=== PATIENT | male | born 1950 | race Caucasian/White ===

== ENCOUNTER → 2016-10-11 | Outpatient (REF) | payer MEDICARE, OTHER ==
[~2016-10-11] MED LIST: ALLO100T OR; ALTA10CA OR; ASPI81TA45 OR; CETI10TA OR; INDO50CA2 OR; LITH300T2 OR; NEUR100C PO; PROPYLTHIOURACIL PO; SIMV40TA2 OR; TRIC145T19 OR; VICO5TAB PO
[2016-10-11 11:50] LABS: BASO % 0.4 % (0.0-1.0); EOS # 0.3 K/mm3 (0.0-0.50); EOS % 3.3 % (0.0-3.0); LARGE UNSTAINED CELL # 0.3 K/mm3 (0.0-0.4); LARGE UNSTAINED CELL % 3.2 % (0.0-4.0); LYMPH % 21.2 % (24.0-44.0); MEAN CORPUSCULAR HEMOGLOBIN 30.1 pg (27.0-33.0); MEAN CORPUSCULAR HGB CONC 32.4 g/dl (32.0-36.5); MEAN CORPUSCULAR VOLUME 92.6 fl (80.0-96.0); MONO # 0.8 K/mm3 (0.0-0.8); NEUTROPHILS % 63.9 % (36.0-66.0); PLATELET COUNT, AUTOMATED 169 k/mm3 (150-450); RED CELL DISTRIBUTION WIDTH 12.6 % (11.5-14.5); WHITE BLOOD COUNT 9.3 K/mm3 (4.0-10.0)
[2016-10-11 12:21] LABS: ALBUMIN 3.7 GM/DL (3.2-5.2); ALBUMIN/GLOBULIN RATIO 1.09 (1.00-1.93); BILIRUBIN,TOTAL 0.5 MG/DL (0.2-1.0); CALCIUM LEVEL 9.5 MG/DL (8.8-10.2); CREATININE FOR GFR 1.98 MG/DL (0.70-1.30); FREE T4 0.96 NG/DL (0.76-1.46); GLOMERULAR FILTRATION RATE 36.3 (>49); POTASSIUM SERUM 4.3 MEQ/L (3.5-5.1); TOTAL PROTEIN 7.1 GM/DL (6.4-8.2); URIC ACID 5.5 MG/DL (3.5-7.2)
[2016-10-11 15:13] LABS: LITHIUM LEVEL 0.58 MEQ/L (0.60-1.20)
== END ==
LOC: M SFHCPLAZ 08:01
PROVIDERS: ATTEND Family Medicine
DX: E05.90 Thyrotoxicosis, unspecified without thyrotoxic crisis or storm (principal); E78.5 Hyperlipidemia, unspecified; R73.01 Impaired fasting glucose; F31.9 Bipolar disorder, unspecified; M10.9 Gout, unspecified

== ENCOUNTER → 2017-02-06 | Outpatient (REF) | payer MEDICARE, OTHER ==
[2017-02-06 12:25] LABS: BASO # 0.1 K/mm3 (0.0-0.2); BASO % 0.7 % (0.0-1.0); EOS # 0.4 K/mm3 (0.0-0.50); EOS % 4.4 % (0.0-3.0); LARGE UNSTAINED CELL # 0.3 K/mm3 (0.0-0.4); LARGE UNSTAINED CELL % 3.2 % (0.0-4.0); LYMPH # 1.8 K/mm3 (1.5-4.5); LYMPH % 19.7 % (24.0-44.0); MEAN CORPUSCULAR HEMOGLOBIN 31.3 pg (27.0-33.0); MEAN CORPUSCULAR HGB CONC 33.5 g/dl (32.0-36.5); MEAN CORPUSCULAR VOLUME 93.4 fl (80.0-96.0); MONO # 0.8 K/mm3 (0.0-0.8); MONO % 8.4 % (0.0-5.0); NEUTROPHILS # 5.9 K/mm3 (1.8-7.7); NEUTROPHILS % 63.7 % (36.0-66.0); PLATELET COUNT, AUTOMATED 168 k/mm3 (150-450); RED CELL DISTRIBUTION WIDTH 12.9 % (11.5-14.5); WHITE BLOOD COUNT 9.3 K/mm3 (4.0-10.0)
[2017-02-06 13:07] LABS: ALBUMIN 3.5 GM/DL (3.2-5.2); ALBUMIN/GLOBULIN RATIO 1.06 (1.00-1.93); BILIRUBIN,TOTAL 0.5 MG/DL (0.2-1.0); CALCIUM LEVEL 9.3 MG/DL (8.8-10.2); CREATININE FOR GFR 1.72 MG/DL (0.70-1.30); FREE T4 0.91 NG/DL (0.76-1.46); GLOMERULAR FILTRATION RATE 42.7 (>49); PERCENT SATURATION 19.3 % (19.7-37.4); POTASSIUM SERUM 4.4 MEQ/L (3.5-5.1); TOTAL PROTEIN 6.8 GM/DL (6.4-8.2)
[2017-02-06 13:18] LABS: LITHIUM LEVEL 0.23 MEQ/L (0.60-1.20)
== END ==
LOC: M SFHCPLAZ 08:38
PROVIDERS: ATTEND Family Medicine
DX: N18.3 Chronic kidney disease, stage 3 (moderate) (principal); E05.90 Thyrotoxicosis, unspecified without thyrotoxic crisis or storm; R73.01 Impaired fasting glucose; F31.9 Bipolar disorder, unspecified; E55.9 Vitamin D deficiency, unspecified; M47.816 Spondylosis without myelopathy or radiculopathy, lumbar region; L21.9 Seborrheic dermatitis, unspecified; M10.9 Gout, unspecified; N40.1 Benign prostatic hyperplasia with lower urinary tract symptoms; I12.9 Hypertensive chronic kidney disease with stage 1 through stage 4 chronic kidney disease, or unspecified chronic kidney disease; E78.5 Hyperlipidemia, unspecified

== ENCOUNTER → 2017-10-14 | Outpatient (REF) | payer MEDICARE, OTHER ==
[2017-10-14 11:57] LABS: BASO # 0.1 10^3/uL (0.0-0.2); BASO % 0.6 % (0.0-1.0); EOS # 0.8 10^3/uL (0.0-0.50); EOS % 7.2 % (0.0-3.0); HEMATOCRIT 49.4 % (42.0-52.0); IMMATURE GRANULOCYTE % 0.3 % (0-0); LYMPH # 1.8 10^3/uL (1.5-4.5); LYMPH % 17.2 % (24.0-44.0); MEAN CORPUSCULAR HEMOGLOBIN 29.5 pg (27.0-33.0); MEAN CORPUSCULAR HGB CONC 32.4 g/dl (32.0-36.5); MONO # 1.7 10^3/uL (0.0-0.8); NEUTROPHILS # 6.2 10^3/uL (1.8-7.7); NEUTROPHILS % 58.7 % (36.0-66.0); PLATELET COUNT, AUTOMATED 191 10^3/uL (150-450); RED BLOOD COUNT 5.43 10^6/uL (4.30-6.10); RED CELL DISTRIBUTION WIDTH 13.2 % (11.5-14.5); WHITE BLOOD COUNT 10.5 10^3/uL (4.0-10.0)
[2017-10-14 12:14] LABS: ESTIMATED AVERAGE GLUCOSE 128 MG/DL (60-110); HEMOGLOBIN A1c 6.1 %
[2017-10-14 12:24] LABS: ALBUMIN 3.7 GM/DL (3.2-5.2); ALBUMIN/GLOBULIN RATIO 1.06 (1.00-1.93); ALKALINE PHOSPHATASE 89 U/L (45-117); ALT/SGPT 32 U/L (12-78); ANION GAP 8 MEQ/L (8-16); AST/SGOT 25 U/L (7-37); BILIRUBIN,TOTAL 0.7 MG/DL (0.2-1.0); BLOOD UREA NITROGEN 26 MG/DL (7-18); CALCIUM LEVEL 9.6 MG/DL (8.8-10.2); CARBON DIOXIDE LEVEL 28 MEQ/L (21-32); CHLORIDE LEVEL 104 MEQ/L (98-107); CREATININE FOR GFR 1.94 MG/DL (0.70-1.30); GLUCOSE, FASTING 116 MG/DL (70-100); PSA SCREENING 1.54 NG/ML (< 4.0); SODIUM LEVEL 140 MEQ/L (136-145); TOTAL PROTEIN 7.2 GM/DL (6.4-8.2)
[2017-10-14 12:28] LABS: APPEARANCE, URINE CLEAR (CLEAR); BACTERIA, URINE AUTO NEGATIVE (NEGATIVE); BILIRUBIN, URINE AUTO NEGATIVE (NEGATIVE); BLOOD, URINE BLOOD NEGATIVE (NEGATIVE); COLOR, URINE STRAW (YELLOW); GLUCOSE, URINE (UA) AUTO NEGATIVE (NEGATIVE); KETONE, URINE AUTO NEGATIVE (NEGATIVE); LEUKOCYTE ESTERASE, URINE AUTO NEGATIVE (NEGATIVE); NITRITE, URINE AUTO NEGATIVE (NEGATIVE); PROTEIN, URINE AUTO 1+ mg/dL (NEGATIVE); RBC, URINE AUTO 0 /HPF (0-3); SPECIFIC GRAVITY URINE AUTO 1.006 (1.002-1.035); SQUAMOUS EPITHELIAL CELL UR AU 0 /HPF (0-6); UROBILINOGEN, URINE AUTO 0.2 mg/dL (0.0-2.0); WBC, URINE AUTO 1 /HPF (0-3)
[2017-10-14 12:38] LABS: PTH INTACT 49.5 PG/ML (14.0-72.0); TOTAL 25(OH) VITAMIN D 66.5 NG/ML (30.0-100.0)
== END ==
LOC: M SFHCPLAZ 08:53
DX: N18.3 Chronic kidney disease, stage 3 (moderate) (principal); E55.9 Vitamin D deficiency, unspecified; R73.01 Impaired fasting glucose; Z12.5 Encounter for screening for malignant neoplasm of prostate
CPT/HCPCS: 80053

== ENCOUNTER → 2018-02-10 | Outpatient (REF) | payer MEDICARE, OTHER ==
[2018-02-10 13:18] LABS: BASO # 0.1 10^3/uL (0.0-0.2); BASO % 0.5 % (0.0-1.0); EOS # 0.3 10^3/uL (0.0-0.50); EOS % 3.6 % (0.0-3.0); HEMATOCRIT 49.3 % (42.0-52.0); HEMOGLOBIN 15.8 g/dl (13.5-17.5); IMMATURE GRANULOCYTE % 0.4 % (0-3.0); LYMPH # 1.9 10^3/uL (1.5-4.5); MEAN CORPUSCULAR HEMOGLOBIN 29.5 pg (27.0-33.0); MONO # 0.9 10^3/uL (0.0-0.8); MONO % 10.1 % (0.0-5.0); NEUTROPHILS # 6.1 10^3/uL (1.8-7.7); NEUTROPHILS % 65.4 % (36.0-66.0); PLATELET COUNT, AUTOMATED 200 10^3/uL (150-450); RED BLOOD COUNT 5.36 10^6/uL (4.30-6.10); RED CELL DISTRIBUTION WIDTH 13.4 % (11.5-14.5); WHITE BLOOD COUNT 9.4 10^3/uL (4.0-10.0)
[2018-02-10 14:13] LABS: ALBUMIN 3.7 GM/DL (3.2-5.2); ALBUMIN/GLOBULIN RATIO 1.09 (1.00-1.93); ALKALINE PHOSPHATASE 89 U/L (45-117); ALT/SGPT 49 U/L (12-78); ANION GAP 11 MEQ/L (8-16); AST/SGOT 24 U/L (7-37); BILIRUBIN,TOTAL 0.7 MG/DL (0.2-1.0); BLOOD UREA NITROGEN 23 MG/DL (7-18); CALCIUM LEVEL 9.6 MG/DL (8.8-10.2); CARBON DIOXIDE LEVEL 24 MEQ/L (21-32); CHLORIDE LEVEL 109 MEQ/L (98-107); CREATININE FOR GFR 1.75 MG/DL (0.70-1.30); FREE T4 0.84 NG/DL (0.76-1.46); GLOMERULAR FILTRATION RATE 41.7 (>49); GLUCOSE, FASTING 113 MG/DL (70-100); MAGNESIUM LEVEL 2.4 MG/DL (1.8-2.4); POTASSIUM SERUM 4.3 MEQ/L (3.5-5.1); PSA SCREENING 1.27 NG/ML (< 4.0); SODIUM LEVEL 144 MEQ/L (136-145); TOTAL PROTEIN 7.1 GM/DL (6.4-8.2); URIC ACID 4.9 MG/DL (3.5-7.2)
[2018-02-10 14:14] LABS: LITHIUM LEVEL 0.55 MEQ/L (0.60-1.20)
[2018-02-10 14:33] LABS: ESTIMATED AVERAGE GLUCOSE 128 MG/DL (60-110); HEMOGLOBIN A1c 6.1 %
[2018-02-11 14:17] LABS: INSULIN LEVEL 42.2 uIU/mL (2.6-24.9)
== END ==
LOC: M SFHCPLAZ 09:20
DX: E05.90 Thyrotoxicosis, unspecified without thyrotoxic crisis or storm (principal); N18.3 Chronic kidney disease, stage 3 (moderate); R73.01 Impaired fasting glucose; M10.9 Gout, unspecified; F31.9 Bipolar disorder, unspecified; N40.1 Benign prostatic hyperplasia with lower urinary tract symptoms; Z12.5 Encounter for screening for malignant neoplasm of prostate
CPT/HCPCS: 83525

== ENCOUNTER → 2018-02-27 | Outpatient (REF) | payer MEDICARE, OTHER | LOC: M SFHCPLAZ 15:44 | DX: D23.5 Other benign neoplasm of skin of trunk (principal); D22.5 Melanocytic nevi of trunk; L85.8 Other specified epidermal thickening | CPT/HCPCS: 88305 ==

== ENCOUNTER → 2018-04-17 | Outpatient (REF) | payer MEDICARE, OTHER | LOC: M LAB REF 14:53 | DX: D22.5 Melanocytic nevi of trunk (principal) | CPT/HCPCS: 88305 ==

== ENCOUNTER → 2018-06-24 | Outpatient (REF) | payer MEDICARE, OTHER ==
[2018-06-24 12:22] LABS: BASO # 0.1 10^3/uL (0.0-0.2); BASO % 0.8 % (0.0-1.0); EOS # 0.4 10^3/uL (0.0-0.50); EOS % 4.9 % (0.0-3.0); HEMATOCRIT 51.3 % (42.0-52.0); HEMOGLOBIN 16.5 g/dl (13.5-17.5); IMMATURE GRANULOCYTE % 0.6 % (0-3.0); LYMPH # 1.8 10^3/uL (1.5-4.5); LYMPH % 20.7 % (24.0-44.0); MEAN CORPUSCULAR HEMOGLOBIN 30.2 pg (27.0-33.0); MEAN CORPUSCULAR HGB CONC 32.2 g/dl (32.0-36.5); MEAN CORPUSCULAR VOLUME 93.8 fl (80.0-96.0); MONO # 0.8 10^3/uL (0.0-0.8); MONO % 9.2 % (0.0-5.0); NEUTROPHILS # 5.7 10^3/uL (1.8-7.7); NEUTROPHILS % 63.8 % (36.0-66.0); PLATELET COUNT, AUTOMATED 197 10^3/uL (150-450); RED BLOOD COUNT 5.47 10^6/uL (4.30-6.10); RED CELL DISTRIBUTION WIDTH 13.3 % (11.5-14.5); WHITE BLOOD COUNT 8.9 10^3/uL (4.0-10.0)
[2018-06-24 12:59] LABS: AMORPHOUS SEDIMENT SMALL (NEGATIVE); APPEARANCE, URINE CLOUDY (CLEAR); BACTERIA, URINE AUTO NEGATIVE (NEGATIVE); BILIRUBIN, URINE AUTO NEGATIVE (NEGATIVE); BLOOD, URINE BLOOD NEGATIVE (NEGATIVE); COLOR, URINE YELLOW (YELLOW); GLUCOSE, URINE (UA) AUTO NEGATIVE (NEGATIVE); KETONE, URINE AUTO NEGATIVE (NEGATIVE); LEUKOCYTE ESTERASE, URINE AUTO NEGATIVE (NEGATIVE); MUCUS, URINE SMALL (NEGATIVE); NITRITE, URINE AUTO NEGATIVE (NEGATIVE); PROTEIN, URINE AUTO 1+ mg/dL (NEGATIVE); RBC, URINE AUTO 0 /HPF (0-3); SPECIFIC GRAVITY URINE AUTO 1.008 (1.002-1.035); SQUAMOUS EPITHELIAL CELL UR AU 0 /HPF (0-6); UROBILINOGEN, URINE AUTO 0.2 mg/dL (0.0-2.0); WBC, URINE AUTO 1 /HPF (0-3)
[2018-06-24 13:04] LABS: ALBUMIN 3.6 GM/DL (3.2-5.2); ALBUMIN/GLOBULIN RATIO 1.13 (1.00-1.93); ALKALINE PHOSPHATASE 72 U/L (45-117); ALT/SGPT 36 U/L (12-78); ANION GAP 12 MEQ/L (8-16); AST/SGOT 20 U/L (7-37); BILIRUBIN,TOTAL 0.5 MG/DL (0.2-1.0); BLOOD UREA NITROGEN 26 MG/DL (7-18); C REACTIVE PROTEIN QUANTITATIV 0.53 MG/DL (0.00-0.30); CALCIUM LEVEL 9.8 MG/DL (8.8-10.2); CARBON DIOXIDE LEVEL 22 MEQ/L (21-32); CHLORIDE LEVEL 108 MEQ/L (98-107); CHOLESTEROL LEVEL 240 MG/DL (<200); CHOLESTEROL RISK RATIO 5.581 (<5); CPK CREATINE PHOSPHOKINASE 153 U/L (39-308); CREATININE FOR GFR 1.76 MG/DL (0.70-1.30); GLOMERULAR FILTRATION RATE 41.3 (>49); GLUCOSE, FASTING 111 MG/DL (70-100); HDL CHOLESTEROL 43 MG/DL (>40); LITHIUM LEVEL 0.78 MEQ/L (0.60-1.20); NON-HDL-C 197 MG/DL; POTASSIUM SERUM 4.5 MEQ/L (3.5-5.1); PTH INTACT 40.2 PG/ML (18.5-88.0); SODIUM LEVEL 142 MEQ/L (136-145); TOTAL 25(OH) VITAMIN D 36.8 NG/ML (30.0-100.0); TOTAL PROTEIN 6.8 GM/DL (6.4-8.2); TRIGLYCERIDES LEVEL 423 MG/DL (<150)
[2018-06-24 13:15] LABS: ESTIMATED AVERAGE GLUCOSE 117 MG/DL (60-110); HEMOGLOBIN A1c 5.7 %
[2018-06-24 13:47] LABS: CREATININE, URINE 57.5 MG/DL
[2018-06-24 13:53] LABS: MAU/CREAT RATIO 507.8 MCG/MG (0.0-30.0)
== END ==
LOC: M SFHCPLAZ 09:49
DX: E05.90 Thyrotoxicosis, unspecified without thyrotoxic crisis or storm (principal); E78.5 Hyperlipidemia, unspecified; N18.3 Chronic kidney disease, stage 3 (moderate); R73.01 Impaired fasting glucose; F31.9 Bipolar disorder, unspecified; E55.9 Vitamin D deficiency, unspecified
CPT/HCPCS: 82550

== ENCOUNTER 2018-07-30 02:44 | Emergency (ER) | payer MEDICARE, BC, OTHER ==
[2018-07-30 03:11] LABS: KETONE, URINE AUTO RFX NEGATIVE (NEGATIVE); LEUKOCYTE ESTERASE UR AUTO RFX 3+ (NEGATIVE); MUCUS, URINE RFX SMALL (NEGATIVE); NITRITE, URINE AUTO RFX NEGATIVE (NEGATIVE); RBC, URINE AUTO RFX TNTC /HPF (0-3); SQUAM EPITHELIAL CELL UR AURFX 0 /HPF (0-6); WBC, URINE AUTO RFX TNTC /HPF (0-3)
[2018-07-30] MEDS: PHENAZOPYRIDINE 100 MG TAB PO (07:25)
[2018-07-30] MEDS: CIPROFLOXACIN 500 MG TAB PO (07:25)
== END 2018-07-30 07:39 | disposition home or self-care (01) ==
LOC: M ED 02:44
DX: N30.90 Cystitis, unspecified without hematuria (principal); I10 Essential (primary) hypertension; E07.9 Disorder of thyroid, unspecified; E78.9 Disorder of lipoprotein metabolism, unspecified; K21.9 Gastro-esophageal reflux disease without esophagitis; M10.9 Gout, unspecified; Z79.899 Other long term (current) drug therapy; Z79.82 Long term (current) use of aspirin
CPT/HCPCS: 81001

== ENCOUNTER → 2018-08-28 | Outpatient (CLI) | payer MEDICARE, BC, OTHER ==
[~2018-08-28] MED LIST changes: +CIPR-249 PO; +INDO50CA; +LITH1TAB; +METF-723; +PROP50TA3; +PYRI1TAB5 PO; +RAMI1CAP26; +ROSU40TA3; +SILD100T; +TRAM50TA2; +ULOR80TA; +VITA50005
--- NOTE | 2018-08-28 16:55 | REP ---
Clinical: Right groin pain. Technique: Real time prado scale ultrasound examination using linear high frequency transducer. Findings: Ultrasound examination of the right groin and left groin for comparison demonstrates no obvious inguinal hernia, fluid collection or mass lesion. A few scattered symmetric normal appearing lymph nodes are identified. Impression: Normal examination. No hernia identified. Electronically Signed by Keith Casiano MD 08/28/2018 04:47 P
== END ==
LOC: M RAD 11:23
PROVIDERS: ATTEND Nurse Practitioner Family
DX: R10.31 Right lower quadrant pain (principal)

== ENCOUNTER → 2018-09-15 | Outpatient (CLI) | payer MEDICARE, BC, OTHER ==
--- NOTE | 2018-09-15 13:13 | REP ---
LUMBAR SPINE, SEVEN VIEWS: HISTORY: Degenerative disc disease. COMPARISON: 06/22/2013. The patient is status-post L3-5 anterior and L4 to S1 posterior spinal fusion. Metal hardware and bone graft material are present. There is no acute fracture. The lumbar intervertebral discs are decreased in height consistent with disc degeneration. Anterior osteophytes are present throughout the lumbar spine. There is sclerosis of the endplates of the L3 and 4 vertebral bodies. The visualized lumbar facet joints are normal in appearance. There are 3 mm of grade 1 spondylolisthesis of L4 on 5. IMPRESSION:The patient is status-post L3-5 anterior and L4-S1 posterior spinal fusion. Electronically Signed by Harlan Rice MD 09/15/2018 01:14 P
--- NOTE | 2018-09-15 13:23 | REP ---
AP AND LATERAL RIGHT HIP, TWO VIEWS: HISTORY: Right groin pain. There is no acute fracture or dislocation. There is minimal narrowing of the hip joint space. IMPRESSION:Degenerative change as described above. Electronically Signed by Harlan Rice MD 09/15/2018 01:45 P
== END ==
LOC: M RAD 11:12
PROVIDERS: ATTEND Nurse Practitioner Family
DX: M43.16 Spondylolisthesis, lumbar region (principal); M25.78 Osteophyte, vertebrae; M47.816 Spondylosis without myelopathy or radiculopathy, lumbar region; R10.31 Right lower quadrant pain; Z96.698 Presence of other orthopedic joint implants; Z98.1 Arthrodesis status

== ENCOUNTER → 2018-12-30 | Outpatient (REF) | payer MEDICARE, OTHER ==
[2018-12-30 12:50] LABS: BASO # 0.1 10^3/uL (0.0-0.2); BASO % 0.7 % (0.0-1.0); EOS # 0.4 10^3/uL (0.0-0.50); EOS % 4.5 % (0.0-3.0); HEMATOCRIT 49.6 % (42.0-52.0); HEMOGLOBIN 15.9 g/dl (13.5-17.5); LYMPH # 1.9 10^3/uL (1.5-4.5); LYMPH % 21.6 % (24.0-44.0); MEAN CORPUSCULAR HEMOGLOBIN 30.5 pg (27.0-33.0); MEAN CORPUSCULAR HGB CONC 32.1 g/dl (32.0-36.5); MEAN CORPUSCULAR VOLUME 95.2 fl (80.0-96.0); MONO # 0.8 10^3/uL (0.0-0.8); MONO % 9.4 % (0.0-5.0); NEUTROPHILS # 5.6 10^3/uL (1.8-7.7); NEUTROPHILS % 63.5 % (36.0-66.0); PLATELET COUNT, AUTOMATED 192 10^3/uL (150-450); RED BLOOD COUNT 5.21 10^6/uL (4.30-6.10); WHITE BLOOD COUNT 8.9 10^3/uL (4.0-10.0)
[2018-12-30 12:56] LABS: CALCIUM LEVEL 9.5 MG/DL (8.8-10.2); CREATININE FOR GFR 1.76 MG/DL (0.70-1.30); GLOMERULAR FILTRATION RATE 41.3 (>49); POTASSIUM SERUM 4.3 MEQ/L (3.5-5.1)
[2018-12-30 12:57] LABS: ALBUMIN 3.7 GM/DL (3.2-5.2); BILIRUBIN,TOTAL 0.7 MG/DL (0.2-1.0); CHOLESTEROL RISK RATIO 2.804 (<5); FREE T4 0.82 NG/DL (0.76-1.46); LITHIUM LEVEL 0.55 MEQ/L (0.60-1.20); THYROID STIMULATING HORMONE 2.28 uIU/ML (0.358-3.740); TOTAL PROTEIN 6.8 GM/DL (6.4-8.2)
[2018-12-30 12:58] LABS: PTH INTACT 52.9 PG/ML (18.5-88.0)
[2018-12-30 16:17] LABS: HEMOGLOBIN A1c 5.9 %
== END ==
LOC: M SFHCPLAZ 09:50
PROVIDERS: ATTEND Family Medicine
DX: E05.90 Thyrotoxicosis, unspecified without thyrotoxic crisis or storm (principal); N18.3 Chronic kidney disease, stage 3 (moderate); R73.01 Impaired fasting glucose; F31.9 Bipolar disorder, unspecified; E78.5 Hyperlipidemia, unspecified

== ENCOUNTER → 2019-01-05 | Outpatient (REF) | payer MEDICARE, OTHER ==
[~2019-01-05] MED LIST changes: +ASPI81TA85 PO; +CYAN1000VL IM; -INDO50CA; +INDO50CA11; +VITATAB64 PO
[2019-01-05 15:51] LABS: APPEARANCE, URINE CLEAR (CLEAR); BACTERIA, URINE AUTO NEGATIVE (NEGATIVE); BILIRUBIN, URINE AUTO NEGATIVE (NEGATIVE); BLOOD, URINE BLOOD NEGATIVE (NEGATIVE); COLOR, URINE STRAW (YELLOW); GLUCOSE, URINE (UA) AUTO NEGATIVE (NEGATIVE); KETONE, URINE AUTO NEGATIVE (NEGATIVE); LEUKOCYTE ESTERASE, URINE AUTO NEGATIVE (NEGATIVE); NITRITE, URINE AUTO NEGATIVE (NEGATIVE); PROTEIN, URINE AUTO 1+ mg/dL (NEGATIVE); RBC, URINE AUTO 2 /HPF (0-3); SPECIFIC GRAVITY URINE AUTO 1.008 (1.002-1.035); SQUAMOUS EPITHELIAL CELL UR AU 0 /HPF (0-6); UROBILINOGEN, URINE AUTO 0.2 mg/dL (0.0-2.0); WBC, URINE AUTO 0 /HPF (0-3)
== END ==
LOC: M SFHCPLAZ 13:58
PROVIDERS: ATTEND Family Medicine
DX: N39.0 Urinary tract infection, site not specified (principal)

== ENCOUNTER 2019-01-18 07:56 | Day surgery (SDC) | payer MEDICARE, BC, OTHER ==
[~2019-01-18] VITALS: Ht 182.9 cm; Wt 131.9 kg
[~2019-01-18 07:56] MED LIST changes: +NS 1,000 ML IV ONE; +PROPOFOL 200 MG/20 ML VIAL As Ordered ONE
--- NOTE | 2019-01-18 09:25 | ROOR ---
Patient Name: Keith Herrera Procedure Date: 01/18/2019 8:56 AM Date of : 1950 Age: 68 Room: [facility] Gender: Male Note Status: Finalized Procedure: Total Colonoscopy to Cecum + Cold Snare Polypectomy + Hemoclips Indications: High risk colon cancer surveillance: Personal history of colonic polyps, Last colonoscopy: 2013 Providers: Alistair Sanchez MD Referring MD: Carlos Enrique Marinelli MD Requesting Provider: Medicines: Monitored Anesthesia Care Complications: No immediate complications. Procedure: Pre-Anesthesia Assessment: - The heart rate, respiratory rate, oxygen saturations, blood pressure, adequacy of pulmonary ventilation, and response to care were monitored throughout the procedure. The Colonoscope was introduced through the anus and advanced to the cecum, identified by appendiceal orifice and ileocecal valve. The colonoscopy was performed without difficulty. The patient tolerated the procedure well. The quality of the bowel preparation was excellent. Findings: The perianal and digital rectal examinations were normal. Non-bleeding internal hemorrhoids were found during retroflexion. The hemorrhoids were small and Grade I (internal hemorrhoids that do not prolapse). Scattered small-mouthed diverticula were found in the recto-sigmoid colon, sigmoid colon and descending colon. A large polyp was found in the mid ascending colon. The polyp was sessile. The polyp was removed with a cold snare. Polyp resection was incomplete. The resected tissue was retrieved. To prevent bleeding after the polypectomy, two hemostatic clips were successfully placed. There was no bleeding at the end of the procedure. The exam was otherwise without abnormality. Impression: - Non-bleeding internal hemorrhoids. - Diverticulosis in the recto-sigmoid colon, in the sigmoid colon and in the descending colon. - One large polyp in the mid ascending colon, removed with a cold snare. Incomplete resection. Resected tissue retrieved. Clips were placed. - The examination was otherwise normal. - The exam was otherwise normal to the cecum. Recommendation: - Patient has a contact number available for emergencies. The signs and symptoms of potential delayed complications were discussed with the patient. Return to normal activities tomorrow. Written discharge instructions were provided to the patient. - High fiber diet. - Discharge patient to home. - Continue present medications. - Await pathology results. - Telephone GI clinic for pathology results in 1 week. - Repeat colonoscopy for surveillance based on pathology results. - Return to referring physician. - The findings and recommendations were discussed with the patient's family. Alistair Sanchez MD Alistair Sanchez MD 01/18/2019 9:24:52 AM Electronically signed by Alistair Sanchez MD Number of Addenda: 0 Note Initiated On: 01/18/2019 8:56 AM Estimated Blood Loss: Estimated blood loss: none.
[2019-01-18] MEDS ORDERED: PROPOFOL 200 MG/20 ML VIAL As Ordered ONE (09:42)
[2019-01-18 09:45] VITALS: BP 131/98
== END 2019-01-18 09:56 | disposition home or self-care (01) ==
LOC: M OPP 07:56
PROVIDERS: ATTEND Internal Medicine Gastroenterology
DX: D12.2 Benign neoplasm of ascending colon (principal); K64.0 First degree hemorrhoids; K57.30 Diverticulosis of large intestine without perforation or abscess without bleeding; Z86.010 Personal history of colon polyps

== ENCOUNTER → 2019-01-19 | Outpatient (CLI) | payer MEDICARE, BC, OTHER ==
[~2019-01-19] MED LIST changes: -NS 1,000 ML IV ONE; -PROPOFOL 200 MG/20 ML VIAL As Ordered ONE
--- NOTE | 2019-01-19 17:27 | REP ---
Urinary tract sonography with renal artery Doppler flow study: History: UTI. Hypertension. Morphologic findings: Scanning of the level of the urinary bladder demonstrates a pre void bladder volume calculation of 335 ml. The postvoid residual is fairly large calculated at 239 ml, 71%. Visualized bladder sadler are smooth. Renal cortical echogenicity pattern is normal. There is no evidence of hydronephrosis on either side. There are small cortical cysts bilaterally. These include a 7 mm and a 6 mm cyst in the lower pole on the right, a 6 mm at a 7 mm cyst in the lower pole on the left, and 8 mm cyst mid kidney on the left. The right renal dimensions are 12.0 x 5.6 x 5.4 cm. The left kidney measures 12.3 x 5.8 x 5.6 cm. Impression: Small cortical cysts. No other morphologic abnormality. Fairly large postvoid bladder residual. Renal artery Doppler flow assessment: The study is technically compromised by bowel gas and patient body habitus. Neither aortic or main renal artery flow velocities could not be acquired. The right renal artery peak systolic flow velocity is observed in the renal hilus quite distally at 46 cm/sec and that in the renal hilus on the left is 45 cm/sec. Resistive indices and acceleration times are measured in the upper mid and lower pole intralobar arteries bilaterally. These values are normal. Impression: Significantly limited study. No indirect evidence to suggest renal artery stenosis. Electronically Signed by Thomas Ovalle MD 01/19/2019 05:31 P
== END ==
LOC: M RAD 08:14
PROVIDERS: ATTEND Family Medicine
DX: N18.3 Chronic kidney disease, stage 3 (moderate) (principal); N28.1 Cyst of kidney, acquired; N39.43 Post-void dribbling

== ENCOUNTER → 2019-03-31 | Outpatient (REF) | payer MEDICARE, BC, OTHER ==
[~2019-03-31] MED LIST changes: +CETI10CH PO; +CIAL10TA PO; +CYAN500T8 PO; +DICL1GEL3 TOP; +FINA5TAB2 PO; +FLOM0.4C39 PO; -INDO50CA11; +INDO50CA91; +INDO50CA91 PO; -LITH1TAB; +LITH1TAB PO; +NON-325T5 PO; -PROP50TA3; +PROP50TA3 PO; -RAMI1CAP26; +RAMI1CAP26 PO; -ROSU40TA3; +ROSU40TA4; +TORS10TA3 PO; -ULOR80TA; +ULOR80TA PO
[2019-03-31 12:33] LABS: ALBUMIN 3.7 GM/DL (3.2-5.2); BILIRUBIN,TOTAL 0.5 MG/DL (0.2-1.0); CALCIUM LEVEL 10.6 MG/DL (8.8-10.2); CREATININE FOR GFR 2.03 MG/DL (0.70-1.30); POTASSIUM SERUM 3.7 MEQ/L (3.5-5.1); TOTAL PROTEIN 7.3 GM/DL (6.4-8.2)
== END ==
LOC: M SFHCPLAZ 08:54
PROVIDERS: ATTEND Physician Assistant Medical
DX: I10 Essential (primary) hypertension (principal)
CPT/HCPCS: 36415; 80053; G0463

== ENCOUNTER → 2019-04-16 | Outpatient (REF) | payer MEDICARE, OTHER ==
[~2019-04-16] MED LIST changes: -CETI10CH PO; -CIAL10TA PO; -CYAN500T8 PO; -DICL1GEL3 TOP; -FINA5TAB2 PO; -FLOM0.4C39 PO; -INDO50CA91 PO; +LITH1TAB; -LITH1TAB PO; -NON-325T5 PO; +PROP50TA3; -PROP50TA3 PO; +RAMI1CAP26; -RAMI1CAP26 PO; -TORS10TA3 PO; +ULOR80TA; -ULOR80TA PO
[2019-04-16 12:29] LABS: ALBUMIN 3.4 GM/DL (3.2-5.2); CALCIUM LEVEL 9.2 MG/DL (8.8-10.2); CREATININE FOR GFR 1.92 MG/DL (0.70-1.30); GLOMERULAR FILTRATION RATE 37.4 (>49); LITHIUM LEVEL 0.55 MEQ/L (0.60-1.20); PHOSPHORUS LEVEL 3.7 MG/DL (2.5-4.9)
== END ==
LOC: M SFHCPLAZ 08:55
PROVIDERS: ATTEND Family Medicine
DX: N18.3 Chronic kidney disease, stage 3 (moderate) (principal)

== ENCOUNTER → 2019-05-28 | Outpatient (REF) | payer MEDICARE, OTHER ==
[2019-05-28 10:12] LABS: BASO # 0.1 10^3/uL (0.0-0.2); BASO % 0.7 % (0.0-1.0); EOS # 0.5 10^3/uL (0.0-0.5); EOS % 4.6 % (0.0-3.0); HEMATOCRIT 49.5 % (42.0-52.0); HEMOGLOBIN 15.4 g/dl (13.5-17.5); LYMPH # 2.3 10^3/uL (1.5-5.0); LYMPH % 19.3 % (24.0-44.0); MEAN CORPUSCULAR HEMOGLOBIN 29.4 pg (27.0-33.0); MEAN CORPUSCULAR HGB CONC 31.1 g/dl (32.0-36.5); MEAN CORPUSCULAR VOLUME 94.5 fl (80.0-96.0); MONO # 1.3 10^3/uL (0.0-0.8); MONO % 11.3 % (0.0-5.0); NEUTROPHILS # 7.4 10^3/uL (1.5-8.5); NEUTROPHILS % 63.8 % (36.0-66.0); PLATELET COUNT, AUTOMATED 210 10^3/uL (150-450); RED BLOOD COUNT 5.24 10^6/uL (4.30-6.10); WHITE BLOOD COUNT 11.6 10^3/uL (4.0-10.0)
[2019-05-28 10:41] LABS: HEMOGLOBIN A1c 6.2 %
[2019-05-28 10:51] LABS: ALBUMIN 3.5 GM/DL (3.2-5.2); BILIRUBIN,TOTAL 0.5 MG/DL (0.2-1.0); CALCIUM LEVEL 9.8 MG/DL (8.8-10.2); CREATININE FOR GFR 2.29 MG/DL (0.70-1.30); GLOMERULAR FILTRATION RATE 30.4 (>49); POTASSIUM SERUM 4.8 MEQ/L (3.5-5.1); TOTAL PROTEIN 6.9 GM/DL (6.4-8.2); URIC ACID 3.7 MG/DL (3.5-7.2)
[2019-05-28 10:52] LABS: FREE T4 0.79 NG/DL (0.76-1.46); THYROID STIMULATING HORMONE 3.12 uIU/ML (0.358-3.740)
== END ==
LOC: M SFHCPLAZ 08:28
PROVIDERS: ATTEND Family Medicine
DX: Z12.5 Encounter for screening for malignant neoplasm of prostate (principal); E05.90 Thyrotoxicosis, unspecified without thyrotoxic crisis or storm; M10.9 Gout, unspecified; R73.01 Impaired fasting glucose
CPT/HCPCS: 36415; 80053; 83036; 83525; 84439; 84443; 84550; 85025; G0103

== ENCOUNTER → 2019-06-09 | Outpatient (REF) | payer MEDICARE, OTHER ==
[2019-06-09 12:02] LABS: APPEARANCE, URINE CLEAR (CLEAR); BACTERIA, URINE AUTO NEGATIVE (NEGATIVE); BILIRUBIN, URINE AUTO NEGATIVE (NEGATIVE); BLOOD, URINE BLOOD NEGATIVE (NEGATIVE); COLOR, URINE STRAW (YELLOW); GLUCOSE, URINE (UA) AUTO NEGATIVE (NEGATIVE); KETONE, URINE AUTO NEGATIVE (NEGATIVE); LEUKOCYTE ESTERASE, URINE AUTO TRACE (NEGATIVE); MUCUS, URINE SMALL (NEGATIVE); NITRITE, URINE AUTO NEGATIVE (NEGATIVE); PROTEIN, URINE AUTO 1+ mg/dL (NEGATIVE); RBC, URINE AUTO 1 /HPF (0-3); SPECIFIC GRAVITY URINE AUTO 1.008 (1.002-1.035); SQUAMOUS EPITHELIAL CELL UR AU 1 /HPF (0-6); UROBILINOGEN, URINE AUTO 0.2 mg/dL (0.0-2.0); WBC, URINE AUTO 5 /HPF (0-3)
[2019-06-09 12:38] LABS: CREATININE, URINE 63.6 MG/DL; MAU/CREAT RATIO 276.7 MCG/MG (0.0-30.0)
[2019-06-09 13:08] LABS: ALBUMIN 3.4 GM/DL (3.2-5.2); BILIRUBIN,TOTAL 0.6 MG/DL (0.2-1.0); CALCIUM LEVEL 9.7 MG/DL (8.8-10.2); CREATININE FOR GFR 2.38 MG/DL (0.70-1.30); GLOMERULAR FILTRATION RATE 29.1 (>49); LITHIUM LEVEL 0.85 MEQ/L (0.60-1.20); MAGNESIUM LEVEL 2.3 MG/DL (1.8-2.4); POTASSIUM SERUM 4.6 MEQ/L (3.5-5.1); TOTAL PROTEIN 6.9 GM/DL (6.4-8.2)
== END ==
LOC: M SFHCPLAZ 09:03
PROVIDERS: ATTEND Family Medicine
DX: N18.3 Chronic kidney disease, stage 3 (moderate) (principal); E05.90 Thyrotoxicosis, unspecified without thyrotoxic crisis or storm; M47.816 Spondylosis without myelopathy or radiculopathy, lumbar region; Z79.899 Other long term (current) drug therapy; Z79.82 Long term (current) use of aspirin

== ENCOUNTER → 2019-07-23 | Outpatient (REF) | payer MEDICARE, OTHER ==
[~2019-07-23] MED LIST changes: +CETI10CH PO; +CIAL10TA PO; +CYAN500T8 PO; +DICL1GEL3 TOP; +FINA5TAB2 PO; +FLOM0.4C39 PO; +INDO50CA91 PO; -LITH1TAB; +LITH1TAB PO; +NON-325T5 PO; -PROP50TA3; +PROP50TA3 PO; -RAMI1CAP26; +RAMI1CAP26 PO; +TORS10TA3 PO; -ULOR80TA; +ULOR80TA PO
[2019-07-23 14:00] LABS: ALBUMIN 3.8 GM/DL (3.2-5.2); CALCIUM LEVEL 10.3 MG/DL (8.8-10.2); CREATININE FOR GFR 1.84 MG/DL (0.70-1.30); FREE T4 0.87 NG/DL (0.76-1.46); GLOMERULAR FILTRATION RATE 39.1 (>49); PHOSPHORUS LEVEL 2.8 MG/DL (2.5-4.9); THYROID STIMULATING HORMONE 2.1 uIU/ML (0.358-3.740)
[2019-07-23 14:44] LABS: HEMOGLOBIN A1c 6.2 %
== END ==
LOC: M SFHCPLAZ 10:38
PROVIDERS: ATTEND Family Medicine
DX: I10 Essential (primary) hypertension (principal); E05.90 Thyrotoxicosis, unspecified without thyrotoxic crisis or storm; R73.01 Impaired fasting glucose
CPT/HCPCS: 36415; 51798; 80069; 83036; 83880; 84439; 84443; G0463

== ENCOUNTER → 2019-10-09 | Outpatient (CLI) | payer MEDICARE, BC, OTHER ==
[2019-10-09 18:05] LABS: BASO # 0.1 10^3/uL (0.0-0.2); EOS # 0.5 10^3/uL (0.0-0.5); EOS % 4.8 % (0.0-3.0); HEMATOCRIT 52.1 % (42.0-52.0); HEMOGLOBIN 16.6 g/dl (13.5-17.5); LYMPH % 19.1 % (24.0-44.0); MEAN CORPUSCULAR HEMOGLOBIN 29.9 pg (27.0-33.0); MEAN CORPUSCULAR HGB CONC 31.9 g/dl (32.0-36.5); MEAN CORPUSCULAR VOLUME 93.7 fl (80.0-96.0); MONO # 1.2 10^3/uL (0.0-0.8); MONO % 11.3 % (0.0-5.0); NEUTROPHILS # 6.5 10^3/uL (1.5-8.5); NEUTROPHILS % 63.4 % (36.0-66.0); PLATELET COUNT, AUTOMATED 233 10^3/uL (150-450); RED BLOOD COUNT 5.56 10^6/uL (4.30-6.10); WHITE BLOOD COUNT 10.3 10^3/uL (4.0-10.0)
[2019-10-09 18:23] LABS: INR 1.02; PROTHROMBIN TIME 13.1 SECONDS (11.8-14.0)
[2019-10-09 18:43] LABS: ALBUMIN 3.9 GM/DL (3.2-5.2); BILIRUBIN,TOTAL 0.5 MG/DL (0.2-1.0); CALCIUM LEVEL 9.9 MG/DL (8.8-10.2); CREATININE FOR GFR 2.07 MG/DL (0.70-1.30); GLOMERULAR FILTRATION RATE 34.2 (>49); POTASSIUM SERUM 4.1 MEQ/L (3.5-5.1); TOTAL PROTEIN 7.4 GM/DL (6.4-8.2)
== END ==
LOC: M WUC 12:57
PROVIDERS: ATTEND Physician Assistant
DX: R23.3 Spontaneous ecchymoses (principal)

== ENCOUNTER → 2020-01-20 | Outpatient (REF) | payer MEDICARE, BC, OTHER ==
[~2020-01-20] MED LIST changes: +ACET-838 PO; +ASPI81TA26 PO; -ASPI81TA85 PO; +ASPI81TA86 PO; +CYAN500T14 PO; -CYAN500T8 PO; +ELIQ5TAB PO; -NON-325T5 PO; +RAMI1CAP24 PO; +VITA50005 PO
[2020-01-20 15:58] LABS: BASO # 0.1 10^3/uL (0.0-0.2); BASO % 0.8 % (0.0-1.0); EOS # 0.5 10^3/uL (0.0-0.5); EOS % 4.6 % (0.0-3.0); HEMATOCRIT 51.7 % (42.0-52.0); HEMOGLOBIN 16.8 g/dl (13.5-17.5); LYMPH # 2.1 10^3/uL (1.5-5.0); LYMPH % 21.2 % (24.0-44.0); MEAN CORPUSCULAR HEMOGLOBIN 30.8 pg (27.0-33.0); MEAN CORPUSCULAR HGB CONC 32.5 g/dl (32.0-36.5); MEAN CORPUSCULAR VOLUME 94.7 fl (80.0-96.0); MONO % 10.3 % (0.0-5.0); NEUTROPHILS # 6.3 10^3/uL (1.5-8.5); NEUTROPHILS % 62.7 % (36.0-66.0); PLATELET COUNT, AUTOMATED 228 10^3/uL (150-450); RED BLOOD COUNT 5.46 10^6/uL (4.30-6.10)
[2020-01-20 16:07] LABS: ALBUMIN 3.8 GM/DL (3.2-5.2); BILIRUBIN,TOTAL 0.5 MG/DL (0.2-1.0); CALCIUM LEVEL 10.1 MG/DL (8.8-10.2); CHOLESTEROL RISK RATIO 5.357 (<5); CREATININE FOR GFR 1.88 MG/DL (0.70-1.30); FREE T4 0.91 NG/DL (0.76-1.46); GLOMERULAR FILTRATION RATE 38.2 (>49); LITHIUM LEVEL 0.77 MEQ/L (0.60-1.20); MAGNESIUM LEVEL 2.4 MG/DL (1.8-2.4); POTASSIUM SERUM 4.4 MEQ/L (3.5-5.1); THYROID STIMULATING HORMONE 2.95 uIU/ML (0.358-3.740); TOTAL PROTEIN 7.2 GM/DL (6.4-8.2)
[2020-01-20 16:19] LABS: HEMOGLOBIN A1c 5.6 %
== END ==
LOC: M PLALAB 13:12
PROVIDERS: ATTEND Family Medicine
DX: F31.9 Bipolar disorder, unspecified (principal); I10 Essential (primary) hypertension; E05.90 Thyrotoxicosis, unspecified without thyrotoxic crisis or storm; E78.5 Hyperlipidemia, unspecified; R73.01 Impaired fasting glucose
CPT/HCPCS: 36415; 80053; 80061; 80178; 83036; 83735; 84439; 84443; 85025; G0463

== ENCOUNTER → 2020-02-22 | Outpatient (CLI) | payer MEDICARE, BC, OTHER ==
[~2020-02-22] MED LIST changes: -ACET-838 PO; -ASPI81TA26 PO; +ASPI81TA85 PO; -ASPI81TA86 PO; -CYAN500T14 PO; +CYAN500T8 PO; -ELIQ5TAB PO; +NON-325T5 PO; -RAMI1CAP24 PO; -VITA50005 PO
--- NOTE | 2020-02-23 11:08 | REP ---
MRI LEFT FOOT WITHOUT CONTRAST: HISTORY: Mass over 2nd metatarsal. No comparison imaging. TECHNIQUE: Axial, coronal, and sagittal imaging planes are utilized. T1- and T2-weighted scans were obtained with and without fat saturation. MRI FINDINGS: Cortical and medullary bone signal intensity are normal. There is soft tissue edema and induration in the dorsal soft tissues over the midfoot, forefoot, and ankle region. This appears diffuse. No soft tissue mass is appreciated. The talar dome and tibial plafond appear intact. There are subcortical cysts in the calcaneus. Plantar fascia appears smooth. Achilles tendon is unremarkable as seen. There is osteoarthritic spurring at the 1st MTP joint. Mild spurring is seen at the 2nd MTP joint. IMPRESSION: Diffuse dorsal soft tissue induration and edema. No soft tissue mass is appreciated. Osteoarthritic changes. Electronically Signed by Thomas Ovalle MD 02/23/2020 05:12 P
== END ==
LOC: M RAD 15:49
PROVIDERS: ATTEND Podiatrist
DX: D49.2 Neoplasm of unspecified behavior of bone, soft tissue, and skin (principal)

== ENCOUNTER → 2020-04-24 | Outpatient (REF) | payer MEDICARE, BC, OTHER ==
[~2020-04-24] MED LIST changes: -ASPI81TA85 PO; +ASPI81TA86 PO
[2020-06-09 14:40] LABS: BASO # 0.1 10^3/uL (0.0-0.2); BASO % 0.7 % (0.0-1.0); EOS # 0.4 10^3/uL (0.0-0.5); EOS % 3.4 % (0.0-3.0); HEMATOCRIT 53.2 % (42.0-52.0); HEMOGLOBIN 16.8 g/dl (13.5-17.5); MEAN CORPUSCULAR HEMOGLOBIN 30.6 pg (27.0-33.0); MEAN CORPUSCULAR HGB CONC 31.6 g/dl (32.0-36.5); MEAN CORPUSCULAR VOLUME 96.9 fl (80.0-96.0); MONO # 1.1 10^3/uL (0.0-0.8); NEUTROPHILS # 7.8 10^3/uL (1.5-8.5); NEUTROPHILS % 68.6 % (36.0-66.0); PLATELET COUNT, AUTOMATED 235 10^3/uL (150-450); RED BLOOD COUNT 5.49 10^6/uL (4.30-6.10); WHITE BLOOD COUNT 11.4 10^3/uL (4.0-10.0)
[2020-06-19 23:52] LABS: BILIRUBIN,TOTAL 0.5 MG/DL (0.2-1.0); CALCIUM LEVEL 9.7 MG/DL (8.8-10.2); CREATININE FOR GFR 2.05 MG/DL (0.70-1.30); GLOMERULAR FILTRATION RATE 34.4 (>49); POTASSIUM SERUM 4.3 MEQ/L (3.5-5.1); TOTAL PROTEIN 7.2 GM/DL (6.4-8.2)
== END ==
LOC: M LABWUC 11:04
PROVIDERS: ATTEND Physician Assistant
DX: R10.9 Unspecified abdominal pain (principal)

== ENCOUNTER → 2020-05-01 | Outpatient (CLI) | payer MEDICARE, BC, OTHER ==
[2020-05-01 16:43] LABS: HEMATOCRIT 51.7 % (42.0-52.0); HEMOGLOBIN 16.2 g/dl (13.5-17.5); MEAN CORPUSCULAR HEMOGLOBIN 30.3 pg (27.0-33.0); MEAN CORPUSCULAR HGB CONC 31.3 g/dl (32.0-36.5); MEAN CORPUSCULAR VOLUME 96.8 fl (80.0-96.0); PLATELET COUNT, AUTOMATED 222 10^3/uL (150-450); RED BLOOD COUNT 5.34 10^6/uL (4.30-6.10); WHITE BLOOD COUNT 10.7 10^3/uL (4.0-10.0)
[2020-05-01 17:07] LABS: ALBUMIN 3.6 GM/DL (3.2-5.2); ALT/SGPT 30 U/L (12-78); BILIRUBIN,TOTAL 0.4 MG/DL (0.2-1.0); BLOOD UREA NITROGEN 27 MG/DL (7-18); CALCIUM LEVEL 9.7 MG/DL (8.8-10.2); CARBON DIOXIDE LEVEL 28 MEQ/L (21-32); CHLORIDE LEVEL 109 MEQ/L (98-107); CREATININE FOR GFR 1.92 MG/DL (0.70-1.30); GLOMERULAR FILTRATION RATE 37.3 (>49); GLUCOSE, FASTING 90 MG/DL (70-100); POTASSIUM SERUM 4.3 MEQ/L (3.5-5.1); SODIUM LEVEL 143 MEQ/L (136-145); TOTAL PROTEIN 7.1 GM/DL (6.4-8.2); TROPONIN I < 0.02 NG/ML (< 0.10)
== END ==
LOC: M PLALAB 12:51
PROVIDERS: ATTEND Family Medicine
DX: N18.3 Chronic kidney disease, stage 3 (moderate) (principal)
CPT/HCPCS: 36415; 80053; 84484; 85027; G0463

== ENCOUNTER → 2020-05-30 | Outpatient (CLI) | payer MEDICARE, BC, OTHER | LOC: M LABSMTC 10:04 | PROVIDERS: ATTEND Family Medicine | DX: Z20.828 Contact with and (suspected) exposure to other viral communicable diseases (principal) | CPT/HCPCS: C9803; U0003 ==

== ENCOUNTER 2020-09-04 11:00 | Inpatient (IN) | payer MEDICARE, BC, OTHER ==
[~2020-09-04] VITALS: Ht 180.3 cm; Wt 130.7 kg
[~2020-09-04 11:00] MED LIST changes: +ACET-838 PO; +CYAN500T14 PO; -CYAN500T8 PO; -NON-325T5 PO
[2020-09-04 11:37] LABS: BASO # 0.1 10^3/uL (0.0-0.2); BASO % 0.5 % (0.0-1.0); EOS # 0.9 10^3/uL (0.0-0.5); EOS % 7.3 % (0.0-3.0); HEMATOCRIT 49.7 % (42.0-52.0); HEMOGLOBIN 16.1 g/dl (13.5-17.5); LYMPH # 1.2 10^3/uL (1.5-5.0); LYMPH % 9.4 % (24.0-44.0); MEAN CORPUSCULAR HEMOGLOBIN 30.4 pg (27.0-33.0); MEAN CORPUSCULAR HGB CONC 32.4 g/dl (32.0-36.5); MEAN CORPUSCULAR VOLUME 93.8 fl (80.0-96.0); MONO # 1.1 10^3/uL (0.0-0.8); MONO % 8.9 % (0.0-5.0); NEUTROPHILS # 9.4 10^3/uL (1.5-8.5); NEUTROPHILS % 73.5 % (36.0-66.0); PLATELET COUNT, AUTOMATED 172 10^3/uL (150-450); WHITE BLOOD COUNT 12.8 10^3/uL (4.0-10.0)
--- NOTE | 2020-09-04 11:43 | REP ---
INDICATION: DYSPNEA/COUGH COMPARISON: None. TECHNIQUE: Portable AP view of the chest FINDINGS: The mediastinum and cardiac silhouette are within normal limits for portable technique. The lung dover are relatively clear and without obvious focal consolidation, effusion, or pneumothorax. Skeletal structures intact. IMPRESSION: No obvious acute cardiopulmonary process appreciated. <Electronically signed by Keith Casiano > 09/04/20 [id number]
[2020-09-04 12:12] LABS: ALBUMIN 3.3 GM/DL (3.2-5.2); ALT/SGPT 34 U/L (12-78); BILIRUBIN,DIRECT < 0.1 MG/DL (0.0-0.2); BILIRUBIN,TOTAL 0.6 MG/DL (0.2-1.0); LITHIUM LEVEL 0.57 MEQ/L (0.60-1.20); TOTAL PROTEIN 6.6 GM/DL (6.4-8.2)
[2020-09-04] MEDS ORDERED: NITROGLYCERIN 0.4 MG SUBL TABLET SL STA (12:14)
[2020-09-04] MEDS ORDERED: ASPIRIN 81 MG CHEW TABLET PO ONE (12:15)
[2020-09-04] MEDS ORDERED: NS 500 ML IV ONE (12:30)
[2020-09-04] MEDS ORDERED: ISOVUE-370 76% 100ML VIAL As Ordered ONE (12:34)
--- NOTE | 2020-09-04 13:18 | REP ---
INDICATION: SOB; r/o PE. COMPARISON: None. TECHNIQUE: Contrast dose: 50 ML of Isovue [address] technique: Helical scanning is acquired and overlapping 1.5 mm and contiguous 3 mm axial images are reformatted. In addition, maximum intensity projection and multiplanar re-formation images are generated in sagittal and coronal imaging projections. FINDINGS: There is good opacification of the pulmonary arterial tree. There is extensive bilateral pulmonary embolus with a saddle embolus crossing the bifurcation of the main pulmonary artery. There is extensive filling defect in the pulmonary arterial tree involving the right upper lobe, right lower lobe, right middle lobe, and left upper lobe. There is a small amount of thrombus in the left lower lobe. Interventricular septum is straight, and right ventricular dilation is seen. These findings are is suggestive of right heart strain. There is some left coronary artery vascular calcification. There is no evidence of infiltrate, mass, or significant pulmonary nodule in the lung dover. There is a tiny granulomatous calcification in the right middle lobe. No pleural effusion is seen. In the upper abdomen, normal adrenal glands are observed. There is evidence of mild fatty infiltration of the liver. A small low-density areas seen in the posterior aspect of the right lobe of the liver 1.7 centimeters in diameter. This may be a hepatic cyst. There is a small accessory splenule. The visualized upper abdominal structures are otherwise unremarkable. IMPRESSION: Extensive bilateral pulmonary emboli, saddle embolus. Evidence of right heart strain.. Critical Findings: Large bilateral pulmonary emboli (saddle embolus). Evidence of right heart strain. The critical information above was relayed directly by me by telephone to RAAD CASSIDY on 09/04/2020 at 1:10 pm with readback verification. <Electronically signed by Alvarado Ovalle > 09/04/20 [id number]
[2020-09-04] MEDS ORDERED: HEPARIN SOD (PORCINE) 5000UNITS/ML 1ML VIAL/SYRINGE IV ONE (13:30)
[2020-09-04 13:46] LABS: INR 0.98; PROTHROMBIN TIME 13.2 SECONDS (12.5-14.3)
[2020-09-04 13:47] LABS: PARTIAL THROMBOPLASTIN TIME 29.2 SECONDS (24.2-38.5)
[2020-09-04] MEDS: HEPARIN DRIP 25,000 UNITS in IV 1 EA IV SCH ×3 (13:57→23:02)
[2020-09-04] MEDS ORDERED: ACETAMINOPHEN TAB 650MG DOSE (2X325MG) PO PRN (15:45)
[2020-09-04] MEDS ORDERED: HEPARIN SOD (PORCINE) 5000UNITS/ML 1ML VIAL/SYRINGE IV PRN (16:15)
--- NOTE | 2020-09-04 17:21 | HPEPDOC ---
[facility] Medical History & Physical Date of Admission Sep 04, 2020 Date of Service: Sep 04, 2020 Attending Physician: ELYSE GRANT MD History and Physical CHIEF COMPLAINT: SOB, chest pain HISTORY OF PRESENT ILLNESS: 70 yo M with morbid obesity, DM, HTN, MANDI, hyperthyroidism, bipolar and HLD who presented with acute SOB and was notably tachycardic and found to have extensive bilateral PEs with saddle embolus with evidence R heart strain and trop leak. In the ED, he was mildly hypertensive and tachycardic to low 100s and eventually requiring 1L NC. Work up was notable for WBC 12.8, Hgb 16.1, platelets 172, na 139, K 3.6, Cr 1.7 (at recent baseline), troponin 0.05-->0.16 and a CTA chest showed extensive bilateral PEs with saddle embolus with evidence of right heart strain. Given the trop leak and saddle embolus, the ED consulted Dr. Lewis who recommended heparin gtt and stat TTE. Of note, covid-19 was negative. PAST MEDICAL HISTORY: morbid obesity, DM, HTN, MANDI, hyperthyroidism, bipolar and HLD PAST SURGICAL HISTORY: Appendectomy Orthopedic back surgeries x 2 SOCIAL HISTORY: Non smoker Casual alcohol No illicit drugs FAMILY HISTORY: Mother: . Had cancer ALLERGIES: Please see below. REVIEW OF SYSTEMS: 12 point ROS was reviewed and was otherwise negative except noted in the HPI HOME MEDICATIONS: Please see below. PHYSICAL EXAMINATION: VITAL SIGNS: HDS, afebrile, requiring 1L NC GENERAL APPEARANCE: Obese, NAD, nasal canula in place HEENT: NCAT, EOMI, MMM, PERRLA CARDIOVASCULAR: RRR, no noted m/r/g LUNGS: CTAB at this time without wheezing or crackles ABDOMEN: Obese, soft, normoactive bowel sounds, NTND EXTREMITIES: WWP, chronic dependent edema, tight calves bilaterally NEUROLOGICAL: CN3-12 intact, moving all extremities, speech without dysarthria PSYCHIATRIC: Aox3 LABORATORY DATA: summarized above IMAGING: summarized above CTA chest: FINDINGS: There is good opacification of the pulmonary arterial tree. There is extensive bilateral pulmonary embolus with a saddle embolus crossing the bifurcation of the main pulmonary artery. There is extensive filling defect in the pulmonary arterial tree involving the right upper lobe, right lower lobe, right middle lobe, and left upper lobe. There is a small amount of thrombus in the left lower lobe. Interventricular septum is straight, and right ventricular dilation is seen. These findings are is suggestive of right heart strain. There is some left coronary artery vascular calcification. There is no evidence of infiltrate, mass, or significant pulmonary nodule in the lung dover. There is a tiny granulomatous calcification in the right middle lobe. No pleural effusion is seen. In the upper abdomen, normal adrenal glands are observed. There is evidence of mild fatty infiltration of the liver. A small low-density areas seen in the posterior aspect of the right lobe of the liver 1.7 centimeters in diameter. This may be a hepatic cyst. There is a small accessory splenule. The visualized upper abdominal structures are otherwise unremarkable. IMPRESSION: Extensive bilateral pulmonary emboli, saddle embolus. Evidence of right heart strain.. Critical Findings: Large bilateral pulmonary emboli (saddle embolus). Evidence of right heart strain. The critical information above was relayed directly by me by telephone to RAAD CASSIDY on 09/04/2020 at 1:10 pm with readback verification. CXR: No acute cardiopulmonary pathology MICROBIOLOGY: Please see below. ASSESSMENT: 70 yo M with morbid obesity, DM, HTN, MANDI, hyperthyroidism, bipolar and HLD who is admitted for extensive bilateral PEs with saddle embolus with evidence R heart strain and trop leak. Bilateral unprovoked PEs: -On heparin gtt -had stat echo, pending read -Dr. Haile recommended heparin gtt and monitoring for now, no invasive intervention at this time. -telemetry -supplemental O2 -will check peripheral smear, fibrinogen, LDH, ferritin, CRP -His is incredibly consumptive at this time such that a hypercoagulability workup beyond genetic studies will not yield useful information at this time. To be done at 6 weeks from start of treatment per MITZI guidelines. -covid-19 was negative but depending on the ferritin, LDH, CRP may warrant re- sampling -History of colonic polyps--> last colonsocopy in 2019 with removal of a few polyps Hypertension: -continue home ramipril 5mg QD Hyperthyroidism: -continue home PTU Bipolar disorder: -continue home lithium Gout: -continue home febuxostat, hold indomethacin PRN with CKD3 History of CHF? -continue home torsemide 10mg QD. Will hold escalating diuretics for now DVT ppx: heparin gtt Vital Signs Vital Signs Date Time Temp Pulse Resp B/P (MAP) Pulse Ox O2 Delivery O2 Flow Rate FiO2 09/04/20 14:45 108 18 130/65 (86) 94 Nasal Cannula 1.0 09/04/20 11:18 97.0 Laboratory Data Labs 24H Laboratory Tests 2 09/04/20 11:24: Immature Granulocyte % (Auto) 0.4, Neutrophils (%) (Auto) 73.5H, Lymphocytes (%) (Auto) 9.4L, Monocytes (%) (Auto) 8.9H, Eosinophils (%) (Auto) 7.3H, Basophils (%) (Auto) 0.5, Neutrophils # (Auto) 9.4H, Lymphocytes # (Auto) 1.2L, Monocytes # (Auto) 1.1H, Eosinophils # (Auto) 0.9H, Basophils # (Auto) 0.1, Nucleated Red Blood Cells % (auto) 0.0, Total Bilirubin 0.6, Direct Bilirubin < 0.1, Aspartate Amino Transf (AST/SGOT) 26, Alanine Aminotransferase (ALT/SGPT) 34, Alkaline Phosphatase 77, Total Protein 6.6, Albumin 3.3, Albumin/Globulin Ratio 1.0, [place] Level 0.57L 09/04/20 11:26: POC Glucose (Misc Panel) 132H, POC Sodium (Misc Panel) 139, POC Potassium (Misc Panel) 3.6, POC Chloride (Misc Panel) 107, POC Total CO2 (Misc Panel) 24.0, POC Blood Urea Nitrogen (Misc Panel 23, POC Ionized Calcium (Misc Panel) 4.9, POC Creatinine (Misc Panel) 1.7H, POC Hematocrit (Misc Panel) 47.0 09/04/20 11:29: POC Troponin I (Misc) 0.05 09/04/20 13:11: Prothrombin Time 13.2, Prothromb Time International Ratio 0.98, Activated Partial Thromboplast Time 29.2 09/04/20 13:41: POC Troponin I (Misc) 0.16H 09/04/20 14:05: Coronavirus (COVID-19)(PCR) NEGATIVE CBC/BMP Laboratory Tests 09/04/20 11:24 Home Medications Scheduled Aspirin (Aspir 81) 81 Mg Tablet.dr, 81 MG PO DAILY Cetirizine HCl (Cetirizine HCl) 10 Mg Tab.chew, 10 MG PO DAILY Cyanocobalamin (Vitamin B-12) (Vitamin B-12) 500 Mcg Tablet, Unknown Dose PO DA ANITRA Ergocalciferol (Vitamin D2) (Vitamin D2) 50,000 Unit Cap, weekly Febuxostat (Uloric) 80 Mg Tab, PO DAILY Indomethacin (Indomethacin) 50 Mg Capsule, 50 MG PO PRN [place] Carbonate ([place] Carbonate ER) 300 Mg Tabcr, PO BID Propylthiouracil (Propylthiouracil) 50 Mg Tab, 2 TAB PO BID Ramipril (Ramipril) 10 Mg Cap, 5 MG PO DAILY Tadalafil (Cialis) 10 Mg Tablet, Unknown Dose PO PRN Torsemide (Torsemide) 10 Mg Tablet, 10 MG PO DAILY Scheduled PRN Acetaminophen (Acetaminophen) 325 Mg Tablet, 325 MG PO PRN PRN for PAIN Tramadol HCl (Tramadol HCl) 50 Mg Tab, QHSP PRN for PAIN Allergies Coded Allergies: No Known Allergies (Verified , 08/11/19) A-FIB/CHADSVASC A-FIB History Current/History of A-Fib/PAF?: No Current PO Anticoag Therapy: No Age/Risk Factor Scoring CHADSVASC: CHADSVASC Response (Comments) Value Age Risk Factor Age 65-74 years old 1 Gender Risk Factor Male 0 Hx of CHF Yes 1 Hx of HTN Yes 1 Hx of Stroke/TIA/or VTE Yes 2 Hx of Diabetes No 0 Hx of Vascular Disease Yes 1 Total 6 Treatment Treatment ordered: Heparin IV bridge Therapy Other reason anticoagulant not: heparin gtt ELYSE GRANT MD Sep 04, 2020 15:55
[2020-09-04] MEDS ORDERED: LABETALOL 100MG/20ML VIAL IV STA (17:23)
[2020-09-04] MEDS ORDERED: ramipriL 5 MG CAP PO SCH (17:30)
[2020-09-04 17:31] LABS: C REACTIVE PROTEIN QUANTITATIV 1.19 MG/DL (0.00-0.30); TROPONIN I 0.34 NG/ML (< 0.10)
[2020-09-04 17:36] LABS: PARTIAL THROMBOPLASTIN TIME 231.4 SECONDS (24.2-38.5)
[2020-09-04] MEDS ORDERED: VITA50005 PO (18:08)
[2020-09-04] MEDS ORDERED: RAMI1CAP24 PO (18:08)
[2020-09-04] MEDS ORDERED: ASPI81TA26 PO (18:08)
--- NOTE | 2020-09-04 18:50 | REPVR ---
PROCEDURE INFORMATION: Exam: US Duplex Lower Extremity Veins, Bilateral Exam date and time: 09/04/2020 6:35 PM Age: 70 years old Clinical indication: Swelling (edema) of limb; Lower extremity, bilateral; Additional info: Saddle pe with bilateral le edema TECHNIQUE: Imaging protocol: Real-time duplex ultrasound of the extremities with 2-D prado scale, color Doppler flow and spectral waveform analysis with image documentation. Complete exam focused on the bilateral lower extremity veins. COMPARISON: US Duplex, Ext,LOWER veins,unilat LEFT 03/19/2016 1:46 PM FINDINGS: Right deep veins: Unremarkable. The common femoral, femoral, proximal profunda femoral and popliteal veins are patent without thrombus. Normal Doppler waveforms. Normal compressibility and/or augmentation response. Right superficial veins: Saphenofemoral junction is patent without thrombus. Left deep veins: There is partial thrombosis in the adductor canal region of the left distal femoral vein with patency above this level and thrombosis also noted in the popliteal vein where minimal flow is detected. Left superficial veins: Saphenofemoral junction is patent without thrombus. Soft tissues: Bilateral edema. IMPRESSION: 1. No evidence of deep vein thrombosis in the right lower extremity. 2. Partial thrombosis left popliteal as well as distal left superficial femoral veins. Electronically signed by: Tali Mckenna On 09/04/2020 18:50:14 PM
--- NOTE | 2020-09-04 20:40 | IPNPDOC ---
Date Seen The patient was seen on 09/04/20. Progress Note Vascular surgery consulted for nonocclusive saddle pulmonary embolus with extensive bilateral PE, right greater than left, right heart strain, troponin leak. The patient is comfortable on 2 L nasal cannula, but is tachycardic and hypertensive and likely would have oxygen saturation decrease with activity. He has left lower extremity distal femoral and popliteal DVT, likely more proximal iliofemoral DVT was the source of the PE. Although the patient is stable and improving somewhat with a heparin drip, I think he would benefit from tPA thrombolysis. For now, I would admit the patient on continued therapeutic heparin drip, bed rest, nasal cannula oxygen as needed, and blood pressure heart rate control. We will do our best to work him in as early as possible tomorrow for TPA thrombolysis if he is agreeable and meets criteria in the morning. Full consult to follow. We appreciate the opportunity to produce patent care of this patient. VS, I&O, 24H, Fishbone Vital Signs/I&O Vital Signs Date Time Temp Pulse Resp B/P (MAP) Pulse Ox O2 Delivery O2 Flow Rate FiO2 09/04/20 20:23 101 18 181/98 (125) 96 Nasal Cannula 2.0 09/04/20 19:45 97.8 Laboratory Data 24H LABS Laboratory Tests 2 09/04/20 11:24: Immature Granulocyte % (Auto) 0.4, Neutrophils (%) (Auto) 73.5H, Lymphocytes (%) (Auto) 9.4L, Monocytes (%) (Auto) 8.9H, Eosinophils (%) (Auto) 7.3H, Basophils (%) (Auto) 0.5, Neutrophils # (Auto) 9.4H, Lymphocytes # (Auto) 1.2L, Monocytes # (Auto) 1.1H, Eosinophils # (Auto) 0.9H, Basophils # (Auto) 0.1, Nucleated Red Blood Cells % (auto) 0.0, Differential Slide Review Report, Peripheral Blood Smear Path Consult PERIPHERAL SMEAR, Total Bilirubin 0.6, Direct Bilirubin < 0.1, Aspartate Amino Transf (AST/SGOT) 26, Alanine Aminotransferase (ALT/SGPT) 34, Alkaline Phosphatase 77, Total Protein 6.6, Albumin 3.3, Albumin/Globulin Ratio 1.0, [place] Level 0.57L 09/04/20 11:26: POC Glucose (Misc Panel) 132H, POC Sodium (Misc Panel) 139, POC Potassium (Misc Panel) 3.6, POC Chloride (Misc Panel) 107, POC Total CO2 (Misc Panel) 24.0, POC Blood Urea Nitrogen (Misc Panel 23, POC Ionized Calcium (Misc Panel) 4.9, POC Creatinine (Misc Panel) 1.7H, POC Hematocrit (Misc Panel) 47.0 09/04/20 11:29: POC Troponin I (Misc) 0.05 09/04/20 13:11: Prothrombin Time 13.2, Prothromb Time International Ratio 0.98, Activated Partial Thromboplast Time 29.2 09/04/20 13:41: POC Troponin I (Misc) 0.16H 09/04/20 14:05: Coronavirus (COVID-19)(PCR) NEGATIVE 09/04/20 16:48: Activated Partial Thromboplast Time 231.4*H, Fibrinogen 410, Lactate Dehy drogenase 224, Troponin I 0.34H, C-Reactive Protein, Quantitative 1.19H CBC/BMP Laboratory Tests 09/04/20 11:24 JUAN PABLO DHILLON MD Sep 04, 2020 20:40
[2020-09-04 21:38] VITALS: BP 176/98
[2020-09-05] VITALS (23 sets, daily range): BP systolic 126–187; BP diastolic 54–126
[2020-09-05] MEDS ORDERED: traMADol 50 MG TAB PO PRN (00:45)
[2020-09-05] MEDS: HEPARIN DRIP 25,000 UNITS in IV 1 EA IV SCH ×2 (02:38→14:52)
[2020-09-05 05:36] LABS: HEMATOCRIT 47.1 % (42.0-52.0); HEMOGLOBIN 14.7 g/dl (13.5-17.5); MEAN CORPUSCULAR HEMOGLOBIN 29.6 pg (27.0-33.0); MEAN CORPUSCULAR HGB CONC 31.2 g/dl (32.0-36.5); MEAN CORPUSCULAR VOLUME 94.8 fl (80.0-96.0); PLATELET COUNT, AUTOMATED 163 10^3/uL (150-450); RED BLOOD COUNT 4.97 10^6/uL (4.30-6.10); WHITE BLOOD COUNT 11.9 10^3/uL (4.0-10.0)
[2020-09-05 06:00] LABS: CALCIUM LEVEL 9.1 MG/DL (8.8-10.2); CREATININE FOR GFR 1.97 MG/DL (0.70-1.30); GLOMERULAR FILTRATION RATE 36.1 (>49); POTASSIUM SERUM 3.9 MEQ/L (3.5-5.1)
--- NOTE | 2020-09-05 06:39 | ECGEPIP ---
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
--- NOTE | 2020-09-05 06:43 | ECGEPIP ---
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
--- NOTE | 2020-09-05 06:47 | ECGEPIP ---
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
[2020-09-05] MEDS: CAPSAICIN 0.025% CR 60 GM TOP SCH ×2 (08:55→23:23)
[2020-09-05] MEDS ORDERED: FEBUXOSTAT 40 MG TABLET (ULORIC) PO SCH (09:00)
--- NOTE | 2020-09-05 09:14 | CR.PDOC ---
General Date of Consultation: Sep 05, [address] Lewis HISTORY OF PRESENT ILLNESS: The patient is a 70-year-old male presented to the [facility] emergency department with shortness of breath 09/04/20. The patient was noted to be tachycardic, hypertensive, and requiring supplemental oxygen. Was found to have extensive bilateral pulmonary embolism with saddle embolus, evidence of right heart strain and troponin leak. Patient was started on heparin drip and admitted to the hospitalist service. Vascular surgery was consulted for further recommendations. PAST MEDICAL HISTORY: Morbid obesity, BMI 41.7 hypertension Diabetes MANDI Hyperthyroidism Bipolar disorder Dyslipidemia PAST SURGICAL HISTORY: Appendectomy Back surgery 2 FAMILY HISTORY: Hypertension, mother had cancer SOCIAL HISTORY: Nonsmoker REVIEW OF SYSTEMS: As noted in HPI otherwise 11 point review of systems unremarkable PHYSICAL EXAMINATION: VITAL SIGNS: Please see below. GENERAL APPEARANCE: NAD in bed HEENT: MMM RESPIRATORY: No wheezing CARDIOVASCULAR: Regular rate and rhythm ABDOMEN: Obese, soft and nontender EXTREMITIES: Edema lower extremities CTA chest IMPRESSION: Extensive bilateral pulmonary emboli, saddle embolus. Evidence of right heart strain.. Critical Findings: Large bilateral pulmonary emboli (saddle embolus). Evidence of right heart strain. The critical information above was relayed directly by me by telephone to RAAD CASSIDY on 09/04/2020 at 1:10 pm with readback verification. Lower extremity ultrasound 1. No evidence of deep vein thrombosis in the right lower extremity. 2. Partial thrombosis left popliteal as well as distal left superficial femoral veins. Electronically signed by: Tali Mckenna On 09/04/2020 18:50:14 PM ASSESSMENT/PLAN: Left lower extremity DVT/Pulmonary embolism, with tachycardia, hypertension, requiring supplemental oxygen. Evidence of right heart strain and troponin leak. Patient is reviewed and examined as per Dr. Lewis this morning. Imaging reviewed as per Dr. Lewis. Patient continues on heparin drip. The patient is currently stable dressing in bed. Heart rate 88, blood pressure 148/90, respiratory rate 16, oxygen saturation 96% on 2 L nasal cannula. Plan is to proceed with pulmonary thrombolysis later today as per Dr. Margareth barraza. The procedure, risks, benefits and alternatives are reviewed and discussed extensively with the patient and his over the phone as per Dr. Lewis. Informed consent is obtained and placed with the chart. NPO for procedure. The patient will be transferred to ICU postprocedure. The patient denies any recent history of falls, head injury, history of cerebral aneurysm or neoplasm, history of CVA. Patient denies any epistaxis, hematemesis, hemoptysis, hematuria. The patient does report history of rectal bleeding which he notices after a bowel movement on the paper, the patient reports history of hemorrhoids. He denies any melena or hematochezia. He states this did occur with his last bowel movement approximately one day ago. Will monitor closely for any signs of bleeding. Vital Signs/I&O Vital Signs Date Time Temp Pulse Resp B/P (MAP) Pulse Ox O2 Delivery O2 Flow Rate FiO2 09/05/20 08:55 88 148/90 09/05/20 08:00 98.3 16 96 Nasal Cannula 2.0 I&O- Last 24 Hours up to 6 AM 09/05/20 05:59 Intake Total 594.035 ml Output Total 725 ml Balance -130.965 ml Laboratory Data Labs 24H Laboratory Tests 2 09/04/20 11:24: Immature Granulocyte % (Auto) 0.4, Neutrophils (%) (Auto) 73.5H, Lymphocytes (%) (Auto) 9.4L, Monocytes (%) (Auto) 8.9H, Eosinophils (%) (Auto) 7.3H, Basophils (%) (Auto) 0.5, Neutrophils # (Auto) 9.4H, Lymphocytes # (Auto) 1.2L, Monocytes # (Auto) 1.1H, Eosinophils # (Auto) 0.9H, Basophils # (Auto) 0.1, Nucleated Red Blood Cells % (auto) 0.0, Differential Slide Review Report, Peripheral Blood Smear Path Consult PERIPHERAL SMEAR, Total Bilirubin 0.6, Direct Bilirubin < 0.1, Aspartate Amino Transf (AST/SGOT) 26, Alanine Aminotransferase (ALT/SGPT) 34, Alkaline Phosphatase 77, Total Protein 6.6, Albumin 3.3, Albumin/Globulin Ratio 1.0, [place] Level 0.57L 09/04/20 11:26: POC Glucose (Misc Panel) 132H, POC Sodium (Misc Panel) 139, POC Potassium (Misc Panel) 3.6, POC Chloride (Misc Panel) 107, POC Total CO2 (Misc Panel) 24.0, POC Blood Urea Nitrogen (Misc Panel 23, POC Ionized Calcium (Misc Panel) 4.9, POC Creatinine (Misc Panel) 1.7H, POC Hematocrit (Misc Panel) 47.0 09/04/20 11:29: POC Troponin I (Misc) 0.05 09/04/20 13:11: Prothrombin Time 13.2, Prothromb Time International Ratio 0.98, Activated Partial Thromboplast Time 29.2 09/04/20 13:41: POC Troponin I (Misc) 0.16H 09/04/20 14:05: Coronavirus (COVID-19)(PCR) NEGATIVE 09/04/20 16:48: Activated Partial Thromboplast Time 231.4*H, Fibrinogen 410, Lactate Dehydrogenase 224, Troponin I 0.34H, C-Reactive Protein, Quantitative 1.19H 09/04/20 22:09: Activated Partial Thromboplast Time 108.5H 09/05/20 05:25: Nucleated Red Blood Cells % (auto) 0.0, Activated Partial Thromboplast Time 96.1H, Anion Gap 6L, Glomerular Filtration Rate 36.1L, Calcium Level 9.1 CBC/BMP Laboratory Tests 09/04/20 11:24 09/05/20 05:25 Allergies Coded Allergies: No Known Allergies (Verified , 08/11/19) Home Medications Scheduled Aspirin (Aspirin EC) 81 Mg Tablet.dr, 81 MG PO DAILY, (Reported) Cyanocobalamin (Vitamin B-12) (Vitamin B-12) 500 Mcg Tablet, 500 MCG PO DAILY, (Reported) Ergocalciferol (Vitamin D2) (Vitamin D2) 50,000 Units Cap, 50,000 UNITS PO 1XWK, (Reported) SATURDAYS Febuxostat (Uloric) 80 Mg Tab, PO DAILY, (Reported) [place] Carbonate ([place] Carbonate ER) 300 Mg Tabcr, 600 MG PO QHS, (Reported) Propylthiouracil (Propylthiouracil) 50 Mg Tab, 100 MG PO QHS, (Reported) Ramipril (Ramipril) 5 Mg Capsule, 5 MG PO QHS, (Reported) Tadalafil (Cialis) 10 Mg Tablet, 10 MG PO ASDIRECTED, (Reported) Torsemide (Torsemide) 10 Mg Tablet, 10 MG PO DAILY, (Reported) Scheduled PRN Acetaminophen (Acetaminophen) 325 Mg Tablet, 325 MG PO PRN PRN for PAIN, (Reported) Cetirizine HCl (Cetirizine HCl) 10 Mg Tab.chew, 10 MG PO DAILY PRN for ALLERGY SYMPTOMS, (Reported) Tramadol HCl (Tramadol HCl) 50 Mg Tab, QHSP PRN for PAIN, (Reported) Corry Gilman Sep 05, 2020 09:13
[2020-09-05] MEDS ORDERED: ISOVUE-300 61% 50ML VIAL As Ordered ONE (17:14)
[2020-09-05] MEDS ORDERED: LIDOCAINE 1% MDV 20ML VIAL As Ordered ONE (17:14)
[2020-09-05] MEDS ORDERED: fentaNYL 100 MCG/2 ML INJECTION (J3010) As Ordered ONE (17:15)
[2020-09-05] MEDS ORDERED: MIDAZOLAM INJ 2MG/2ML VIAL (J2250 PER 1MG) As Ordered ONE (17:15)
[2020-09-05] MEDS ORDERED: ALTEPLASE 2MG/2ML VIAL As Ordered ONE ×2 (17:16→17:27)
[2020-09-05] MEDS ORDERED: HEPARIN DRIP 25,000 UNITS in IV 1 EA IV SCH (17:45)
[2020-09-05] MEDS ORDERED: ALTEPLASE RECOMBINANT 25 MG in NS 225 ML IV SCH (18:00)
[2020-09-05] MEDS ORDERED: ceFAZolin 2 GM/D5W 50 ML IV BAG (J0690 PER 500MG) As Ordered ONE (18:56)
--- NOTE | 2020-09-05 19:48 | IPNPDOC ---
Subjective Date Seen The patient was seen on 09/05/20. Subjective Chief Complaint/HPI Mr. Herrera is a 70 year old male with morbid obesity who presented with dyspnea and chest pain and found to have extensive bilateral PE with saddle embolus. He still had dyspnea and occasional chest pain, but otherwise denies abdominal pain or dysuria. Otherwise, plan for today is to undergo TPA. Objective Physical Examination General Exam: Positive: Alert, Cooperative Eye Exam: Positive: EOMI; Negative: Sclera icteric ENT Exam: Positive: Atraumatic Neck Exam: Positive: Supple Chest Exam: Positive: Clear to auscultation; Negative: Rales, Rhonchi, Wheezing Heart Exam: Positive: Rate Normal, Regular Rhythm Abdomen Exam: Positive: Normal bowel sounds, Soft; Negative: Tenderness Extremity Exam: Positive: Edema Neuro Exam: Positive: Cranial Nerves 3-12 NL Psych Exam: Positive: Mental status NL, Mood NL Assessment /Plan Assessment Mr. Herrera is a 70 year old male with morbid obesity who is here for extensive bilateral PE with saddle embolus. Vascular surgery, Dr. Lewis was consulted, recommendations appreciated. Plan for TPA today. Otherwise for DUNCAN, we will hold nephrotoxic agents (Torsemide and ramipril) and provide supportive care. Plan/VTE VTE Prophylaxis Ordered?: Yes Plan 1. Extensive PE with saddle embolus -Unprovoked -Dr. Lewis following, recommendations appreciated -Heparin drip -Planning for TPA today 2. Hypertension -Ramipril held due to DUNCAN -Continue amlodipine 3. Hyperthyroidism -Continue PTU 4. Bipolar disorder -Continue lithium 5. Gout -Continue febuxostat 6. DUNCAN -Supportive care -Hold nephrotoxic agents (ramipril and torsemide) 7. DVT ppx -On heparin drip for PE VS, I&O, [facility] Vital Signs/I&O Vital Signs Date Time Temp Pulse Resp B/P (MAP) Pulse Ox O2 Delivery O2 Flow Rate FiO2 09/05/20 19:30 79 20 98 Nasal Cannula 3 09/05/20 18:00 99 09/05/20 16:50 99.3 09/05/20 16:00 167/96 (119) I&O- Last 24 Hours up to 6 AM 09/05/20 06:00 Intake Total 594.035 ml Output Total 1025 ml Balance -430.965 ml Laboratory Data 24H LABS Laboratory Tests 2 09/04/20 22:09: Activated Partial Thromboplast Time 108.5H 09/05/20 05:25: Activated Partial Thromboplast Time 96.1H, Nucleated Red Blood Cells % (auto) 0.0, Anion Gap 6L, Glomerular Filtration Rate 36.1L, Calcium Level 9.1 09/05/20 11:55: Activated Partial Thromboplast Time 81.3H CBC/BMP Laboratory Tests 09/05/20 05:25 MADELAINE CRANE DO Sep 05, 2020 19:47
[2020-09-05] MEDS ORDERED: HYDROmorphone 2 MG TAB PO PRN (20:00)
--- NOTE | 2020-09-05 20:00 | ROOPDOC ---
[facility] Report Of Operation Report of Operation DATE OF PROCEDURE: 09/05/20 PREPROCEDURE DIAGNOSES: Extensive bilateral pulmonary emboli and saddle pulmonary embolus with right heart strain, increased troponins, shortness of breath POSTPROCEDURE DIAGNOSES: Same PROCEDURE: 1. Ultrasound-guided access right common femoral vein 2. Selection right pulmonary artery and right pulmonary arteriogram 3. Placement of a 20 cm infusion length TPA thrombolysis catheter right pulmonary artery SURGEON: Juan Pablo Lewis MD ANESTHESIA: Local anesthesia with 6 mL lidocaine. Moderate intravenous conscious sedation was supervised by Dr. Lewis. The patient was independently monitored by registered nurse assigned to the Department of radiology using automated blood pressure, EKG, and pulse oximetry. The detailed sedation records permanently started in the hospital information system. The following is a brief sedation record: Start time 17:58, stop time 19:31, Versed 2 mg IV, fentanyl 75 g IV, heparin drip 500 units an hour, tPA 8 mg given through thrombolysis catheter prior to starting TPA thrombolysis. CONTRAST: 5 mL Isovue-300 INDICATION FOR PROCEDURE: This is a very pleasant 70-year-old gentleman with left lower extremity DVT and significant bilateral pulmonary emboli including a narrow saddle pulmonary embolus with shortness of breath requiring oxygen to ma intain saturations, increased troponins and right heart strain, intermittent chest pain. Wrist benefits and alternatives to a TPA thrombolysis procedure were explained to the patient. He was agreeable to proceed. Before the procedure, we discussed with the patient if he had any history of bleeding. The patient denied any history of brain aneurysms, strokes, TIAs, falls or traumas, head injuries, recent bodily injuries, car accidents, and he denied any recent surgeries. He also denied hematuria, hematemesis, bloody noses, bleeding gums, hematuria, blood in his stool but did report occasional blood on the toilet paper from hemorrhoids. I discussed with him that I don't think this his mild hemorrhoid bleeding is a contraindication to running TPA, but we may have to limit how much we give and watch him closely for any bleeding around the rectum. He is agreeable to this risk and would like to proceed. INTERPRETATION: The TPA catheter is in good position in the right pulmonary artery. A small amount of contrast was given to confirm we were intraluminal in no extravasation was present. A full bilateral pulmonary arteriogram was not done since the patient has elevated creatinine and had a recent CTA. REPORT OF OPERATION: The patient was brought to the angiographic suite in stable condition. His bilateral groins were prepped and draped in a sterile fashion. A timeout was performed. Local anesthesia was administered to the skin and subcutaneous tissue over the right common femoral vein and sedation was administered without complication. A microneedle was used to access the vein under ultrasound guidance a wire was passed through this access and the needle was removed and a 4 Jordanian sheath was placed and flushed with saline. A Glidewire was advanced through this access and was easily navigated into the right pulmonary artery. We then exchange the sheath for a 7 x 45 destination sheath. Unfortunately, the sheath was a bit too short to access the right atrium. The patient had a very steep angle from the IVC into the right atrium, and this made R procedure very challenging. Although we could easily navigated a wire into the right pulmonary artery, we could not get any catheters to track due to this acute angle. We tried 5 different wire and catheter combinations, as well as 4 different sheaths, and eventually we were successful with a 90 cm angled 7 Jordanian sheath which we were able to slowly track into the right atrium, and a 20 cm infusion catheter which we were eventually able to track into the right pulmonary artery over a Ramesh wire. A quick pulmonary arteriogram confirmed we were intraluminal and there was no extravasation, and 8 mg of tPA were given. We then began a trip of TPA 1 mg an hour through the catheter. We also began a heparin drip of 500 units an hour through the sheath. The patient then had his catheter and sheath dressed sterilely and labeled. He was then taken back to the ICU in stable condition. He tolerated the procedure and the sedation well. ESTIMATED BLOOD LOSS: Approximately 5 mL. COMPLICATIONS: None. PLAN: We will keep the patient on flat bed rest overnight, logroll only, urinal or bedpan are acceptable. We will keep the TPA running at 1 mg an hour and check the fibrinogen every 6 hours. We will not check the PTT and the heparin drip will not be titrated and will remain at 500 units hour through the sheath. It's okay to draw labs through the sheath, the keep in mind that the sheath is very long. We will plan to see how the patient is doing tomorrow, but it is unlikely that we will bring him back for a repeat arteriogram. We plan to keep the TPA running for 12-24 hours depending on if the patient has any bleeding issues. We appreciate the opportunity to participate the care this patient. JUAN PABLO LEWIS MD Sep 05, 2020 20:00
[2020-09-05] MEDS ORDERED: PILL CUTTER 1 EACH XX PRN (20:15)
[2020-09-05] MEDS: PERCOCET 5MG/325MG TAB PO PRN (20:42)
[2020-09-05] MEDS: LITHIUM CARBONATE 300 MG **CR** TAB PO SCH (20:42)
[2020-09-05] MEDS: propylthiouraciL 50 MG TAB PO SCH (20:47)
[2020-09-05 22:25] LABS: CALCIUM LEVEL 8.6 MG/DL (8.8-10.2); CREATININE FOR GFR 1.75 MG/DL (0.70-1.30); GLOMERULAR FILTRATION RATE 41.3 (>49); MAGNESIUM LEVEL 2.4 MG/DL (1.8-2.4); POTASSIUM SERUM 4.1 MEQ/L (3.5-5.1)
[2020-09-06] VITALS (26 sets, daily range): BP systolic 138–180; BP diastolic 72–97
[2020-09-06] MEDS: PERCOCET 5MG/325MG TAB PO PRN (02:53)
[2020-09-06 07:42] LABS: HEMATOCRIT 48.7 % (42.0-52.0); MEAN CORPUSCULAR HEMOGLOBIN 29.8 pg (27.0-33.0); MEAN CORPUSCULAR HGB CONC 30.8 g/dl (32.0-36.5); MEAN CORPUSCULAR VOLUME 96.6 fl (80.0-96.0); PLATELET COUNT, AUTOMATED 130 10^3/uL (150-450); RED BLOOD COUNT 5.04 10^6/uL (4.30-6.10); WHITE BLOOD COUNT 11.4 10^3/uL (4.0-10.0)
[2020-09-06 08:02] LABS: PARTIAL THROMBOPLASTIN TIME 41.5 SECONDS (24.2-38.5)
[2020-09-06 08:05] LABS: CREATININE FOR GFR 1.77 MG/DL (0.70-1.30); GLOMERULAR FILTRATION RATE 40.8 (>49); POTASSIUM SERUM 3.9 MEQ/L (3.5-5.1)
--- NOTE | 2020-09-06 08:08 | REP ---
INDICATION: r/o bleed COMPARISON: None. TECHNIQUE: Axial noncontrast images from the skull base to the thoracic inlet with coronal reformations. This CT examination was performed using the following dose reduction techniques: Automated exposure control, adjustment of mA and/or kv according to the patient's size, and use of iterative reconstruction technique. FINDINGS: Age-related atrophy and microvascular ischemic changes are appreciated. The ventricles and sulci are symmetric. Mercedes-white differentiation is maintained. There is no evidence for acute intracranial hemorrhage, mass/mass effect, pathology or infarction. No extra-axial fluid collection. Calvarium is intact. Paranasal sinuses and mastoid air cells are clear. IMPRESSION: Age related atrophy and microvascular ischemic changes. No acute intracranial hemorrhage, infarction, or mass/mass effect. <Electronically signed by Keith Casiano > 09/06/20 2165
[2020-09-06] MEDS ORDERED: ONDANSETRON 4MG/2ML VIAL IV PRN (08:45)
[2020-09-06] MEDS: CAPSAICIN 0.025% CR 60 GM TOP SCH ×2 (10:18→21:28)
--- NOTE | 2020-09-06 12:15 | ECHO ---
3 DATE OF PROCEDURE: 09/04/2020 Age: 70 Gender: Male Height: 180 cm Weight: 136 kg REFERRING PHYSICIAN: Tip Holland NP INDICATION: Dyspnea. MEASUREMENTS: IVS 1.1 cm LV 4.7 cm LVPW 0.9 cm LA 3.0 cm Aorta 4.0 cm Mitral E wave velocity 53 cm/s Mitral A wave 95 cm/s E prime septal 7.7 cm/s E prime lateral 9.1 cm/s FINDINGS: This study is of rather limited technical quality due to patients body habitus and resulting poor acoustic windows. Underlying sinus tachycardia with heart rate between 100 and 115 beats per minute. Left ventricle is of normal size. Based on limited views, I believe there is normal LV systolic function, but even substantial wall motion abnormality could be easily missed. Right ventricle appears dilated and hypokinetic. There is biatrial enlargement. The aortic valve appears normal based on limited views. Same applies for the mitral and tricuspid valves. Pulmonic valve was not well visualized. Pericardial fat pad is noted. Inferior vena cava was not seen. The aortic root is borderline dilated at 4.0 cm. The aortic arch and abdominal aorta were not seen. Doppler interrogation reveals no aortic stenosis or insufficiency, trace mitral and trace tricuspid insufficiency. Calculated pulmonary artery pressure is at minimum in the 30s corresponding to mild pulmonary hypertension, but quality of TR jet was fair and this should not be considered completely reliable. Mitral inflow pattern and tissue Doppler imaging of the mitral annulus revealed grade 1 diastolic dysfunction. CONCLUSIONS: * Study is of fair technical quality. Underlying sinus tachycardia. * Normal LV size with normal or possibly even hyperdynamic LV systolic function, grade 1 diastolic dysfunction. * Dilated hypokinetic right ventricle. * No hemodynamically significant valvular disease. * Unable to estimate central venous pressure, but at least mild pulmonary hypertension. * Presence of pericardial fat pat. * Mildly dilated aortic root (4.0 cm). MTDD
[2020-09-06] MEDS ORDERED: HEPARIN DRIP 25,000 UNITS in IV 1 EA IV SCH (16:00)
[2020-09-06] MEDS ORDERED: HEPARIN SOD (PORCINE) 5000UNITS/ML 1ML VIAL/SYRINGE IV PRN (16:00)
--- NOTE | 2020-09-06 16:47 | IPNPDOC ---
Date Seen The patient was seen on 09/06/20. Progress Note Pt seen and examined POD #1 s/p placement of pulmonary artery catheter for TPA thrombolysis for PE. Fibrinogen drifting down today. Now just >150, thus I feel it is safest to stop TPA at this point. The patient could likely benefit from additional TPA, as he is still on NC O2 today, but unfortunately the risks are too high for a bleeding complication with fibrinogen so low. We discussed that we were not going to do a completion arteriogram because he has renal insufficiency and has received contrast dye 2 days in a row already, and it will not change our decision to d/c TPA. The TPA catheter and sheath R femoral vein were discontinued at the bedside. The patient tolerated this well. Pressure was held at the groin site for 10 minutes and sterile dressings applied. He will need 2 hours bedrest, then slowly increase activity as tolerated with assist. Hopefully he has improvement s/p TPA. Ok to convert heparin gtt to oral anticoagulation, eliquis or coumadin. He will need anticoagulation for 1 yr s/p PE. Asa daily. Recommend elevation LLE above the level of the heart at least 30min 3x/day to help with swelling 2/2 DVT. Ok to d/c from vascular standpoint when pt is ready from hospitalist standpoint. F/u in clinic in 3 months with repeat LLE venous duplex to f/u DVT. We appreciate the opportunity to participate in the care of this patient. VS, I&O, 24H, [facility] Vital Signs/I&O Vital Signs Date Time Temp Pulse Resp B/P (MAP) Pulse Ox O2 Delivery O2 Flow Rate FiO2 09/06/20 16:00 97.5 67 20 155/77 (103) 97 Nasal Cannula 2.0 09/05/20 18:00 99 I&O- Last 24 Hours up to 6 AM 09/06/20 06:00 Intake Total 870 ml Output Total 1425 ml Balance -555 ml Laboratory Data 24H LABS Laboratory Tests 2 09/05/20 20:20: Fibrinogen 495H 09/05/20 22:12: Anion Gap 9, Glomerular Filtration Rate 41.3L, Calcium Level 8.6L, Magnesium Level 2.4 09/06/20 01:45: Fibrinogen 295 09/06/20 07:13: Bedside Glucose (Misc Panel) 126H 09/06/20 07:27: Nucleated Red Blood Cells % (auto) 0.0, Activated Partial Thromboplast Time 41.5H, Fibrinogen 207L, Anion Gap 5L, Glomerular Filtration Rate 40.8L, Calcium Level 9.0 09/06/20 13:46: Fibrinogen 159L CBC/BMP Laboratory Tests 09/05/20 22:12 09/06/20 07:27 JUAN PABLO DHILLON MD Sep 06, 2020 16:47
--- NOTE | 2020-09-06 18:00 | ECGEPIP ---
[facility] Test Date: 2020-09-05 Pat Name: YASMIN CARVALHO Department: Room: [place] [address] Gender: Male Tankman: : 1950 Requested By: MADELAINE Lemus Order Number: [id number] Reading MD: Benito Mercado Measurements Intervals [place] Rate: 82 P: RI: 0 QRS: -9 QRSD: 91 T: 25 QT: 391 QTc: 458 Interpretive Statements Normal sinus rhythm with blocked PAC Anteroseptal GA, age indeterminate Cannot exclude prior inferior wall myocardial infarction Nonspecific ST-T wave abnormalities No significant change when compared to prior tracing of 08/27/2020 Electronically Signed on 09-06-2020 18:00:24 EST by Benito Mercado
--- NOTE | 2020-09-06 19:48 | IPNPDOC ---
Subjective Date Seen The patient was seen on 09/06/20. Subjective Chief Complaint/HPI Mr. Herrera is a 70 year old male with morbid obesity who presented with dyspnea and chest pain and found to have extensive bilateral PE with saddle embolus. This morning, he woke up confused and agitated, but he cleared up after the CT head. This afternoon, he was feeling better. Spoke with vascular surgery. Planned to turn off TPA and transition to heparin drip. Tomorrow he will be able to transition to either Eliquis or Warfarin. Objective Physical Examination General Exam: Positive: Alert, Cooperative Eye Exam: Positive: EOMI; Negative: Sclera icteric ENT Exam: Positive: Atraumatic Neck Exam: Positive: Supple Chest Exam: Positive: Clear to auscultation; Negative: Rales, Rhonchi, Wheezing Heart Exam: Positive: Rate Normal, Regular Rhythm Abdomen Exam: Positive: Normal bowel sounds, Soft; Negative: Tenderness Extremity Exam: Positive: Edema Neuro Exam: Positive: Cranial Nerves 3-12 NL Psych Exam: Positive: Mental status NL, Mood NL Assessment /Plan Assessment Mr. Herrera is a 70 year old male with morbid obesity who is here for extensive bilateral PE with saddle embolus. Vascular surgery, Dr. Lewis was consulted, recommendations appreciated. TPA started on 09/05/2020 and completed today on 09/06/2020. Switching to heparin drip tonight and possibly Eliquis or warfarin tomorrow. Otherwise for DUNCAN, we will hold nephrotoxic agents (Torsemide and ramipril) and provide supportive care. Plan/VTE VTE Prophylaxis Ordered?: Yes Plan 1. Extensive PE with saddle embolus -Unprovoked -Dr. Lewis following, recommendations appreciated -Had TPA from 09/05/2020 to 09/06/2020 -Back on Heparin drip -Transition to either warfarin or Eliquis tomorrow 2. Hypertension -Ramipril held due to DUNCAN -Will increase amlodipine from 2.5mg qD to 5mg qD 3. Hyperthyroidism -Continue PTU 4. Bipolar disorder -Continue lithium 5. Gout -Continue febuxostat 6. DUNCAN -Supportive care -Hold nephrotoxic agents (ramipril and torsemide) -Baseline around 1.6 to 1.7 7. DVT ppx -On heparin drip for PE VS, I&O, 24H, [facility] Vital Signs/I&O Vital Signs Date Time Temp Pulse Resp B/P (MAP) Pulse Ox O2 Delivery O2 Flow Rate FiO2 09/06/20 16:00 97.5 67 20 155/77 (103) 97 Nasal Cannula 2.0 09/05/20 18:00 99 I&O- Last 24 Hours up to 6 AM 09/06/20 06:00 Intake Total 870 ml Output Total 1425 ml Balance -555 ml Laboratory Data 24H LABS Laboratory Tests 2 09/05/20 20:20: Fibrinogen 495H 09/05/20 22:12: Anion Gap 9, Glomerular Filtration Rate 41.3L, Calcium Level 8.6L, Magnesium Level 2.4 09/06/20 01:45: Fibrinogen 295 09/06/20 07:13: Bedside Glucose (Misc Panel) 126H 09/06/20 07:27: Nucleated Red Blood Cells % (auto) 0.0, Activated Partial Thromboplast Time 41.5H, Fibrinogen 207L, Anion Gap 5L, Glomerular Filtration Rate 40.8L, Calcium Level 9.0 09/06/20 13:46: Fibrinogen 159L CBC/BMP Laboratory Tests 09/05/20 22:12 09/06/20 07:27 MADELAINE CRANE DO Sep 06, 2020 19:48
[2020-09-06] MEDS: propylthiouraciL 50 MG TAB PO SCH (21:27)
[2020-09-06] MEDS: LITHIUM CARBONATE 300 MG **CR** TAB PO SCH (21:27)
[2020-09-06 21:49] LABS: PARTIAL THROMBOPLASTIN TIME 69.6 SECONDS (24.2-38.5)
[2020-09-06] MEDS ORDERED: ALTEPLASE RECOMBINANT 25 MG in NS 225 ML IV SCH (22:00)
[2020-09-07] VITALS: BP 164/90
[2020-09-07 03:52] LABS: HEMATOCRIT 46.5 % (42.0-52.0); HEMOGLOBIN 14.5 g/dl (13.5-17.5); MEAN CORPUSCULAR HEMOGLOBIN 30.7 pg (27.0-33.0); MEAN CORPUSCULAR HGB CONC 31.2 g/dl (32.0-36.5); MEAN CORPUSCULAR VOLUME 98.3 fl (80.0-96.0); PLATELET COUNT, AUTOMATED 117 10^3/uL (150-450); RED BLOOD COUNT 4.73 10^6/uL (4.30-6.10); WHITE BLOOD COUNT 12.8 10^3/uL (4.0-10.0)
[2020-09-07 04:00] VITALS: BP 136/86
[2020-09-07 04:05] LABS: PARTIAL THROMBOPLASTIN TIME 76.5 SECONDS (24.2-38.5)
[2020-09-07 04:28] LABS: CALCIUM LEVEL 8.9 MG/DL (8.8-10.2); CREATININE FOR GFR 1.67 MG/DL (0.70-1.30); GLOMERULAR FILTRATION RATE 43.6 (>49); POTASSIUM SERUM 3.9 MEQ/L (3.5-5.1)
[2020-09-07 08:00] VITALS: BP 160/96
[2020-09-07] MEDS: amLODIPine 5 MG TAB PO SCH (08:41)
[2020-09-07] MEDS: CAPSAICIN 0.025% CR 60 GM TOP SCH ×2 (08:42→20:12)
[2020-09-07] MEDS ORDERED: ELIQ5TAB PO (08:47)
[2020-09-07] MEDS: APIXABAN 5 MG TAB (ELIQUIS) PO SCH ×2 (10:46→20:11)
[2020-09-07 12:00] VITALS: BP 132/74
[2020-09-07 16:00] VITALS: BP 142/83
[2020-09-07 20:00] VITALS: BP 134/68
[2020-09-07] MEDS: propylthiouraciL 50 MG TAB PO SCH (20:11)
[2020-09-07] MEDS: LITHIUM CARBONATE 300 MG **CR** TAB PO SCH (20:12)
--- NOTE | 2020-09-07 21:22 | IPNPDOC ---
Subjective Date Seen The patient was seen on 09/07/20. Subjective Chief Complaint/HPI Mr. Herrera is a 70 year old male with morbid obesity who presented with dyspnea and chest pain and found to have extensive bilateral PE with saddle embolus. This morning, denies worsening dyspnea, chest pain, abdominal pain, or dysuria. Discussed with patient about both Eliquis and Warfarin. He decided to go with Eliquis. Sent Eliquis to pharmacy to see if prior authorization was needed. Objective Physical Examination General Exam: Positive: Alert, Cooperative Eye Exam: Positive: EOMI; Negative: Sclera icteric ENT Exam: Positive: Atraumatic Neck Exam: Positive: Supple Chest Exam: Positive: Clear to auscultation; Negative: Rales, Rhonchi, Wheezing Heart Exam: Positive: Rate Normal, Regular Rhythm Abdomen Exam: Positive: Normal bowel sounds, Soft; Negative: Tenderness Extremity Exam: Positive: Edema Neuro Exam: Positive: Cranial Nerves 3-12 NL Psych Exam: Positive: Mental status NL, Mood NL Assessment /Plan Assessment Mr. Herrera is a 70 year old male with morbid obesity who is here for extensive bilateral PE with saddle embolus. Vascular surgery, Dr. Lewis was consulted, recommendations appreciated. TPA started on 09/05/2020 and completed today on 09/06/2020. Discussed about Eliquis and Warfarin with patient. Patient chose Eliquis. Sent to pharmacy. Otherwise, PT to work with patient today Plan/VTE VTE Prophylaxis Ordered?: Yes Plan 1. Extensive PE with saddle embolus -Unprovoked -Dr. Lewis following, recommendations appreciated -Had TPA from 09/05/2020 to 09/06/2020 -Discussed both Eliquis and Warfarin to patient -Patient requested Eliquis. Started Eliquis today 2. Hypertension -Ramipril held due to DUNCAN -Will increase amlodipine from 2.5mg qD to 5mg qD 3. Hyperthyroidism -Continue PTU 4. Bipolar disorder -Continue lithium 5. Gout -Continue febuxostat 6. DUNCAN -Supportive care -Hold nephrotoxic agents (ramipril and torsemide) -Baseline around 1.6 to 1.7 -Resolved 7. DVT ppx -On Eliquis Disposition: If clears physical therapy tomorrow, possible discharge home VS, I&O, 24H, Fishbone Vital Signs/I&O Vital Signs Date Time Temp Pulse Resp B/P (MAP) Pulse Ox O2 Delivery O2 Flow Rate FiO2 09/07/20 20:00 98.8 86 18 134/68 (90) 94 Room Air 09/07/20 08:00 2.0 09/05/20 18:00 99 I&O- Last 24 Hours up to 6 AM 09/07/20 05:59 Intake Total 3232.5 ml Output Total 2550 ml Balance 682.5 ml Laboratory Data 24H LABS Laboratory Tests 2 09/06/20 21:27: Activated Partial Thromboplast Time 69.6H, Fibrinogen 173L 09/07/20 03:34: Activated Partial Thromboplast Time 76.5H, Fibrinogen 194L, Nucleated Red Blood Cells % (auto) 0.0, Anion Gap 4L, Glomerular Filtration Rate 43.6L, Calcium Level 8.9 09/07/20 09:20: Fibrinogen 232, Prostate Specific Antigen Screen 1.02 09/07/20 15:37: Fibrinogen 279 CBC/BMP Laboratory Tests 09/07/20 03:34 MADELAINE CRANE DO Sep 07, 2020 21:22
[2020-09-08] VITALS: BP 138/76
[2020-09-08 04:00] VITALS: BP 144/80
[2020-09-08 05:41] LABS: HEMATOCRIT 47.8 % (42.0-52.0); MEAN CORPUSCULAR HEMOGLOBIN 30.4 pg (27.0-33.0); MEAN CORPUSCULAR HGB CONC 31.4 g/dl (32.0-36.5); PLATELET COUNT, AUTOMATED 123 10^3/uL (150-450); RED BLOOD COUNT 4.93 10^6/uL (4.30-6.10); WHITE BLOOD COUNT 12.7 10^3/uL (4.0-10.0)
[2020-09-08 06:06] LABS: CREATININE FOR GFR 1.78 MG/DL (0.70-1.30); GLOMERULAR FILTRATION RATE 40.5 (>49); POTASSIUM SERUM 3.9 MEQ/L (3.5-5.1)
[2020-09-08 07:59] VITALS: BP 143/82
[2020-09-08] MEDS: APIXABAN 5 MG TAB (ELIQUIS) PO SCH (08:33)
[2020-09-08 08:34] VITALS: BP 142/80
[2020-09-08] MEDS: CAPSAICIN 0.025% CR 60 GM TOP SCH (08:34)
[2020-09-08] MEDS: amLODIPine 5 MG TAB PO SCH (08:34)
[2020-09-08] MEDS ORDERED: ELIQ5TAB PO ×2 (08:45→11:03)
--- NOTE | 2020-09-08 22:45 | DS.PDOC ---
Discharge Summary General Date of Admission Sep 04, 2020 at 15:36 Date of Discharge Sep 08, 2020 Attending Physician: MAEDLAINE CRANE DO Specialist/Consultants Involve: JUAN PABLO LEWIS MD Discharge Summary PROCEDURES PERFORMED DURING STAY: TPA from 09/05/2020 to 09/06/2020 ADMITTING DIAGNOSES: 1. Extensive PE with saddle embolus 2. Hypertension 3. Hyperthyroidism 4. Bipolar disorder 5. Gout 6. DUNCAN DISCHARGE DIAGNOSES: 1. Extensive PE with saddle embolus 2. Hypertension 3. Hyperthyroidism 4. Bipolar disorder 5. Gout 6. DUNCAN COMPLICATIONS/CHIEF COMPLAINT: Saddle Embolism Of Pulmonary Artery. HISTORY OF PRESENT ILLNESS: Mr. Herrera is a 70 year old male with morbid obesity who presented with dyspnea and chest pain and found to have extensive bilateral PE with saddle embolus. He tells me that he was doing chores when he became winded and short of breath. He came to the ED for evaluation. While in the ED, he had increasing troponin from 0.05 to 0.16 and a CTA chest which demonstrated the extensive bilateral PE with saddle embolus and right heart strain. He required 3L of oxygen when normally not on oxygen. Patient was put on heparin per protocol. HOSPITAL COURSE: Vascular surgery was consulted. On 09/05/2020, they performed TPA thrombolysis for PE. He had improvement in fibrinogen, and TPA was stopped on 09/06/2020. He did well afterwards. We discussed the differences between Warfarin and Eliquis. He opted for the Eliquis. I explained the warning signs of hemorrhage such as lightheadedness, dizziness, shortness of breath, or chest pa in. He should watch his stool for changes or blood and urine and sputum for blood. Today, he felt well. He was off of supplement oxygen and breathing at room air. He was cleared by physical therapy and subsequently sent home today. DISCHARGE MEDICATIONS: Please see below. ALLERGIES: Please see below. PHYSICAL EXAMINATION ON DISCHARGE: VITAL SIGNS: Please see below. GENERAL: Comfortable, in no apparent distress. HEENT: Head normocephalic/atraumatic, EOMI, sclera clear. NECK: Supple. RESPIRATORY: Lungs clear to auscultation bilaterally, no rales, wheeze or rhonchi. CARDIOVASCULAR: Regular rate and rhythm. ABDOMEN: Soft, nontender, no guarding or rebound tenderness. Normal bowel sounds. MUSCLE SKELETAL: Muscle strength 5/5 in all extremities. NEUROLOGICAL: CN 312 grossly intact, no focal deficits noted. PSYCHOLOGICAL: Normal mood and affect LABORATORY DATA: Please see below. IMAGING: CT angiogram chest Extensive bilateral pulmonary emboli, saddle embolus. Evidence of right heart strain.. Critical Findings: Large bilateral pulmonary emboli (saddle embolus). Evidence o f right heart strain. Ultrasound duplex of lower extremity bilaterally 1. No evidence of deep vein thrombosis in the right lower extremity. 2. Partial thrombosis left popliteal as well as distal left superficial femoral veins. PROGNOSIS: Good ACTIVITY: As tolerated DIET: As tolerated DISCHARGE PLAN: Home DISPOSITION: Home, Self-Care. DISCHARGE INSTRUCTIONS: 1. Follow-up with her PCP within a week 2. Follow-up with Dr. Lewis in 3 months. 3. Continue taking Eliquis for 1 year 4. Monitor for signs of bleeding DISCHARGE CONDITION: Stable Total time spent on discharge planning, discharge summary, and medication reconciliation: 45 minutes Vital Signs/I&Os Vital Signs Date Time Temp Pulse Resp B/P (MAP) Pulse Ox O2 Delivery O2 Flow Rate FiO2 09/08/20 08:34 80 142/80 09/08/20 07:59 98.5 20 94 Room Air 09/07/20 08:00 2.0 09/05/20 18:00 99 I&O- Last 24 Hours up to 6 AM 09/08/20 06:00 Intake Total 2460 ml Output Total 2525 ml Balance -65 ml Laboratory Data Labs 24H Laboratory Tests 2 09/08/20 05:33: Nucleated Red Blood Cells % (auto) 0.0, Activated Partial Thromboplast Time 33.0, Anion Gap 3L, Glomerular Filtration Rate 40.5L, Calcium Level 9.0 CBC/BMP Laboratory Tests 09/08/20 05:33 Discharge Medications Scheduled Apixaban (Eliquis) 5 Mg Tablet, 5 MG PO BID Aspirin (Aspirin EC) 81 Mg Tablet.dr, 81 MG PO DAILY, (Reported) Cyanocobalamin (Vitamin B-12) (Vitamin B-12) 500 Mcg Tablet, 500 MCG PO DAILY, (Reported) Ergocalciferol (Vitamin D2) (Vitamin D2) 50,000 Units Cap, 50,000 UNITS PO 1XWK, (Reported) SATURDAYS Febuxostat (Uloric) 80 Mg Tab, PO DAILY, (Reported) [place] Carbonate ([place] Carbonate ER) 300 Mg Tabcr, 600 MG PO QHS, (Reported) Propylthiouracil (Propylthiouracil) 50 Mg Tab, 100 MG PO QHS, (Reported) Ramipril (Ramipril) 5 Mg Capsule, 5 MG PO QHS, (Reported) Tadalafil (Cialis) 10 Mg Tablet, 10 MG PO ASDIRECTED, (Reported) Torsemide (Torsemide) 10 Mg Tablet, 10 MG PO DAILY, (Reported) Scheduled PRN Acetaminophen (Acetaminophen) 325 Mg Tablet, 325 MG PO PRN PRN for PAIN, (Reported) Cetirizine HCl (Cetirizine HCl) 10 Mg Tab.chew, 10 MG PO DAILY PRN for ALLERGY SYMPTOMS, (Reported) Tramadol HCl (Tramadol HCl) 50 Mg Tab, QHSP PRN for PAIN, (Reported) Allergies Coded Allergies: No Known Allergies (Verified , 08/11/19) MADELAINE CRANE DO Sep 08, 2020 22:45
== END 2020-09-08 11:56 | disposition home or self-care (01) | DRG 176 ==
LOC: M ED 11:00 → EDBD 11:00 → M ED INP 15:36 → M PCU 21:30
PROVIDERS: ADMIT Internal Medicine; ATTEND Internal Medicine
PROC: B34 Imaging, Upper Arteries, Ultrasonography (ICD-10-PCS; 2020-09-05)
PROC: 3E06317 Introduction of Other Thrombolytic into Central Artery, Percutaneous Approach (ICD-10-PCS; principal; 2020-09-05 08:18)
DX: I26.92 Saddle embolus of pulmonary artery without acute cor pulmonale (principal); Z68.41 Body mass index [BMI] 40.0-44.9, adult; N17.9 Acute kidney failure, unspecified; I82.432 Acute embolism and thrombosis of left popliteal vein; I82.412 Acute embolism and thrombosis of left femoral vein; I16.0 Hypertensive urgency; E66.01 Morbid (severe) obesity due to excess calories; E11.9 Type 2 diabetes mellitus without complications; I10 Essential (primary) hypertension; G47.33 Obstructive sleep apnea (adult) (pediatric); F31.9 Bipolar disorder, unspecified; M10.9 Gout, unspecified; E05.90 Thyrotoxicosis, unspecified without thyrotoxic crisis or storm; E78.5 Hyperlipidemia, unspecified; Z90.49 Acquired absence of other specified parts of digestive tract; Z20.822 Contact with and (suspected) exposure to COVID-19; Z79.82 Long term (current) use of aspirin; Z79.899 Other long term (current) drug therapy

== ENCOUNTER → 2020-09-13 | Outpatient (REF) | payer MEDICARE, OTHER ==
[~2020-09-13] MED LIST changes: +ASPI81TA26 PO; +ELIQ5TAB PO; +RAMI1CAP24 PO; +VITA50005 PO
[2020-09-13 13:56] LABS: BASO # 0.1 10^3/uL (0.0-0.2); BASO % 0.9 % (0.0-1.0); EOS # 0.5 10^3/uL (0.0-0.5); EOS % 5.9 % (0.0-3.0); HEMOGLOBIN 15.8 g/dl (13.5-17.5); LYMPH # 1.5 10^3/uL (1.5-5.0); LYMPH % 17.8 % (24.0-44.0); MEAN CORPUSCULAR HEMOGLOBIN 29.6 pg (27.0-33.0); MEAN CORPUSCULAR VOLUME 95.7 fl (80.0-96.0); MONO # 0.8 10^3/uL (0.0-0.8); MONO % 10.2 % (0.0-5.0); NEUTROPHILS # 5.3 10^3/uL (1.5-8.5); NEUTROPHILS % 64.5 % (36.0-66.0); PLATELET COUNT, AUTOMATED 234 10^3/uL (150-450); RED BLOOD COUNT 5.33 10^6/uL (4.30-6.10); WHITE BLOOD COUNT 8.2 10^3/uL (4.0-10.0)
[2020-09-13 14:17] LABS: HEMOGLOBIN A1c 5.8 %
[2020-09-13 14:34] LABS: ALBUMIN 3.8 GM/DL (3.2-5.2); BILIRUBIN,TOTAL 0.4 MG/DL (0.2-1.0); CHOLESTEROL RISK RATIO 4.897 (<5); CREATININE FOR GFR 2.1 MG/DL (0.70-1.30); FREE T4 0.96 NG/DL (0.76-1.46); GLOMERULAR FILTRATION RATE 33.5 (>49); LITHIUM LEVEL 0.52 MEQ/L (0.60-1.20); POTASSIUM SERUM 4.1 MEQ/L (3.5-5.1); THYROID STIMULATING HORMONE 1.9 uIU/ML (0.358-3.740); TOTAL PROTEIN 7.1 GM/DL (6.4-8.2)
[2020-09-15 10:44] LABS: DRVV SCREEN 88.6 SEC
[2020-09-15 10:48] LABS: PTT LUPUS TYPE ANTICOAG SCREEN 2.2 (0-1.2)
[2020-09-15 10:55] LABS: DRVV CONFIRM 59.1 SEC; LUPUS CONFIRM RATIO 1.5
[2020-09-15 10:59] LABS: NORMALIZED RATIO 1.47 (0.00-1.20)
[2020-09-18 18:20] LABS: HEXAGONAL PHASE PHOSPHOLIPID 0 sec (0-11)
[2020-09-18 21:06] LABS: ANA (HEP2) Negative (.)
== END ==
LOC: M SFHCPLAZ 10:14
PROVIDERS: ATTEND Family Medicine
DX: D69.6 Thrombocytopenia, unspecified (principal); F31.9 Bipolar disorder, unspecified; R73.01 Impaired fasting glucose; E05.90 Thyrotoxicosis, unspecified without thyrotoxic crisis or storm; I26.99 Other pulmonary embolism without acute cor pulmonale; E78.5 Hyperlipidemia, unspecified; N18.30 Chronic kidney disease, stage 3 unspecified

== ENCOUNTER → 2021-01-09 | Outpatient (REF) | payer MEDICARE, OTHER ==
[~2021-01-09] MED LIST changes: -ACET-838 PO; +ACET32TAB PO
[2021-01-09 18:11] LABS: BASO # 0.1 10^3/uL (0.0-0.2); BASO % 0.6 % (0.0-1.0); EOS # 0.2 10^3/uL (0.0-0.5); EOS % 2.2 % (0.0-3.0); HEMATOCRIT 53.1 % (42.0-52.0); HEMOGLOBIN 16.5 g/dl (13.5-17.5); LYMPH # 1.9 10^3/uL (1.5-5.0); MEAN CORPUSCULAR HEMOGLOBIN 29.8 pg (27.0-33.0); MEAN CORPUSCULAR HGB CONC 31.1 g/dl (32.0-36.5); MEAN CORPUSCULAR VOLUME 95.8 fl (80.0-96.0); MONO # 0.9 10^3/uL (0.0-0.8); MONO % 8.7 % (2.0-8.0); NEUTROPHILS # 6.8 10^3/uL (1.5-8.5); NEUTROPHILS % 69.1 % (36.0-66.0); PLATELET COUNT, AUTOMATED 229 10^3/uL (150-450); RED BLOOD COUNT 5.54 10^6/uL (4.30-6.10); WHITE BLOOD COUNT 9.8 10^3/uL (4.0-10.0)
[2021-01-09 18:48] LABS: ALBUMIN 3.8 GM/DL (3.2-5.2); BLOOD UREA NITROGEN 22 MG/DL (7-18); CALCIUM LEVEL 10.5 MG/DL (8.8-10.2); CARBON DIOXIDE LEVEL 30 MEQ/L (21-32); CHLORIDE LEVEL 107 MEQ/L (98-107); CHOLESTEROL LEVEL 240 MG/DL (<200); CHOLESTEROL RISK RATIO 5.333 (<5); CREATININE FOR GFR 2.21 MG/DL (0.70-1.30); FREE T4 0.86 NG/DL (0.76-1.46); GLOMERULAR FILTRATION RATE 31.6 (>49); GLUCOSE, FASTING 108 MG/DL (70-100); HDL CHOLESTEROL 45 MG/DL (>40); LDL CHOLESTEROL 135 MG/DL (<100); NON-HDL-C 195 MG/DL; PHOSPHORUS LEVEL 3.4 MG/DL (2.5-4.9); POTASSIUM SERUM 4.2 MEQ/L (3.5-5.1); PTH INTACT 79.9 PG/ML (18.5-88.0); SODIUM LEVEL 142 MEQ/L (136-145); TOTAL PROTEIN 7.1 GM/DL (6.4-8.2); TRIGLYCERIDES LEVEL 299 MG/DL (<150); VITAMIN B12 LEVEL 281 PG/ML (247-911)
[2021-01-11 14:01] LABS: ALBUMIN 4.17 GM/DL (3.29-5.55); ALBUMIN % 58.8 % (55.8-66.1); ALPHA-1-GLOBULIN % 4.3 % (2.9-4.9); ALPHA-1-GLOBULINS 0.31 GM/DL (0.17-0.41); ALPHA-2-GLOBULINS 0.92 GM/DL (0.42-0.99); BETA-1-GLOBULINS 0.44 GM/DL (0.28-0.60); BETA-1-GLOBULINS % 6.2 % (4.7-7.2); BETA-2-GLOBULINS 0.46 GM/DL (0.19-0.55); BETA-2-GLOBULINS % 6.5 % (3.2-6.5); GAMMA GLOBULIN % 11.2 % (11.1-18.8)
== END ==
LOC: M SFHCPLAZ 13:34
PROVIDERS: ATTEND Family Medicine
DX: E78.5 Hyperlipidemia, unspecified (principal); R73.01 Impaired fasting glucose; D75.89 Other specified diseases of blood and blood-forming organs; Z12.5 Encounter for screening for malignant neoplasm of prostate
CPT/HCPCS: 36415; 80061; 80069; 82607; 83525; 83970; 84165; 84439; 84443; 85025; 86140; 86335; G0103; G0463

== ENCOUNTER → 2021-01-29 | Outpatient (CLI) | payer MEDICARE, BC, OTHER ==
--- NOTE | 2021-01-29 12:57 | REP ---
INDICATION: LEFT LEG PUL NELIA WITH ACURE CUR PULMONALE COMPARISON: 09/04/2020 TECHNIQUE: Mercedes scale and color Doppler evaluation using linear high frequency transducer. FINDINGS: Ultrasound examination of the left lower extremity deep venous structures from the common femoral vein to the popliteal vein demonstrates normal compressibility flow and wave patterns in response to respiration and augmentation. There is no evidence for deep venous thrombosis. IMPRESSION: No evidence for deep venous thrombosis. Previously noted partial thrombosis has resolved. <Electronically signed by Keith Casiano > 01/29/21 [id number]
== END ==
LOC: M RAD 12:13
PROVIDERS: ATTEND Surgery Vascular Surgery
DX: I26.92 Saddle embolus of pulmonary artery without acute cor pulmonale (principal)

== ENCOUNTER 2021-03-16 12:26 | Emergency (ER) | payer MEDICARE, BC, OTHER ==
[~2021-03-16] VITALS: Ht 182.9 cm; Wt 136.9 kg
[~2021-03-16 12:26] MED LIST changes: +ERGO500029 PO; -VITA50005 PO
[2021-03-16 13:38] LABS: BASO # 0.1 10^3/uL (0.0-0.2); BASO % 0.6 % (0.0-1.0); EOS # 0.3 10^3/uL (0.0-0.5); EOS % 2.3 % (0.0-3.0); HEMATOCRIT 50.6 % (42.0-52.0); LYMPH # 1.7 10^3/uL (1.5-5.0); LYMPH % 14.9 % (24.0-44.0); MEAN CORPUSCULAR HEMOGLOBIN 29.7 pg (27.0-33.0); MEAN CORPUSCULAR HGB CONC 31.6 g/dl (32.0-36.5); MEAN CORPUSCULAR VOLUME 93.9 fl (80.0-96.0); MONO # 0.9 10^3/uL (0.0-0.8); MONO % 7.8 % (2.0-8.0); NEUTROPHILS # 8.4 10^3/uL (1.5-8.5); PLATELET COUNT, AUTOMATED 208 10^3/uL (150-450); RED BLOOD COUNT 5.39 10^6/uL (4.30-6.10); WHITE BLOOD COUNT 11.3 10^3/uL (4.0-10.0)
[2021-03-16 13:48] LABS: INR 1.04; PROTHROMBIN TIME 13.8 SECONDS (12.5-14.3)
[2021-03-16 13:49] LABS: PARTIAL THROMBOPLASTIN TIME 34.7 SECONDS (24.2-38.5)
--- NOTE | 2021-03-16 14:09 | REP ---
INDICATION: CHEST PAIN. COMPARISON: Comparison portable chest x-ray September 04, 2020. TECHNIQUE: Portable upright AP chest radiograph. FINDINGS: The lungs are well inflated and free of infiltrate. Pleural angles are sharp. Heart size is normal. Pulmonary vasculature is not increased. There is some tortuosity of the thoracic aorta again noted unchanged. IMPRESSION: No active disease. <Electronically signed by Alvarado Ovalle > 03/16/21 0108
[2021-03-16 14:17] LABS: ALBUMIN 3.6 GM/DL (3.2-5.2); ALT/SGPT 28 U/L (12-78); BILIRUBIN,DIRECT 0.2 MG/DL (0.0-0.2); BILIRUBIN,TOTAL 0.5 MG/DL (0.2-1.0); BLOOD UREA NITROGEN 26 MG/DL (7-18); CARBON DIOXIDE LEVEL 23 MEQ/L (21-32); CHLORIDE LEVEL 111 MEQ/L (98-107); CREATININE FOR GFR 1.76 MG/DL (0.70-1.30); FREE T4 0.86 NG/DL (0.76-1.46); GLOMERULAR FILTRATION RATE 41.1 (>49); GLUCOSE, FASTING 115 MG/DL (70-100); LIPASE 177 U/L (73-393); NT-PRO BNP 247 PG/ML (<125); POTASSIUM SERUM 4.1 MEQ/L (3.5-5.1); SODIUM LEVEL 143 MEQ/L (136-145)
[2021-03-16] MEDS ORDERED: ISOVUE-370 76% 100ML VIAL As Ordered ONE (14:25)
[2021-03-16 15:03] LABS: CK-MB VALUE MASS 1.3 NG/ML (<3.6); CPK CREATINE PHOSPHOKINASE 115 U/L (39-308); MB/CK RELATIVE INDEX 1.13 (< OR =4); TROPONIN I < 0.02 NG/ML (< 0.10)
--- NOTE | 2021-03-16 15:06 | REP ---
INDICATION: chest pain; hx of PE COMPARISON: 09/04/2020 TECHNIQUE: Axial contrast enhanced images from the thoracic inlet to the upper abdomen using pulmonary embolus technique with multiplanar re-formations. 75 ml Isovue 370 intravenous contrast material administered without complication. This CT examination was performed using the following dose reduction techniques: Automated exposure control, adjustment of mA and/or kv according to the patient's size, and use of iterative reconstruction technique. FINDINGS: Suboptimal enhancement of the pulmonary vasculature limits evaluation. While no obvious pulmonary embolus is appreciated, evaluation primarily to the lower lobes is nondiagnostic. Despite the suboptimal enhancement of the pulmonary vasculature, the bilateral lung dover are well aerated and clear without consolidation or atelectasis. No effusion or pneumothorax. Tracheobronchial tree is patent. No evidence for adenopathy. Further evaluation of the mediastinum demonstrates normal thoracic aorta without aneurysm or dissection. Atherosclerotic changes to the coronary arteries noted without cardiomegaly or pericardial effusion. Musculoskeletal structures demonstrate degenerative changes. Focal heterogeneous sclerotic changes to the T7 and T8 vertebral bodies with mild compression deformity at T8 is again noted and similar to prior examination. IMPRESSION: 1. Suboptimal evaluation of the pulmonary vasculature. Pulmonary emboli cannot definitively be excluded. 2. No acute mediastinal or pleuroparenchymal process. 3. Chronic changes to the thoracic vertebral bodies as described above. <Electronically signed by Keith Casiano > 03/16/21 0169
[2021-03-16 16:01] VITALS: BP 163/96
[2021-03-16] MEDS ORDERED: SILD100T (16:11)
--- NOTE | 2021-03-16 17:12 | ECGEPIP ---
[facility] - ED Test Date: 2021-03-16 Pat Name: YASMIN CARVALHO Department: Room: - Gender: Male Kier Operator: EYAL : 1950 Requested By: Jaclyn Griffith Order Number: [id number] Reading MD: Tip Anton Measurements Intervals [place] Rate: 85 P: 49 ND: 262 QRS: -17 QRSD: 92 T: 31 QT: 358 QTc: 426 Interpretive Statements Sinus rhythm with 1st degree AV block Minimal voltage criteria for LVH, may be normal variant Inferior infarct , age undetermined Anterior infarct , age undetermined Delayed anterior R wave progression Similar to tracing done 09-04-20 Electronically Signed on 03-16-2021 17:11:43 EDT by Tip Anton
== END 2021-03-16 16:20 | disposition home or self-care (01) ==
LOC: M ED 12:26
DX: R07.89 Other chest pain (principal); I44.0 Atrioventricular block, first degree; Z86.711 Personal history of pulmonary embolism; I25.2 Old myocardial infarction; I10 Essential (primary) hypertension; E78.5 Hyperlipidemia, unspecified; N18.30 Chronic kidney disease, stage 3 unspecified; N40.0 Benign prostatic hyperplasia without lower urinary tract symptoms; F31.9 Bipolar disorder, unspecified; Z87.891 Personal history of nicotine dependence; Z79.01 Long term (current) use of anticoagulants; Z79.82 Long term (current) use of aspirin; Z79.899 Other long term (current) drug therapy
CPT/HCPCS: 36415; 71045; 71275; 80048; 80076; 82550; 82553; 83690; 83880; 84439; 84443; 84484; 85025; 85610; 85730; 93005; 93041; 94760; 99285; Q9967

== ENCOUNTER → 2021-05-16 | Outpatient (CLI) | payer MEDICARE, BC, OTHER ==
[~2021-05-16] MED LIST changes: +D-101000 PO; +ROSU5TAB5 PO
== END ==
LOC: M LABSMTC 10:49
PROVIDERS: ATTEND Anesthesiology
DX: Z01.818 Encounter for other preprocedural examination (principal); Z11.52 Encounter for screening for COVID-19

== ENCOUNTER 2021-05-21 12:52 | Day surgery (SDC) | payer MEDICARE, BC, OTHER ==
[~2021-05-21] VITALS: Ht 182.9 cm; Wt 125.1 kg
[~2021-05-21 12:52] MED LIST changes: +NS 1,000 ML IV ONE
[2021-05-21] MEDS ORDERED: ROSU5TAB5 PO (13:44)
[2021-05-21] MEDS ORDERED: propofoL 200 MG/20 ML VIAL As Ordered ONE ×2 (14:28→14:29)
--- NOTE | 2021-05-21 15:01 | ROOR ---
Patient Name: Keith Herrera Procedure Date: 05/21/2021 2:20 PM Date of : 1950 Age: 71 Room: [facility] Gender: Male Note Status: Finalized Procedure: Total Colonoscopy to Cecum + Cold Snare Polypectomy + Hemoclips Indications: High risk colon cancer surveillance: Personal history of colonic polyps, Last colonoscopy: 2018 Providers: Alistair Sanchez MD Referring MD: Carlos Enrique Marinelli MD Requesting Provider: Medicines: Monitored Anesthesia Care Complications: No immediate complications. Procedure: Pre-Anesthesia Assessment: - The heart rate, respiratory rate, oxygen saturations, blood pressure, adequacy of pulmonary ventilation, and response to care were monitored throughout the procedure. The Colonoscope was introduced through the anus and advanced to the cecum, identified by appendiceal orifice and ileocecal valve. The colonoscopy was performed without difficulty. The patient tolerated the procedure well. The quality of the bowel preparation was good. Findings: The perianal and digital rectal examinations were normal. Non-bleeding internal hemorrhoids were found during retroflexion. The hemorrhoids were medium-sized and Grade II (internal hemorrhoids that prolapse but reduce spontaneously). Multiple small and large-mouthed diverticula were found in the recto-sigmoid colon, sigmoid colon and descending colon. A medium polyp was found in the mid ascending colon. The polyp was carpet-like. The polyp was removed with a cold snare. Resection and retrieval were complete. A small polyp was found at 50 cm proximal to the anus. The polyp was sessile. The polyp was removed with a cold snare. Resection and retrieval were complete. To prevent bleeding after the polypectomy, one hemostatic clip was successfully placed. There was no bleeding at the end of the procedure. The exam was otherwise without abnormality on direct and retroflexion views. Impression: - Non-bleeding internal hemorrhoids. - Diverticulosis in the recto-sigmoid colon, in the sigmoid colon and in the descending colon. - One medium polyp in the mid ascending colon, removed with a cold snare. Resected and retrieved. - One small polyp at 50 cm proximal to the anus, removed with a cold snare. Resected and retrieved. Clip was placed. - The examination was otherwise normal on direct and retroflexion views. - The exam was otherwise normal to the cecum. Recommendation: - Patient has a contact number available for emergencies. The signs and symptoms of potential delayed complications were discussed with the patient. Return to normal activities tomorrow. Written discharge instructions were provided to the patient. - High fiber diet. - Discharge patient to home. - Continue present medications. - Await pathology results. - Telephone GI clinic for pathology results in 1 week. - Resume Eliquis (apixaban) at prior dose tomorrow. - Repeat colonoscopy for surveillance based on pathology results. - Return to referring physician. - The findings and recommendations were discussed with the patient. Procedure Code(s): --- Professional --- 85921, Colonoscopy, flexible; with removal of tumor(s), polyp(s), or other lesion(s) by snare technique Diagnosis Code(s): --- Professional --- Z86.010, Personal history of colonic polyps K64.1, Second degree hemorrhoids K63.5, Polyp of colon K57.30, Diverticulosis of large intestine without perforation or abscess without bleeding CPT copyright 2019 [employer]. All rights reserved. The codes documented in this report are preliminary and upon health care social worker review may be revised to meet current compliance requirements. Alistair Sanchez MD Alistair Sanchez MD 05/21/2021 3:01:18 PM Electronically signed by Alistair Sanchez MD Number of Addenda: 0 Note Initiated On: 05/21/2021 2:20 PM Estimated Blood Loss: Estimated blood loss: none.
[2021-05-21 15:21] VITALS: BP 154/76
== END 2021-05-21 15:45 | disposition home or self-care (01) ==
LOC: M OPP 12:52
PROVIDERS: ATTEND Internal Medicine Gastroenterology
DX: Z12.11 Encounter for screening for malignant neoplasm of colon (principal); Z86.010 Personal history of colon polyps; K63.5 Polyp of colon; K57.30 Diverticulosis of large intestine without perforation or abscess without bleeding; K64.1 Second degree hemorrhoids; E05.00 Thyrotoxicosis with diffuse goiter without thyrotoxic crisis or storm; Z79.01 Long term (current) use of anticoagulants; Z79.82 Long term (current) use of aspirin; Z79.899 Other long term (current) drug therapy; Z87.891 Personal history of nicotine dependence; Z86.711 Personal history of pulmonary embolism; Z86.718 Personal history of other venous thrombosis and embolism

== ENCOUNTER → 2021-05-25 | Outpatient (CLI) | payer MEDICARE, BC, OTHER ==
[~2021-05-25] MED LIST changes: -NS 1,000 ML IV ONE
[2021-05-25 15:50] LABS: HEMATOCRIT 48.7 % (42.0-52.0)
[2021-05-25 15:51] LABS: BASO # 0.1 10^3/uL (0.0-0.2); BASO % 0.5 % (0.0-1.0); EOS # 0.3 10^3/uL (0.0-0.5); EOS % 2.2 % (0.0-3.0); HEMATOCRIT 47.9 % (42.0-52.0); HEMOGLOBIN 14.9 g/dl (13.5-17.5); LYMPH # 1.7 10^3/uL (1.5-5.0); LYMPH % 15.2 % (24.0-44.0); MEAN CORPUSCULAR HEMOGLOBIN 29.1 pg (27.0-33.0); MEAN CORPUSCULAR HGB CONC 31.1 g/dl (32.0-36.5); MEAN CORPUSCULAR VOLUME 93.6 fl (80.0-96.0); MONO # 1.2 10^3/uL (0.0-0.8); MONO % 10.5 % (2.0-8.0); NEUTROPHILS % 71.2 % (36.0-66.0); PLATELET COUNT, AUTOMATED 225 10^3/uL (150-450); RED BLOOD COUNT 5.12 10^6/uL (4.30-6.10); WHITE BLOOD COUNT 11.3 10^3/uL (4.0-10.0)
[2021-05-25 15:59] LABS: ALBUMIN 3.3 GM/DL (3.2-5.2); BLOOD UREA NITROGEN 25 MG/DL (7-18); CALCIUM LEVEL 9.8 MG/DL (8.8-10.2); CARBON DIOXIDE LEVEL 28 MEQ/L (21-32); CHLORIDE LEVEL 107 MEQ/L (98-107); CHOLESTEROL LEVEL 125 MG/DL (<200); CREATININE FOR GFR 2.17 MG/DL (0.70-1.30); GLOMERULAR FILTRATION RATE 32.2 (>42); GLUCOSE, FASTING 110 MG/DL (70-100); HDL CHOLESTEROL 44 MG/DL (>40); LDL CHOLESTEROL 46 MG/DL (<100); NON-HDL-C 81 MG/DL; PHOSPHORUS LEVEL 3.3 MG/DL (2.5-4.9); POTASSIUM SERUM 4.5 MEQ/L (3.5-5.1); SODIUM LEVEL 142 MEQ/L (136-145); TOTAL PROTEIN 6.6 GM/DL (6.4-8.2); TRIGLYCERIDES LEVEL 177 MG/DL (<150); URIC ACID 6.2 MG/DL (3.5-7.2)
[2021-05-25 16:08] LABS: PTH INTACT 74.2 PG/ML (18.5-88.0); VITAMIN B12 LEVEL 469 PG/ML (247-911)
[2021-05-25 16:10] LABS: HEMOGLOBIN A1c 6.1 %
[2021-05-25 16:11] LABS: CREATININE,RANDOM URINE 30.4 MG/DL; TOTAL PROTEIN,RANDOM URINE 46.4 MG/DL (0.0-12.0)
[2021-05-29 12:58] LABS: ALBUMIN % 57.1 % (55.8-66.1); ALPHA-1-GLOBULIN % 4.2 % (2.9-4.9); ALPHA-2-GLOBULINS % 13.9 % (7.1-11.8); BETA-1-GLOBULINS % 6.5 % (4.7-7.2); BETA-2-GLOBULINS % 6.4 % (3.2-6.5); GAMMA GLOBULIN % 11.9 % (11.1-18.8)
[2021-05-29 13:04] LABS: ALBUMIN 3.77 GM/DL (3.29-5.55); ALPHA-1-GLOBULINS 0.28 GM/DL (0.17-0.41); ALPHA-2-GLOBULINS 0.92 GM/DL (0.42-0.99); BETA-1-GLOBULINS 0.43 GM/DL (0.28-0.60); BETA-2-GLOBULINS 0.42 GM/DL (0.19-0.55); GAMMA GLOBULINS 0.79 GM/DL (0.65-1.58)
[2021-05-29 18:07] LABS: FREE KAPPA LIGHT CHAINS SERUM 49.1 mg/L (3.3-19.4); FREE LAMBDA LIGHT CHAINS SERUM 28.8 mg/L (5.7-26.3); KAPPA/LAMBDA RATIO SERUM 1.7 (0.26-1.65)
== END ==
LOC: M PLALAB 12:20
PROVIDERS: ATTEND Family Medicine
DX: E55.9 Vitamin D deficiency, unspecified (principal); D75.89 Other specified diseases of blood and blood-forming organs; M10.9 Gout, unspecified; E53.8 Deficiency of other specified B group vitamins; Z79.01 Long term (current) use of anticoagulants; Z79.82 Long term (current) use of aspirin; Z79.899 Other long term (current) drug therapy

== ENCOUNTER → 2021-06-04 | Outpatient (CLI) | payer MEDICARE, BC, OTHER ==
--- NOTE | 2021-06-04 11:21 | REP ---
INDICATION: CHRONIC KIDNEY DISEASE, STAGE 3. COMPARISON: None. FINDINGS: KUB shows the intestinal gas pattern to be nonspecific. The organ silhouettes insofar as delineated are unremarkable. There is no evidence of free intraperitoneal air. IMPRESSION: Nonspecific. <Electronically signed by Thomas Moreno > 06/04/21 1112
== END ==
LOC: M PLAIMG 10:44
PROVIDERS: ATTEND Family Medicine
DX: N18.30 Chronic kidney disease, stage 3 unspecified (principal)

== ENCOUNTER → 2021-06-13 | Outpatient (CLI) | payer MEDICARE, BC, OTHER | LOC: M CARPUL 08:31 | PROVIDERS: ATTEND Family Medicine | DX: I50.32 Chronic diastolic (congestive) heart failure (principal) ==

== ENCOUNTER → 2021-07-03 | Outpatient (CLI) | payer MEDICARE, BC, OTHER ==
--- NOTE | 2021-07-03 18:02 | REPVR ---
PROCEDURE INFORMATION: Exam: MR Thoracic Spine Without Contrast Exam date and time: 07/03/2021 4:27 PM Age: 71 years old Clinical indication: Pain in thoracic spine; Additional info: T spine FX TECHNIQUE: Imaging protocol: Multiplanar magnetic resonance images of the thoracic spine without contrast. COMPARISON: CR Spine,LS wBENDING MIN 6 VIEWS 09/15/2018 11:47 AM FINDINGS: Prominent marrow edema and discogenic edema at the T7-T8 levels. Posterior disc protrusion at T7-T8 causes moderate to severe canal narrowing with complete effacement of the thecal sac and slight indentation upon the adjacent spinal cord. Questionable trace degree of central cord edema at T7 and T8. Slight marrow edema along the anterior inferior endplate of T6. Slight loss of height along the superior endplate of T8. Remaining thoracic vertebral body heights are maintained. Right anterior paravertebral soft tissue edema from T6 through T8. IMPRESSION: 1. Prominent marrow and discogenic edema at T7-T8. Differential includes osteomyelitis/discitis versus atypical appearing fractures. Given the additional presence of a posterior disc protrusion at the T7-T8 level causing moderate to severe canal narrowing and slight indentation upon the anterior spinal cord as well as questionable trace cord edema at this level, recommend neurosurgery consultation as well as correlation with laboratory findings such as ESR and WBCs. 2. Other findings, as above. Electronically signed by: Miguel Leroy On 07/03/2021 18:01:47 PM
== END ==
LOC: M RAD 15:02
PROVIDERS: ATTEND Family Medicine
DX: M51.24 Other intervertebral disc displacement, thoracic region (principal)

== ENCOUNTER → 2021-07-04 | Outpatient (CLI) | payer MEDICARE, BC, OTHER ==
[2021-07-04 12:22] LABS: BASO # 0.1 10^3/uL (0.0-0.2); BASO % 0.6 % (0.0-1.0); EOS # 0.4 10^3/uL (0.0-0.5); HEMATOCRIT 49.1 % (42.0-52.0); HEMOGLOBIN 15.3 g/dl (13.5-17.5); LYMPH # 1.3 10^3/uL (1.5-5.0); LYMPH % 13.2 % (24.0-44.0); MEAN CORPUSCULAR HEMOGLOBIN 28.9 pg (27.0-33.0); MEAN CORPUSCULAR HGB CONC 31.2 g/dl (32.0-36.5); MEAN CORPUSCULAR VOLUME 92.8 fl (80.0-96.0); MONO # 1.2 10^3/uL (0.0-0.8); MONO % 12.1 % (2.0-8.0); NEUTROPHILS # 6.9 10^3/uL (1.5-8.5); NEUTROPHILS % 69.7 % (36.0-66.0); PLATELET COUNT, AUTOMATED 207 10^3/uL (150-450); RED BLOOD COUNT 5.29 10^6/uL (4.30-6.10); WHITE BLOOD COUNT 9.8 10^3/uL (4.0-10.0)
[2021-07-04 12:51] LABS: ALBUMIN 3.7 GM/DL (3.2-5.2); BILIRUBIN,TOTAL 0.5 MG/DL (0.2-1.0); C REACTIVE PROTEIN QUANTITATIV 1.25 MG/DL (0.00-0.30); CALCIUM LEVEL 10.1 MG/DL (8.8-10.2); CREATININE FOR GFR 2.53 MG/DL (0.70-1.30); GLOMERULAR FILTRATION RATE 26.9 (>42); POTASSIUM SERUM 4.3 MEQ/L (3.5-5.1); TOTAL PROTEIN 7.3 GM/DL (6.4-8.2)
[2021-07-04 13:03] LABS: ERYTHROCYTE SEDIMENTATION RATE 32 mm/hr (0-20)
== END ==
LOC: M LAB 11:03
PROVIDERS: ATTEND Physician Assistant Medical
DX: M46.47 Discitis, unspecified, lumbosacral region (principal)

== ENCOUNTER → 2021-07-06 | Outpatient (CLI) | payer MEDICARE, BC, OTHER ==
[2021-07-06 10:37] LABS: BASO # 0.1 10^3/uL (0.0-0.2); BASO % 0.6 % (0.0-1.0); EOS # 0.5 10^3/uL (0.0-0.5); EOS % 5.2 % (0.0-3.0); HEMATOCRIT 48.4 % (42.0-52.0); LYMPH # 1.9 10^3/uL (1.5-5.0); LYMPH % 18.1 % (24.0-44.0); MEAN CORPUSCULAR HEMOGLOBIN 29.2 pg (27.0-33.0); MEAN CORPUSCULAR VOLUME 94.2 fl (80.0-96.0); MONO # 1.1 10^3/uL (0.0-0.8); MONO % 10.4 % (2.0-8.0); NEUTROPHILS # 6.8 10^3/uL (1.5-8.5); NEUTROPHILS % 65.4 % (36.0-66.0); PLATELET COUNT, AUTOMATED 218 10^3/uL (150-450); RED BLOOD COUNT 5.14 10^6/uL (4.30-6.10); WHITE BLOOD COUNT 10.4 10^3/uL (4.0-10.0)
[2021-07-06 11:09] LABS: ALBUMIN 3.6 GM/DL (3.2-5.2); BILIRUBIN,TOTAL 0.5 MG/DL (0.2-1.0); C REACTIVE PROTEIN QUANTITATIV 0.61 MG/DL (0.00-0.30); CREATININE FOR GFR 1.99 MG/DL (0.70-1.30); GLOMERULAR FILTRATION RATE 35.5 (>42); POTASSIUM SERUM 4.3 MEQ/L (3.5-5.1); TOTAL PROTEIN 6.9 GM/DL (6.4-8.2)
[2021-07-06 11:13] LABS: ERYTHROCYTE SEDIMENTATION RATE 21 mm/hr (0-20)
== END ==
LOC: M PLALAB 08:38
PROVIDERS: ATTEND Physician Assistant Medical
DX: M46.47 Discitis, unspecified, lumbosacral region (principal); I11.0 Hypertensive heart disease with heart failure; I50.32 Chronic diastolic (congestive) heart failure

== ENCOUNTER → 2021-08-01 | Outpatient (CLI) | payer MEDICARE, BC, OTHER ==
[2021-08-01 14:00] LABS: ALBUMIN 3.6 GM/DL (3.2-5.2); CREATININE FOR GFR 2.01 MG/DL (0.70-1.30); GLOMERULAR FILTRATION RATE 35.1 (>42); MAGNESIUM LEVEL 2.3 MG/DL (1.8-2.4)
== END ==
LOC: M PLALAB 10:50
PROVIDERS: ATTEND Physician Assistant
DX: R60.0 Localized edema (principal); R63.5 Abnormal weight gain; I50.32 Chronic diastolic (congestive) heart failure
CPT/HCPCS: 36415; 80069; 83735; 83880; G0463

== ENCOUNTER → 2021-08-21 | Outpatient (CLI) | payer MEDICARE, BC, OTHER ==
[2021-08-21 12:18] LABS: BASO # 0.1 10^3/uL (0.0-0.2); BASO % 0.5 % (0.0-1.0); EOS # 0.3 10^3/uL (0.0-0.5); EOS % 2.9 % (0.0-3.0); HEMATOCRIT 50.2 % (42.0-52.0); HEMOGLOBIN 15.8 g/dl (13.5-17.5); LYMPH # 1.9 10^3/uL (1.5-5.0); LYMPH % 17.7 % (24.0-44.0); MEAN CORPUSCULAR HEMOGLOBIN 28.9 pg (27.0-33.0); MEAN CORPUSCULAR HGB CONC 31.5 g/dl (32.0-36.5); MEAN CORPUSCULAR VOLUME 91.8 fl (80.0-96.0); MONO # 1.1 10^3/uL (0.0-0.8); MONO % 10.5 % (2.0-8.0); NEUTROPHILS # 7.1 10^3/uL (1.5-8.5); NEUTROPHILS % 68.1 % (36.0-66.0); PLATELET COUNT, AUTOMATED 242 10^3/uL (150-450); RED BLOOD COUNT 5.47 10^6/uL (4.30-6.10); WHITE BLOOD COUNT 10.5 10^3/uL (4.0-10.0)
[2021-08-21 12:26] LABS: INR 1.16; PROTHROMBIN TIME 15.3 SECONDS (12.7-14.5)
[2021-08-21 12:58] LABS: ALBUMIN 3.5 GM/DL (3.2-5.2); BILIRUBIN,TOTAL 0.5 MG/DL (0.2-1.0); CALCIUM LEVEL 10.4 MG/DL (8.8-10.2); CREATININE FOR GFR 2.16 MG/DL (0.70-1.30); FREE T4 0.86 NG/DL (0.76-1.46); GLOMERULAR FILTRATION RATE 32.3 (>42); LITHIUM LEVEL 0.68 MEQ/L (0.60-1.20); POTASSIUM SERUM 4.1 MEQ/L (3.5-5.1); THYROID STIMULATING HORMONE 2.19 uIU/ML (0.358-3.740); TOTAL PROTEIN 7.2 GM/DL (6.4-8.2); URIC ACID 5.2 MG/DL (3.5-7.2)
== END ==
LOC: M LAB 11:38
PROVIDERS: ATTEND Family Medicine
DX: I50.32 Chronic diastolic (congestive) heart failure (principal)

== ENCOUNTER → 2021-10-01 | Outpatient (REF) | payer MEDICARE, BC, OTHER ==
[2021-10-01 19:58] LABS: BASO # 0.1 10^3/uL (0.0-0.2); BASO % 0.6 % (0.0-1.0); EOS # 0.5 10^3/uL (0.0-0.5); EOS % 5.5 % (0.0-3.0); HEMATOCRIT 44.6 % (42.0-52.0); LYMPH # 1.7 10^3/uL (1.5-5.0); LYMPH % 16.7 % (24.0-44.0); MEAN CORPUSCULAR HEMOGLOBIN 29.4 pg (27.0-33.0); MEAN CORPUSCULAR HGB CONC 31.4 g/dl (32.0-36.5); MEAN CORPUSCULAR VOLUME 93.7 fl (80.0-96.0); MONO # 0.5 10^3/uL (0.0-0.8); MONO % 5.5 % (2.0-8.0); NEUTROPHILS # 7.1 10^3/uL (1.5-8.5); NEUTROPHILS % 71.3 % (36.0-66.0); PLATELET COUNT, AUTOMATED 198 10^3/uL (150-450); RED BLOOD COUNT 4.76 10^6/uL (4.30-6.10); WHITE BLOOD COUNT 9.9 10^3/uL (4.0-10.0)
[2021-10-01 20:30] LABS: ALBUMIN 3.3 GM/DL (3.2-5.2); BILIRUBIN,TOTAL 0.3 MG/DL (0.2-1.0); C REACTIVE PROTEIN QUANTITATIV 0.49 MG/DL (0.00-0.30); CALCIUM LEVEL 9.6 MG/DL (8.8-10.2); GLOMERULAR FILTRATION RATE 35.3 (>42); POTASSIUM SERUM 3.7 MEQ/L (3.5-5.1); TOTAL PROTEIN 6.6 GM/DL (6.4-8.2)
[2021-10-01 20:40] LABS: ERYTHROCYTE SEDIMENTATION RATE 33 mm/hr (0-20)
== END ==
LOC: M LAB REF 18:56
PROVIDERS: ATTEND Nurse Practitioner Family
DX: M46.44 Discitis, unspecified, thoracic region (principal); M86.9 Osteomyelitis, unspecified; M47.14 Other spondylosis with myelopathy, thoracic region; M54.6 Pain in thoracic spine; Z79.2 Long term (current) use of antibiotics

== ENCOUNTER → 2021-10-08 | Outpatient (REF) | payer MEDICARE, BC ==
[2021-10-08 19:56] LABS: BASO # 0.1 10^3/uL (0.0-0.2); BASO % 0.5 % (0.0-1.0); EOS # 0.7 10^3/uL (0.0-0.5); HEMOGLOBIN 13.8 g/dl (13.5-17.5); LYMPH # 1.6 10^3/uL (1.5-5.0); LYMPH % 13.1 % (24.0-44.0); MEAN CORPUSCULAR HEMOGLOBIN 28.9 pg (27.0-33.0); MEAN CORPUSCULAR HGB CONC 31.4 g/dl (32.0-36.5); MEAN CORPUSCULAR VOLUME 92.1 fl (80.0-96.0); MONO # 0.9 10^3/uL (0.0-0.8); MONO % 7.4 % (2.0-8.0); NEUTROPHILS % 72.6 % (36.0-66.0); PLATELET COUNT, AUTOMATED 226 10^3/uL (150-450); RED BLOOD COUNT 4.78 10^6/uL (4.30-6.10); WHITE BLOOD COUNT 12.4 10^3/uL (4.0-10.0)
[2021-10-08 20:19] LABS: ERYTHROCYTE SEDIMENTATION RATE 35 mm/hr (0-20)
[2021-10-08 20:37] LABS: ALBUMIN 3.2 GM/DL (3.2-5.2); BILIRUBIN,TOTAL 0.2 MG/DL (0.2-1.0); C REACTIVE PROTEIN QUANTITATIV 0.6 MG/DL (0.00-0.30); CALCIUM LEVEL 9.3 MG/DL (8.8-10.2); CREATININE FOR GFR 1.86 MG/DL (0.70-1.30); GLOMERULAR FILTRATION RATE 38.4 (>42); POTASSIUM SERUM 3.9 MEQ/L (3.5-5.1); TOTAL PROTEIN 6.6 GM/DL (6.4-8.2)
== END ==
LOC: M LAB REF 19:38
PROVIDERS: ATTEND Nurse Practitioner Family
DX: M46.44 Discitis, unspecified, thoracic region (principal); M86.9 Osteomyelitis, unspecified; M47.14 Other spondylosis with myelopathy, thoracic region; M54.6 Pain in thoracic spine; Z79.2 Long term (current) use of antibiotics

== ENCOUNTER → 2021-10-15 | Outpatient (REF) | payer MEDICARE, BC, OTHER ==
[2021-10-15 17:46] LABS: BASO # 0.1 10^3/uL (0.0-0.2); BASO % 0.7 % (0.0-1.0); EOS % 7.7 % (0.0-3.0); HEMATOCRIT 45.9 % (42.0-52.0); HEMOGLOBIN 14.3 g/dl (13.5-17.5); LYMPH % 15.2 % (24.0-44.0); MEAN CORPUSCULAR HEMOGLOBIN 28.8 pg (27.0-33.0); MEAN CORPUSCULAR HGB CONC 31.2 g/dl (32.0-36.5); MEAN CORPUSCULAR VOLUME 92.4 fl (80.0-96.0); MONO # 1.1 10^3/uL (0.0-0.8); MONO % 8.2 % (2.0-8.0); NEUTROPHILS % 67.9 % (36.0-66.0); PLATELET COUNT, AUTOMATED 260 10^3/uL (150-450); RED BLOOD COUNT 4.97 10^6/uL (4.30-6.10); WHITE BLOOD COUNT 13.2 10^3/uL (4.0-10.0)
[2021-10-15 18:15] LABS: ALBUMIN 3.5 GM/DL (3.2-5.2); BILIRUBIN,TOTAL 0.2 MG/DL (0.2-1.0); C REACTIVE PROTEIN QUANTITATIV 0.81 MG/DL (0.00-0.30); CALCIUM LEVEL 9.6 MG/DL (8.8-10.2); CREATININE FOR GFR 1.95 MG/DL (0.70-1.30); GLOMERULAR FILTRATION RATE 36.4 (>42)
[2021-10-15 18:58] LABS: ERYTHROCYTE SEDIMENTATION RATE 43 mm/hr (0-20)
== END ==
LOC: M LAB REF 17:00
PROVIDERS: ATTEND Nurse Practitioner Family
DX: M86.9 Osteomyelitis, unspecified (principal); M46.44 Discitis, unspecified, thoracic region; M47.14 Other spondylosis with myelopathy, thoracic region; Z79.2 Long term (current) use of antibiotics

== ENCOUNTER → 2021-10-22 | Outpatient (REF) | payer MEDICARE, BC, OTHER ==
[2021-10-22 16:39] LABS: BASO # 0.1 10^3/uL (0.0-0.2); BASO % 0.7 % (0.0-1.0); EOS # 1.1 10^3/uL (0.0-0.5); HEMATOCRIT 45.1 % (42.0-52.0); HEMOGLOBIN 13.9 g/dl (13.5-17.5); LYMPH # 1.8 10^3/uL (1.5-5.0); MEAN CORPUSCULAR HEMOGLOBIN 28.7 pg (27.0-33.0); MEAN CORPUSCULAR HGB CONC 30.8 g/dl (32.0-36.5); MEAN CORPUSCULAR VOLUME 93.2 fl (80.0-96.0); MONO # 0.9 10^3/uL (0.0-0.8); MONO % 7.4 % (2.0-8.0); NEUTROPHILS # 8.2 10^3/uL (1.5-8.5); NEUTROPHILS % 67.5 % (36.0-66.0); PLATELET COUNT, AUTOMATED 228 10^3/uL (150-450); RED BLOOD COUNT 4.84 10^6/uL (4.30-6.10); WHITE BLOOD COUNT 12.2 10^3/uL (4.0-10.0)
[2021-10-22 17:10] LABS: ALBUMIN 3.3 GM/DL (3.2-5.2); BILIRUBIN,TOTAL 0.3 MG/DL (0.2-1.0); C REACTIVE PROTEIN QUANTITATIV 0.92 MG/DL (0.00-0.30); CALCIUM LEVEL 9.8 MG/DL (8.8-10.2); CREATININE FOR GFR 1.96 MG/DL (0.70-1.30); GLOMERULAR FILTRATION RATE 36.2 (>42); POTASSIUM SERUM 3.7 MEQ/L (3.5-5.1); TOTAL PROTEIN 6.8 GM/DL (6.4-8.2)
[2021-10-22 17:51] LABS: ERYTHROCYTE SEDIMENTATION RATE 51 mm/hr (0-20)
== END ==
LOC: M LAB REF 16:23
PROVIDERS: ATTEND Nurse Practitioner Family
DX: M46.44 Discitis, unspecified, thoracic region (principal); M54.6 Pain in thoracic spine; M47.14 Other spondylosis with myelopathy, thoracic region; Z79.2 Long term (current) use of antibiotics

== ENCOUNTER → 2021-10-29 | Outpatient (REF) | payer MEDICARE, BC, OTHER ==
[2021-10-29 13:37] LABS: BASO # 0.1 10^3/uL (0.0-0.2); BASO % 0.8 % (0.0-1.0); EOS # 1.4 10^3/uL (0.0-0.5); EOS % 12.5 % (0.0-3.0); HEMATOCRIT 44.8 % (42.0-52.0); HEMOGLOBIN 13.9 g/dl (13.5-17.5); LYMPH # 1.8 10^3/uL (1.5-5.0); LYMPH % 16.7 % (24.0-44.0); MEAN CORPUSCULAR HEMOGLOBIN 28.8 pg (27.0-33.0); MEAN CORPUSCULAR VOLUME 92.8 fl (80.0-96.0); MONO # 0.8 10^3/uL (0.0-0.8); NEUTROPHILS # 6.8 10^3/uL (1.5-8.5); NEUTROPHILS % 62.5 % (36.0-66.0); PLATELET COUNT, AUTOMATED 238 10^3/uL (150-450); RED BLOOD COUNT 4.83 10^6/uL (4.30-6.10)
[2021-10-29 14:28] LABS: ERYTHROCYTE SEDIMENTATION RATE 46 mm/hr (0-20)
[2021-10-29 14:32] LABS: ALBUMIN 3.3 GM/DL (3.2-5.2); BILIRUBIN,TOTAL 0.4 MG/DL (0.2-1.0); C REACTIVE PROTEIN QUANTITATIV 0.77 MG/DL (0.00-0.30); CALCIUM LEVEL 9.8 MG/DL (8.8-10.2); CREATININE FOR GFR 1.87 MG/DL (0.70-1.30); GLOMERULAR FILTRATION RATE 38.2 (>42); POTASSIUM SERUM 3.8 MEQ/L (3.5-5.1); TOTAL PROTEIN 6.7 GM/DL (6.4-8.2)
== END ==
LOC: M LAB REF 12:53
PROVIDERS: ATTEND Nurse Practitioner Family
DX: M46.44 Discitis, unspecified, thoracic region (principal); M86.9 Osteomyelitis, unspecified; M47.14 Other spondylosis with myelopathy, thoracic region; M54.6 Pain in thoracic spine; Z79.2 Long term (current) use of antibiotics

== ENCOUNTER → 2021-11-05 | Outpatient (REF) | payer MEDICARE, BC, OTHER ==
[2021-11-05 17:45] LABS: BASO # 0.1 10^3/uL (0.0-0.2); BASO % 0.7 % (0.0-1.0); EOS # 1.1 10^3/uL (0.0-0.5); EOS % 9.1 % (0.0-3.0); HEMATOCRIT 45.4 % (42.0-52.0); HEMOGLOBIN 14.2 g/dl (13.5-17.5); LYMPH # 1.9 10^3/uL (1.5-5.0); LYMPH % 15.7 % (24.0-44.0); MEAN CORPUSCULAR HEMOGLOBIN 29.2 pg (27.0-33.0); MEAN CORPUSCULAR HGB CONC 31.3 g/dl (32.0-36.5); MEAN CORPUSCULAR VOLUME 93.2 fl (80.0-96.0); MONO # 1.1 10^3/uL (0.0-0.8); MONO % 8.8 % (2.0-8.0); NEUTROPHILS % 65.5 % (36.0-66.0); PLATELET COUNT, AUTOMATED 247 10^3/uL (150-450); RED BLOOD COUNT 4.87 10^6/uL (4.30-6.10); WHITE BLOOD COUNT 12.3 10^3/uL (4.0-10.0)
[2021-11-05 19:13] LABS: ALBUMIN 3.4 GM/DL (3.2-5.2); BILIRUBIN,TOTAL 0.2 MG/DL (0.2-1.0); C REACTIVE PROTEIN QUANTITATIV 0.51 MG/DL (0.00-0.30); CALCIUM LEVEL 9.7 MG/DL (8.8-10.2); CREATININE FOR GFR 1.83 MG/DL (0.70-1.30); GLOMERULAR FILTRATION RATE 39.2 (>42); POTASSIUM SERUM 4.1 MEQ/L (3.5-5.1)
[2021-11-05 19:28] LABS: ERYTHROCYTE SEDIMENTATION RATE 52 mm/hr (0-20)
== END ==
LOC: M LAB REF 17:05
PROVIDERS: ATTEND Nurse Practitioner Family
DX: M86.9 Osteomyelitis, unspecified (principal); M46.44 Discitis, unspecified, thoracic region; M47.14 Other spondylosis with myelopathy, thoracic region; M54.6 Pain in thoracic spine; Z79.2 Long term (current) use of antibiotics

== ENCOUNTER → 2021-11-13 | Outpatient (CLI) | payer MEDICARE, BC, OTHER ==
[2021-11-13 10:54] LABS: BASO # 0.1 10^3/uL (0.0-0.2); BASO % 0.9 % (0.0-1.0); EOS # 0.7 10^3/uL (0.0-0.5); EOS % 6.5 % (0.0-3.0); HEMATOCRIT 48.6 % (42.0-52.0); HEMOGLOBIN 15.2 g/dl (13.5-17.5); LYMPH # 2.1 10^3/uL (1.5-5.0); LYMPH % 18.3 % (24.0-44.0); MEAN CORPUSCULAR HEMOGLOBIN 29.1 pg (27.0-33.0); MEAN CORPUSCULAR HGB CONC 31.3 g/dl (32.0-36.5); MEAN CORPUSCULAR VOLUME 93.1 fl (80.0-96.0); MONO # 1.2 10^3/uL (0.0-0.8); MONO % 10.3 % (2.0-8.0); NEUTROPHILS # 7.2 10^3/uL (1.5-8.5); NEUTROPHILS % 63.6 % (36.0-66.0); PLATELET COUNT, AUTOMATED 252 10^3/uL (150-450); RED BLOOD COUNT 5.22 10^6/uL (4.30-6.10); WHITE BLOOD COUNT 11.3 10^3/uL (4.0-10.0)
[2021-11-13 11:26] LABS: ALBUMIN 3.9 GM/DL (3.2-5.2); CALCIUM LEVEL 10.3 MG/DL (8.8-10.2); CREATININE FOR GFR 1.92 MG/DL (0.70-1.30); LITHIUM LEVEL 0.6 MEQ/L (0.60-1.20); MAGNESIUM LEVEL 2.5 MG/DL (1.8-2.4); PHOSPHORUS LEVEL 3.4 MG/DL (2.5-4.9); POTASSIUM SERUM 3.9 MEQ/L (3.5-5.1)
[2021-11-13 12:34] LABS: PTH INTACT 95.3 PG/ML (18.5-88.0)
== END ==
LOC: M PLALAB 07:35
PROVIDERS: ATTEND Family Medicine
DX: G62.9 Polyneuropathy, unspecified (principal); D50.9 Iron deficiency anemia, unspecified

== ENCOUNTER → 2021-11-21 | Outpatient (CLI) | payer MEDICARE, BC, OTHER ==
[2021-11-21 10:18] LABS: BASO # 0.1 10^3/uL (0.0-0.2); BASO % 0.5 % (0.0-1.0); EOS # 0.6 10^3/uL (0.0-0.5); HEMATOCRIT 44.4 % (42.0-52.0); HEMOGLOBIN 14.1 g/dl (13.5-17.5); LYMPH # 2.1 10^3/uL (1.5-5.0); LYMPH % 17.5 % (24.0-44.0); MEAN CORPUSCULAR HGB CONC 31.8 g/dl (32.0-36.5); MEAN CORPUSCULAR VOLUME 91.4 fl (80.0-96.0); MONO # 1.1 10^3/uL (0.0-0.8); MONO % 9.2 % (2.0-8.0); NEUTROPHILS # 8.1 10^3/uL (1.5-8.5); NEUTROPHILS % 67.4 % (36.0-66.0); PLATELET COUNT, AUTOMATED 230 10^3/uL (150-450); RED BLOOD COUNT 4.86 10^6/uL (4.30-6.10)
[2021-11-21 10:36] LABS: ALBUMIN 3.4 GM/DL (3.2-5.2); BILIRUBIN,TOTAL 0.4 MG/DL (0.2-1.0); CALCIUM LEVEL 9.7 MG/DL (8.8-10.2); CREATININE FOR GFR 1.93 MG/DL (0.70-1.30); GLOMERULAR FILTRATION RATE 36.8 (>42); POTASSIUM SERUM 3.8 MEQ/L (3.5-5.1); TOTAL PROTEIN 6.6 GM/DL (6.4-8.2)
[2021-11-21 10:47] LABS: ERYTHROCYTE SEDIMENTATION RATE 42 mm/hr (0-20)
[2021-11-21 10:59] LABS: C REACTIVE PROTEIN QUANTITATIV 0.59 MG/DL (0.00-0.30)
== END ==
LOC: M PLALAB 07:28
PROVIDERS: ATTEND Physician Assistant
DX: M46.44 Discitis, unspecified, thoracic region (principal)

== ENCOUNTER 2022-02-08 09:38 | Inpatient (IN) | payer MEDICARE, BC, OTHER ==
[~2022-02-08] VITALS: Ht 182.9 cm; Wt 131.2 kg
[~2022-02-08 09:38] MED LIST changes: +SILD100T PO
[2022-02-08 10:36] LABS: BASO # 0.1 10^3/uL (0.0-0.2); BASO % 0.4 % (0.0-1.0); EOS # 0.5 10^3/uL (0.0-0.5); EOS % 3.6 % (0.0-3.0); HEMATOCRIT 44.8 % (42.0-52.0); HEMOGLOBIN 14.5 g/dl (13.5-17.5); LYMPH # 1.4 10^3/uL (1.5-5.0); LYMPH % 10.6 % (24.0-44.0); MEAN CORPUSCULAR HEMOGLOBIN 29.1 pg (27.0-33.0); MEAN CORPUSCULAR HGB CONC 32.4 g/dl (32.0-36.5); MONO # 1.3 10^3/uL (0.0-0.8); MONO % 9.5 % (2.0-8.0); NEUTROPHILS # 10.2 10^3/uL (1.5-8.5); NEUTROPHILS % 75.5 % (36.0-66.0); PLATELET COUNT, AUTOMATED 237 10^3/uL (150-450); RED BLOOD COUNT 4.98 10^6/uL (4.30-6.10); WHITE BLOOD COUNT 13.6 10^3/uL (4.0-10.0)
[2022-02-08] MEDS ORDERED: NS 1,000 ML IV ONE (11:00)
[2022-02-08 11:03] LABS: ALBUMIN 3.4 GM/DL (3.2-5.2); BILIRUBIN,DIRECT 0.2 MG/DL (0.0-0.2); BILIRUBIN,TOTAL 0.6 MG/DL (0.2-1.0); CALCIUM LEVEL 9.5 MG/DL (8.8-10.2); CREATININE FOR GFR 2.31 MG/DL (0.70-1.30); GLOMERULAR FILTRATION RATE 29.9 (>42); POTASSIUM SERUM 4.1 MEQ/L (3.5-5.1)
[2022-02-08 12:29] LABS: INR 1.15; PROTHROMBIN TIME 15.1 SECONDS (12.7-14.5)
[2022-02-08 12:30] LABS: PARTIAL THROMBOPLASTIN TIME 39.1 SECONDS (25.9-37.0)
[2022-02-08] MEDS ORDERED: CHARCOAL ACTIVATED LIQUID 25 GM/120 ML BTL PO ONE (12:30)
[2022-02-08 12:55] LABS: RSV AMPLIFICATION NEGATIVE (NEGATIVE)
[2022-02-08 12:59] LABS: OSMOLALITY SERUM 298 MOSM/KG (280-301)
[2022-02-08 13:02] LABS: ETHYL ALCOHOL (ETHANOL) < 0.003 % (0.000-0.010); SALICYLATE LEVEL < 1.7 MG/DL (5.0-30.0)
[2022-02-08] MEDS ORDERED: DICL1GEL3 TOP (14:01)
[2022-02-08] MEDS ORDERED: ELIQ5TAB PO (14:01)
[2022-02-08] MEDS ORDERED: KETO2CR TOP (14:01)
[2022-02-08] MEDS ORDERED: EZET10TA21 PO (14:01)
[2022-02-08] MEDS ORDERED: CETI-24 PO (14:01)
[2022-02-08] MEDS ORDERED: CEPH500C PO (14:01)
[2022-02-08] MEDS ORDERED: PATIENT COMMENT (14:03)
[2022-02-08] MEDS ORDERED: HOME MED LIST COMPLETE! XX SCH (14:05)
[2022-02-08] MEDS ORDERED: NS 1,000 ML IV SCH (15:20)
[2022-02-08] MEDS: LR 1,000 ML IV SCH (16:24)
[2022-02-08 17:24] LABS: ACETAMINOPHEN LEVEL < 2.0 UG/ML (10.0-30.0); LITHIUM LEVEL 0.96 MEQ/L (0.60-1.20)
[2022-02-08 17:28] LABS: FREE T3 2.3 PG/ML (2.2-4.0); FREE T4 0.78 NG/DL (0.76-1.46)
[2022-02-08] MEDS: CEPHALEXIN 500 MG CAP PO SCH ×2 (18:15→20:47)
[2022-02-08 18:38] VITALS: BP 178/98
[2022-02-08 18:39] LABS: HEMOGLOBIN A1c 6.4 %
[2022-02-08 19:11] VITALS: BP 178/89
[2022-02-08 20:37] VITALS: BP 204/110
[2022-02-08] MEDS: FEBUXOSTAT 40 MG TABLET (ULORIC) PO SCH (20:46)
[2022-02-08] MEDS: propylthiouraciL 50 MG TAB PO SCH (20:47)
[2022-02-08] MEDS ORDERED: DICLOFENAC EPOLAMINE 1.3 % PATCH TOP SCH (21:00)
[2022-02-08] MEDS ORDERED: hydrALAZINE 20MG/ML 1ML VIAL (J0360 PER 20MG) IV ONE (21:45)
[2022-02-08 22:50] LABS: AMPHETAMINES LEVEL URINE NEGATIVE (NEGATIVE); BARBITURATES URINE NEGATIVE (NEGATIVE); BENZODIAZEPINES URINE NEGATIVE (NEGATIVE); CANNABINOIDS URINE NEGATIVE (NEGATIVE); COCAINE METABOLITE URINE NEGATIVE (NEGATIVE); METHADONE URINE NEGATIVE (NEGATIVE); OPIATES URINE NEGATIVE (NEGATIVE); PHENCYCLIDINE URINE NEGATIVE (NEGATIVE)
[2022-02-08 23:24] VITALS: BP 184/88
[2022-02-09] VITALS (10 sets, daily range): BP systolic 150–212; BP diastolic 70–98
[2022-02-09] MEDS ORDERED: hydrALAZINE 20MG/ML 1ML VIAL (J0360 PER 20MG) IV ONE
[2022-02-09] MEDS: LR 1,000 ML IV SCH (01:50)
[2022-02-09 05:51] LABS: HEMATOCRIT 48.2 % (42.0-52.0); MEAN CORPUSCULAR HEMOGLOBIN 28.4 pg (27.0-33.0); MEAN CORPUSCULAR HGB CONC 31.1 g/dl (32.0-36.5); MEAN CORPUSCULAR VOLUME 91.1 fl (80.0-96.0); PLATELET COUNT, AUTOMATED 241 10^3/uL (150-450); RED BLOOD COUNT 5.29 10^6/uL (4.30-6.10); WHITE BLOOD COUNT 11.4 10^3/uL (4.0-10.0)
[2022-02-09 06:26] LABS: ALBUMIN 3.2 GM/DL (3.2-5.2); BILIRUBIN,TOTAL 0.6 MG/DL (0.2-1.0); CALCIUM LEVEL 10.5 MG/DL (8.8-10.2); CREATININE FOR GFR 1.97 MG/DL (0.70-1.30); LITHIUM LEVEL 0.61 MEQ/L (0.60-1.20); POTASSIUM SERUM 4.3 MEQ/L (3.5-5.1); TOTAL PROTEIN 6.9 GM/DL (6.4-8.2)
[2022-02-09] MEDS ORDERED: NS 0.45% 1,000 ML IV SCH (07:30)
[2022-02-09] MEDS ORDERED: TORSEMIDE 10 MG TABLET PO SCH (09:00)
[2022-02-09] MEDS: CEPHALEXIN 500 MG CAP PO SCH ×3 (09:39→20:27)
[2022-02-09] MEDS: ENOXAPARIN 40MG/0.4ML SYRINGE (J1650 PER 10MG) SC SCH (09:39)
[2022-02-09] MEDS: hydrALAZINE 20MG/ML 1ML VIAL (J0360 PER 20MG) IV SCH ×4 (11:30→23:56)
[2022-02-09] MEDS ORDERED: LORazepam 2 MG/ML VIAL As Ordered ONE (15:28)
[2022-02-09] MEDS: LORazepam 2 MG/ML VIAL IV PRN (15:32)
[2022-02-09 16:39] LABS: CALCIUM LEVEL 10.1 MG/DL (8.8-10.2); CREATININE FOR GFR 1.76 MG/DL (0.70-1.30); POTASSIUM SERUM 4.1 MEQ/L (3.5-5.1)
[2022-02-09] MEDS: SODIUM CHLORIDE 23.4% INJ 40.8 MEQ in STERILE WATER LITER BAG 1,050 ML IV SCH (20:27)
[2022-02-09] MEDS: FEBUXOSTAT 40 MG TABLET (ULORIC) PO SCH (20:29)
[2022-02-09] MEDS: propylthiouraciL 50 MG TAB PO SCH (20:32)
[2022-02-10] VITALS (7 sets, daily range): BP systolic 142–192; BP diastolic 69–112
[2022-02-10] MEDS: LORazepam 2 MG/ML VIAL IV PRN ×3 (01:10→23:23)
[2022-02-10] MEDS: hydrALAZINE 20MG/ML 1ML VIAL (J0360 PER 20MG) IV SCH ×6 (04:00→23:22)
[2022-02-10 05:30] LABS: HEMATOCRIT 51.4 % (42.0-52.0); HEMOGLOBIN 15.8 g/dl (13.5-17.5); MEAN CORPUSCULAR HGB CONC 30.7 g/dl (32.0-36.5); MEAN CORPUSCULAR VOLUME 94.3 fl (80.0-96.0); PLATELET COUNT, AUTOMATED 242 10^3/uL (150-450); RED BLOOD COUNT 5.45 10^6/uL (4.30-6.10); WHITE BLOOD COUNT 14.9 10^3/uL (4.0-10.0)
[2022-02-10 05:53] LABS: CALCIUM LEVEL 10.2 MG/DL (8.8-10.2); CREATININE FOR GFR 2.01 MG/DL (0.70-1.30); GLOMERULAR FILTRATION RATE 35.1 (>42); POTASSIUM SERUM 3.9 MEQ/L (3.5-5.1)
[2022-02-10] MEDS: SODIUM CHLORIDE 23.4% INJ 40.8 MEQ in STERILE WATER LITER BAG 1,050 ML IV SCH (06:00)
[2022-02-10] MEDS ORDERED: LORazepam 2 MG/ML VIAL As Ordered ONE (09:23)
[2022-02-10] MEDS: CEPHALEXIN 500 MG CAP PO SCH ×3 (09:28→22:07)
[2022-02-10] MEDS: ENOXAPARIN 40MG/0.4ML SYRINGE (J1650 PER 10MG) SC SCH (09:28)
[2022-02-10 11:50] LABS: OSMOLALITY URINE 309 MOSM/KG (50-1400)
[2022-02-10 11:51] LABS: APPEARANCE, URINE CLEAR (CLEAR); BACTERIA, URINE AUTO NEGATIVE (NEGATIVE); BILIRUBIN, URINE AUTO NEGATIVE (NEGATIVE); BLOOD, URINE BLOOD 2+ (NEGATIVE); COLOR, URINE YELLOW (YELLOW); GLUCOSE, URINE (UA) AUTO NEGATIVE (NEGATIVE); KETONE, URINE AUTO TRACE mg/dL (NEGATIVE); LEUKOCYTE ESTERASE, URINE AUTO 1+ (NEGATIVE); MUCUS, URINE SMALL (NEGATIVE); NITRITE, URINE AUTO NEGATIVE (NEGATIVE); PROTEIN, URINE AUTO 3+ mg/dL (NEGATIVE); RBC, URINE AUTO 60 /HPF (0-3); SQUAMOUS EPITHELIAL CELL UR AU 0 /HPF (0-6); UROBILINOGEN, URINE AUTO 0.2 mg/dL (0.0-2.0); WBC, URINE AUTO 20 /HPF (0-3)
[2022-02-10 12:05] LABS: SODIUM,RANDOM URINE 36 MEQ/L
[2022-02-10] MEDS: POTASSIUM CHLORIDE INJ 10 MEQ in D5W 1,000 ML IV SCH ×2 (14:33→22:07)
[2022-02-10] MEDS: ACETAMINOPHEN 500 MG TAB PO PRN (15:53)
[2022-02-10] MEDS: propylthiouraciL 50 MG TAB PO SCH (22:07)
[2022-02-10] MEDS: FEBUXOSTAT 40 MG TABLET (ULORIC) PO SCH (22:07)
[2022-02-11] VITALS (9 sets, daily range): BP systolic 131–169; BP diastolic 72–88
[2022-02-11] MEDS: hydrALAZINE 20MG/ML 1ML VIAL (J0360 PER 20MG) IV SCH ×6 (03:51→22:45)
[2022-02-11] MEDS: POTASSIUM CHLORIDE INJ 10 MEQ in D5W 1,000 ML IV SCH ×3 (03:51→18:28)
[2022-02-11] MEDS ORDERED: MORPHINE 2 MG/ML 1ML VIAL IV ONE (04:00)
[2022-02-11 07:45] LABS: HEMATOCRIT 51.1 % (42.0-52.0); HEMOGLOBIN 15.3 g/dl (13.5-17.5); MEAN CORPUSCULAR HEMOGLOBIN 28.3 pg (27.0-33.0); MEAN CORPUSCULAR HGB CONC 29.9 g/dl (32.0-36.5); MEAN CORPUSCULAR VOLUME 94.6 fl (80.0-96.0); PLATELET COUNT, AUTOMATED 248 10^3/uL (150-450); WHITE BLOOD COUNT 13.9 10^3/uL (4.0-10.0)
[2022-02-11 07:59] LABS: CALCIUM LEVEL 10.4 MG/DL (8.8-10.2); CREATININE FOR GFR 2.03 MG/DL (0.70-1.30); GLOMERULAR FILTRATION RATE 34.7 (>42); POTASSIUM SERUM 4.1 MEQ/L (3.5-5.1)
[2022-02-11] MEDS: ENOXAPARIN 40MG/0.4ML SYRINGE (J1650 PER 10MG) SC SCH (08:53)
[2022-02-11] MEDS: CEPHALEXIN 500 MG CAP PO SCH ×3 (08:53→21:09)
[2022-02-11] MEDS: ACETAMINOPHEN 500 MG TAB PO PRN (10:47)
[2022-02-11 20:41] LABS: CALCIUM LEVEL 9.5 MG/DL (8.8-10.2); CREATININE FOR GFR 1.99 MG/DL (0.70-1.30); GLOMERULAR FILTRATION RATE 35.5 (>42); POTASSIUM SERUM 3.8 MEQ/L (3.5-5.1)
[2022-02-11] MEDS: FEBUXOSTAT 40 MG TABLET (ULORIC) PO SCH (21:09)
[2022-02-11] MEDS: propylthiouraciL 50 MG TAB PO SCH (21:09)
[2022-02-12] VITALS (7 sets, daily range): BP systolic 114–164; BP diastolic 68–79
[2022-02-12] MEDS: POTASSIUM CHLORIDE INJ 10 MEQ in D5W 1,000 ML IV SCH ×3 (00:30→16:57)
[2022-02-12] MEDS: hydrALAZINE 20MG/ML 1ML VIAL (J0360 PER 20MG) IV SCH ×6 (03:57→23:12)
[2022-02-12 07:44] LABS: HEMATOCRIT 47.3 % (42.0-52.0); HEMOGLOBIN 14.6 g/dl (13.5-17.5); MEAN CORPUSCULAR HEMOGLOBIN 28.6 pg (27.0-33.0); MEAN CORPUSCULAR HGB CONC 30.9 g/dl (32.0-36.5); MEAN CORPUSCULAR VOLUME 92.7 fl (80.0-96.0); PLATELET COUNT, AUTOMATED 209 10^3/uL (150-450)
[2022-02-12 08:13] LABS: CREATININE FOR GFR 1.93 MG/DL (0.70-1.30); GLOMERULAR FILTRATION RATE 36.8 (>42); POTASSIUM SERUM 3.9 MEQ/L (3.5-5.1)
[2022-02-12] MEDS: CEPHALEXIN 500 MG CAP PO SCH ×3 (08:39→20:55)
[2022-02-12] MEDS: ENOXAPARIN 40MG/0.4ML SYRINGE (J1650 PER 10MG) SC SCH (08:39)
[2022-02-12] MEDS ORDERED: TAMSULOSIN 0.4 MG CAP PO ONE (11:25)
[2022-02-12] MEDS: propylthiouraciL 50 MG TAB PO SCH (20:54)
[2022-02-12] MEDS: FEBUXOSTAT 40 MG TABLET (ULORIC) PO SCH (20:54)
[2022-02-13] VITALS: BP 151/68
[2022-02-13] MEDS: hydrALAZINE 20MG/ML 1ML VIAL (J0360 PER 20MG) IV SCH ×4 (02:16→15:00)
[2022-02-13] MEDS: ACETAMINOPHEN 500 MG TAB PO PRN (02:22)
[2022-02-13 04:00] VITALS: BP 166/86
[2022-02-13] MEDS: POTASSIUM CHLORIDE INJ 10 MEQ in D5W 1,000 ML IV SCH (05:57)
[2022-02-13 06:15] LABS: HEMATOCRIT 42.7 % (42.0-52.0); HEMOGLOBIN 13.2 g/dl (13.5-17.5); MEAN CORPUSCULAR HEMOGLOBIN 28.4 pg (27.0-33.0); MEAN CORPUSCULAR HGB CONC 30.9 g/dl (32.0-36.5); PLATELET COUNT, AUTOMATED 183 10^3/uL (150-450); RED BLOOD COUNT 4.64 10^6/uL (4.30-6.10); WHITE BLOOD COUNT 10.3 10^3/uL (4.0-10.0)
[2022-02-13 06:45] LABS: CREATININE FOR GFR 1.9 MG/DL (0.70-1.30); GLOMERULAR FILTRATION RATE 37.5 (>42)
[2022-02-13 07:55] VITALS: BP 142/96
[2022-02-13] MEDS: CEPHALEXIN 500 MG CAP PO SCH (08:56)
[2022-02-13] MEDS: ENOXAPARIN 40MG/0.4ML SYRINGE (J1650 PER 10MG) SC SCH (08:57)
[2022-02-13] MEDS ORDERED: TAMSULOSIN 0.4 MG CAP PO SCH (09:00)
[2022-02-13 12:43] VITALS: BP 146/76
[2022-02-13 15:00] VITALS: BP 142/76
== END 2022-02-13 15:30 | DRG 92 ==
LOC: M ED 09:38 → M ED INP 16:02 → ENRESERV 17:19 → M PCU 18:33
PROVIDERS: ADMIT Family Medicine; ATTEND Family Medicine
DX: G92.8 Other toxic encephalopathy (principal); N17.9 Acute kidney failure, unspecified; E87.0 Hyperosmolality and hypernatremia; I12.9 Hypertensive chronic kidney disease with stage 1 through stage 4 chronic kidney disease, or unspecified chronic kidney disease; E78.5 Hyperlipidemia, unspecified; M10.9 Gout, unspecified; F31.9 Bipolar disorder, unspecified; N40.0 Benign prostatic hyperplasia without lower urinary tract symptoms; K21.9 Gastro-esophageal reflux disease without esophagitis; E03.9 Hypothyroidism, unspecified; Z90.49 Acquired absence of other specified parts of digestive tract; Z86.711 Personal history of pulmonary embolism; Z20.822 Contact with and (suspected) exposure to COVID-19; Z79.82 Long term (current) use of aspirin; Z79.01 Long term (current) use of anticoagulants; Z79.899 Other long term (current) drug therapy; T56.891A Toxic effect of other metals, accidental (unintentional), initial encounter; Z79.2 Long term (current) use of antibiotics; N18.32 Chronic kidney disease, stage 3b; I44.1 Atrioventricular block, second degree; E11.22 Type 2 diabetes mellitus with diabetic chronic kidney disease

== ENCOUNTER → 2022-02-25 | Outpatient (CLI) | payer MEDICARE, BC, OTHER ==
[~2022-02-25] MED LIST changes: +CEPH500C PO; +CETI-24 PO; +EZET10TA21 PO; +HYDR25TA PO; +KETO2CR TOP; +PATIENT COMMENT
[2022-02-25 14:08] LABS: APPEARANCE, URINE CLEAR (CLEAR); BACTERIA, URINE AUTO NEGATIVE (NEGATIVE); BILIRUBIN, URINE AUTO NEGATIVE (NEGATIVE); BLOOD, URINE BLOOD 1+ (NEGATIVE); COLOR, URINE STRAW (YELLOW); GLUCOSE, URINE (UA) AUTO NEGATIVE (NEGATIVE); KETONE, URINE AUTO NEGATIVE (NEGATIVE); LEUKOCYTE ESTERASE, URINE AUTO NEGATIVE (NEGATIVE); NITRITE, URINE AUTO NEGATIVE (NEGATIVE); PROTEIN, URINE AUTO 2+ mg/dL (NEGATIVE); RBC, URINE AUTO 0 /HPF (0-3); SPECIFIC GRAVITY URINE AUTO 1.005 (1.002-1.035); SQUAMOUS EPITHELIAL CELL UR AU 0 /HPF (0-6); UROBILINOGEN, URINE AUTO 0.2 mg/dL (0.0-2.0); WBC, URINE AUTO 0 /HPF (0-3)
[2022-02-25 14:10] LABS: BASO # 0.1 10^3/uL (0.0-0.2); BASO % 0.8 % (0.0-1.0); EOS # 0.5 10^3/uL (0.0-0.5); EOS % 5.2 % (0.0-3.0); HEMATOCRIT 43.3 % (42.0-52.0); LYMPH # 1.6 10^3/uL (1.5-5.0); LYMPH % 17.5 % (24.0-44.0); MEAN CORPUSCULAR HEMOGLOBIN 27.7 pg (27.0-33.0); MEAN CORPUSCULAR VOLUME 92.3 fl (80.0-96.0); MONO # 1.1 10^3/uL (0.0-0.8); MONO % 11.5 % (2.0-8.0); NEUTROPHILS # 5.9 10^3/uL (1.5-8.5); NEUTROPHILS % 64.5 % (36.0-66.0); PLATELET COUNT, AUTOMATED 234 10^3/uL (150-450); RED BLOOD COUNT 4.69 10^6/uL (4.30-6.10); WHITE BLOOD COUNT 9.2 10^3/uL (4.0-10.0)
[2022-02-25 14:32] LABS: ERYTHROCYTE SEDIMENTATION RATE 50 mm/hr (0-20)
[2022-02-25 14:44] LABS: ALBUMIN 3.2 GM/DL (3.2-5.2); ALT/SGPT 29 U/L (12-78); BILIRUBIN,TOTAL 0.3 MG/DL (0.2-1.0); BLOOD UREA NITROGEN 26 MG/DL (7-18); CALCIUM LEVEL 9.9 MG/DL (8.8-10.2); CARBON DIOXIDE LEVEL 28 MEQ/L (21-32); CHLORIDE LEVEL 114 MEQ/L (98-107); CREATININE FOR GFR 1.75 MG/DL (0.70-1.30); GLOMERULAR FILTRATION RATE 41.2 (>42); GLUCOSE, FASTING 98 MG/DL (70-100); LITHIUM LEVEL < 0.20 MEQ/L (0.60-1.20); MAGNESIUM LEVEL 2.7 MG/DL (1.8-2.4); NT-PRO BNP 406 PG/ML (<125); POTASSIUM SERUM 5.3 MEQ/L (3.5-5.1); SODIUM LEVEL 146 MEQ/L (136-145); TOTAL PROTEIN 6.5 GM/DL (6.4-8.2)
[2022-02-27 07:07] LABS: THYROID STIMULATING IMMUNOGLOB <0.10 IU/L (0.00-0.55); TSH RECEPTOR ASSAY <1.10 IU/L (0.00-1.75)
== END ==
LOC: M PLALAB 11:51
PROVIDERS: ATTEND Family Medicine
DX: N40.1 Benign prostatic hyperplasia with lower urinary tract symptoms (principal); I11.0 Hypertensive heart disease with heart failure; E05.90 Thyrotoxicosis, unspecified without thyrotoxic crisis or storm; I50.32 Chronic diastolic (congestive) heart failure; Z12.5 Encounter for screening for malignant neoplasm of prostate

== ENCOUNTER → 2022-03-12 | Outpatient (CLI) | payer MEDICARE, BC, OTHER ==
[~2022-03-12] MED LIST changes: +CYAN100050 PO; +DULO1CAP5 PO; +LITH300C PO; +PRED1SUS30 OS; +TAMS1CAP17 PO
[2022-03-12 13:44] LABS: ALBUMIN 3.3 GM/DL (3.2-5.2); CALCIUM LEVEL 10.5 MG/DL (8.8-10.2); CREATININE FOR GFR 1.94 MG/DL (0.70-1.30); GLOMERULAR FILTRATION RATE 36.6 (>42); MAGNESIUM LEVEL 2.3 MG/DL (1.8-2.4); PHOSPHORUS LEVEL 3.4 MG/DL (2.5-4.9); POTASSIUM SERUM 3.8 MEQ/L (3.5-5.1)
== END ==
LOC: M PLALAB 10:58
PROVIDERS: ATTEND Physician Assistant
DX: I11.0 Hypertensive heart disease with heart failure (principal); I50.32 Chronic diastolic (congestive) heart failure

== ENCOUNTER → 2022-04-01 | Outpatient (CLI) | payer MEDICARE, BC, OTHER ==
[~2022-04-01] MED LIST changes: -CYAN100050 PO; -DULO1CAP5 PO; -LITH300C PO; -PRED1SUS30 OS; -TAMS1CAP17 PO
== END ==
LOC: M LABSMTC 10:36
PROVIDERS: ATTEND Anesthesiology
DX: Z11.52 Encounter for screening for COVID-19 (principal)

== ENCOUNTER → 2022-04-04 | Outpatient (CLI) | payer MEDICARE, BC, OTHER ==
[~2022-04-04] MED LIST changes: +CYAN100050 PO; +DULO1CAP5 PO; +HYDR10TAB PO; +ISOS30TAB PO; +LITH300C PO; +PRED1SUS30 OS; +SELF1KIT MC; +TAMS1CAP17 PO
[2022-04-04 13:42] LABS: BASO % 0.4 % (0.0-1.0); EOS # 0.3 10^3/uL (0.0-0.5); EOS % 3.2 % (0.0-3.0); HEMATOCRIT 48.7 % (42.0-52.0); HEMOGLOBIN 15.2 g/dl (13.5-17.5); LYMPH # 1.9 10^3/uL (1.5-5.0); LYMPH % 20.5 % (24.0-44.0); MEAN CORPUSCULAR HEMOGLOBIN 28.5 pg (27.0-33.0); MEAN CORPUSCULAR HGB CONC 31.2 g/dl (32.0-36.5); MEAN CORPUSCULAR VOLUME 91.4 fl (80.0-96.0); MONO % 10.4 % (2.0-8.0); NEUTROPHILS # 6.1 10^3/uL (1.5-8.5); NEUTROPHILS % 65.2 % (36.0-66.0); PLATELET COUNT, AUTOMATED 237 10^3/uL (150-450); RED BLOOD COUNT 5.33 10^6/uL (4.30-6.10); WHITE BLOOD COUNT 9.4 10^3/uL (4.0-10.0)
[2022-04-04 14:00] LABS: ALBUMIN 3.6 GM/DL (3.2-5.2); BILIRUBIN,TOTAL 0.4 MG/DL (0.2-1.0); C REACTIVE PROTEIN QUANTITATIV 1.06 MG/DL (0.00-0.30); CALCIUM LEVEL 10.1 MG/DL (8.8-10.2); CREATININE FOR GFR 1.91 MG/DL (0.70-1.30); GLOMERULAR FILTRATION RATE 37.3 (>42); POTASSIUM SERUM 3.8 MEQ/L (3.5-5.1); TOTAL PROTEIN 7.3 GM/DL (6.4-8.2)
[2022-04-04 14:24] LABS: ERYTHROCYTE SEDIMENTATION RATE 33 mm/hr (0-20)
== END ==
LOC: M PLALAB 10:49
PROVIDERS: ATTEND Physician Assistant
DX: A49.8 Other bacterial infections of unspecified site (principal); Z96.9 Presence of functional implant, unspecified

== ENCOUNTER → 2022-04-04 | Outpatient (CLI) | payer MEDICARE, BC, OTHER ==
[2022-04-04 15:40] LABS: ALBUMIN 3.5 GM/DL (3.2-5.2); BLOOD UREA NITROGEN 29 MG/DL (7-18); CALCIUM LEVEL 10.1 MG/DL (8.8-10.2); CARBON DIOXIDE LEVEL 32 MEQ/L (21-32); CHLORIDE LEVEL 109 MEQ/L (98-107); CREATININE FOR GFR 1.93 MG/DL (0.70-1.30); GLOMERULAR FILTRATION RATE 36.8 (>42); GLUCOSE, FASTING 111 MG/DL (70-100); PHOSPHORUS LEVEL 4.1 MG/DL (2.5-4.9); POTASSIUM SERUM 3.9 MEQ/L (3.5-5.1); PTH INTACT 74.2 PG/ML (18.5-88.0); SODIUM LEVEL 143 MEQ/L (136-145); TOTAL 25(OH) VITAMIN D 30.2 NG/ML (30.0-100.0); TOTAL PROTEIN 7.4 GM/DL (6.4-8.2)
[2022-04-04 17:09] LABS: NT-PRO BNP 214 PG/ML (<125)
[2022-04-05 12:46] LABS: ALBUMIN 3.86 GM/DL (3.29-5.55); ALBUMIN % 52.1 % (55.8-66.1); ALPHA-1-GLOBULIN % 5.2 % (2.9-4.9); ALPHA-1-GLOBULINS 0.38 GM/DL (0.17-0.41); ALPHA-2-GLOBULINS 1.11 GM/DL (0.42-0.99); BETA-1-GLOBULINS % 6.7 % (4.7-7.2); BETA-2-GLOBULINS 0.51 GM/DL (0.19-0.55); BETA-2-GLOBULINS % 6.9 % (3.2-6.5); GAMMA GLOBULIN % 14.1 % (11.1-18.8); GAMMA GLOBULINS 1.04 GM/DL (0.65-1.58)
== END ==
LOC: M PLALAB 10:53
PROVIDERS: ATTEND Family Medicine
DX: E55.9 Vitamin D deficiency, unspecified (principal); Z79.899 Other long term (current) drug therapy

== ENCOUNTER 2022-04-05 08:47 | Day surgery (SDC) | payer MEDICARE, BC, OTHER ==
[~2022-04-05] VITALS: Ht 182.9 cm; Wt 131.1 kg
[~2022-04-05 08:47] MED LIST changes: +BSS IRR 500ML/OMIDRIA 4ML IRR BAG (OR ONLY) As Ordered ONE; +CEFUROXIME 1MG/0.1ML INTRACAMERAL INJ As Ordered ONE; -CYAN100050 PO; -DULO1CAP5 PO; -HYDR10TAB PO; -ISOS30TAB PO; +LIDOCAINE 1% SDV 5ML VIAL As Ordered ONE; -LITH300C PO; +OFLOXACIN 0.3 % (OCUFLOX) OPTH SOL 5ML OS SCH; +PHENYLEPHRINE 2.5% OPHTH SOL 2ML OS SCH; -PRED1SUS30 OS; +PROPARACAINE 0.5% OPHTH SOL 15ML OS ONE; -SELF1KIT MC; -TAMS1CAP17 PO; +TROPICAMIDE 1% OPHTH SOLN 2ML OS SCH
[2022-04-05] MEDS ORDERED: PHENYLEPHRINE HCL 10 % OPHTH. SOL 5ML As Ordered ONE (09:26)
[2022-04-05] MEDS ORDERED: PHENYLEPHRINE HCL 10 % OPHTH. SOL 5ML OS SCH (10:00)
[2022-04-05] MEDS ORDERED: fentaNYL 100 MCG/2 ML INJECTION As Ordered ONE (11:21)
[2022-04-05] MEDS ORDERED: MIDAZOLAM INJ 2MG/2ML VIAL (J2250 PER 1MG) As Ordered ONE (11:21)
[2022-04-05 11:32] VITALS: BP 139/86
[2022-04-11] MEDS ORDERED: LITH300C PO (09:49)
[2022-04-15] MEDS ORDERED: DULO1CAP5 PO (14:32)
[2022-04-15] MEDS ORDERED: PROP50TA3 PO (17:12)
[2022-04-15] MEDS ORDERED: PRED1SUS30 OS (17:12)
[2022-04-15] MEDS ORDERED: EZET10TA21 PO (17:12)
[2022-04-15] MEDS ORDERED: CYAN100050 PO (17:12)
[2022-04-15] MEDS ORDERED: CEPH500C PO (17:12)
[2022-04-15] MEDS ORDERED: ELIQ5TAB PO (17:12)
[2022-04-15] MEDS ORDERED: TAMS1CAP17 PO (17:12)
[2022-04-15] MEDS ORDERED: ROSU5TAB5 PO (17:12)
[2022-04-15] MEDS ORDERED: ULOR80TA PO (17:12)
[2022-04-18] MEDS ORDERED: HYDR10TAB PO (07:28)
[2022-04-18] MEDS ORDERED: SELF1KIT MC (07:28)
[2022-04-18] MEDS ORDERED: ISOS30TAB PO (07:28)
== END 2022-04-05 12:15 | disposition home or self-care (01) ==
LOC: M SDC 08:47
PROVIDERS: ATTEND Ophthalmology
DX: H25.12 Age-related nuclear cataract, left eye (principal); I10 Essential (primary) hypertension; I73.9 Peripheral vascular disease, unspecified; I25.10 Atherosclerotic heart disease of native coronary artery without angina pectoris; Z87.891 Personal history of nicotine dependence; M10.9 Gout, unspecified; D64.9 Anemia, unspecified; F41.9 Anxiety disorder, unspecified; F32.9 Major depressive disorder, single episode, unspecified; F31.9 Bipolar disorder, unspecified; G47.33 Obstructive sleep apnea (adult) (pediatric); Z79.01 Long term (current) use of anticoagulants; Z79.82 Long term (current) use of aspirin; Z79.899 Other long term (current) drug therapy; Z86.718 Personal history of other venous thrombosis and embolism; Z86.711 Personal history of pulmonary embolism; N40.0 Benign prostatic hyperplasia without lower urinary tract symptoms; E05.90 Thyrotoxicosis, unspecified without thyrotoxic crisis or storm; E78.5 Hyperlipidemia, unspecified
CPT/HCPCS: 66984; J0697; J1097; J2250; J3010

== ENCOUNTER → 2022-04-12 | Outpatient (CLI) | payer MEDICARE, BC, OTHER ==
[~2022-04-12] MED LIST changes: -BSS IRR 500ML/OMIDRIA 4ML IRR BAG (OR ONLY) As Ordered ONE; -CEFUROXIME 1MG/0.1ML INTRACAMERAL INJ As Ordered ONE; +CYAN100050 PO; +DULO1CAP5 PO; -LIDOCAINE 1% SDV 5ML VIAL As Ordered ONE; +LITH300C PO; -OFLOXACIN 0.3 % (OCUFLOX) OPTH SOL 5ML OS SCH; -PHENYLEPHRINE 2.5% OPHTH SOL 2ML OS SCH; +PRED1SUS30 OS; -PROPARACAINE 0.5% OPHTH SOL 15ML OS ONE; +TAMS1CAP17 PO; -TROPICAMIDE 1% OPHTH SOLN 2ML OS SCH
[2022-04-12 16:03] LABS: BASO # 0.1 10^3/uL (0.0-0.2); BASO % 0.5 % (0.0-1.0); EOS # 0.3 10^3/uL (0.0-0.5); EOS % 3.1 % (0.0-3.0); HEMATOCRIT 46.3 % (42.0-52.0); HEMOGLOBIN 14.3 g/dl (13.5-17.5); LYMPH # 1.7 10^3/uL (1.5-5.0); LYMPH % 15.8 % (24.0-44.0); MEAN CORPUSCULAR HEMOGLOBIN 27.7 pg (27.0-33.0); MEAN CORPUSCULAR HGB CONC 30.9 g/dl (32.0-36.5); MEAN CORPUSCULAR VOLUME 89.7 fl (80.0-96.0); MONO # 0.8 10^3/uL (0.0-0.8); MONO % 7.3 % (2.0-8.0); NEUTROPHILS # 7.6 10^3/uL (1.5-8.5); NEUTROPHILS % 72.7 % (36.0-66.0); PLATELET COUNT, AUTOMATED 225 10^3/uL (150-450); RED BLOOD COUNT 5.16 10^6/uL (4.30-6.10); WHITE BLOOD COUNT 10.4 10^3/uL (4.0-10.0)
== END ==
LOC: M PLALAB 11:32
PROVIDERS: ATTEND Family Medicine
DX: I10 Essential (primary) hypertension (principal)

== ENCOUNTER → 2022-05-05 | Outpatient (CLI) | payer MEDICARE, BC, OTHER ==
[~2022-05-05] MED LIST changes: +HYDR10TAB PO; +ISOS30TAB PO; +SELF1KIT MC
== END ==
LOC: M LABSMTC 10:19
PROVIDERS: ATTEND Internal Medicine Cardiovascular Disease
DX: Z01.812 Encounter for preprocedural laboratory examination (principal)

== ENCOUNTER 2022-05-07 11:23 | Day surgery (SDC) | payer MEDICARE, BC, OTHER ==
[~2022-05-07] VITALS: Ht 182.9 cm; Wt 129.7 kg
[~2022-05-07 11:23] MED LIST changes: +ceFAZolin SOD 1 GM in D5W MINI-BAG PLUS 50 ML IV ONE; +ceFAZolin SOD 2 GM in IV 1 EA IV ONE
[2022-05-07] MEDS ORDERED: MIDAZOLAM INJ 2MG/2ML VIAL (J2250 PER 1MG) As Ordered ONE (14:04)
[2022-05-07] MEDS ORDERED: fentaNYL 100 MCG/2 ML INJECTION As Ordered ONE (14:04)
[2022-05-07] MEDS ORDERED: LIDOCAINE 1% SDV 30ML VIAL As Ordered ONE (14:06)
[2022-05-07] MEDS ORDERED: BACITRACIN OINTMENT 30GM TUBE As Ordered ONE (14:42)
[2022-05-07 14:59] VITALS: BP 165/83
== END 2022-05-07 15:21 | disposition home or self-care (01) ==
LOC: M SDC 11:23
PROVIDERS: ATTEND Internal Medicine Cardiovascular Disease
DX: I44.1 Atrioventricular block, second degree (principal); I12.9 Hypertensive chronic kidney disease with stage 1 through stage 4 chronic kidney disease, or unspecified chronic kidney disease; I25.10 Atherosclerotic heart disease of native coronary artery without angina pectoris; I25.2 Old myocardial infarction; R94.31 Abnormal electrocardiogram [ECG] [EKG]; E78.00 Pure hypercholesterolemia, unspecified; M10.9 Gout, unspecified; G47.33 Obstructive sleep apnea (adult) (pediatric); N18.9 Chronic kidney disease, unspecified; E66.09 Other obesity due to excess calories; Z68.37 Body mass index [BMI] 37.0-37.9, adult; F31.9 Bipolar disorder, unspecified; N40.0 Benign prostatic hyperplasia without lower urinary tract symptoms; K21.9 Gastro-esophageal reflux disease without esophagitis; R06.00 Dyspnea, unspecified; Z86.711 Personal history of pulmonary embolism; Z79.899 Other long term (current) drug therapy; Z79.2 Long term (current) use of antibiotics; Z79.01 Long term (current) use of anticoagulants; Z79.82 Long term (current) use of aspirin; Z88.5 Allergy status to narcotic agent; Z88.8 Allergy status to other drugs, medicaments and biological substances
CPT/HCPCS: 33285; C1764; J0690; J2250; J3010

== ENCOUNTER → 2022-05-13 | Outpatient (REF) | payer MEDICARE, BC, OTHER ==
[~2022-05-13] MED LIST changes: -ceFAZolin SOD 1 GM in D5W MINI-BAG PLUS 50 ML IV ONE; -ceFAZolin SOD 2 GM in IV 1 EA IV ONE
== END ==
LOC: M LAB REF 11:13
PROVIDERS: ATTEND Physician Assistant
DX: L02.416 Cutaneous abscess of left lower limb (principal)

== ENCOUNTER → 2022-06-04 | Outpatient (CLI) | payer MEDICARE, BC, OTHER | LOC: M LABSMTC 09:34 | PROVIDERS: ATTEND Anesthesiology | DX: Z01.818 Encounter for other preprocedural examination (principal); Z11.52 Encounter for screening for COVID-19 ==

== ENCOUNTER 2022-06-07 09:47 | Day surgery (SDC) | payer MEDICARE, BC, OTHER ==
[~2022-06-07] VITALS: Ht 182.9 cm; Wt 130.2 kg
[~2022-06-07 09:47] MED LIST changes: +CEFUROXIME 1MG/0.1ML INTRACAMERAL INJ As Ordered ONE; +LIDOCAINE 1% SDV 5ML VIAL As Ordered ONE; +PROPARACAINE 0.5% OPHTH SOL 15ML OD ONE
[2022-06-07] MEDS ORDERED: BSS IRR 500ML/OMIDRIA 4ML IRR BAG (OR ONLY) ONE (09:48)
[2022-06-07] MEDS: PHENYLEPHRINE 2.5% OPHTH SOL 2ML OD SCH ×3 (11:03→11:32)
[2022-06-07] MEDS: OFLOXACIN 0.3 % (OCUFLOX) OPTH SOL 5ML OD SCH ×2 (11:04→11:32)
[2022-06-07] MEDS: TROPICAMIDE 1% OPHTH SOLN 2ML OD SCH ×2 (11:04→11:32)
[2022-06-07] MEDS ORDERED: PHENYLEPHRINE HCL 10 % OPHTH. SOL 5ML OD ONE (11:30)
[2022-06-07] MEDS ORDERED: fentaNYL 100 MCG/2 ML INJECTION As Ordered ONE (12:00)
[2022-06-07] MEDS ORDERED: MIDAZOLAM INJ 2MG/2ML VIAL (J2250 PER 1MG) As Ordered ONE (12:00)
[2022-06-07 12:40] VITALS: BP 169/82
== END 2022-06-07 12:50 | disposition home or self-care (01) ==
LOC: M SDC 09:47
PROVIDERS: ATTEND Ophthalmology
DX: H25.11 Age-related nuclear cataract, right eye (principal); E78.5 Hyperlipidemia, unspecified; M48.00 Spinal stenosis, site unspecified; Z79.899 Other long term (current) drug therapy; Z79.01 Long term (current) use of anticoagulants; Z79.2 Long term (current) use of antibiotics; Z86.718 Personal history of other venous thrombosis and embolism
CPT/HCPCS: 66984; J0697; J1097; J2250; J3010; V2632

== ENCOUNTER → 2022-07-25 | Outpatient (CLI) | payer MEDICARE, BC, OTHER ==
[~2022-07-25] MED LIST changes: -CEFUROXIME 1MG/0.1ML INTRACAMERAL INJ As Ordered ONE; -LIDOCAINE 1% SDV 5ML VIAL As Ordered ONE; -PROPARACAINE 0.5% OPHTH SOL 15ML OD ONE
[2022-07-25 11:14] LABS: BASO # 0.1 10^3/uL (0.0-0.2); BASO % 0.5 % (0.0-1.0); EOS # 0.3 10^3/uL (0.0-0.5); EOS % 3.1 % (0.0-3.0); HEMATOCRIT 51.1 % (42.0-52.0); HEMOGLOBIN 15.4 g/dl (13.5-17.5); LYMPH # 1.7 10^3/uL (1.5-5.0); LYMPH % 17.1 % (24.0-44.0); MEAN CORPUSCULAR HEMOGLOBIN 27.6 pg (27.0-33.0); MEAN CORPUSCULAR HGB CONC 30.1 g/dl (32.0-36.5); MEAN CORPUSCULAR VOLUME 91.7 fl (80.0-96.0); MONO # 0.9 10^3/uL (0.0-0.8); MONO % 9.3 % (2.0-8.0); NEUTROPHILS % 69.6 % (36.0-66.0); PLATELET COUNT, AUTOMATED 233 10^3/uL (150-450); RED BLOOD COUNT 5.57 10^6/uL (4.30-6.10)
[2022-07-25 12:43] LABS: ALBUMIN 3.4 G/DL (3.2-5.2); BLOOD UREA NITROGEN 33 MG/DL (9-23); CALCIUM LEVEL 10.1 MG/DL (8.3-10.6); CARBON DIOXIDE LEVEL 30 MMOL/L (20-31); CHLORIDE LEVEL 106 MMOL/L (98-107); CREATININE FOR GFR 1.93 MG/DL (0.70-1.30); FERRITIN 24.7 NG/ML (10.5-307.3); FREE T4 0.92 NG/DL (0.89-1.76); GLOMERULAR FILTRATION RATE 36.7 (>42); GLUCOSE, FASTING 140 MG/DL (74-106); MAGNESIUM LEVEL 2.1 MG/DL (1.8-2.4); PHOSPHORUS LEVEL 3.7 MG/DL (2.4-5.1); POTASSIUM SERUM 4.2 MMOL/L (3.5-5.1); PTH INTACT 79.2 PG/ML (18.5-88.0); SODIUM LEVEL 143 MMOL/L (136-145); THYROID STIMULATING HORMONE 2.561 uIU/ML (0.55-4.78)
[2022-07-25 13:28] LABS: LITHIUM LEVEL < 0.20 MEQ/L (0.60-1.20)
== END ==
LOC: M PLALAB 08:23
PROVIDERS: ATTEND Family Medicine
DX: E05.90 Thyrotoxicosis, unspecified without thyrotoxic crisis or storm (principal); I10 Essential (primary) hypertension; Z12.5 Encounter for screening for malignant neoplasm of prostate; Z79.899 Other long term (current) drug therapy
CPT/HCPCS: 80069; 80178; 82728; 83735; 83880; 83970; 84439; 84443; 85025; G0103

== ENCOUNTER 2022-07-31 11:08 | Emergency (ER) | payer OTHER, MEDICARE, BC ==
[~2022-07-31] VITALS: Ht 182.9 cm; Wt 130.0 kg
[2022-07-31 13:00] VITALS: BP 133/77
== END 2022-07-31 13:38 | disposition home or self-care (01) ==
LOC: M ED 11:08 → EDBD 11:08 → M ED 13:38
DX: Z04.1 Encounter for examination and observation following transport accident (principal); V49.40XA Driver injured in collision with unspecified motor vehicles in traffic accident, initial encounter; Z79.01 Long term (current) use of anticoagulants; Z79.899 Other long term (current) drug therapy

== ENCOUNTER → 2022-09-10 | Outpatient (REF) | payer MEDICARE, OTHER ==
[2022-09-10 18:28] LABS: MAGNESIUM LEVEL 2.3 MG/DL (1.8-2.4)
[2022-09-10 18:29] LABS: ALBUMIN 3.3 G/DL (3.2-5.2); CALCIUM LEVEL 9.4 MG/DL (8.3-10.6); CREATININE FOR GFR 2.02 MG/DL (0.70-1.30); GLOMERULAR FILTRATION RATE 34.8 (>42); POTASSIUM SERUM 4.3 MMOL/L (3.5-5.1)
[2022-09-10 18:31] LABS: LITHIUM LEVEL 0.19 MMOL/L (0.60-1.20)
[2022-09-10 18:32] LABS: FREE T4 0.86 NG/DL (0.89-1.76); THYROID STIMULATING HORMONE 2.385 uIU/ML (0.55-4.78)
== END ==
LOC: M SFHCPLAZ 17:07
PROVIDERS: ATTEND Physician Assistant
DX: R60.0 Localized edema (principal); F31.9 Bipolar disorder, unspecified

== ENCOUNTER → 2022-09-17 | Outpatient (CLI) | payer MEDICARE, BC, OTHER ==
[2022-09-17 14:02] LABS: BASO # 0.1 10^3/uL (0.0-0.2); BASO % 0.6 % (0.0-1.0); EOS # 0.3 10^3/uL (0.0-0.5); EOS % 2.9 % (0.0-3.0); HEMATOCRIT 48.7 % (42.0-52.0); HEMOGLOBIN 15.1 g/dl (13.5-17.5); LYMPH # 1.9 10^3/uL (1.5-5.0); LYMPH % 18.1 % (24.0-44.0); MEAN CORPUSCULAR HEMOGLOBIN 28.1 pg (27.0-33.0); MEAN CORPUSCULAR VOLUME 90.7 fl (80.0-96.0); MONO # 1.3 10^3/uL (0.0-0.8); MONO % 12.1 % (2.0-8.0); NEUTROPHILS # 6.8 10^3/uL (1.5-8.5); NEUTROPHILS % 65.9 % (36.0-66.0); PLATELET COUNT, AUTOMATED 231 10^3/uL (150-450); RED BLOOD COUNT 5.37 10^6/uL (4.30-6.10); WHITE BLOOD COUNT 10.4 10^3/uL (4.0-10.0)
[2022-09-17 14:49] LABS: ALBUMIN 3.4 G/DL (3.2-5.2); CALCIUM LEVEL 10.1 MG/DL (8.3-10.6); CREATININE FOR GFR 2.38 MG/DL (0.70-1.30); GLOMERULAR FILTRATION RATE 28.8 (>42); PHOSPHORUS LEVEL 3.2 MG/DL (2.4-5.1); POTASSIUM SERUM 3.8 MMOL/L (3.5-5.1)
== END ==
LOC: M PLALAB 10:13
PROVIDERS: ATTEND Physician Assistant
DX: I50.32 Chronic diastolic (congestive) heart failure (principal)

== ENCOUNTER → 2022-09-17 | Outpatient (CLI) | payer MEDICARE, BC, OTHER ==
[2022-09-17 14:02] LABS: BASO # 0.1 10^3/uL (0.0-0.2); BASO % 0.6 % (0.0-1.0); EOS # 0.3 10^3/uL (0.0-0.5); EOS % 2.7 % (0.0-3.0); HEMATOCRIT 48.7 % (42.0-52.0); HEMOGLOBIN 15.1 g/dl (13.5-17.5); LYMPH % 19.4 % (24.0-44.0); MEAN CORPUSCULAR HEMOGLOBIN 28.2 pg (27.0-33.0); MEAN CORPUSCULAR VOLUME 90.9 fl (80.0-96.0); MONO # 1.3 10^3/uL (0.0-0.8); MONO % 12.6 % (2.0-8.0); NEUTROPHILS # 6.6 10^3/uL (1.5-8.5); NEUTROPHILS % 63.4 % (36.0-66.0); PLATELET COUNT, AUTOMATED 232 10^3/uL (150-450); RED BLOOD COUNT 5.36 10^6/uL (4.30-6.10); WHITE BLOOD COUNT 10.3 10^3/uL (4.0-10.0)
[2022-09-17 14:11] LABS: ERYTHROCYTE SEDIMENTATION RATE 51 mm/hr (0-20)
[2022-09-17 14:42] LABS: ALBUMIN 3.4 G/DL (3.2-5.2); ALKALINE PHOSPHATASE 104 U/L (46-116); ALT/SGPT 32 U/L (7.0-40); AST/SGOT 26 U/L (<34); BILIRUBIN,TOTAL 0.3 MG/DL (0.3-1.2); BLOOD UREA NITROGEN 40 MG/DL (9-23); CARBON DIOXIDE LEVEL 33 MMOL/L (20-31); CHLORIDE LEVEL 104 MMOL/L (98-107); CREATININE FOR GFR 2.43 MG/DL (0.70-1.30); GLOMERULAR FILTRATION RATE 28.1 (>42); GLUCOSE, FASTING 125 MG/DL (74-106); SODIUM LEVEL 143 MMOL/L (136-145); TOTAL PROTEIN 6.6 G/DL (5.7-8.2)
[2022-09-17 15:12] LABS: C REACTIVE PROTEIN QUANTITATIV < 0.40 MG/DL (<1.0)
== END ==
LOC: M PLALAB 10:10
PROVIDERS: ATTEND Physician Assistant
DX: A49.8 Other bacterial infections of unspecified site (principal)

== ENCOUNTER → 2022-10-21 | Outpatient (CLI) | payer MEDICARE, BC, OTHER ==
[2022-10-21 13:56] LABS: BASO # 0.1 10^3/uL (0.0-0.2); BASO % 0.5 % (0.0-1.0); EOS # 0.4 10^3/uL (0.0-0.5); EOS % 3.8 % (0.0-3.0); HEMATOCRIT 46.6 % (42.0-52.0); HEMOGLOBIN 14.6 g/dl (13.5-17.5); LYMPH % 18.8 % (24.0-44.0); MEAN CORPUSCULAR HEMOGLOBIN 28.5 pg (27.0-33.0); MEAN CORPUSCULAR HGB CONC 31.3 g/dl (32.0-36.5); MEAN CORPUSCULAR VOLUME 90.8 fl (80.0-96.0); MONO # 1.2 10^3/uL (0.0-0.8); MONO % 11.1 % (2.0-8.0); NEUTROPHILS # 6.8 10^3/uL (1.5-8.5); NEUTROPHILS % 65.4 % (36.0-66.0); PLATELET COUNT, AUTOMATED 251 10^3/uL (150-450); RED BLOOD COUNT 5.13 10^6/uL (4.30-6.10); WHITE BLOOD COUNT 10.4 10^3/uL (4.0-10.0)
[2022-10-21 14:20] LABS: C REACTIVE PROTEIN QUANTITATIV < 0.40 MG/DL (<1.0)
[2022-10-21 14:21] LABS: ALBUMIN 3.3 G/DL (3.2-5.2); ALKALINE PHOSPHATASE 102 U/L (46-116); ALT/SGPT 29 U/L (7.0-40); AST/SGOT 13 U/L (<34); BILIRUBIN,TOTAL 0.4 MG/DL (0.3-1.2); BLOOD UREA NITROGEN 40 MG/DL (9-23); CALCIUM LEVEL 10.1 MG/DL (8.3-10.6); CARBON DIOXIDE LEVEL 29 MMOL/L (20-31); CHLORIDE LEVEL 107 MMOL/L (98-107); CREATININE FOR GFR 2.12 MG/DL (0.70-1.30); GLOMERULAR FILTRATION RATE 32.9 (>42); GLUCOSE, FASTING 118 MG/DL (74-106); POTASSIUM SERUM 3.9 MMOL/L (3.5-5.1); SODIUM LEVEL 142 MMOL/L (136-145); TOTAL PROTEIN 6.5 G/DL (5.7-8.2)
[2022-10-21 14:30] LABS: ERYTHROCYTE SEDIMENTATION RATE 41 mm/hr (0-20)
== END ==
LOC: M PLALAB 09:58
PROVIDERS: ATTEND Physician Assistant Medical
DX: M46.44 Discitis, unspecified, thoracic region (principal); Z79.2 Long term (current) use of antibiotics

== ENCOUNTER → 2022-11-25 | Outpatient (CLI) | payer MEDICARE, BC, OTHER ==
[2022-11-25 14:50] LABS: BASO # 0.1 10^3/uL (0.0-0.2); BASO % 0.6 % (0.0-1.0); EOS # 0.3 10^3/uL (0.0-0.5); EOS % 2.7 % (0.0-3.0); HEMATOCRIT 46.6 % (42.0-52.0); HEMOGLOBIN 14.4 g/dl (13.5-17.5); LYMPH # 1.9 10^3/uL (1.5-5.0); MEAN CORPUSCULAR HGB CONC 30.9 g/dl (32.0-36.5); MEAN CORPUSCULAR VOLUME 90.5 fl (80.0-96.0); MONO # 1.1 10^3/uL (0.0-0.8); MONO % 10.6 % (2.0-8.0); NEUTROPHILS # 7.1 10^3/uL (1.5-8.5); NEUTROPHILS % 67.8 % (36.0-66.0); PLATELET COUNT, AUTOMATED 223 10^3/uL (150-450); RED BLOOD COUNT 5.15 10^6/uL (4.30-6.10); WHITE BLOOD COUNT 10.4 10^3/uL (4.0-10.0)
[2022-11-25 15:04] LABS: ERYTHROCYTE SEDIMENTATION RATE 51 mm/hr (0-20)
[2022-11-25 15:13] LABS: ALBUMIN 3.2 G/DL (3.2-5.2); ALKALINE PHOSPHATASE 90 U/L (46-116); ALT/SGPT 32 U/L (7.0-40); AST/SGOT 22 U/L (<34); BILIRUBIN,TOTAL 0.4 MG/DL (0.3-1.2); BLOOD UREA NITROGEN 39 MG/DL (9-23); CALCIUM LEVEL 8.7 MG/DL (8.3-10.6); CARBON DIOXIDE LEVEL 30 MMOL/L (20-31); CHLORIDE LEVEL 107 MMOL/L (98-107); CREATININE FOR GFR 2.06 MG/DL (0.70-1.30); GLOMERULAR FILTRATION RATE 34.1 (>42); GLUCOSE, FASTING 122 MG/DL (74-106); POTASSIUM SERUM 4.3 MMOL/L (3.5-5.1); SODIUM LEVEL 144 MMOL/L (136-145); TOTAL PROTEIN 6.3 G/DL (5.7-8.2)
[2022-11-25 15:14] LABS: C REACTIVE PROTEIN QUANTITATIV < 0.40 MG/DL (<1.0)
== END ==
LOC: M PLALAB 10:40
PROVIDERS: ATTEND Physician Assistant Medical
DX: M46.44 Discitis, unspecified, thoracic region (principal)

== ENCOUNTER 2022-11-28 13:19 | Emergency (ER) | payer MEDICARE, BC, OTHER ==
[~2022-11-28] VITALS: Ht 182.9 cm; Wt 133.2 kg
[2022-11-28 14:47] LABS: BASO # 0.1 10^3/uL (0.0-0.2); BASO % 0.5 % (0.0-1.0); EOS # 0.2 10^3/uL (0.0-0.5); EOS % 2.1 % (0.0-3.0); HEMATOCRIT 46.8 % (42.0-52.0); HEMOGLOBIN 14.4 g/dl (13.5-17.5); LYMPH # 1.3 10^3/uL (1.5-5.0); MEAN CORPUSCULAR HEMOGLOBIN 27.8 pg (27.0-33.0); MEAN CORPUSCULAR HGB CONC 30.8 g/dl (32.0-36.5); MEAN CORPUSCULAR VOLUME 90.3 fl (80.0-96.0); MONO # 0.8 10^3/uL (0.0-0.8); MONO % 7.4 % (2.0-8.0); NEUTROPHILS # 8.6 10^3/uL (1.5-8.5); NEUTROPHILS % 77.5 % (36.0-66.0); PLATELET COUNT, AUTOMATED 225 10^3/uL (150-450); RED BLOOD COUNT 5.18 10^6/uL (4.30-6.10)
[2022-11-28 14:59] LABS: INR 1.04; PROTHROMBIN TIME 13.8 SECONDS (12.5-14.5)
[2022-11-28 15:00] LABS: PARTIAL THROMBOPLASTIN TIME 35.3 SECONDS (24.8-34.2)
[2022-11-28 15:07] LABS: CALCIUM LEVEL 9.3 MG/DL (8.3-10.6); CREATININE FOR GFR 2.01 MG/DL (0.70-1.30)
[2022-11-28] MEDS ORDERED: ANUSOL HC 25MG SUPP PR STA (18:34)
[2022-11-28] MEDS ORDERED: DOCUSATE SODIUM 100MG CAPSULE PO ONE (18:35)
[2022-11-28] MEDS ORDERED: ANUS25SU PR (18:36)
[2022-11-28] MEDS ORDERED: COLA100C5 PO (18:36)
[2022-11-28 18:49] VITALS: BP 148/81
== END 2022-11-28 19:37 | disposition home or self-care (01) ==
LOC: M ED 13:19
DX: K62.5 Hemorrhage of anus and rectum (principal); E11.9 Type 2 diabetes mellitus without complications; I10 Essential (primary) hypertension; E78.5 Hyperlipidemia, unspecified; K21.9 Gastro-esophageal reflux disease without esophagitis; N18.30 Chronic kidney disease, stage 3 unspecified; F31.9 Bipolar disorder, unspecified; Z79.899 Other long term (current) drug therapy

== ENCOUNTER → 2022-12-20 | Outpatient (CLI) | payer MEDICARE, BC, OTHER ==
[~2022-12-20] MED LIST changes: +ANUS25SU PR; +COLA100C5 PO
[2022-12-20 11:59] LABS: BASO # 0.1 10^3/uL (0.0-0.2); BASO % 0.7 % (0.0-1.0); EOS # 0.3 10^3/uL (0.0-0.5); EOS % 3.3 % (0.0-3.0); HEMATOCRIT 43.2 % (42.0-52.0); HEMOGLOBIN 13.4 g/dl (13.5-17.5); LYMPH # 2.1 10^3/uL (1.5-5.0); LYMPH % 20.4 % (24.0-44.0); MEAN CORPUSCULAR VOLUME 90.2 fl (80.0-96.0); MONO # 1.2 10^3/uL (0.0-0.8); MONO % 11.7 % (2.0-8.0); NEUTROPHILS # 6.5 10^3/uL (1.5-8.5); NEUTROPHILS % 63.5 % (36.0-66.0); PLATELET COUNT, AUTOMATED 222 10^3/uL (150-450); RED BLOOD COUNT 4.79 10^6/uL (4.30-6.10); WHITE BLOOD COUNT 10.2 10^3/uL (4.0-10.0)
[2022-12-20 12:24] LABS: FREE T4 0.81 NG/DL (0.89-1.76)
[2022-12-20 12:25] LABS: FERRITIN 14.5 NG/ML (10.5-307.3); THYROID STIMULATING HORMONE 2.537 uIU/ML (0.55-4.78)
[2022-12-20 12:26] LABS: TOTAL 25(OH) VITAMIN D 23.8 NG/ML (20.0-100.0)
[2022-12-20 12:27] LABS: URIC ACID 11.6 MG/DL (3.7-9.2)
[2022-12-20 12:29] LABS: CHOLESTEROL RISK RATIO 2.77 (<5); HDL CHOLESTEROL 45.4 MG/DL (>40); LDL CHOLESTEROL 49.2 MG/DL (<100); NON-HDL-C 80.6 MG/DL; PTH INTACT 112.3 PG/ML (18.5-88.0)
[2022-12-20 15:46] LABS: HEMOGLOBIN A1c 6.4 % (4.0-6.0)
== END ==
LOC: M PLALAB 07:10
PROVIDERS: ATTEND Family Medicine
DX: E53.8 Deficiency of other specified B group vitamins (principal)

== ENCOUNTER → 2023-01-09 | Outpatient (CLI) | payer MEDICARE, BC, OTHER ==
[2023-01-09 11:22] LABS: BASO # 0.1 10^3/uL (0.0-0.2); BASO % 0.6 % (0.0-1.0); EOS # 0.3 10^3/uL (0.0-0.5); EOS % 2.6 % (0.0-3.0); HEMATOCRIT 44.5 % (42.0-52.0); HEMOGLOBIN 13.7 g/dl (13.5-17.5); LYMPH # 1.9 10^3/uL (1.5-5.0); LYMPH % 18.1 % (24.0-44.0); MEAN CORPUSCULAR HEMOGLOBIN 28.4 pg (27.0-33.0); MEAN CORPUSCULAR HGB CONC 30.8 g/dl (32.0-36.5); MEAN CORPUSCULAR VOLUME 92.1 fl (80.0-96.0); MONO # 1.1 10^3/uL (0.0-0.8); MONO % 10.4 % (2.0-8.0); NEUTROPHILS # 7.2 10^3/uL (1.5-8.5); NEUTROPHILS % 67.9 % (36.0-66.0); PLATELET COUNT, AUTOMATED 208 10^3/uL (150-450); RED BLOOD COUNT 4.83 10^6/uL (4.30-6.10); WHITE BLOOD COUNT 10.6 10^3/uL (4.0-10.0)
[2023-01-09 11:42] LABS: ERYTHROCYTE SEDIMENTATION RATE 42 mm/hr (0-20)
[2023-01-09 11:51] LABS: C REACTIVE PROTEIN QUANTITATIV < 0.40 MG/DL (<1.0)
[2023-01-09 11:53] LABS: ALBUMIN 3.4 G/DL (3.2-5.2); ALKALINE PHOSPHATASE 88 U/L (46-116); ALT/SGPT 24 U/L (7.0-40); AST/SGOT 15 U/L (<34); BILIRUBIN,TOTAL 0.4 MG/DL (0.3-1.2); BLOOD UREA NITROGEN 29 MG/DL (9-23); CALCIUM LEVEL 9.5 MG/DL (8.3-10.6); CARBON DIOXIDE LEVEL 30 MMOL/L (20-31); CHLORIDE LEVEL 107 MMOL/L (98-107); CREATININE FOR GFR 1.95 MG/DL (0.70-1.30); GLOMERULAR FILTRATION RATE 36.3 (>42); GLUCOSE, FASTING 144 MG/DL (74-106); POTASSIUM SERUM 3.8 MMOL/L (3.5-5.1); SODIUM LEVEL 142 MMOL/L (136-145); TOTAL PROTEIN 6.4 G/DL (5.7-8.2)
== END ==
LOC: M PLALAB 07:30
PROVIDERS: ATTEND Physician Assistant
DX: A49.8 Other bacterial infections of unspecified site (principal)

== ENCOUNTER 2023-02-09 16:39 | Inpatient (IN) | payer MEDICARE, BC, OTHER ==
[~2023-02-09] VITALS: Ht 182.9 cm; Wt 137.0 kg
[2023-02-09] MEDS ORDERED: ONDANSETRON 4MG 2ML VIAL IV ONE (17:25)
[2023-02-09] MEDS: MORPHINE 4 MG/ML 1ML VIAL IV PRN ×2 (17:36→17:57)
[2023-02-09 17:44] LABS: BASO # 0.1 10^3/uL (0.0-0.2); BASO % 0.5 % (0.0-1.0); EOS # 0.2 10^3/uL (0.0-0.5); EOS % 2.2 % (0.0-3.0); HEMOGLOBIN 13.5 g/dl (13.5-17.5); LYMPH # 1.4 10^3/uL (1.5-5.0); LYMPH % 13.6 % (24.0-44.0); MEAN CORPUSCULAR HGB CONC 31.4 g/dl (32.0-36.5); MONO # 0.9 10^3/uL (0.0-0.8); MONO % 8.8 % (2.0-8.0); NEUTROPHILS # 7.9 10^3/uL (1.5-8.5); NEUTROPHILS % 74.5 % (36.0-66.0); PLATELET COUNT, AUTOMATED 211 10^3/uL (150-450); RED BLOOD COUNT 4.83 10^6/uL (4.30-6.10); WHITE BLOOD COUNT 10.6 10^3/uL (4.0-10.0)
[2023-02-09 17:54] LABS: INR 1.02; PROTHROMBIN TIME 13.6 SECONDS (12.5-14.5)
[2023-02-09 17:55] LABS: PARTIAL THROMBOPLASTIN TIME 32.5 SECONDS (24.8-34.2)
[2023-02-09 18:14] LABS: ALBUMIN 3.1 G/DL (3.2-5.2); BILIRUBIN,DIRECT 0.1 MG/DL (<0.4); BILIRUBIN,TOTAL 0.4 MG/DL (0.3-1.2); CALCIUM LEVEL 8.6 MG/DL (8.3-10.6); CREATININE FOR GFR 1.97 MG/DL (0.70-1.30); GLOMERULAR FILTRATION RATE 35.9 (>42); POTASSIUM SERUM 3.4 MMOL/L (3.5-5.1); TOTAL PROTEIN 5.9 G/DL (5.7-8.2)
[2023-02-09] MEDS ORDERED: POTASSIUM CHLORIDE 10MEQ SR TABLET PO ONE (18:20)
[2023-02-09] MEDS ORDERED: MORPHINE 4 MG/ML 1ML VIAL IV ONE (18:55)
[2023-02-09] MEDS ORDERED: LITHIUM CARBONATE 300 MG **CR** TAB PO SCH (21:00)
[2023-02-09] MEDS ORDERED: TAMSULOSIN 0.4 MG CAP PO SCH (21:00)
[2023-02-09] MEDS ORDERED: ROSUVASTATIN 10 MG TAB (CRESTOR) PO SCH (21:00)
[2023-02-09] MEDS ORDERED: PERCOCET 5MG/325MG TAB PO ONE (21:00)
[2023-02-09] MEDS ORDERED: FEBUXOSTAT 40 MG TABLET (ULORIC) PO SCH (21:00)
[2023-02-09] MEDS ORDERED: EZETIMIBE 10MG TABLET (ZETIA) PO SCH (21:00)
[2023-02-09] MEDS ORDERED: LITH1TAB PO (21:01)
[2023-02-09] MEDS ORDERED: VITA100018 PO (21:01)
[2023-02-09] MEDS ORDERED: HOME MED LIST COMPLETE! XX SCH (21:05)
[2023-02-09 21:10] LABS: RSV AMPLIFICATION NEGATIVE (NEGATIVE)
[2023-02-09] MEDS ORDERED: ACETAMINOPHEN TAB 650MG DOSE (2X325MG) PO PRN (21:45)
[2023-02-09] MEDS ORDERED: carisoprodoL 350 MG TAB PO PRN (21:45)
[2023-02-09] MEDS ORDERED: LIDOCAINE 2% 5ML JELLY UROJET TOP ONE (22:00)
[2023-02-09 22:34] LABS: HEMATOCRIT 41.8 % (42.0-52.0); HEMOGLOBIN 13.2 g/dl (13.5-17.5)
[2023-02-09] MEDS ORDERED: PILL CUTTER 1 EACH XX PRN (22:35)
[2023-02-09] MEDS ORDERED: ONDANSETRON 4MG 2ML VIAL IV PRN (23:00)
[2023-02-09 23:22] VITALS: BP 192/98
[2023-02-10] VITALS (15 sets, daily range): BP systolic 137–192; BP diastolic 66–100; O2SAT 91–97
[2023-02-10] MEDS: MORPHINE 2 MG/ML 1ML VIAL IV PRN ×2 (00:48→06:33)
[2023-02-10] MEDS: propylthiouraciL 50 MG TAB PO SCH ×2 (00:49→08:11)
[2023-02-10] MEDS: NORCO, ANEXSIA 5/325MG TABLET (HYDROcodone/ACETAMINOPHEN) PO PRN ×2 (01:31→08:12)
[2023-02-10] MEDS ORDERED: hydrALAZINE 20MG/ML 1ML VIAL IV ONE (02:00)
[2023-02-10 02:09] LABS: HEMOGLOBIN 13.1 g/dl (13.5-17.5)
[2023-02-10 05:42] LABS: HEMATOCRIT 41.9 % (42.0-52.0); HEMOGLOBIN 13.1 g/dl (13.5-17.5); MEAN CORPUSCULAR HEMOGLOBIN 28.2 pg (27.0-33.0); MEAN CORPUSCULAR HGB CONC 31.3 g/dl (32.0-36.5); MEAN CORPUSCULAR VOLUME 90.3 fl (80.0-96.0); PLATELET COUNT, AUTOMATED 201 10^3/uL (150-450); RED BLOOD COUNT 4.64 10^6/uL (4.30-6.10)
[2023-02-10 05:57] LABS: BILIRUBIN,TOTAL 0.5 MG/DL (0.3-1.2); CALCIUM LEVEL 8.2 MG/DL (8.3-10.6); CREATININE FOR GFR 1.87 MG/DL (0.70-1.30); GLOMERULAR FILTRATION RATE 38.1 (>42); POTASSIUM SERUM 3.8 MMOL/L (3.5-5.1); TOTAL PROTEIN 5.8 G/DL (5.7-8.2)
[2023-02-10 08:43] LABS: TOTAL 25(OH) VITAMIN D 20.3 NG/ML (20.0-100.0)
[2023-02-10] MEDS ORDERED: CYANOCOBALAMIN 500 MCG TAB PO SCH (09:00)
[2023-02-10] MEDS ORDERED: TORSEMIDE 10 MG TABLET PO SCH (09:00)
[2023-02-10] MEDS ORDERED: VITAMIN D 1,000 INTERNATIONAL UNITS TABLET PO SCH (09:10)
[2023-02-10 13:21] LABS: HEMATOCRIT 43.1 % (42.0-52.0); HEMOGLOBIN 13.6 g/dl (13.5-17.5)
[2023-02-10] MEDS ORDERED: DRIS50003 PO (14:32)
[2023-02-11] MEDS ORDERED: VITAMIN D 50,000 UNITS CAPSULE (ERGOCALCIFEROL 1.25MG) PO SCH (09:00)
== END 2023-02-10 18:00 | DRG 552 ==
LOC: M ED 16:39 → EDBD 16:39 → M ED INP 21:45 → M PCU 23:23
PROVIDERS: ADMIT Internal Medicine; ATTEND Student in an Organized Health Care Education/Training Program
DX: S32.110A Nondisplaced Zone I fracture of sacrum, initial encounter for closed fracture (principal); I50.32 Chronic diastolic (congestive) heart failure; I13.0 Hypertensive heart and chronic kidney disease with heart failure and stage 1 through stage 4 chronic kidney disease, or unspecified chronic kidney disease; G89.29 Other chronic pain; M54.9 Dorsalgia, unspecified; E78.5 Hyperlipidemia, unspecified; G62.9 Polyneuropathy, unspecified; K21.9 Gastro-esophageal reflux disease without esophagitis; I44.1 Atrioventricular block, second degree; R73.03 Prediabetes; I25.10 Atherosclerotic heart disease of native coronary artery without angina pectoris; K64.9 Unspecified hemorrhoids; E55.9 Vitamin D deficiency, unspecified; S70.12XA Contusion of left thigh, initial encounter; F31.9 Bipolar disorder, unspecified; N40.0 Benign prostatic hyperplasia without lower urinary tract symptoms; G47.33 Obstructive sleep apnea (adult) (pediatric); N18.9 Chronic kidney disease, unspecified; E05.90 Thyrotoxicosis, unspecified without thyrotoxic crisis or storm; Y93.H2 Activity, gardening and landscaping; Y92.017 Garden or yard in single-family (private) house as the place of occurrence of the external cause; W18.30XA Fall on same level, unspecified, initial encounter; Y99.8 Other external cause status; Z79.01 Long term (current) use of anticoagulants; Z79.899 Other long term (current) drug therapy; Z86.711 Personal history of pulmonary embolism; Z95.0 Presence of cardiac pacemaker; Z90.49 Acquired absence of other specified parts of digestive tract; Z98.49 Cataract extraction status, unspecified eye

== ENCOUNTER 2023-02-10 14:54 | Inpatient (IN) | payer MEDICARE, BC, OTHER ==
[~2023-02-10] VITALS: Ht 182.9 cm; Wt 136.1 kg
[~2023-02-10 14:54] MED LIST changes: +CYAN-1 PO; -CYAN100050 PO; +DRIS50003 PO; +VITA100018 PO
[2023-02-10] MEDS ORDERED: BISACODYL 10MG SUPP PR PRN (16:50)
[2023-02-10] MEDS ORDERED: oxyCODONE 5MG TAB PO PRN (16:50)
[2023-02-10 18:32] VITALS: BP 154/84; TEMP 98.5; O2SAT 95
[2023-02-10] MEDS ORDERED: PILL CUTTER 1 EACH XX PRN (18:40)
[2023-02-10 20:00] VITALS: BP 154/82; TEMP 98.6; O2SAT 97
[2023-02-10] MEDS: propylthiouraciL 50 MG TAB PO SCH (20:05)
[2023-02-10] MEDS: ACETAMINOPHEN 500 MG TAB PO SCH (20:06)
[2023-02-10] MEDS: DOCUSATE SODIUM 100MG CAPSULE PO SCH (20:06)
[2023-02-10] MEDS: **hydrALAZINE HCL** 25 MG TAB PO SCH ×2 (20:06→23:50)
[2023-02-10] MEDS: LITHIUM CARBONATE 300 MG CAP PO SCH (20:07)
[2023-02-10] MEDS: SENNA 8.6 MG TAB (SENOKOT) PO SCH (20:07)
[2023-02-10] MEDS: ROSUVASTATIN 10 MG TAB (CRESTOR) PO SCH (20:07)
[2023-02-10] MEDS: TAMSULOSIN 0.4 MG CAP PO SCH (20:08)
[2023-02-10] MEDS: FEBUXOSTAT 40 MG TABLET (ULORIC) PO SCH (20:08)
[2023-02-10] MEDS: EZETIMIBE 10MG TABLET (ZETIA) PO SCH (20:08)
[2023-02-10] MEDS: REMEDY PHYTOPLEX Z-GUARD PASTE 113GM TUBE (FROM STOREROOM PRODUCT) TOP SCH (20:08)
[2023-02-10 23:50] VITALS: BP 127/69
[2023-02-11] MEDS: **hydrALAZINE HCL** 25 MG TAB PO SCH ×4 (05:46→23:49)
[2023-02-11 06:00] VITALS: BP 143/76; TEMP 98.5; O2SAT 97
[2023-02-11 06:22] LABS: BASO # 0.1 10^3/uL (0.0-0.2); BASO % 0.4 % (0.0-1.0); EOS # 0.3 10^3/uL (0.0-0.5); EOS % 2.3 % (0.0-3.0); HEMATOCRIT 42.3 % (42.0-52.0); HEMOGLOBIN 13.1 g/dl (13.5-17.5); LYMPH # 1.7 10^3/uL (1.5-5.0); LYMPH % 14.6 % (24.0-44.0); MEAN CORPUSCULAR HEMOGLOBIN 28.1 pg (27.0-33.0); MEAN CORPUSCULAR VOLUME 90.8 fl (80.0-96.0); MONO # 1.2 10^3/uL (0.0-0.8); MONO % 10.2 % (2.0-8.0); NEUTROPHILS # 8.3 10^3/uL (1.5-8.5); PLATELET COUNT, AUTOMATED 191 10^3/uL (150-450); RED BLOOD COUNT 4.66 10^6/uL (4.30-6.10); WHITE BLOOD COUNT 11.5 10^3/uL (4.0-10.0)
[2023-02-11 06:48] LABS: BILIRUBIN,TOTAL 0.5 MG/DL (0.3-1.2); CALCIUM LEVEL 8.8 MG/DL (8.3-10.6); CREATININE FOR GFR 1.85 MG/DL (0.70-1.30); GLOMERULAR FILTRATION RATE 38.6 (>42); POTASSIUM SERUM 3.8 MMOL/L (3.5-5.1); TOTAL PROTEIN 5.7 G/DL (5.7-8.2)
[2023-02-11] MEDS: REMEDY PHYTOPLEX Z-GUARD PASTE 113GM TUBE (FROM STOREROOM PRODUCT) TOP SCH ×3 (09:00→21:00)
[2023-02-11] MEDS: propylthiouraciL 50 MG TAB PO SCH ×2 (09:58→20:44)
[2023-02-11] MEDS: DOCUSATE SODIUM 100MG CAPSULE PO SCH ×2 (09:58→20:44)
[2023-02-11] MEDS: VITAMIN D 50,000 UNITS CAPSULE (ERGOCALCIFEROL 1.25MG) PO SCH (09:58)
[2023-02-11] MEDS: VITAMIN D 1,000 INTERNATIONAL UNITS TABLET PO SCH (09:58)
[2023-02-11] MEDS: PANTOPRAZOLE 40MG TAB (PROTONIX) PO SCH (09:58)
[2023-02-11] MEDS: CYANOCOBALAMIN 500 MCG TAB PO SCH (09:58)
[2023-02-11] MEDS: ACETAMINOPHEN 500 MG TAB PO SCH ×3 (09:58→20:45)
[2023-02-11] MEDS: TORSEMIDE 10 MG TABLET PO SCH (09:58)
[2023-02-11 14:00] VITALS: BP 138/84; TEMP 98.3; O2SAT 93
[2023-02-11 20:00] VITALS: BP 158/78; TEMP 98.8; O2SAT 98
[2023-02-11] MEDS: LITHIUM CARBONATE 300 MG CAP PO SCH (20:44)
[2023-02-11] MEDS: FEBUXOSTAT 40 MG TABLET (ULORIC) PO SCH (20:44)
[2023-02-11] MEDS: ROSUVASTATIN 10 MG TAB (CRESTOR) PO SCH (20:44)
[2023-02-11] MEDS: TAMSULOSIN 0.4 MG CAP PO SCH (20:45)
[2023-02-11] MEDS: EZETIMIBE 10MG TABLET (ZETIA) PO SCH (20:45)
[2023-02-11] MEDS: SENNA 8.6 MG TAB (SENOKOT) PO SCH (20:45)
[2023-02-12] MEDS: **hydrALAZINE HCL** 25 MG TAB PO SCH ×4 (05:37→23:34)
[2023-02-12 06:00] VITALS: BP 137/78; TEMP 98; O2SAT 98
[2023-02-12] MEDS: PANTOPRAZOLE 40MG TAB (PROTONIX) PO SCH (08:07)
[2023-02-12] MEDS: propylthiouraciL 50 MG TAB PO SCH ×2 (08:07→20:33)
[2023-02-12] MEDS: ACETAMINOPHEN 500 MG TAB PO SCH ×3 (08:07→20:33)
[2023-02-12] MEDS: VITAMIN D 1,000 INTERNATIONAL UNITS TABLET PO SCH (08:07)
[2023-02-12] MEDS: CYANOCOBALAMIN 500 MCG TAB PO SCH (08:07)
[2023-02-12] MEDS: REMEDY PHYTOPLEX Z-GUARD PASTE 113GM TUBE (FROM STOREROOM PRODUCT) TOP SCH ×3 (08:08→20:33)
[2023-02-12] MEDS: TORSEMIDE 10 MG TABLET PO SCH (08:08)
[2023-02-12] MEDS: DOCUSATE SODIUM 100MG CAPSULE PO SCH ×2 (08:08→20:33)
[2023-02-12 11:29] VITALS: BP 147/81
[2023-02-12] MEDS: APIXABAN 5 MG TAB (ELIQUIS) PO SCH ×2 (11:30→20:33)
[2023-02-12 14:00] VITALS: BP 144/74; TEMP 98.1; O2SAT 98
[2023-02-12 17:53] VITALS: BP 131/68
[2023-02-12 19:09] LABS: TESTOSTERONE FREE (DIRECT) 3.6 pg/mL (6.6-18.1)
[2023-02-12 20:00] VITALS: BP 134/68; TEMP 98.8; O2SAT 98
[2023-02-12] MEDS: TAMSULOSIN 0.4 MG CAP PO SCH (20:32)
[2023-02-12] MEDS: ROSUVASTATIN 10 MG TAB (CRESTOR) PO SCH (20:32)
[2023-02-12] MEDS: FEBUXOSTAT 40 MG TABLET (ULORIC) PO SCH (20:33)
[2023-02-12] MEDS: SENNA 8.6 MG TAB (SENOKOT) PO SCH (20:33)
[2023-02-12] MEDS: EZETIMIBE 10MG TABLET (ZETIA) PO SCH (20:33)
[2023-02-12] MEDS: LITHIUM CARBONATE 300 MG CAP PO SCH (20:33)
[2023-02-13] MEDS: **hydrALAZINE HCL** 25 MG TAB PO SCH ×4 (05:34→23:43)
[2023-02-13 06:00] VITALS: BP 131/86; TEMP 98.4; O2SAT 98
[2023-02-13] MEDS: TORSEMIDE 10 MG TABLET PO SCH (07:36)
[2023-02-13] MEDS: CYANOCOBALAMIN 500 MCG TAB PO SCH (07:36)
[2023-02-13] MEDS: propylthiouraciL 50 MG TAB PO SCH ×2 (07:36→21:10)
[2023-02-13] MEDS: DOCUSATE SODIUM 100MG CAPSULE PO SCH ×2 (07:36→21:12)
[2023-02-13] MEDS: ACETAMINOPHEN 500 MG TAB PO SCH ×3 (07:36→21:10)
[2023-02-13] MEDS: APIXABAN 5 MG TAB (ELIQUIS) PO SCH ×2 (07:36→21:10)
[2023-02-13] MEDS: VITAMIN D 1,000 INTERNATIONAL UNITS TABLET PO SCH (07:36)
[2023-02-13] MEDS: PANTOPRAZOLE 40MG TAB (PROTONIX) PO SCH (07:36)
[2023-02-13] MEDS: REMEDY PHYTOPLEX Z-GUARD PASTE 113GM TUBE (FROM STOREROOM PRODUCT) TOP SCH ×3 (07:37→21:00)
[2023-02-13 12:11] VITALS: BP 138/84
[2023-02-13] MEDS: BISACODYL 5MG TAB PO SCH (13:14)
[2023-02-13 14:00] VITALS: BP 146/76; TEMP 98.5; O2SAT 97
[2023-02-13] MEDS ORDERED: PREPARATION H SUPP (HEMORRHOID) PR PRN (15:35)
[2023-02-13 17:19] VITALS: BP 134/76
[2023-02-13 20:00] VITALS: BP 180/80; TEMP 98.6; O2SAT 98
[2023-02-13] MEDS: SENNA 8.6 MG TAB (SENOKOT) PO SCH (21:10)
[2023-02-13] MEDS: EZETIMIBE 10MG TABLET (ZETIA) PO SCH (21:10)
[2023-02-13] MEDS: TAMSULOSIN 0.4 MG CAP PO SCH (21:10)
[2023-02-13] MEDS: LITHIUM CARBONATE 300 MG CAP PO SCH (21:11)
[2023-02-13] MEDS: ROSUVASTATIN 10 MG TAB (CRESTOR) PO SCH (21:12)
[2023-02-13] MEDS: FEBUXOSTAT 40 MG TABLET (ULORIC) PO SCH (22:45)
[2023-02-13 23:39] VITALS: BP 165/78
[2023-02-14] MEDS ORDERED: ACETAMINOPHEN TAB 650MG DOSE (2X325MG) PO ONE (02:25)
[2023-02-14 05:02] VITALS: BP 159/74; TEMP 98.7; O2SAT 96
[2023-02-14] MEDS: **hydrALAZINE HCL** 25 MG TAB PO SCH ×3 (05:08→21:04)
[2023-02-14 08:05] LABS: BASO # 0.1 10^3/uL (0.0-0.2); BASO % 0.5 % (0.0-1.0); EOS # 0.4 10^3/uL (0.0-0.5); EOS % 3.2 % (0.0-3.0); HEMATOCRIT 40.7 % (42.0-52.0); HEMOGLOBIN 12.7 g/dl (13.5-17.5); LYMPH # 1.5 10^3/uL (1.5-5.0); LYMPH % 12.7 % (24.0-44.0); MEAN CORPUSCULAR HGB CONC 31.2 g/dl (32.0-36.5); MEAN CORPUSCULAR VOLUME 89.8 fl (80.0-96.0); MONO # 0.8 10^3/uL (0.0-0.8); MONO % 6.5 % (2.0-8.0); NEUTROPHILS % 76.6 % (36.0-66.0); PLATELET COUNT, AUTOMATED 222 10^3/uL (150-450); RED BLOOD COUNT 4.53 10^6/uL (4.30-6.10); WHITE BLOOD COUNT 11.8 10^3/uL (4.0-10.0)
[2023-02-14 08:35] LABS: CALCIUM LEVEL 9.1 MG/DL (8.3-10.6); CREATININE FOR GFR 1.93 MG/DL (0.70-1.30); GLOMERULAR FILTRATION RATE 36.7 (>42); POTASSIUM SERUM 3.6 MMOL/L (3.5-5.1)
[2023-02-14] MEDS: BISACODYL 5MG TAB PO SCH (08:49)
[2023-02-14] MEDS: DOCUSATE SODIUM 100MG CAPSULE PO SCH ×2 (08:49→20:54)
[2023-02-14] MEDS: PANTOPRAZOLE 40MG TAB (PROTONIX) PO SCH (08:50)
[2023-02-14] MEDS: APIXABAN 5 MG TAB (ELIQUIS) PO SCH ×2 (08:50→20:54)
[2023-02-14] MEDS: ACETAMINOPHEN 500 MG TAB PO SCH ×3 (08:50→20:55)
[2023-02-14] MEDS: REMEDY PHYTOPLEX Z-GUARD PASTE 113GM TUBE (FROM STOREROOM PRODUCT) TOP SCH ×3 (08:51→20:55)
[2023-02-14] MEDS: VITAMIN D 1,000 INTERNATIONAL UNITS TABLET PO SCH (08:51)
[2023-02-14] MEDS: CYANOCOBALAMIN 500 MCG TAB PO SCH (08:51)
[2023-02-14] MEDS: propylthiouraciL 50 MG TAB PO SCH ×2 (08:51→20:52)
[2023-02-14] MEDS: TORSEMIDE 10 MG TABLET PO SCH (08:51)
[2023-02-14] MEDS: amLODIPine 5 MG TAB PO SCH (09:42)
[2023-02-14 13:21] VITALS: BP 147/70; TEMP 98.6; O2SAT 97
[2023-02-14 19:25] VITALS: BP 153/71; TEMP 98.9; O2SAT 98
[2023-02-14] MEDS: TAMSULOSIN 0.4 MG CAP PO SCH (20:52)
[2023-02-14] MEDS: FEBUXOSTAT 40 MG TABLET (ULORIC) PO SCH (20:52)
[2023-02-14] MEDS: EZETIMIBE 10MG TABLET (ZETIA) PO SCH (20:52)
[2023-02-14] MEDS: LITHIUM CARBONATE 300 MG CAP PO SCH (20:54)
[2023-02-14] MEDS: SENNA 8.6 MG TAB (SENOKOT) PO SCH (20:54)
[2023-02-14] MEDS: ROSUVASTATIN 10 MG TAB (CRESTOR) PO SCH (20:54)
[2023-02-15] MEDS ORDERED: traMADol 50 MG TAB PO ONE (01:00)
[2023-02-15 05:39] VITALS: BP 158/74; TEMP 97.8; O2SAT 96
[2023-02-15] MEDS: **hydrALAZINE HCL** 25 MG TAB PO SCH ×3 (05:45→21:31)
[2023-02-15] MEDS: REMEDY PHYTOPLEX Z-GUARD PASTE 113GM TUBE (FROM STOREROOM PRODUCT) TOP SCH ×3 (09:00→20:13)
[2023-02-15] MEDS: BISACODYL 5MG TAB PO SCH (09:00)
[2023-02-15] MEDS: propylthiouraciL 50 MG TAB PO SCH ×2 (09:07→20:12)
[2023-02-15] MEDS: TORSEMIDE 10 MG TABLET PO SCH (09:07)
[2023-02-15] MEDS: PANTOPRAZOLE 40MG TAB (PROTONIX) PO SCH (09:07)
[2023-02-15] MEDS: CYANOCOBALAMIN 500 MCG TAB PO SCH (09:07)
[2023-02-15] MEDS: APIXABAN 5 MG TAB (ELIQUIS) PO SCH ×2 (09:07→20:12)
[2023-02-15] MEDS: VITAMIN D 1,000 INTERNATIONAL UNITS TABLET PO SCH (09:07)
[2023-02-15] MEDS: DOCUSATE SODIUM 100MG CAPSULE PO SCH ×2 (09:07→20:12)
[2023-02-15] MEDS: ACETAMINOPHEN 500 MG TAB PO SCH ×3 (09:09→20:13)
[2023-02-15] MEDS: amLODIPine 5 MG TAB PO SCH (09:10)
[2023-02-15 14:00] VITALS: BP 136/70; TEMP 98.2; O2SAT 98
[2023-02-15 20:00] VITALS: BP 176/72; TEMP 98.9; O2SAT 96
[2023-02-15] MEDS: SENNA 8.6 MG TAB (SENOKOT) PO SCH (20:12)
[2023-02-15] MEDS: TAMSULOSIN 0.4 MG CAP PO SCH (20:12)
[2023-02-15] MEDS: LITHIUM CARBONATE 300 MG CAP PO SCH (20:12)
[2023-02-15] MEDS: EZETIMIBE 10MG TABLET (ZETIA) PO SCH (20:12)
[2023-02-15] MEDS: ROSUVASTATIN 10 MG TAB (CRESTOR) PO SCH (20:12)
[2023-02-15] MEDS: FEBUXOSTAT 40 MG TABLET (ULORIC) PO SCH (20:13)
[2023-02-15 21:15] VITALS: BP 148/64
[2023-02-15] MEDS: traMADol 50 MG TAB PO PRN (21:33)
[2023-02-16] MEDS: **hydrALAZINE HCL** 25 MG TAB PO SCH ×3 (05:18→21:35)
[2023-02-16 06:00] VITALS: BP 157/72; TEMP 98.4; O2SAT 96
[2023-02-16] MEDS: DOCUSATE SODIUM 100MG CAPSULE PO SCH ×2 (08:38→21:35)
[2023-02-16] MEDS: propylthiouraciL 50 MG TAB PO SCH ×2 (08:38→21:37)
[2023-02-16] MEDS: CYANOCOBALAMIN 500 MCG TAB PO SCH (08:38)
[2023-02-16] MEDS: TORSEMIDE 10 MG TABLET PO SCH (08:39)
[2023-02-16] MEDS: PANTOPRAZOLE 40MG TAB (PROTONIX) PO SCH (08:39)
[2023-02-16] MEDS: APIXABAN 5 MG TAB (ELIQUIS) PO SCH ×2 (08:39→21:35)
[2023-02-16] MEDS: amLODIPine 5 MG TAB PO SCH (08:39)
[2023-02-16] MEDS: VITAMIN D 1,000 INTERNATIONAL UNITS TABLET PO SCH (08:39)
[2023-02-16] MEDS: REMEDY PHYTOPLEX Z-GUARD PASTE 113GM TUBE (FROM STOREROOM PRODUCT) TOP SCH ×3 (08:40→21:00)
[2023-02-16] MEDS: BISACODYL 5MG TAB PO SCH (08:40)
[2023-02-16] MEDS: ACETAMINOPHEN 500 MG TAB PO SCH ×3 (08:40→21:36)
[2023-02-16] MEDS: traMADol 50 MG TAB PO PRN (09:45)
[2023-02-16 14:00] VITALS: BP 146/67; TEMP 98.2; O2SAT 97
[2023-02-16 20:00] VITALS: BP 138/72; TEMP 98.1; O2SAT 99
[2023-02-16] MEDS: ROSUVASTATIN 10 MG TAB (CRESTOR) PO SCH (21:35)
[2023-02-16] MEDS: SENNA 8.6 MG TAB (SENOKOT) PO SCH (21:35)
[2023-02-16] MEDS: TAMSULOSIN 0.4 MG CAP PO SCH (21:35)
[2023-02-16] MEDS: LITHIUM CARBONATE 300 MG CAP PO SCH (21:35)
[2023-02-16] MEDS: EZETIMIBE 10MG TABLET (ZETIA) PO SCH (21:36)
[2023-02-16] MEDS: FEBUXOSTAT 40 MG TABLET (ULORIC) PO SCH (21:36)
[2023-02-17] MEDS: **hydrALAZINE HCL** 25 MG TAB PO SCH ×3 (05:33→21:29)
[2023-02-17] MEDS: traMADol 50 MG TAB PO PRN (05:58)
[2023-02-17 06:00] VITALS: BP 140/73; TEMP 97.8; O2SAT 96
[2023-02-17] MEDS: VITAMIN D 1,000 INTERNATIONAL UNITS TABLET PO SCH (08:35)
[2023-02-17] MEDS: PANTOPRAZOLE 40MG TAB (PROTONIX) PO SCH (08:35)
[2023-02-17] MEDS: BISACODYL 5MG TAB PO SCH (08:35)
[2023-02-17] MEDS: CYANOCOBALAMIN 500 MCG TAB PO SCH (08:35)
[2023-02-17] MEDS: TORSEMIDE 10 MG TABLET PO SCH (08:35)
[2023-02-17] MEDS: propylthiouraciL 50 MG TAB PO SCH ×2 (08:36→21:28)
[2023-02-17] MEDS: amLODIPine 5 MG TAB PO SCH (08:36)
[2023-02-17] MEDS: APIXABAN 5 MG TAB (ELIQUIS) PO SCH ×2 (08:36→21:30)
[2023-02-17] MEDS: REMEDY PHYTOPLEX Z-GUARD PASTE 113GM TUBE (FROM STOREROOM PRODUCT) TOP SCH ×3 (08:37→21:00)
[2023-02-17] MEDS: ACETAMINOPHEN 500 MG TAB PO SCH ×3 (08:37→21:29)
[2023-02-17] MEDS: DOCUSATE SODIUM 100MG CAPSULE PO SCH ×2 (08:37→21:28)
[2023-02-17 14:00] VITALS: BP 145/74; TEMP 98.2; O2SAT 95
[2023-02-17 20:00] VITALS: BP 146/67; TEMP 98.3; O2SAT 98
[2023-02-17] MEDS: TAMSULOSIN 0.4 MG CAP PO SCH (21:28)
[2023-02-17] MEDS: FEBUXOSTAT 40 MG TABLET (ULORIC) PO SCH (21:28)
[2023-02-17] MEDS: EZETIMIBE 10MG TABLET (ZETIA) PO SCH (21:28)
[2023-02-17] MEDS: ROSUVASTATIN 10 MG TAB (CRESTOR) PO SCH (21:29)
[2023-02-17] MEDS: SENNA 8.6 MG TAB (SENOKOT) PO SCH (21:30)
[2023-02-17] MEDS: LITHIUM CARBONATE 300 MG CAP PO SCH (21:30)
[2023-02-18] MEDS: traMADol 50 MG TAB PO PRN (04:46)
[2023-02-18] MEDS: **hydrALAZINE HCL** 25 MG TAB PO SCH (05:23)
[2023-02-18 06:00] VITALS: BP 137/68; TEMP 98.5; O2SAT 94
[2023-02-18] MEDS: CYANOCOBALAMIN 500 MCG TAB PO SCH (08:11)
[2023-02-18 08:12] VITALS: BP 137/68
[2023-02-18] MEDS: amLODIPine 5 MG TAB PO SCH (08:12)
[2023-02-18] MEDS: ACETAMINOPHEN 500 MG TAB PO SCH (08:12)
[2023-02-18] MEDS: TORSEMIDE 10 MG TABLET PO SCH (08:12)
[2023-02-18] MEDS: propylthiouraciL 50 MG TAB PO SCH (08:12)
[2023-02-18] MEDS: DOCUSATE SODIUM 100MG CAPSULE PO SCH (08:12)
[2023-02-18] MEDS: VITAMIN D 1,000 INTERNATIONAL UNITS TABLET PO SCH (08:12)
[2023-02-18] MEDS: VITAMIN D 50,000 UNITS CAPSULE (ERGOCALCIFEROL 1.25MG) PO SCH (08:12)
[2023-02-18] MEDS: APIXABAN 5 MG TAB (ELIQUIS) PO SCH (08:12)
[2023-02-18] MEDS: PANTOPRAZOLE 40MG TAB (PROTONIX) PO SCH (08:13)
[2023-02-18] MEDS: BISACODYL 5MG TAB PO SCH (09:00)
[2023-02-18] MEDS: REMEDY PHYTOPLEX Z-GUARD PASTE 113GM TUBE (FROM STOREROOM PRODUCT) TOP SCH (09:00)
[2023-02-18] MEDS ORDERED: ULOR80TA PO (09:20)
[2023-02-18] MEDS ORDERED: ROSU5TAB5 PO (09:20)
[2023-02-18] MEDS ORDERED: TAMS1CAP17 PO (09:20)
[2023-02-18] MEDS ORDERED: HYDR25TA PO (09:20)
[2023-02-18] MEDS ORDERED: EZET10TA21 PO (09:20)
[2023-02-18] MEDS ORDERED: TORS10TA3 PO (09:20)
[2023-02-18] MEDS ORDERED: PROP50TA3 PO (09:20)
[2023-02-18] MEDS ORDERED: LITH1TAB PO (09:20)
[2023-02-18] MEDS ORDERED: ELIQ5TAB PO (09:20)
== END 2023-02-18 10:30 | disposition home or self-care (01) | DRG 560 ==
LOC: M PM&R 18:00
PROVIDERS: ADMIT Physical Medicine & Rehabilitation; ATTEND Physical Medicine & Rehabilitation
DX: S32.10XD Unspecified fracture of sacrum, subsequent encounter for fracture with routine healing (principal); I50.32 Chronic diastolic (congestive) heart failure; I13.0 Hypertensive heart and chronic kidney disease with heart failure and stage 1 through stage 4 chronic kidney disease, or unspecified chronic kidney disease; S70.12XD Contusion of left thigh, subsequent encounter; M54.9 Dorsalgia, unspecified; G89.29 Other chronic pain; I44.1 Atrioventricular block, second degree; N18.30 Chronic kidney disease, stage 3 unspecified; Z95.0 Presence of cardiac pacemaker; N40.0 Benign prostatic hyperplasia without lower urinary tract symptoms; I25.10 Atherosclerotic heart disease of native coronary artery without angina pectoris; F31.9 Bipolar disorder, unspecified; M10.9 Gout, unspecified; G47.33 Obstructive sleep apnea (adult) (pediatric); G62.9 Polyneuropathy, unspecified; E78.5 Hyperlipidemia, unspecified; E05.90 Thyrotoxicosis, unspecified without thyrotoxic crisis or storm; E55.9 Vitamin D deficiency, unspecified; E53.8 Deficiency of other specified B group vitamins; Z74.09 Other reduced mobility; Z74.1 Need for assistance with personal care; Z90.49 Acquired absence of other specified parts of digestive tract; Z98.49 Cataract extraction status, unspecified eye; Z87.891 Personal history of nicotine dependence; Z79.01 Long term (current) use of anticoagulants; Z79.899 Other long term (current) drug therapy; Z86.711 Personal history of pulmonary embolism; Z86.718 Personal history of other venous thrombosis and embolism

== ENCOUNTER → 2023-02-26 | Outpatient (CLI) | payer MEDICARE, BC, OTHER ==
[2023-02-26 10:46] LABS: BASO % 0.4 % (0.0-1.0); EOS # 0.3 10^3/uL (0.0-0.5); EOS % 2.6 % (0.0-3.0); HEMATOCRIT 38.9 % (42.0-52.0); HEMOGLOBIN 11.8 g/dl (13.5-17.5); LYMPH # 1.6 10^3/uL (1.5-5.0); LYMPH % 15.2 % (24.0-44.0); MEAN CORPUSCULAR HEMOGLOBIN 28.4 pg (27.0-33.0); MEAN CORPUSCULAR HGB CONC 30.3 g/dl (32.0-36.5); MEAN CORPUSCULAR VOLUME 93.5 fl (80.0-96.0); MONO % 9.7 % (2.0-8.0); NEUTROPHILS # 7.3 10^3/uL (1.5-8.5); NEUTROPHILS % 71.7 % (36.0-66.0); PLATELET COUNT, AUTOMATED 272 10^3/uL (150-450); RED BLOOD COUNT 4.16 10^6/uL (4.30-6.10); WHITE BLOOD COUNT 10.2 10^3/uL (4.0-10.0)
[2023-02-26 11:09] LABS: ALBUMIN 3.1 G/DL (3.2-5.2); BILIRUBIN,TOTAL 0.5 MG/DL (0.3-1.2); CALCIUM LEVEL 9.3 MG/DL (8.3-10.6); CREATININE FOR GFR 2.08 MG/DL (0.70-1.30); GLOMERULAR FILTRATION RATE 33.7 (>42); POTASSIUM SERUM 3.7 MMOL/L (3.5-5.1)
== END ==
LOC: M PLALAB 07:25
PROVIDERS: ATTEND Family Medicine
DX: I10 Essential (primary) hypertension (principal)

== ENCOUNTER 2023-03-05 09:56 | Outpatient (CLI) | payer MEDICARE, BC, OTHER ==
[~2023-03-05 09:56] MED LIST changes: +ALBUTEROL SULFATE 2.5MG/0.5ML INH NEB SOLN INH PRN; +EPINEPHrine INJ 1 MG/ML 1ML AMP IM PRN; +diphenhydrAMINE 50MG/ML VIAL IV PRN; +methylPREDNISolone 125MG 2ML VIAL IV PRN
[2023-03-05 10:10] VITALS: BP 113/70; O2SAT 97
[2023-03-05] MEDS ORDERED: FERRIC CARBOXYMALTOSE INJ 750 MG in NS 250 ML (>50kg) IV ONE ×3 (10:30)
[2023-03-05] MEDS ORDERED: NS 1,000 ML IV SCH (10:30)
[2023-03-05 11:30] VITALS: BP 163/85; O2SAT 99
== END 2023-03-13 14:30 ==
LOC: M INFU 09:56
PROVIDERS: ATTEND Family Medicine
DX: D50.9 Iron deficiency anemia, unspecified (principal)
CPT/HCPCS: 96365; G0463; J1439

== ENCOUNTER → 2023-03-12 | Outpatient (CLI) | payer MEDICARE, BC, OTHER ==
[~2023-03-12] MED LIST changes: -ALBUTEROL SULFATE 2.5MG/0.5ML INH NEB SOLN INH PRN; -EPINEPHrine INJ 1 MG/ML 1ML AMP IM PRN; -diphenhydrAMINE 50MG/ML VIAL IV PRN; -methylPREDNISolone 125MG 2ML VIAL IV PRN
[2023-03-12 10:26] LABS: BASO % 0.4 % (0.0-1.0); EOS # 0.4 10^3/uL (0.0-0.5); EOS % 3.6 % (0.0-3.0); HEMATOCRIT 41.2 % (42.0-52.0); HEMOGLOBIN 12.4 g/dl (13.5-17.5); LYMPH # 1.6 10^3/uL (1.5-5.0); LYMPH % 16.5 % (24.0-44.0); MEAN CORPUSCULAR HEMOGLOBIN 28.5 pg (27.0-33.0); MEAN CORPUSCULAR HGB CONC 30.1 g/dl (32.0-36.5); MEAN CORPUSCULAR VOLUME 94.7 fl (80.0-96.0); MONO % 10.7 % (2.0-8.0); NEUTROPHILS # 6.6 10^3/uL (1.5-8.5); NEUTROPHILS % 68.4 % (36.0-66.0); PLATELET COUNT, AUTOMATED 228 10^3/uL (150-450); RED BLOOD COUNT 4.35 10^6/uL (4.30-6.10); WHITE BLOOD COUNT 9.6 10^3/uL (4.0-10.0)
== END ==
LOC: M PLALAB 08:03
PROVIDERS: ATTEND Family Medicine
DX: D50.9 Iron deficiency anemia, unspecified (principal)

== ENCOUNTER → 2023-03-12 | Outpatient (CLI) | payer MEDICARE, BC, OTHER ==
[2023-03-12 10:26] LABS: BASO # 0.1 10^3/uL (0.0-0.2); BASO % 0.5 % (0.0-1.0); EOS # 0.3 10^3/uL (0.0-0.5); EOS % 3.4 % (0.0-3.0); HEMATOCRIT 41.4 % (42.0-52.0); HEMOGLOBIN 12.5 g/dl (13.5-17.5); LYMPH # 1.6 10^3/uL (1.5-5.0); MEAN CORPUSCULAR HEMOGLOBIN 28.2 pg (27.0-33.0); MEAN CORPUSCULAR HGB CONC 30.2 g/dl (32.0-36.5); MEAN CORPUSCULAR VOLUME 93.5 fl (80.0-96.0); MONO % 10.7 % (2.0-8.0); NEUTROPHILS # 6.4 10^3/uL (1.5-8.5); PLATELET COUNT, AUTOMATED 230 10^3/uL (150-450); RED BLOOD COUNT 4.43 10^6/uL (4.30-6.10); WHITE BLOOD COUNT 9.4 10^3/uL (4.0-10.0)
[2023-03-12 11:02] LABS: FREE T4 0.76 NG/DL (0.89-1.76); THYROID STIMULATING HORMONE 1.926 uIU/ML (0.55-4.78)
[2023-03-12 11:04] LABS: ALBUMIN 3.2 G/DL (3.2-5.2); CALCIUM LEVEL 9.3 MG/DL (8.3-10.6); CREATININE FOR GFR 1.96 MG/DL (0.70-1.30); GLOMERULAR FILTRATION RATE 36.1 (>42); LITHIUM LEVEL 0.6 MMOL/L (1.0-1.20); PHOSPHORUS LEVEL 3.1 MG/DL (2.4-5.1); POTASSIUM SERUM 3.8 MMOL/L (3.5-5.1)
== END ==
LOC: M PLALAB 08:05
PROVIDERS: ATTEND Physician Assistant
DX: F31.9 Bipolar disorder, unspecified (principal); E05.90 Thyrotoxicosis, unspecified without thyrotoxic crisis or storm

== ENCOUNTER → 2023-03-13 | Outpatient (CLI) | payer MEDICARE, BC, OTHER ==
[~2023-03-13] VITALS: Ht 175.3 cm; Wt 134.2 kg
[~2023-03-13] MED LIST changes: +ALBUTEROL SULFATE 2.5MG/0.5ML INH NEB SOLN INH PRN; +EPINEPHrine INJ 1 MG/ML 1ML AMP IM PRN; +FERRIC CARBOXYMALTOSE INJ 750 MG in NS 250 ML (>50kg) IV ONE; +NS 1,000 ML IV SCH; +diphenhydrAMINE 50MG/ML VIAL IV PRN; +methylPREDNISolone 125MG 2ML VIAL IV PRN
[2023-03-13 12:56] VITALS: BP 165/87; O2SAT 96
[2023-03-13 14:33] VITALS: BP 160/73; O2SAT 98
== END ==
LOC: M INFU 12:36
PROVIDERS: ATTEND Family Medicine
DX: D50.9 Iron deficiency anemia, unspecified (principal)
CPT/HCPCS: 96365; J1439

== ENCOUNTER 2023-03-15 06:55 | Emergency (ER) | payer MEDICARE, BC, OTHER ==
[~2023-03-15] VITALS: Ht 182.9 cm; Wt 129.1 kg
[~2023-03-15 06:55] MED LIST changes: -ALBUTEROL SULFATE 2.5MG/0.5ML INH NEB SOLN INH PRN; -EPINEPHrine INJ 1 MG/ML 1ML AMP IM PRN; -FERRIC CARBOXYMALTOSE INJ 750 MG in NS 250 ML (>50kg) IV ONE; -NS 1,000 ML IV SCH; -diphenhydrAMINE 50MG/ML VIAL IV PRN; -methylPREDNISolone 125MG 2ML VIAL IV PRN
[2023-03-15] MEDS ORDERED: BOOSTRIX VACCINE (TETANUS/DIPHTH/ACEL. PERTUSSIS) 0.5ML SYR IM.IMMUN ONE (07:40)
[2023-03-15 08:57] VITALS: BP 138/82; TEMP 96.7; O2SAT 98
== END 2023-03-15 09:18 | disposition home or self-care (01) ==
LOC: M ED 06:55
DX: S09.90XA Unspecified injury of head, initial encounter (principal); S80.211A Abrasion, right knee, initial encounter; S50.311A Abrasion of right elbow, initial encounter; W01.0XXA Fall on same level from slipping, tripping and stumbling without subsequent striking against object, initial encounter; Y92.89 Other specified places as the place of occurrence of the external cause; Y93.01 Activity, walking, marching and hiking; Y99.8 Other external cause status; I12.9 Hypertensive chronic kidney disease with stage 1 through stage 4 chronic kidney disease, or unspecified chronic kidney disease; N18.30 Chronic kidney disease, stage 3 unspecified; G47.30 Sleep apnea, unspecified; K21.9 Gastro-esophageal reflux disease without esophagitis; E11.9 Type 2 diabetes mellitus without complications; Z95.0 Presence of cardiac pacemaker; F17.200 Nicotine dependence, unspecified, uncomplicated; E78.00 Pure hypercholesterolemia, unspecified; Z79.01 Long term (current) use of anticoagulants; Z79.899 Other long term (current) drug therapy

== ENCOUNTER → 2023-04-02 | Outpatient (CLI) | payer MEDICARE, BC, OTHER ==
[2023-04-02 10:32] LABS: BASO # 0.1 10^3/uL (0.0-0.2); BASO % 0.5 % (0.0-1.0); EOS # 0.3 10^3/uL (0.0-0.5); EOS % 2.9 % (0.0-3.0); HEMATOCRIT 43.4 % (42.0-52.0); HEMOGLOBIN 13.5 g/dl (13.5-17.5); LYMPH # 1.9 10^3/uL (1.5-5.0); LYMPH % 17.6 % (24.0-44.0); MEAN CORPUSCULAR HEMOGLOBIN 28.9 pg (27.0-33.0); MEAN CORPUSCULAR HGB CONC 31.1 g/dl (32.0-36.5); MEAN CORPUSCULAR VOLUME 92.9 fl (80.0-96.0); MONO % 9.3 % (2.0-8.0); NEUTROPHILS # 7.6 10^3/uL (1.5-8.5); NEUTROPHILS % 69.3 % (36.0-66.0); PLATELET COUNT, AUTOMATED 223 10^3/uL (150-450); RED BLOOD COUNT 4.67 10^6/uL (4.30-6.10)
[2023-04-02 11:06] LABS: ALBUMIN 3.3 G/DL (3.2-5.2); ALKALINE PHOSPHATASE 84 U/L (46-116); ALT/SGPT 19 U/L (7.0-40); AST/SGOT < 8 U/L (<34); BILIRUBIN,TOTAL 0.4 MG/DL (0.3-1.2); BLOOD UREA NITROGEN 29 MG/DL (9-23); CARBON DIOXIDE LEVEL 27 MMOL/L (20-31); CHLORIDE LEVEL 110 MMOL/L (98-107); CREATININE FOR GFR 1.86 MG/DL (0.70-1.30); GLOMERULAR FILTRATION RATE 38.3 (>42); GLUCOSE, FASTING 117 MG/DL (74-106); POTASSIUM SERUM 3.7 MMOL/L (3.5-5.1); SODIUM LEVEL 143 MMOL/L (136-145); TOTAL PROTEIN 6.3 G/DL (5.7-8.2)
[2023-04-02 11:08] LABS: THYROID STIMULATING HORMONE 4.052 uIU/ML (0.55-4.78)
[2023-04-02 11:09] LABS: FERRITIN 242.8 NG/ML (10.5-307.3); LITHIUM LEVEL 0.76 MMOL/L (1.0-1.20)
[2023-04-02 11:10] LABS: FREE T4 0.84 NG/DL (0.89-1.76)
== END ==
LOC: M PLALAB 07:21
PROVIDERS: ATTEND Family Medicine
DX: I10 Essential (primary) hypertension (principal); F31.9 Bipolar disorder, unspecified

== ENCOUNTER → 2023-04-04 | Outpatient (CLI) | payer MEDICARE, BC, OTHER | LOC: M PLAIMG 10:47 | PROVIDERS: ATTEND Physician Assistant | DX: M17.12 Unilateral primary osteoarthritis, left knee (principal) ==

== ENCOUNTER → 2023-07-11 | Outpatient (CLI) | payer MEDICARE, BC, OTHER ==
[~2023-07-11] MED LIST changes: +DICL100G10 TOP; -DICL1GEL3 TOP
[2023-07-11 13:38] LABS: BASO # 0.1 10^3/uL (0.0-0.2); BASO % 0.6 % (0.0-1.0); EOS # 0.4 10^3/uL (0.0-0.5); EOS % 3.3 % (0.0-3.0); HEMATOCRIT 47.1 % (42.0-52.0); HEMOGLOBIN 14.8 g/dl (13.5-17.5); LYMPH # 1.7 10^3/uL (1.5-5.0); LYMPH % 15.3 % (24.0-44.0); MEAN CORPUSCULAR HEMOGLOBIN 29.5 pg (27.0-33.0); MEAN CORPUSCULAR HGB CONC 31.4 g/dl (32.0-36.5); MONO # 0.9 10^3/uL (0.0-0.8); MONO % 8.4 % (2.0-8.0); NEUTROPHILS # 7.7 10^3/uL (1.5-8.5); NEUTROPHILS % 71.8 % (36.0-66.0); PLATELET COUNT, AUTOMATED 237 10^3/uL (150-450); RED BLOOD COUNT 5.01 10^6/uL (4.30-6.10); WHITE BLOOD COUNT 10.8 10^3/uL (4.0-10.0)
[2023-07-11 13:47] LABS: HEMOGLOBIN A1c 5.8 % (4.0-6.0)
[2023-07-11 14:11] LABS: ALBUMIN 3.2 G/DL (3.2-5.2); BILIRUBIN,TOTAL 0.5 MG/DL (0.3-1.2); CALCIUM LEVEL 9.4 MG/DL (8.3-10.6); CREATININE FOR GFR 2.22 MG/DL (0.70-1.30); GLOMERULAR FILTRATION RATE 31.2 (>42); POTASSIUM SERUM 4.1 MMOL/L (3.5-5.1); TOTAL PROTEIN 6.4 G/DL (5.7-8.2)
[2023-07-11 14:12] LABS: FREE T4 0.73 NG/DL (0.89-1.76)
[2023-07-11 14:13] LABS: FERRITIN 58.4 NG/ML (10.5-307.3); THYROID STIMULATING HORMONE 2.897 uIU/ML (0.55-4.78)
[2023-07-11 14:15] LABS: LITHIUM LEVEL 0.62 MMOL/L (1.0-1.20)
== END ==
LOC: M PLALAB 11:56
PROVIDERS: ATTEND Family Medicine
DX: E05.90 Thyrotoxicosis, unspecified without thyrotoxic crisis or storm (principal); I11.0 Hypertensive heart disease with heart failure; E78.5 Hyperlipidemia, unspecified; M10.9 Gout, unspecified; R73.01 Impaired fasting glucose; I50.32 Chronic diastolic (congestive) heart failure

== ENCOUNTER → 2023-07-29 | Outpatient (CLI) | payer MEDICARE, BC, OTHER ==
[2023-07-29 11:11] LABS: BASO # 0.1 10^3/uL (0.0-0.2); BASO % 0.6 % (0.0-1.0); EOS # 0.5 10^3/uL (0.0-0.5); HEMATOCRIT 46.3 % (42.0-52.0); HEMOGLOBIN 14.6 g/dl (13.5-17.5); LYMPH # 1.9 10^3/uL (1.5-5.0); LYMPH % 16.1 % (24.0-44.0); MEAN CORPUSCULAR HEMOGLOBIN 29.6 pg (27.0-33.0); MEAN CORPUSCULAR HGB CONC 31.5 g/dl (32.0-36.5); MEAN CORPUSCULAR VOLUME 93.7 fl (80.0-96.0); MONO # 1.1 10^3/uL (0.0-0.8); MONO % 8.8 % (2.0-8.0); NEUTROPHILS # 8.4 10^3/uL (1.5-8.5); NEUTROPHILS % 70.2 % (36.0-66.0); PLATELET COUNT, AUTOMATED 237 10^3/uL (150-450); RED BLOOD COUNT 4.94 10^6/uL (4.30-6.10); WHITE BLOOD COUNT 11.9 10^3/uL (4.0-10.0)
[2023-07-29 11:19] LABS: ERYTHROCYTE SEDIMENTATION RATE 58 mm/hr (0-20)
[2023-07-29 11:30] LABS: HEMOGLOBIN A1c 5.7 % (4.0-6.0)
[2023-07-29 11:41] LABS: C REACTIVE PROTEIN QUANTITATIV 0.4 MG/DL (<1.0)
[2023-07-29 11:45] LABS: ALBUMIN 3.4 G/DL (3.2-5.2); BILIRUBIN,TOTAL 0.5 MG/DL (0.3-1.2); CALCIUM LEVEL 9.8 MG/DL (8.3-10.6); CHOLESTEROL RISK RATIO 2.53 (<5); CREATININE FOR GFR 2.17 MG/DL (0.70-1.30); FERRITIN 62.7 NG/ML (10.5-307.3); LDL CHOLESTEROL 40.6 MG/DL (<100); POTASSIUM SERUM 3.7 MMOL/L (3.5-5.1); PSA SCREENING 1.54 NG/ML (< 4.00); PTH INTACT 67.8 PG/ML (18.5-88.0); TOTAL PROTEIN 6.5 G/DL (5.7-8.2)
[2023-07-29 11:46] LABS: URIC ACID 4.6 MG/DL (3.7-9.2)
== END ==
LOC: M PLALAB 07:33
PROVIDERS: ATTEND Family Medicine
DX: M47.816 Spondylosis without myelopathy or radiculopathy, lumbar region (principal); R73.01 Impaired fasting glucose; E55.9 Vitamin D deficiency, unspecified; Z12.5 Encounter for screening for malignant neoplasm of prostate; M10.9 Gout, unspecified; E53.8 Deficiency of other specified B group vitamins; Z79.899 Other long term (current) drug therapy; Z86.39 Personal history of other endocrine, nutritional and metabolic disease

== ENCOUNTER → 2023-07-29 | Outpatient (CLI) | payer MEDICARE, BC, OTHER | LOC: M PLAIMG 12:01 | PROVIDERS: ATTEND Nurse Practitioner Family | DX: M25.561 Pain in right knee (principal); M25.562 Pain in left knee ==

== ENCOUNTER → 2023-07-30 | Outpatient (CLI) | payer MEDICARE, BC, OTHER | LOC: M RAD 07:57 | PROVIDERS: ATTEND Nurse Practitioner Family | DX: M46.24 Osteomyelitis of vertebra, thoracic region (principal) ==

== ENCOUNTER → 2023-07-30 | Outpatient (CLI) | payer MEDICARE, BC, OTHER | LOC: M PLALAB 08:00 | PROVIDERS: ATTEND Nurse Practitioner Family | DX: M46.24 Osteomyelitis of vertebra, thoracic region (principal) ==

== ENCOUNTER 2023-08-04 05:52 | Emergency (ER) | payer MEDICARE, BC, OTHER ==
[~2023-08-04] VITALS: Ht 182.9 cm; Wt 127.3 kg
[2023-08-04 07:37] LABS: BASO % 0.3 % (0.0-1.0); EOS # 0.4 10^3/uL (0.0-0.5); EOS % 3.2 % (0.0-3.0); HEMATOCRIT 43.5 % (42.0-52.0); HEMOGLOBIN 13.8 g/dl (13.5-17.5); LYMPH # 1.6 10^3/uL (1.5-5.0); LYMPH % 13.5 % (24.0-44.0); MEAN CORPUSCULAR HEMOGLOBIN 29.6 pg (27.0-33.0); MEAN CORPUSCULAR HGB CONC 31.7 g/dl (32.0-36.5); MEAN CORPUSCULAR VOLUME 93.1 fl (80.0-96.0); MONO # 1.1 10^3/uL (0.0-0.8); MONO % 9.4 % (2.0-8.0); NEUTROPHILS # 8.4 10^3/uL (1.5-8.5); NEUTROPHILS % 73.3 % (36.0-66.0); PLATELET COUNT, AUTOMATED 229 10^3/uL (150-450); RED BLOOD COUNT 4.67 10^6/uL (4.30-6.10); WHITE BLOOD COUNT 11.5 10^3/uL (4.0-10.0)
[2023-08-04 07:49] LABS: INR 1.3; PROTHROMBIN TIME 15.8 SECONDS (12.5-14.5)
[2023-08-04 07:56] VITALS: BP 157/81; TEMP 98.2; O2SAT 97
[2023-08-04 07:59] LABS: C REACTIVE PROTEIN QUANTITATIV 1.4 MG/DL (<1.0)
[2023-08-04 08:00] LABS: ALBUMIN 3.2 G/DL (3.2-5.2); BILIRUBIN,DIRECT 0.2 MG/DL (<0.4); BILIRUBIN,TOTAL 0.6 MG/DL (0.3-1.2); CALCIUM LEVEL 9.2 MG/DL (8.3-10.6); CREATININE FOR GFR 2.26 MG/DL (0.70-1.30); GLOMERULAR FILTRATION RATE 30.5 (>42); POTASSIUM SERUM 3.7 MMOL/L (3.5-5.1); TOTAL PROTEIN 6.3 G/DL (5.7-8.2)
[2023-08-04 08:03] LABS: ERYTHROCYTE SEDIMENTATION RATE 51 mm/hr (0-20)
== END 2023-08-04 08:50 | disposition home or self-care (01) ==
LOC: M ED 05:52
DX: M25.572 Pain in left ankle and joints of left foot (principal); R22.42 Localized swelling, mass and lump, left lower limb; I48.91 Unspecified atrial fibrillation; I25.10 Atherosclerotic heart disease of native coronary artery without angina pectoris; N18.30 Chronic kidney disease, stage 3 unspecified; Z95.0 Presence of cardiac pacemaker; Z86.711 Personal history of pulmonary embolism; Z79.01 Long term (current) use of anticoagulants; Z79.899 Other long term (current) drug therapy

== ENCOUNTER → 2023-08-22 | Outpatient (CLI) | payer MEDICARE, BC, OTHER ==
[2023-08-22 11:57] LABS: BASO # 0.1 10^3/uL (0.0-0.2); BASO % 0.4 % (0.0-1.0); EOS # 0.5 10^3/uL (0.0-0.5); EOS % 4.3 % (0.0-3.0); HEMATOCRIT 44.5 % (42.0-52.0); HEMOGLOBIN 13.9 g/dl (13.5-17.5); LYMPH # 2.3 10^3/uL (1.5-5.0); LYMPH % 20.6 % (24.0-44.0); MEAN CORPUSCULAR HEMOGLOBIN 29.5 pg (27.0-33.0); MEAN CORPUSCULAR HGB CONC 31.2 g/dl (32.0-36.5); MEAN CORPUSCULAR VOLUME 94.5 fl (80.0-96.0); MONO % 8.7 % (2.0-8.0); NEUTROPHILS # 7.4 10^3/uL (1.5-8.5); NEUTROPHILS % 65.6 % (36.0-66.0); PLATELET COUNT, AUTOMATED 233 10^3/uL (150-450); RED BLOOD COUNT 4.71 10^6/uL (4.30-6.10); WHITE BLOOD COUNT 11.3 10^3/uL (4.0-10.0)
[2023-08-22 12:30] LABS: C REACTIVE PROTEIN QUANTITATIV < 0.40 MG/DL (<1.0)
[2023-08-22 12:32] LABS: ALBUMIN 3.2 G/DL (3.2-5.2); ALKALINE PHOSPHATASE 84 U/L (46-116); ALT/SGPT 31 U/L (7.0-40); AST/SGOT 22 U/L (<34); BILIRUBIN,TOTAL 0.4 MG/DL (0.3-1.2); BLOOD UREA NITROGEN 24 MG/DL (9-23); CALCIUM LEVEL 9.6 MG/DL (8.3-10.6); CARBON DIOXIDE LEVEL 31 MMOL/L (20-31); CHLORIDE LEVEL 108 MMOL/L (98-107); GLOMERULAR FILTRATION RATE 35.1 (>42); GLUCOSE, FASTING 102 MG/DL (74-106); LITHIUM LEVEL 0.83 MMOL/L (1.0-1.20); POTASSIUM SERUM 4.3 MMOL/L (3.5-5.1); SODIUM LEVEL 142 MMOL/L (136-145); TOTAL PROTEIN 6.2 G/DL (5.7-8.2)
[2023-08-22 12:33] LABS: FREE T4 0.79 NG/DL (0.89-1.76); THYROID STIMULATING HORMONE 5.357 uIU/ML (0.55-4.78)
[2023-08-22 12:34] LABS: FERRITIN 96.3 NG/ML (10.5-307.3)
== END ==
LOC: M PLALAB 08:11
PROVIDERS: ATTEND Family Medicine
DX: F31.9 Bipolar disorder, unspecified (principal); D50.9 Iron deficiency anemia, unspecified; I50.32 Chronic diastolic (congestive) heart failure

== ENCOUNTER 2023-09-09 15:53 | Inpatient (IN) | payer MEDICARE, BC, OTHER ==
[~2023-09-09] VITALS: Ht 182.9 cm; Wt 127.0 kg
[~2023-09-09 15:53] MED LIST changes: +HYDR-161 PO; -HYDR10TAB PO
[2023-09-09 18:39] LABS: HEMATOCRIT 47.6 % (42.0-52.0); HEMOGLOBIN 15.2 g/dl (13.5-17.5); MEAN CORPUSCULAR HEMOGLOBIN 29.7 pg (27.0-33.0); MEAN CORPUSCULAR HGB CONC 31.9 g/dl (32.0-36.5); PLATELET COUNT, AUTOMATED 235 10^3/uL (150-450); RED BLOOD COUNT 5.12 10^6/uL (4.30-6.10); WHITE BLOOD COUNT 13.7 10^3/uL (4.0-10.0)
[2023-09-09 18:59] LABS: AMPHETAMINES LEVEL URINE NEGATIVE (NEGATIVE); BARBITURATES URINE NEGATIVE (NEGATIVE); BENZODIAZEPINES URINE NEGATIVE (NEGATIVE); CANNABINOIDS URINE NEGATIVE (NEGATIVE); COCAINE METABOLITE URINE NEGATIVE (NEGATIVE); METHADONE URINE NEGATIVE (NEGATIVE); PHENCYCLIDINE URINE NEGATIVE (NEGATIVE)
[2023-09-09 19:00] LABS: OPIATES URINE NEGATIVE (NEGATIVE)
[2023-09-09 19:01] LABS: ETHYL ALCOHOL (ETHANOL) 0.004 % (0.000-0.010)
[2023-09-09 19:03] LABS: ALBUMIN 3.6 G/DL (3.2-5.2); ALKALINE PHOSPHATASE 95 U/L (46-116); ALT/SGPT 26 U/L (7.0-40); AST/SGOT 13 U/L (<34); BILIRUBIN,DIRECT 0.2 MG/DL (<0.4); BILIRUBIN,TOTAL 0.5 MG/DL (0.3-1.2); BLOOD UREA NITROGEN 35 MG/DL (9-23); CALCIUM LEVEL 9.5 MG/DL (8.3-10.6); CARBON DIOXIDE LEVEL 28 MMOL/L (20-31); CHLORIDE LEVEL 107 MMOL/L (98-107); CREATININE FOR GFR 2.41 MG/DL (0.70-1.30); GLOMERULAR FILTRATION RATE 28.3 (>42); GLUCOSE, FASTING 100 MG/DL (74-106); POTASSIUM SERUM 3.6 MMOL/L (3.5-5.1); SALICYLATE LEVEL < 3.0 MG/DL (<30); SODIUM LEVEL 141 MMOL/L (136-145); TOTAL PROTEIN 6.9 G/DL (5.7-8.2)
[2023-09-09 19:07] LABS: THYROID STIMULATING HORMONE 5.073 uIU/ML (0.55-4.78)
[2023-09-09 19:08] LABS: LITHIUM LEVEL 1.04 MMOL/L (1.0-1.20)
[2023-09-09] MEDS ORDERED: ACETAMINOPHEN TAB 650MG DOSE (2X325MG) PO PRN (20:40)
[2023-09-09] MEDS ORDERED: MAALOX 30 ML SUSP *UDC PO PRN (20:40)
[2023-09-09] MEDS ORDERED: OLANZapine ORAL DISINTEGRATING TAB 5MG PO PRN (20:40)
[2023-09-09] MEDS ORDERED: MOM 30ML SUSPENSION UDC PO PRN (20:40)
[2023-09-09] MEDS ORDERED: diphenhydrAMINE 25MG CAP PO PRN (20:40)
[2023-09-09] MEDS ORDERED: PROP50TA3 PO (22:37)
[2023-09-09] MEDS ORDERED: EZET10TA58 PO (22:37)
[2023-09-09] MEDS ORDERED: ULOR80TA PO (22:37)
[2023-09-09] MEDS ORDERED: LITH1TAB PO (22:37)
[2023-09-09] MEDS ORDERED: ELIQ5TAB PO (22:37)
[2023-09-09] MEDS ORDERED: NITR4TASL SL (22:37)
[2023-09-09] MEDS ORDERED: FLOM0.4C39 PO (22:37)
[2023-09-09] MEDS ORDERED: TORS20TA2 PO (22:37)
[2023-09-09] MEDS ORDERED: ROSU5TAB5 PO (22:37)
[2023-09-09] MEDS ORDERED: B-121TAB3 PO (22:37)
[2023-09-09] MEDS ORDERED: HOME MED LIST COMPLETE! XX SCH (22:40)
[2023-09-10 02:15] VITALS: BP 140/76; TEMP 98.8; O2SAT 99
[2023-09-10] MEDS: CYANOCOBALAMIN 500 MCG TAB PO SCH (10:56)
[2023-09-10] MEDS: APIXABAN 5 MG TAB (ELIQUIS) PO SCH ×2 (10:56→20:45)
[2023-09-10] MEDS: propylthiouraciL 50 MG TAB PO SCH ×2 (11:04→20:44)
[2023-09-10 17:21] VITALS: BP 130/71; TEMP 97.7; O2SAT 97
[2023-09-10] MEDS: TAMSULOSIN 0.4 MG CAP PO SCH (20:44)
[2023-09-10] MEDS: FEBUXOSTAT 40 MG TABLET (ULORIC) PO SCH (20:44)
[2023-09-10] MEDS: EZETIMIBE 10MG TABLET (ZETIA) PO SCH (20:45)
[2023-09-10] MEDS: ARIPiprazole 2 MG TAB PO SCH (20:45)
[2023-09-10] MEDS: ROSUVASTATIN 10 MG TAB (CRESTOR) PO SCH (20:45)
[2023-09-10] MEDS: traZODone 50 MG TAB PO PRN (21:58)
[2023-09-11 06:34] VITALS: BP 141/76; TEMP 98.4; O2SAT 96
[2023-09-11 07:01] LABS: CHOLESTEROL RISK RATIO 2.57 (<5); HDL CHOLESTEROL 42.4 MG/DL (>40); LDL CHOLESTEROL 36.6 MG/DL (<100); NON-HDL-C 66.6 MG/DL
[2023-09-11] MEDS: CYANOCOBALAMIN 500 MCG TAB PO SCH (08:13)
[2023-09-11] MEDS: APIXABAN 5 MG TAB (ELIQUIS) PO SCH ×2 (08:13→21:45)
[2023-09-11] MEDS: propylthiouraciL 50 MG TAB PO SCH ×2 (08:14→21:46)
[2023-09-11 09:34] VITALS: BP 142/73; TEMP 97.8; O2SAT 98
[2023-09-11 17:16] VITALS: BP 155/85; TEMP 98; O2SAT 95
[2023-09-11] MEDS: TAMSULOSIN 0.4 MG CAP PO SCH (21:45)
[2023-09-11] MEDS: ARIPiprazole 2 MG TAB PO SCH (21:45)
[2023-09-11] MEDS: EZETIMIBE 10MG TABLET (ZETIA) PO SCH (21:46)
[2023-09-11] MEDS: FEBUXOSTAT 40 MG TABLET (ULORIC) PO SCH (21:46)
[2023-09-11] MEDS: ROSUVASTATIN 10 MG TAB (CRESTOR) PO SCH (21:46)
[2023-09-11] MEDS: traZODone 50 MG TAB PO PRN (21:46)
[2023-09-12 04:40] VITALS: BP 158/80; TEMP 98; O2SAT 96
[2023-09-12] MEDS: APIXABAN 5 MG TAB (ELIQUIS) PO SCH (08:43)
[2023-09-12] MEDS: propylthiouraciL 50 MG TAB PO SCH (08:43)
[2023-09-12] MEDS: CYANOCOBALAMIN 500 MCG TAB PO SCH (08:43)
[2023-09-12 09:20] LABS: CALCIUM LEVEL 9.4 MG/DL (8.3-10.6); CREATININE FOR GFR 2.24 MG/DL (0.70-1.30); GLOMERULAR FILTRATION RATE 30.8 (>42); POTASSIUM SERUM 3.5 MMOL/L (3.5-5.1)
[2023-09-13] MEDS ORDERED: TRAZ-252 PO (12:30)
[2023-09-13] MEDS ORDERED: ABIL1TAB13 PO (12:30)
[2023-09-13] MEDS ORDERED: OLAN5ZYD PO (12:30)
[2023-09-13] MEDS ORDERED: MOM 30ML SUSPENSION UDC PO PRN (16:10)
[2023-09-13 16:18] VITALS: BP 137/74; TEMP 98.5; O2SAT 98
[2023-09-13] MEDS ORDERED: traZODone 50 MG TAB PO PRN (16:45)
[2023-09-13] MEDS: ARIPiprazole 2 MG TAB PO SCH (20:47)
[2023-09-14 06:47] VITALS: BP 125/69; TEMP 97.9; O2SAT 100
[2023-09-14] MEDS: ACETAMINOPHEN TAB 650MG DOSE (2X325MG) PO PRN (10:10)
[2023-09-14 15:38] VITALS: BP 140/76; TEMP 98.4; O2SAT 97
[2023-09-14] MEDS ORDERED: LORazepam 2 MG/ML 1ML VIAL IM STA (20:25)
[2023-09-14] MEDS ORDERED: HALOPERIDOL 5MG/ML 1ML VIAL IM STA ×2 (20:25→20:56)
[2023-09-14] MEDS: ARIPiprazole 2 MG TAB PO SCH (20:40)
[2023-09-14] MEDS ORDERED: diphenhydrAMINE 50MG/ML VIAL IM ONE (21:00)
[2023-09-15 06:51] VITALS: BP 142/80; TEMP 98.1; O2SAT 96
[2023-09-15 18:00] VITALS: BP 165/89; TEMP 98.9; O2SAT 85
[2023-09-15] MEDS: ACETAMINOPHEN TAB 650MG DOSE (2X325MG) PO PRN (18:54)
[2023-09-15] MEDS: propylthiouraciL 50 MG TAB PO SCH (20:18)
[2023-09-15] MEDS: EZETIMIBE 10MG TABLET (ZETIA) PO SCH (20:18)
[2023-09-15] MEDS: TAMSULOSIN 0.4 MG CAP PO SCH (20:18)
[2023-09-15] MEDS: PILL CUTTER 1 EACH XX PRN (20:18)
[2023-09-15] MEDS: ROSUVASTATIN 10 MG TAB (CRESTOR) PO SCH (20:18)
[2023-09-15] MEDS: FEBUXOSTAT 40 MG TABLET (ULORIC) PO SCH (21:00)
[2023-09-16] MEDS: ACETAMINOPHEN TAB 650MG DOSE (2X325MG) PO PRN ×3 (01:07→13:55)
[2023-09-16] MEDS: diphenhydrAMINE 25MG CAP PO PRN (01:49)
[2023-09-16] MEDS: OLANZapine ORAL DISINTEGRATING TAB 5MG PO PRN (05:38)
[2023-09-16 06:39] VITALS: BP 158/80; TEMP 98.5; O2SAT 100
[2023-09-16] MEDS: CYANOCOBALAMIN 500 MCG TAB PO SCH (08:19)
[2023-09-16] MEDS: propylthiouraciL 50 MG TAB PO SCH ×2 (08:19→20:56)
[2023-09-16] MEDS: IBUPROFEN 400MG TAB PO PRN (09:37)
[2023-09-16] MEDS: DIVALPROEX 125 MG TAB PO SCH ×2 (16:40→20:56)
[2023-09-16 16:46] VITALS: BP 168/89; TEMP 97.2; O2SAT 98
[2023-09-16] MEDS: QUEtiapine FUMARATE 50MG TAB PO SCH (20:56)
[2023-09-16] MEDS: ARIPiprazole 10 MG TAB PO SCH (20:56)
[2023-09-16] MEDS: FEBUXOSTAT 40 MG TABLET (ULORIC) PO SCH (20:56)
[2023-09-16] MEDS: EZETIMIBE 10MG TABLET (ZETIA) PO SCH (20:56)
[2023-09-16] MEDS: TAMSULOSIN 0.4 MG CAP PO SCH (20:56)
[2023-09-16] MEDS: ROSUVASTATIN 10 MG TAB (CRESTOR) PO SCH (20:56)
[2023-09-16] MEDS: PILL CUTTER 1 EACH XX PRN (21:07)
[2023-09-17] MEDS: DIVALPROEX 125 MG TAB PO SCH ×3 (08:45→20:34)
[2023-09-17] MEDS: CYANOCOBALAMIN 500 MCG TAB PO SCH (08:45)
[2023-09-17] MEDS: propylthiouraciL 50 MG TAB PO SCH ×2 (08:46→20:32)
[2023-09-17] MEDS: CAPSAICIN 0.025% CR 60 GM TOP PRN (09:33)
[2023-09-17] MEDS: ACETAMINOPHEN TAB 650MG DOSE (2X325MG) PO PRN ×2 (10:11→19:51)
[2023-09-17] MEDS: IBUPROFEN 400MG TAB PO PRN (10:45)
[2023-09-17] MEDS: diphenhydrAMINE 25MG CAP PO PRN (11:12)
[2023-09-17] MEDS: OLANZapine ORAL DISINTEGRATING TAB 5MG PO PRN (12:36)
[2023-09-17 18:14] VITALS: BP 150/80; TEMP 97.8
[2023-09-17] MEDS: TAMSULOSIN 0.4 MG CAP PO SCH (20:32)
[2023-09-17] MEDS: ARIPiprazole 10 MG TAB PO SCH (20:32)
[2023-09-17] MEDS: QUEtiapine FUMARATE 50MG TAB PO SCH (20:32)
[2023-09-17] MEDS: EZETIMIBE 10MG TABLET (ZETIA) PO SCH (20:33)
[2023-09-17] MEDS: FEBUXOSTAT 40 MG TABLET (ULORIC) PO SCH (20:33)
[2023-09-17] MEDS: ROSUVASTATIN 10 MG TAB (CRESTOR) PO SCH (20:33)
[2023-09-18] MEDS: OLANZapine ORAL DISINTEGRATING TAB 5MG PO PRN (01:16)
[2023-09-18] MEDS: diphenhydrAMINE 25MG CAP PO PRN (01:16)
[2023-09-18] MEDS: ACETAMINOPHEN TAB 650MG DOSE (2X325MG) PO PRN ×3 (02:03→16:26)
[2023-09-18 06:40] VITALS: BP 142/72; TEMP 97.4; O2SAT 96
[2023-09-18] MEDS: CYANOCOBALAMIN 500 MCG TAB PO SCH (09:41)
[2023-09-18] MEDS: DIVALPROEX 125 MG TAB PO SCH ×3 (09:41→20:34)
[2023-09-18] MEDS: propylthiouraciL 50 MG TAB PO SCH ×2 (09:42→20:34)
[2023-09-18] MEDS: TORSEMIDE 20 MG TAB PO SCH (09:42)
[2023-09-18 16:51] VITALS: BP 117/63; TEMP 97.3; O2SAT 98
[2023-09-18] MEDS: FEBUXOSTAT 40 MG TABLET (ULORIC) PO SCH (20:34)
[2023-09-18] MEDS: TAMSULOSIN 0.4 MG CAP PO SCH (20:34)
[2023-09-18] MEDS: ARIPiprazole 10 MG TAB PO SCH (20:35)
[2023-09-18] MEDS: ROSUVASTATIN 10 MG TAB (CRESTOR) PO SCH (20:35)
[2023-09-18] MEDS: QUEtiapine FUMARATE 50MG TAB PO SCH (20:35)
[2023-09-18] MEDS: EZETIMIBE 10MG TABLET (ZETIA) PO SCH (20:35)
[2023-09-19] MEDS: ACETAMINOPHEN TAB 650MG DOSE (2X325MG) PO PRN ×2 (04:40→13:43)
[2023-09-19 06:15] VITALS: BP 150/92; TEMP 96.9; O2SAT 100
[2023-09-19 06:29] VITALS: BP 150/92; TEMP 96.9; O2SAT 100
[2023-09-19 06:42] VITALS: BP 145/79
[2023-09-19] MEDS: DIVALPROEX 125 MG TAB PO SCH ×2 (08:54→15:50)
[2023-09-19] MEDS: propylthiouraciL 50 MG TAB PO SCH (08:54)
[2023-09-19] MEDS: TORSEMIDE 20 MG TAB PO SCH (08:54)
[2023-09-19] MEDS: CYANOCOBALAMIN 500 MCG TAB PO SCH (08:55)
[2023-09-19] MEDS: CAPSAICIN 0.025% CR 60 GM TOP PRN (09:45)
[2023-09-19] MEDS ORDERED: LORazepam 2 MG TAB PO ONE (11:15)
[2023-09-19] MEDS: diphenhydrAMINE 25MG CAP PO PRN (11:18)
[2023-09-19] MEDS ORDERED: LORazepam 1 MG TAB PO PRN (11:40)
[2023-09-19 14:13] LABS: MEAN CORPUSCULAR HEMOGLOBIN 29.7 pg (27.0-33.0); MEAN CORPUSCULAR HGB CONC 31.8 g/dl (32.0-36.5); MEAN CORPUSCULAR VOLUME 93.4 fl (80.0-96.0); PLATELET COUNT, AUTOMATED 221 10^3/uL (150-450); RED BLOOD COUNT 4.71 10^6/uL (4.30-6.10); WHITE BLOOD COUNT 8.3 10^3/uL (4.0-10.0)
[2023-09-19 14:42] LABS: BILIRUBIN,TOTAL 0.3 MG/DL (0.3-1.2); CALCIUM LEVEL 8.8 MG/DL (8.3-10.6); CREATININE FOR GFR 1.99 MG/DL (0.70-1.30); GLOMERULAR FILTRATION RATE 35.3 (>42); POTASSIUM SERUM 4.2 MMOL/L (3.5-5.1); TOTAL PROTEIN 6.1 G/DL (5.7-8.2)
[2023-09-19 14:45] LABS: THYROID STIMULATING HORMONE 1.431 uIU/ML (0.55-4.78)
[2023-09-19 15:00] VITALS: BP 131/73; TEMP 97.7; O2SAT 97
[2023-09-19 16:33] VITALS: BP 131/73; TEMP 97.7; O2SAT 97
[2023-09-19] MEDS ORDERED: ARIP1TAB PO (18:11)
[2023-09-19] MEDS ORDERED: TORS20TA2 PO (18:12)
[2023-09-20 16:30] VITALS: BP 156/89; TEMP 97.2; O2SAT 97
[2023-09-20] MEDS ORDERED: MAALOX 30 ML SUSP *UDC PO PRN (17:30)
[2023-09-20] MEDS ORDERED: MOM 30ML SUSPENSION UDC PO PRN (17:30)
[2023-09-20] MEDS ORDERED: PILL CUTTER 1 EACH XX PRN (18:30)
[2023-09-20] MEDS: ACETAMINOPHEN TAB 650MG DOSE (2X325MG) PO PRN (18:38)
[2023-09-20] MEDS ORDERED: OLANZapine ORAL DISINTEGRATING TAB 5MG PO ONE (20:00)
[2023-09-20] MEDS: ROSUVASTATIN 10 MG TAB (CRESTOR) PO SCH (20:17)
[2023-09-20] MEDS: traZODone 50 MG TAB PO PRN (20:17)
[2023-09-20] MEDS: TAMSULOSIN 0.4 MG CAP PO SCH (20:17)
[2023-09-20 20:20] VITALS: BP 140/67
[2023-09-20] MEDS: DIVALPROEX 125 MG TAB PO SCH (21:52)
[2023-09-20] MEDS: QUEtiapine FUMARATE 50MG TAB PO SCH (21:52)
[2023-09-20] MEDS: ARIPiprazole 10 MG TAB PO SCH (21:52)
[2023-09-20] MEDS: EZETIMIBE 10MG TABLET (ZETIA) PO SCH (21:52)
[2023-09-20 22:58] VITALS: BP 129/82; TEMP 98; O2SAT 96
[2023-09-21] MEDS ORDERED: ACETAMINOPHEN TAB 650MG DOSE (2X325MG) PO ONE
[2023-09-21] MEDS ORDERED: MORPHINE 2 MG/ML 1ML VIAL IM PRN (02:00)
[2023-09-21] MEDS: ACETAMINOPHEN TAB 650MG DOSE (2X325MG) PO PRN (06:31)
[2023-09-21 06:34] VITALS: BP 134/83; TEMP 97.4; O2SAT 98
[2023-09-21] MEDS: DIVALPROEX 125 MG TAB PO SCH ×3 (11:26→19:46)
[2023-09-21] MEDS: CYANOCOBALAMIN 500 MCG TAB PO SCH (11:26)
[2023-09-21] MEDS: ACETAMINOPHEN 500 MG TAB PO SCH ×2 (13:43→19:49)
[2023-09-21] MEDS: propylthiouraciL 50 MG TAB PO SCH ×2 (14:36→19:46)
[2023-09-21 19:02] VITALS: BP 124/72; TEMP 98
[2023-09-21] MEDS: EZETIMIBE 10MG TABLET (ZETIA) PO SCH (19:45)
[2023-09-21] MEDS: ARIPiprazole 10 MG TAB PO SCH (19:46)
[2023-09-21] MEDS: traZODone 50 MG TAB PO PRN (19:46)
[2023-09-21] MEDS: TAMSULOSIN 0.4 MG CAP PO SCH (19:46)
[2023-09-21] MEDS: ROSUVASTATIN 10 MG TAB (CRESTOR) PO SCH (19:46)
[2023-09-21] MEDS: QUEtiapine FUMARATE 50MG TAB PO SCH (19:46)
[2023-09-21] MEDS: FEBUXOSTAT 40 MG TABLET (ULORIC) PO SCH ×2 (21:00→21:33)
[2023-09-22] MEDS: OLANZapine 5 MG TAB PO PRN ×2 (03:17→18:22)
[2023-09-22 06:24] VITALS: BP 166/90; TEMP 98.1
[2023-09-22] MEDS: ACETAMINOPHEN 500 MG TAB PO SCH ×2 (08:51→20:25)
[2023-09-22] MEDS: propylthiouraciL 50 MG TAB PO SCH ×2 (11:05→20:25)
[2023-09-22] MEDS: diphenhydrAMINE 25MG CAP PO PRN (11:05)
[2023-09-22] MEDS: DIVALPROEX 125 MG TAB PO SCH ×3 (11:05→20:26)
[2023-09-22] MEDS: CYANOCOBALAMIN 500 MCG TAB PO SCH (11:06)
[2023-09-22] MEDS: TAMSULOSIN 0.4 MG CAP PO SCH (20:24)
[2023-09-22] MEDS: ROSUVASTATIN 10 MG TAB (CRESTOR) PO SCH (20:25)
[2023-09-22] MEDS: ARIPiprazole 10 MG TAB PO SCH (20:25)
[2023-09-22] MEDS: EZETIMIBE 10MG TABLET (ZETIA) PO SCH (20:25)
[2023-09-22] MEDS: QUEtiapine FUMARATE 50MG TAB PO SCH (20:26)
[2023-09-22] MEDS: FEBUXOSTAT 40 MG TABLET (ULORIC) PO SCH (20:26)
[2023-09-23 06:43] VITALS: BP 140/80; TEMP 96.9
[2023-09-23] MEDS: DIVALPROEX 125 MG TAB PO SCH ×3 (08:39→20:21)
[2023-09-23] MEDS: propylthiouraciL 50 MG TAB PO SCH ×2 (08:39→20:20)
[2023-09-23] MEDS: CYANOCOBALAMIN 500 MCG TAB PO SCH (08:39)
[2023-09-23] MEDS: ACETAMINOPHEN 500 MG TAB PO SCH ×2 (08:40→20:25)
[2023-09-23] MEDS: diphenhydrAMINE 25MG CAP PO PRN (12:54)
[2023-09-23 13:54] LABS: BASO # 0.1 10^3/uL (0.0-0.2); BASO % 0.5 % (0.0-1.0); EOS # 0.1 10^3/uL (0.0-0.5); EOS % 1.3 % (0.0-3.0); HEMATOCRIT 43.1 % (42.0-52.0); HEMOGLOBIN 13.6 g/dl (13.5-17.5); LYMPH # 1.2 10^3/uL (1.5-5.0); LYMPH % 11.8 % (24.0-44.0); MEAN CORPUSCULAR HEMOGLOBIN 29.6 pg (27.0-33.0); MEAN CORPUSCULAR HGB CONC 31.6 g/dl (32.0-36.5); MEAN CORPUSCULAR VOLUME 93.9 fl (80.0-96.0); MONO # 0.7 10^3/uL (0.0-0.8); MONO % 6.5 % (2.0-8.0); NEUTROPHILS # 8.3 10^3/uL (1.5-8.5); NEUTROPHILS % 79.5 % (36.0-66.0); PLATELET COUNT, AUTOMATED 180 10^3/uL (150-450); RED BLOOD COUNT 4.59 10^6/uL (4.30-6.10); WHITE BLOOD COUNT 10.4 10^3/uL (4.0-10.0)
[2023-09-23 14:25] LABS: ALBUMIN 3.1 G/DL (3.2-5.2); ALKALINE PHOSPHATASE 77 U/L (46-116); ALT/SGPT 24 U/L (7.0-40); AST/SGOT 14 U/L (<34); BILIRUBIN,TOTAL 0.3 MG/DL (0.3-1.2); BLOOD UREA NITROGEN 23 MG/DL (9-23); CARBON DIOXIDE LEVEL 26 MMOL/L (20-31); CHLORIDE LEVEL 112 MMOL/L (98-107); CREATININE FOR GFR 1.83 MG/DL (0.70-1.30); FREE T4 0.84 NG/DL (0.89-1.76); GLOMERULAR FILTRATION RATE 38.9 (>42); GLUCOSE, FASTING 136 MG/DL (74-106); SODIUM LEVEL 146 MMOL/L (136-145); TOTAL PROTEIN 5.9 G/DL (5.7-8.2)
[2023-09-23 14:26] LABS: THYROID STIMULATING HORMONE 2.268 uIU/ML (0.55-4.78); VITAMIN B12 LEVEL 1079 PG/ML (211-911)
[2023-09-23 16:27] VITALS: BP 126/78; TEMP 98.2; O2SAT 97
[2023-09-23] MEDS ORDERED: TORSEMIDE 20 MG TAB PO ONE (16:40)
[2023-09-23] MEDS: ARIPiprazole 10 MG TAB PO SCH (20:20)
[2023-09-23] MEDS: FEBUXOSTAT 40 MG TABLET (ULORIC) PO SCH (20:20)
[2023-09-23] MEDS: TAMSULOSIN 0.4 MG CAP PO SCH (20:20)
[2023-09-23] MEDS: QUEtiapine FUMARATE 50MG TAB PO SCH (20:20)
[2023-09-23] MEDS: EZETIMIBE 10MG TABLET (ZETIA) PO SCH (20:20)
[2023-09-23] MEDS: ROSUVASTATIN 10 MG TAB (CRESTOR) PO SCH (20:21)
[2023-09-24] MEDS ORDERED: TORSEMIDE 20 MG TAB PO SCH (09:00)
[2023-09-24] MEDS: DIVALPROEX 125 MG TAB PO SCH (09:24)
[2023-09-24] MEDS: CYANOCOBALAMIN 500 MCG TAB PO SCH (09:24)
[2023-09-24] MEDS: propylthiouraciL 50 MG TAB PO SCH (09:24)
[2023-09-24] MEDS ORDERED: LORazepam 2 MG TAB PO STA (09:24)
[2023-09-24] MEDS: ACETAMINOPHEN 500 MG TAB PO SCH (09:25)
[2023-09-24] MEDS: diphenhydrAMINE 25MG CAP PO PRN (09:38)
[2023-09-24 09:45] VITALS: BP 132/74; TEMP 98.1; O2SAT 95
[2023-09-24] MEDS: OLANZapine 5 MG TAB PO PRN (13:56)
[2023-09-24] MEDS ORDERED: CRES10TA PO (14:04)
[2023-09-24] MEDS ORDERED: FEBU40TA6 PO (14:04)
[2023-09-24] MEDS ORDERED: DIPH-435 PO (14:04)
[2023-09-24] MEDS ORDERED: PROP50TAB PO (14:04)
[2023-09-24] MEDS ORDERED: EZET10TA21 PO (14:04)
[2023-09-24] MEDS ORDERED: VITA500T40 PO (14:04)
[2023-09-24] MEDS ORDERED: OLAN1TAB16 PO (14:04)
[2023-09-24] MEDS ORDERED: QUET50TA4 PO (14:04)
[2023-09-24] MEDS ORDERED: ACET-683 PO (14:04)
[2023-09-24] MEDS ORDERED: FLOM0.4C39 PO (14:04)
[2023-09-24] MEDS ORDERED: TORS20TA2 PO (14:04)
[2023-09-24] MEDS ORDERED: DEPA1TAB PO (14:04)
[2023-09-24] MEDS ORDERED: LORazepam 1 MG TAB PO STA (14:52)
[2023-09-26 17:08] LABS: VITAMIN B1 LEVEL WHOLE BLOOD 132.7 nmol/L (66.5-200.0); VITAMIN E(ALPHA TOCOPHEROL) 5.9 mg/L (9.0-29.0); VITAMIN E(GAMMA TOCOPHEROL) 1.7 mg/L (0.5-4.9)
== END 2023-09-24 15:24 | disposition short-term general hospital (02) | DRG 885 ==
LOC: M ED 15:53 → M ED INP 20:36 → M PSY 09-10 01:06 → UNDODISIN 09-12 11:11 → M PSY 09-13 15:45 → UNDODISIN 09-19 16:44 → M PSY 09-20 16:29
PROVIDERS: ADMIT Student in an Organized Health Care Education/Training Program; ATTEND Student in an Organized Health Care Education/Training Program
DX: F31.9 Bipolar disorder, unspecified (principal); I62.03 Nontraumatic chronic subdural hemorrhage; N18.4 Chronic kidney disease, stage 4 (severe); I44.2 Atrioventricular block, complete; N18.30 Chronic kidney disease, stage 3 unspecified; I12.9 Hypertensive chronic kidney disease with stage 1 through stage 4 chronic kidney disease, or unspecified chronic kidney disease; E78.5 Hyperlipidemia, unspecified; E05.00 Thyrotoxicosis with diffuse goiter without thyrotoxic crisis or storm; E66.01 Morbid (severe) obesity due to excess calories; I87.2 Venous insufficiency (chronic) (peripheral); M10.9 Gout, unspecified; N40.0 Benign prostatic hyperplasia without lower urinary tract symptoms; M79.89 Other specified soft tissue disorders; R07.89 Other chest pain; R41.0 Disorientation, unspecified; F09 Unspecified mental disorder due to known physiological condition; Z95.0 Presence of cardiac pacemaker; M79.2 Neuralgia and neuritis, unspecified; I48.0 Paroxysmal atrial fibrillation; R73.01 Impaired fasting glucose; K21.9 Gastro-esophageal reflux disease without esophagitis; N52.9 Male erectile dysfunction, unspecified; E29.1 Testicular hypofunction; M47.816 Spondylosis without myelopathy or radiculopathy, lumbar region; R26.89 Other abnormalities of gait and mobility; R29.6 Repeated falls; Z79.01 Long term (current) use of anticoagulants; Z86.711 Personal history of pulmonary embolism; Z86.718 Personal history of other venous thrombosis and embolism; Z79.899 Other long term (current) drug therapy; Z68.38 Body mass index [BMI] 38.0-38.9, adult

== ENCOUNTER 2023-09-12 10:37 | Inpatient (IN) | payer MEDICARE, BC, OTHER ==
[~2023-09-12] VITALS: Ht 182.9 cm; Wt 127.0 kg
[~2023-09-12 10:37] MED LIST changes: +B-121TAB3 PO; +EZET10TA58 PO; -HYDR-161 PO; +HYDR10TAB PO; +NITR4TASL SL; +TORS20TA2 PO
[2023-09-12 11:30] VITALS: BP 146/79; TEMP 98.2; O2SAT 99
[2023-09-12] MEDS ORDERED: ACETAMINOPHEN TAB 650MG DOSE (2X325MG) PO PRN (12:15)
[2023-09-12] MEDS ORDERED: OLANZapine ORAL DISINTEGRATING TAB 5MG PO PRN (12:15)
[2023-09-12] MEDS ORDERED: MOM 30ML SUSPENSION UDC PO PRN (12:15)
[2023-09-12] MEDS ORDERED: MAALOX 30 ML SUSP *UDC PO PRN (12:15)
[2023-09-12] MEDS ORDERED: diphenhydrAMINE 25MG CAP PO PRN (12:15)
[2023-09-12] MEDS ORDERED: traZODone 50 MG TAB PO PRN (12:15)
[2023-09-12] MEDS ORDERED: HOME MED LIST COMPLETE! XX SCH (13:45)
[2023-09-12 16:17] VITALS: BP 151/84; TEMP 98.2; O2SAT 100
[2023-09-12 20:05] VITALS: BP_SYST 160; BP_SYST 164; BP_DIAS 77; BP_DIAS 86; TEMP 98; O2SAT 100
[2023-09-12] MEDS: propylthiouraciL 50 MG TAB PO SCH (20:15)
[2023-09-12] MEDS ORDERED: EZETIMIBE 10MG TABLET (ZETIA) PO SCH (21:00)
[2023-09-12] MEDS ORDERED: ARIPiprazole 2 MG TAB PO SCH (21:00)
[2023-09-12] MEDS ORDERED: FEBUXOSTAT 40 MG TABLET (ULORIC) PO SCH (21:00)
[2023-09-12] MEDS ORDERED: TAMSULOSIN 0.4 MG CAP PO SCH (21:00)
[2023-09-12] MEDS ORDERED: ROSUVASTATIN 10 MG TAB (CRESTOR) PO SCH (21:00)
[2023-09-12 23:55] VITALS: BP 165/82; TEMP 98; O2SAT 99
[2023-09-13 03:54] VITALS: BP 167/88; TEMP 98; O2SAT 99
[2023-09-13 08:00] VITALS: BP 142/79; TEMP 98.3; O2SAT 98
[2023-09-13] MEDS: propylthiouraciL 50 MG TAB PO SCH (08:21)
[2023-09-13] MEDS ORDERED: ENOXAPARIN 40MG/0.4ML SYRINGE (J1650 PER 10MG) SC SCH (09:00)
[2023-09-13] MEDS ORDERED: CYANOCOBALAMIN 500 MCG TAB PO SCH (09:00)
[2023-09-13] MEDS ORDERED: ABIL1TAB13 PO (12:30)
[2023-09-13] MEDS ORDERED: TRAZ-252 PO (12:30)
[2023-09-13] MEDS ORDERED: OLAN5ZYD PO (12:30)
== END 2023-09-13 15:47 | DRG 86 ==
LOC: M ICU 11:20 → UNDODISIN 09-13 12:51
PROVIDERS: ADMIT Internal Medicine Pulmonary Disease; ATTEND Internal Medicine Pulmonary Disease
DX: S06.5X0A Traumatic subdural hemorrhage without loss of consciousness, initial encounter (principal); I13.0 Hypertensive heart and chronic kidney disease with heart failure and stage 1 through stage 4 chronic kidney disease, or unspecified chronic kidney disease; N18.4 Chronic kidney disease, stage 4 (severe); G62.9 Polyneuropathy, unspecified; E05.00 Thyrotoxicosis with diffuse goiter without thyrotoxic crisis or storm; I50.9 Heart failure, unspecified; I25.10 Atherosclerotic heart disease of native coronary artery without angina pectoris; R26.89 Other abnormalities of gait and mobility; G62.89 Other specified polyneuropathies; E03.9 Hypothyroidism, unspecified; R60.0 Localized edema; Z87.891 Personal history of nicotine dependence; Z86.711 Personal history of pulmonary embolism; Z79.01 Long term (current) use of anticoagulants; F31.9 Bipolar disorder, unspecified; M10.9 Gout, unspecified; N40.0 Benign prostatic hyperplasia without lower urinary tract symptoms; Z79.899 Other long term (current) drug therapy; W19.XXXA Unspecified fall, initial encounter; Y92.239 Unspecified place in hospital as the place of occurrence of the external cause; Y93.9 Activity, unspecified; Y99.8 Other external cause status

== ENCOUNTER 2023-09-19 15:09 | Inpatient (IN) | payer MEDICARE, BC, OTHER ==
[~2023-09-19 15:09] MED LIST changes: +ABIL1TAB13 PO; +HYDR-161 PO; -HYDR10TAB PO; +OLAN5ZYD PO; +TRAZ-252 PO
[2023-09-19 17:00] VITALS: BP 148/76; TEMP 98.3; O2SAT 98
[2023-09-19 17:30] VITALS: BP 148/76; O2SAT 98
[2023-09-19] MEDS: ACETAMINOPHEN TAB 650MG DOSE (2X325MG) PO PRN (17:40)
[2023-09-19] MEDS ORDERED: ARIP1TAB PO (18:11)
[2023-09-19] MEDS ORDERED: TORS20TA2 PO (18:12)
[2023-09-19] MEDS ORDERED: HOME MED LIST COMPLETE! XX SCH (18:15)
[2023-09-19] MEDS ORDERED: PILL CUTTER 1 EACH XX PRN (18:45)
[2023-09-19 19:39] VITALS: BP 155/79; TEMP 97.3; O2SAT 98
[2023-09-19] MEDS: propylthiouraciL 50 MG TAB PO SCH (20:00)
[2023-09-19] MEDS ORDERED: IBUPROFEN 400MG TAB PO PRN (20:05)
[2023-09-19] MEDS ORDERED: EZETIMIBE 10MG TABLET (ZETIA) PO SCH (21:00)
[2023-09-19] MEDS ORDERED: ROSUVASTATIN 10 MG TAB (CRESTOR) PO SCH (21:00)
[2023-09-19] MEDS ORDERED: TAMSULOSIN 0.4 MG CAP PO SCH (21:00)
[2023-09-19 23:08] VITALS: BP 140/86; TEMP 97.6; O2SAT 99
[2023-09-20] MEDS: ACETAMINOPHEN TAB 650MG DOSE (2X325MG) PO PRN ×2 (01:55→08:01)
[2023-09-20 03:29] VITALS: BP 152/85; TEMP 97.9; O2SAT 98
[2023-09-20 07:55] VITALS: BP 149/72; TEMP 97.9; O2SAT 97
[2023-09-20] MEDS: propylthiouraciL 50 MG TAB PO SCH ×3 (08:02→15:25)
[2023-09-20 12:10] VITALS: BP 98/65; TEMP 97.2; O2SAT 94
== END 2023-09-20 16:18 | DRG 65 ==
LOC: M ICU 17:00
PROVIDERS: ADMIT Internal Medicine Pulmonary Disease; ATTEND Internal Medicine Pulmonary Disease
DX: I62.03 Nontraumatic chronic subdural hemorrhage (principal); I13.0 Hypertensive heart and chronic kidney disease with heart failure and stage 1 through stage 4 chronic kidney disease, or unspecified chronic kidney disease; G62.9 Polyneuropathy, unspecified; I50.9 Heart failure, unspecified; I25.10 Atherosclerotic heart disease of native coronary artery without angina pectoris; R26.89 Other abnormalities of gait and mobility; F31.9 Bipolar disorder, unspecified; N18.9 Chronic kidney disease, unspecified; M10.9 Gout, unspecified; N40.0 Benign prostatic hyperplasia without lower urinary tract symptoms; R41.0 Disorientation, unspecified; E03.9 Hypothyroidism, unspecified; R60.0 Localized edema; Z79.899 Other long term (current) drug therapy; Z86.711 Personal history of pulmonary embolism; Z87.891 Personal history of nicotine dependence

== ENCOUNTER 2023-09-24 14:03 | Inpatient (IN) | payer MEDICARE, BC, OTHER ==
[~2023-09-24] VITALS: Ht 188 cm; Wt 128.8 kg
[~2023-09-24 14:03] MED LIST changes: +ARIP1TAB PO
[2023-09-24] MEDS ORDERED: QUET50TA4 PO (14:04)
[2023-09-24] MEDS ORDERED: EZET10TA21 PO (14:04)
[2023-09-24] MEDS ORDERED: TORS20TA2 PO (14:04)
[2023-09-24] MEDS ORDERED: FLOM0.4C39 PO (14:04)
[2023-09-24] MEDS ORDERED: PROP50TAB PO (14:04)
[2023-09-24] MEDS ORDERED: DEPA1TAB PO (14:04)
[2023-09-24] MEDS ORDERED: OLAN1TAB16 PO (14:04)
[2023-09-24] MEDS ORDERED: VITA500T40 PO (14:04)
[2023-09-24] MEDS ORDERED: ACET-683 PO (14:04)
[2023-09-24] MEDS ORDERED: FEBU40TA6 PO (14:04)
[2023-09-24] MEDS ORDERED: CRES10TA PO (14:04)
[2023-09-24] MEDS ORDERED: DIPH-435 PO (14:04)
[2023-09-24 15:30] VITALS: BP 111/69; TEMP 97.9; O2SAT 97
[2023-09-24 16:26] LABS: BASO # 0.1 10^3/uL (0.0-0.2); BASO % 0.6 % (0.0-1.0); EOS # 0.3 10^3/uL (0.0-0.5); EOS % 3.7 % (0.0-3.0); HEMATOCRIT 44.1 % (42.0-52.0); HEMOGLOBIN 13.8 g/dl (13.5-17.5); LYMPH # 1.9 10^3/uL (1.5-5.0); LYMPH % 22.8 % (24.0-44.0); MEAN CORPUSCULAR HEMOGLOBIN 29.5 pg (27.0-33.0); MEAN CORPUSCULAR HGB CONC 31.3 g/dl (32.0-36.5); MEAN CORPUSCULAR VOLUME 94.2 fl (80.0-96.0); MONO # 0.8 10^3/uL (0.0-0.8); NEUTROPHILS # 5.4 10^3/uL (1.5-8.5); NEUTROPHILS % 63.7 % (36.0-66.0); PLATELET COUNT, AUTOMATED 189 10^3/uL (150-450); RED BLOOD COUNT 4.68 10^6/uL (4.30-6.10); WHITE BLOOD COUNT 8.4 10^3/uL (4.0-10.0)
[2023-09-24 16:56] LABS: ALBUMIN 3.2 G/DL (3.2-5.2); BILIRUBIN,TOTAL 0.3 MG/DL (0.3-1.2); CALCIUM LEVEL 9.4 MG/DL (8.3-10.6); CREATININE FOR GFR 2.11 MG/DL (0.70-1.30); POTASSIUM SERUM 3.9 MMOL/L (3.5-5.1); TOTAL PROTEIN 6.2 G/DL (5.7-8.2)
[2023-09-24 18:30] VITALS: BP 138/89; TEMP 97.9; O2SAT 90
[2023-09-24] MEDS: DIVALPROEX 125 MG TAB PO SCH (20:06)
[2023-09-24] MEDS: QUEtiapine FUMARATE 50MG TAB PO SCH (20:06)
[2023-09-24] MEDS: TAMSULOSIN 0.4 MG CAP PO SCH (20:06)
[2023-09-24] MEDS: ARIPiprazole 10 MG TAB PO SCH (20:06)
[2023-09-25] MEDS: OLANZapine ORAL DISINTEGRATING TAB 5MG PO PRN ×2 (02:25→08:46)
[2023-09-25 04:24] VITALS: BP 122/86; TEMP 98.2; O2SAT 90
[2023-09-25 06:32] LABS: BASO # 0.1 10^3/uL (0.0-0.2); BASO % 0.6 % (0.0-1.0); EOS # 0.3 10^3/uL (0.0-0.5); EOS % 4.1 % (0.0-3.0); HEMATOCRIT 43.4 % (42.0-52.0); HEMOGLOBIN 13.7 g/dl (13.5-17.5); MEAN CORPUSCULAR HEMOGLOBIN 29.5 pg (27.0-33.0); MEAN CORPUSCULAR HGB CONC 31.6 g/dl (32.0-36.5); MEAN CORPUSCULAR VOLUME 93.3 fl (80.0-96.0); MONO # 0.8 10^3/uL (0.0-0.8); MONO % 10.2 % (2.0-8.0); NEUTROPHILS # 4.8 10^3/uL (1.5-8.5); NEUTROPHILS % 59.9 % (36.0-66.0); PLATELET COUNT, AUTOMATED 183 10^3/uL (150-450); RED BLOOD COUNT 4.65 10^6/uL (4.30-6.10); WHITE BLOOD COUNT 8.1 10^3/uL (4.0-10.0)
[2023-09-25 06:56] LABS: CREATININE FOR GFR 1.95 MG/DL (0.70-1.30); GLOMERULAR FILTRATION RATE 36.2 (>42); POTASSIUM SERUM 3.8 MMOL/L (3.5-5.1)
[2023-09-25] MEDS: DIVALPROEX 125 MG TAB PO SCH ×3 (08:00→20:09)
[2023-09-25] MEDS ORDERED: D5W 1000ML IV ONE (08:15)
[2023-09-25] MEDS ORDERED: ACETAMINOPHEN TAB 650MG DOSE (2X325MG) PO PRN (08:15)
[2023-09-25] MEDS ORDERED: SUMAtriptan SUCCINATE 25 MG TAB PO PRN (12:20)
[2023-09-25] MEDS ORDERED: FIORICET TAB PO ONE (13:30)
[2023-09-25 14:00] VITALS: BP_SYST 116; BP_SYST 126; BP_DIAS 76; BP_DIAS 85; TEMP 97.7; TEMP 98.8; O2SAT 97
[2023-09-25] MEDS ORDERED: LORazepam 0.5 MG TAB PO PRN (14:35)
[2023-09-25] MEDS ORDERED: LORazepam 2 MG/ML 1ML VIAL IV STA (16:08)
[2023-09-25] MEDS: ARIPiprazole 10 MG TAB PO SCH (20:09)
[2023-09-25] MEDS: QUEtiapine FUMARATE 50MG TAB PO SCH (20:09)
[2023-09-25] MEDS: TAMSULOSIN 0.4 MG CAP PO SCH (20:09)
[2023-09-25 21:26] VITALS: BP 131/85; TEMP 98.1; O2SAT 92
[2023-09-25 23:45] VITALS: BP 132/82; TEMP 98.2; O2SAT 96
== END 2023-09-26 00:39 | disposition short-term general hospital (02) | DRG 92 ==
LOC: M MSPAV 15:28
PROVIDERS: ADMIT Internal Medicine Nephrology; ATTEND Internal Medicine Nephrology
DX: G96.08 Other cranial cerebrospinal fluid leak (principal); I44.2 Atrioventricular block, complete; I13.0 Hypertensive heart and chronic kidney disease with heart failure and stage 1 through stage 4 chronic kidney disease, or unspecified chronic kidney disease; F31.9 Bipolar disorder, unspecified; E78.5 Hyperlipidemia, unspecified; E05.00 Thyrotoxicosis with diffuse goiter without thyrotoxic crisis or storm; E66.01 Morbid (severe) obesity due to excess calories; Z86.718 Personal history of other venous thrombosis and embolism; Z86.711 Personal history of pulmonary embolism; R04.0 Epistaxis; R29.6 Repeated falls; F10.10 Alcohol abuse, uncomplicated; N18.30 Chronic kidney disease, stage 3 unspecified; G47.33 Obstructive sleep apnea (adult) (pediatric); N40.0 Benign prostatic hyperplasia without lower urinary tract symptoms; M10.9 Gout, unspecified; I48.0 Paroxysmal atrial fibrillation; R73.01 Impaired fasting glucose; K21.9 Gastro-esophageal reflux disease without esophagitis; E29.1 Testicular hypofunction; N52.9 Male erectile dysfunction, unspecified; I87.2 Venous insufficiency (chronic) (peripheral); D72.829 Elevated white blood cell count, unspecified; M47.816 Spondylosis without myelopathy or radiculopathy, lumbar region; R26.89 Other abnormalities of gait and mobility; S06.5X0D Traumatic subdural hemorrhage without loss of consciousness, subsequent encounter; I50.9 Heart failure, unspecified; F03.90 Unspecified dementia, unspecified severity, without behavioral disturbance, psychotic disturbance, mood disturbance, and anxiety; I25.10 Atherosclerotic heart disease of native coronary artery without angina pectoris; R51.9 Headache, unspecified; R41.0 Disorientation, unspecified; Z95.0 Presence of cardiac pacemaker; Z98.1 Arthrodesis status; Z98.41 Cataract extraction status, right eye; Z98.42 Cataract extraction status, left eye; Z90.49 Acquired absence of other specified parts of digestive tract; Z79.899 Other long term (current) drug therapy; Z68.36 Body mass index [BMI] 36.0-36.9, adult

== ENCOUNTER → 2023-10-24 | Outpatient (CLI) | payer MEDICARE, BC, OTHER ==
[~2023-10-24] MED LIST changes: +ACET-683 PO; +CRES10TA PO; +DEPA1TAB PO; +DIPH-435 PO; +FEBU40TA6 PO; -HYDR25TA PO; +HYDR25TA88 PO; +OLAN1TAB16 PO; +PROP50TAB PO; +QUET50TA4 PO; +VITA500T40 PO
[2023-10-24 12:54] LABS: BASO # 0.1 10^3/uL (0.0-0.2); BASO % 0.7 % (0.0-1.0); EOS # 0.8 10^3/uL (0.0-0.5); EOS % 7.1 % (0.0-3.0); HEMATOCRIT 42.4 % (42.0-52.0); HEMOGLOBIN 13.7 g/dl (13.5-17.5); LYMPH # 1.9 10^3/uL (1.5-5.0); LYMPH % 17.4 % (24.0-44.0); MEAN CORPUSCULAR HEMOGLOBIN 30.2 pg (27.0-33.0); MEAN CORPUSCULAR HGB CONC 32.3 g/dl (32.0-36.5); MEAN CORPUSCULAR VOLUME 93.4 fl (80.0-96.0); MONO % 9.6 % (2.0-8.0); NEUTROPHILS # 6.9 10^3/uL (1.5-8.5); NEUTROPHILS % 64.7 % (36.0-66.0); PLATELET COUNT, AUTOMATED 193 10^3/uL (150-450); RED BLOOD COUNT 4.54 10^6/uL (4.30-6.10); WHITE BLOOD COUNT 10.7 10^3/uL (4.0-10.0)
[2023-10-24 13:28] LABS: ALBUMIN 3.1 G/DL (3.2-5.2); BILIRUBIN,TOTAL 0.4 MG/DL (0.3-1.2); CALCIUM LEVEL 9.3 MG/DL (8.3-10.6); CREATININE FOR GFR 1.69 MG/DL (0.70-1.30); GLOMERULAR FILTRATION RATE 42.7 (>42); POTASSIUM SERUM 3.9 MMOL/L (3.5-5.1); TOTAL PROTEIN 6.2 G/DL (5.7-8.2)
[2023-10-24 13:31] LABS: FREE T4 0.81 NG/DL (0.89-1.76); LITHIUM LEVEL 0.59 MMOL/L (1.0-1.20); THYROID STIMULATING HORMONE 3.784 uIU/ML (0.55-4.78)
== END ==
LOC: M PLALAB 10:08
PROVIDERS: ATTEND Family Medicine
DX: F31.9 Bipolar disorder, unspecified (principal); D50.9 Iron deficiency anemia, unspecified; I10 Essential (primary) hypertension; I50.32 Chronic diastolic (congestive) heart failure

== ENCOUNTER → 2023-11-03 | Outpatient (CLI) | payer MEDICARE, BC, OTHER | LOC: M RAD 10:29 | PROVIDERS: ATTEND Family Medicine | DX: I82.503 Chronic embolism and thrombosis of unspecified deep veins of lower extremity, bilateral (principal); M79.604 Pain in right leg; M79.605 Pain in left leg ==

== ENCOUNTER → 2023-11-04 | Outpatient (CLI) | payer MEDICARE, BC, OTHER ==
[2023-11-04 11:11] LABS: ALBUMIN 3.1 G/DL (3.2-5.2); ALKALINE PHOSPHATASE 86 U/L (46-116); ALT/SGPT 21 U/L (7.0-40); AST/SGOT 9 U/L (<34); BILIRUBIN,TOTAL 0.3 MG/DL (0.3-1.2); BLOOD UREA NITROGEN 40 MG/DL (9-23); CALCIUM LEVEL 9.9 MG/DL (8.3-10.6); CARBON DIOXIDE LEVEL 29 MMOL/L (20-31); CHLORIDE LEVEL 113 MMOL/L (98-107); CREATININE FOR GFR 1.88 MG/DL (0.70-1.30); GLOMERULAR FILTRATION RATE 37.7 (>42); GLUCOSE, FASTING 106 MG/DL (74-106); POTASSIUM SERUM 4.3 MMOL/L (3.5-5.1); SODIUM LEVEL 141 MMOL/L (136-145); TOTAL PROTEIN 6.3 G/DL (5.7-8.2)
[2023-11-04 11:35] LABS: LITHIUM LEVEL 0.97 MMOL/L (1.0-1.20)
== END ==
LOC: M PLALAB 08:48
PROVIDERS: ATTEND Family Medicine
DX: I10 Essential (primary) hypertension (principal)

== ENCOUNTER → 2023-11-07 | Outpatient (REF) | payer MEDICARE, OTHER | LOC: M SFHCPLAZ 16:07 | PROVIDERS: ATTEND Family Medicine | DX: F31.9 Bipolar disorder, unspecified (principal); D50.9 Iron deficiency anemia, unspecified; I10 Essential (primary) hypertension ==

== ENCOUNTER → 2023-11-07 | Outpatient (CLI) | payer MEDICARE, BC ==
[2023-11-07 15:21] LABS: ALBUMIN 3.3 G/DL (3.2-5.2); CALCIUM LEVEL 9.9 MG/DL (8.3-10.6); CREATININE FOR GFR 1.97 MG/DL (0.70-1.30); GLOMERULAR FILTRATION RATE 35.8 (>42); PHOSPHORUS LEVEL 4.1 MG/DL (2.4-5.1); POTASSIUM SERUM 4.3 MMOL/L (3.5-5.1)
[2023-11-07 15:40] LABS: LITHIUM LEVEL 1.34 MMOL/L (1.0-1.20)
== END ==
LOC: M PLALAB 12:01
PROVIDERS: ATTEND Family Medicine
DX: N18.31 Chronic kidney disease, stage 3a (principal)

== ENCOUNTER → 2023-11-10 | Outpatient (CLI) | payer MEDICARE, BC ==
[2023-11-10 10:16] LABS: BASO # 0.1 10^3/uL (0.0-0.2); BASO % 0.6 % (0.0-1.0); EOS # 0.5 10^3/uL (0.0-0.5); EOS % 4.3 % (0.0-3.0); HEMATOCRIT 42.4 % (42.0-52.0); HEMOGLOBIN 13.4 g/dl (13.5-17.5); LYMPH % 16.9 % (24.0-44.0); MEAN CORPUSCULAR HGB CONC 31.6 g/dl (32.0-36.5); MEAN CORPUSCULAR VOLUME 95.1 fl (80.0-96.0); MONO # 1.1 10^3/uL (0.0-0.8); MONO % 9.2 % (2.0-8.0); NEUTROPHILS % 68.7 % (36.0-66.0); PLATELET COUNT, AUTOMATED 275 10^3/uL (150-450); RED BLOOD COUNT 4.46 10^6/uL (4.30-6.10); WHITE BLOOD COUNT 11.6 10^3/uL (4.0-10.0)
[2023-11-10 10:22] LABS: ALBUMIN 3.3 G/DL (3.2-5.2); BILIRUBIN,TOTAL 0.3 MG/DL (0.3-1.2); CALCIUM LEVEL 9.3 MG/DL (8.3-10.6); CREATININE FOR GFR 1.84 MG/DL (0.70-1.30); GLOMERULAR FILTRATION RATE 38.7 (>42); LITHIUM LEVEL 0.59 MMOL/L (1.0-1.20); POTASSIUM SERUM 4.2 MMOL/L (3.5-5.1); TOTAL PROTEIN 6.4 G/DL (5.7-8.2)
[2023-11-10 10:28] LABS: FERRITIN 85.5 NG/ML (10.5-307.3)
== END ==
LOC: M PLALAB 08:26
PROVIDERS: ATTEND Family Medicine
DX: D50.9 Iron deficiency anemia, unspecified (principal); I11.0 Hypertensive heart disease with heart failure; F31.9 Bipolar disorder, unspecified; I50.32 Chronic diastolic (congestive) heart failure

== ENCOUNTER → 2023-11-13 | Outpatient (CLI) | payer MEDICARE, BC ==
[2023-11-13 11:15] LABS: BASO # 0.1 10^3/uL (0.0-0.2); BASO % 0.6 % (0.0-1.0); EOS # 0.5 10^3/uL (0.0-0.5); EOS % 4.1 % (0.0-3.0); HEMOGLOBIN 14.3 g/dl (13.5-17.5); LYMPH # 1.7 10^3/uL (1.5-5.0); LYMPH % 15.2 % (24.0-44.0); MEAN CORPUSCULAR HEMOGLOBIN 28.9 pg (27.0-33.0); MEAN CORPUSCULAR HGB CONC 30.4 g/dl (32.0-36.5); MEAN CORPUSCULAR VOLUME 95.1 fl (80.0-96.0); MONO # 0.8 10^3/uL (0.0-0.8); MONO % 7.6 % (2.0-8.0); NEUTROPHILS # 7.9 10^3/uL (1.5-8.5); NEUTROPHILS % 72.2 % (36.0-66.0); PLATELET COUNT, AUTOMATED 289 10^3/uL (150-450); RED BLOOD COUNT 4.94 10^6/uL (4.30-6.10); WHITE BLOOD COUNT 10.9 10^3/uL (4.0-10.0)
[2023-11-13 11:21] LABS: LITHIUM LEVEL 0.81 MMOL/L (1.0-1.20)
[2023-11-13 11:26] LABS: ALBUMIN 3.7 G/DL (3.2-5.2); ALKALINE PHOSPHATASE 97 U/L (46-116); ALT/SGPT 18 U/L (7.0-40); AST/SGOT < 8 U/L (<34); BILIRUBIN,TOTAL 0.5 MG/DL (0.3-1.2); BLOOD UREA NITROGEN 31 MG/DL (9-23); CALCIUM LEVEL 9.7 MG/DL (8.3-10.6); CARBON DIOXIDE LEVEL 27 MMOL/L (20-31); CHLORIDE LEVEL 110 MMOL/L (98-107); FERRITIN 92.4 NG/ML (10.5-307.3); GLOMERULAR FILTRATION RATE 37.3 (>42); GLUCOSE, FASTING 104 MG/DL (74-106); POTASSIUM SERUM 4.5 MMOL/L (3.5-5.1); SODIUM LEVEL 141 MMOL/L (136-145)
== END ==
LOC: M PLALAB 07:40
PROVIDERS: ATTEND Family Medicine
DX: D50.9 Iron deficiency anemia, unspecified (principal); F31.9 Bipolar disorder, unspecified; I10 Essential (primary) hypertension

== ENCOUNTER → 2023-11-15 | Outpatient (REF) | payer MEDICARE, BC ==
[2023-11-17 13:37] LABS: TOTAL VOLUME, URINE 2520 ML
[2023-11-17 13:41] LABS: CHLORIDE 24 HR URINE 110 MMOL/24H (110-250); CHLORIDE URINE 44 MMOL/L; POTASSIUM 24 HOUR URINE 35.2 MMOL/24H (25-125); SODIUM 24 HOUR URINE 105 MMOL/24 (40-220); SODIUM, URINE 42 MMOL/L
[2023-11-17 13:48] LABS: CALCIUM, URINE < 5.0 MG/DL; UREA NITROGEN 24 HOUR URINE 6678 G/24HR (12-20); UREA NITROGEN, URINE 265 MG/DL; URINE 24 HOUR GLUCOSE 201 MG/24HR (<500); URINE GLUCOSE 8 MG/DL (1-15)
[2023-11-17 13:50] LABS: CREATININE 24 HOUR, URINE 861.8 MG/24HR (950-2500); CREATININE, URINE 34.2 MG/DL
[2023-11-17 13:52] LABS: TOTAL PROTEIN 24 HOUR URINE 3984.1 MG/24HR (50-80); URINE TOTAL PROTEIN 158.1 MG/DL (0-14)
== END ==
LOC: M SFHCPLAZ 12:41
PROVIDERS: ATTEND Family Medicine
DX: R63.1 Polydipsia (principal)

== ENCOUNTER → 2023-11-17 | Outpatient (CLI) | payer MEDICARE, BC | LOC: M PLAIMG 14:06 | PROVIDERS: ATTEND Family Medicine | DX: S06.5XAA Traumatic subdural hemorrhage with loss of consciousness status unknown, initial encounter (principal) ==

== ENCOUNTER → 2023-11-20 | Outpatient (CLI) | payer MEDICARE, BC ==
[2023-11-20 16:19] LABS: INR 1.03; PARTIAL THROMBOPLASTIN TIME 34.9 SECONDS (24.8-34.2); PROTHROMBIN TIME 13.2 SECONDS (12.5-14.5)
[2023-11-20 16:33] LABS: ALBUMIN 3.7 G/DL (3.2-5.2); ALKALINE PHOSPHATASE 106 U/L (46-116); ALT/SGPT 18 U/L (7.0-40); AST/SGOT < 8 U/L (<34); BILIRUBIN,TOTAL 0.5 MG/DL (0.3-1.2); BLOOD UREA NITROGEN 37 MG/DL (9-23); CALCIUM LEVEL 10.3 MG/DL (8.3-10.6); CARBON DIOXIDE LEVEL 27 MMOL/L (20-31); CHLORIDE LEVEL 110 MMOL/L (98-107); CREATININE FOR GFR 2.11 MG/DL (0.70-1.30); GLUCOSE, FASTING 103 MG/DL (74-106); POTASSIUM SERUM 5.1 MMOL/L (3.5-5.1); SODIUM LEVEL 141 MMOL/L (136-145)
[2023-11-20 16:34] LABS: PTH INTACT 89.1 PG/ML (18.5-88.0)
[2023-11-20 16:36] LABS: LITHIUM LEVEL 0.92 MMOL/L (1.0-1.20)
[2023-11-20 16:38] LABS: FREE T4 0.79 NG/DL (0.89-1.76); THYROID STIMULATING HORMONE 3.517 uIU/ML (0.55-4.78)
[2023-11-20 16:39] LABS: TOTAL 25(OH) VITAMIN D 35.6 NG/ML (20.0-100.0)
[2023-11-20 16:54] LABS: HEMOGLOBIN A1c 5.8 % (4.0-6.0)
== END ==
LOC: M PLALAB 14:29
PROVIDERS: ATTEND Family Medicine
DX: E55.9 Vitamin D deficiency, unspecified (principal); R73.01 Impaired fasting glucose; K74.00 Hepatic fibrosis, unspecified; I50.32 Chronic diastolic (congestive) heart failure; N25.1 Nephrogenic diabetes insipidus

== ENCOUNTER → 2023-11-21 | Outpatient (REF) | payer MEDICARE, OTHER | LOC: M SFHCPLAZ 11:09 | PROVIDERS: ATTEND Family Medicine | DX: I50.32 Chronic diastolic (congestive) heart failure (principal) ==

== ENCOUNTER → 2023-11-25 | Outpatient (CLI) | payer MEDICARE, BC ==
[2023-11-25 14:30] LABS: BASO # 0.1 10^3/uL (0.0-0.2); BASO % 0.7 % (0.0-1.0); EOS # 0.4 10^3/uL (0.0-0.5); EOS % 3.7 % (0.0-3.0); HEMATOCRIT 45.1 % (42.0-52.0); HEMOGLOBIN 14.4 g/dl (13.5-17.5); LYMPH # 1.6 10^3/uL (1.5-5.0); LYMPH % 14.5 % (24.0-44.0); MEAN CORPUSCULAR HEMOGLOBIN 29.3 pg (27.0-33.0); MEAN CORPUSCULAR HGB CONC 31.9 g/dl (32.0-36.5); MEAN CORPUSCULAR VOLUME 91.9 fl (80.0-96.0); MONO # 0.9 10^3/uL (0.0-0.8); MONO % 8.2 % (2.0-8.0); NEUTROPHILS # 7.8 10^3/uL (1.5-8.5); NEUTROPHILS % 72.7 % (36.0-66.0); PLATELET COUNT, AUTOMATED 215 10^3/uL (150-450); RED BLOOD COUNT 4.91 10^6/uL (4.30-6.10); WHITE BLOOD COUNT 10.7 10^3/uL (4.0-10.0)
[2023-11-25 14:54] LABS: ALBUMIN 3.4 G/DL (3.2-5.2); ALKALINE PHOSPHATASE 92 U/L (46-116); ALT/SGPT 19 U/L (7.0-40); AST/SGOT < 8 U/L (<34); BILIRUBIN,TOTAL 0.5 MG/DL (0.3-1.2); BLOOD UREA NITROGEN 33 MG/DL (9-23); CALCIUM LEVEL 9.8 MG/DL (8.3-10.6); CARBON DIOXIDE LEVEL 22 MMOL/L (20-31); CHLORIDE LEVEL 112 MMOL/L (98-107); CREATININE FOR GFR 2.04 MG/DL (0.70-1.30); GLOMERULAR FILTRATION RATE 34.3 (>42); GLUCOSE, FASTING 100 MG/DL (74-106); MAGNESIUM LEVEL 2.6 MG/DL (1.8-2.4); POTASSIUM SERUM 4.8 MMOL/L (3.5-5.1); SODIUM LEVEL 141 MMOL/L (136-145); TOTAL PROTEIN 6.5 G/DL (5.7-8.2)
[2023-11-25 14:55] LABS: LITHIUM LEVEL 0.83 MMOL/L (1.0-1.20)
== END ==
LOC: M PLALAB 11:22
PROVIDERS: ATTEND Family Medicine
DX: I50.32 Chronic diastolic (congestive) heart failure (principal); K74.00 Hepatic fibrosis, unspecified

== ENCOUNTER → 2023-12-02 | Outpatient (CLI) | payer MEDICARE, BC ==
[2023-12-02 14:56] LABS: ALBUMIN 3.4 G/DL (3.2-5.2); ALKALINE PHOSPHATASE 87 U/L (46-116); ALT/SGPT 27 U/L (7.0-40); AST/SGOT 11 U/L (<34); BILIRUBIN,TOTAL 0.4 MG/DL (0.3-1.2); BLOOD UREA NITROGEN 28 MG/DL (9-23); CALCIUM LEVEL 9.8 MG/DL (8.3-10.6); CARBON DIOXIDE LEVEL 26 MMOL/L (20-31); CHLORIDE LEVEL 115 MMOL/L (98-107); CREATININE FOR GFR 1.85 MG/DL (0.70-1.30); GLOMERULAR FILTRATION RATE 38.4 (>42); GLUCOSE, FASTING 99 MG/DL (74-106); MAGNESIUM LEVEL 2.3 MG/DL (1.8-2.4); POTASSIUM SERUM 4.5 MMOL/L (3.5-5.1); SODIUM LEVEL 140 MMOL/L (136-145); TOTAL PROTEIN 6.4 G/DL (5.7-8.2)
[2023-12-02 14:57] LABS: LITHIUM LEVEL 0.57 MMOL/L (1.0-1.20)
== END ==
LOC: M PLALAB 09:50
PROVIDERS: ATTEND Family Medicine
DX: N25.1 Nephrogenic diabetes insipidus (principal); F31.9 Bipolar disorder, unspecified; I50.32 Chronic diastolic (congestive) heart failure

== ENCOUNTER → 2023-12-09 | Outpatient (CLI) | payer MEDICARE, BC ==
[2023-12-09 11:55] LABS: ALBUMIN 3.2 G/DL (3.2-5.2); BILIRUBIN,TOTAL 0.3 MG/DL (0.3-1.2); CALCIUM LEVEL 9.7 MG/DL (8.3-10.6); CREATININE FOR GFR 1.91 MG/DL (0.70-1.30); GLOMERULAR FILTRATION RATE 37.1 (>42); POTASSIUM SERUM 4.3 MMOL/L (3.5-5.1)
[2023-12-09 11:57] LABS: LITHIUM LEVEL 0.55 MMOL/L (1.0-1.20)
== END ==
LOC: M PLALAB 08:22
PROVIDERS: ATTEND Family Medicine
DX: F31.9 Bipolar disorder, unspecified (principal)

== ENCOUNTER → 2023-12-16 | Outpatient (CLI) | payer MEDICARE, BC, OTHER ==
[2023-12-16 11:32] LABS: BASO # 0.1 10^3/uL (0.0-0.2); BASO % 0.5 % (0.0-1.0); EOS # 0.5 10^3/uL (0.0-0.5); EOS % 4.5 % (0.0-3.0); HEMATOCRIT 44.7 % (42.0-52.0); HEMOGLOBIN 14.2 g/dl (13.5-17.5); LYMPH # 1.8 10^3/uL (1.5-5.0); LYMPH % 17.4 % (24.0-44.0); MEAN CORPUSCULAR HEMOGLOBIN 29.8 pg (27.0-33.0); MEAN CORPUSCULAR HGB CONC 31.8 g/dl (32.0-36.5); MEAN CORPUSCULAR VOLUME 93.9 fl (80.0-96.0); MONO # 0.9 10^3/uL (0.0-0.8); MONO % 8.8 % (2.0-8.0); NEUTROPHILS # 6.9 10^3/uL (1.5-8.5); NEUTROPHILS % 68.5 % (36.0-66.0); PLATELET COUNT, AUTOMATED 225 10^3/uL (150-450); RED BLOOD COUNT 4.76 10^6/uL (4.30-6.10); WHITE BLOOD COUNT 10.1 10^3/uL (4.0-10.0)
[2023-12-16 11:56] LABS: ALBUMIN 3.3 G/DL (3.2-5.2); BILIRUBIN,TOTAL 0.4 MG/DL (0.3-1.2); CALCIUM LEVEL 9.6 MG/DL (8.3-10.6); GLOMERULAR FILTRATION RATE 35.1 (>42); POTASSIUM SERUM 4.6 MMOL/L (3.5-5.1); TOTAL PROTEIN 6.2 G/DL (5.7-8.2)
[2023-12-16 11:59] LABS: THYROID STIMULATING HORMONE 4.087 uIU/ML (0.55-4.78)
[2023-12-16 12:00] LABS: FERRITIN 40.2 NG/ML (10.5-307.3); FREE T4 0.78 NG/DL (0.89-1.76)
[2023-12-16 13:06] LABS: PTH INTACT 62.7 PG/ML (18.5-88.0)
[2023-12-16 13:07] LABS: LITHIUM LEVEL 0.66 MMOL/L (1.0-1.20)
== END ==
LOC: M PLALAB 08:18
PROVIDERS: ATTEND Family Medicine
DX: E55.9 Vitamin D deficiency, unspecified (principal); E07.9 Disorder of thyroid, unspecified; D50.9 Iron deficiency anemia, unspecified

== ENCOUNTER → 2024-01-20 | Outpatient (CLI) | payer MEDICARE, BC ==
[~2024-01-20] MED LIST changes: +RAMI10CA64 PO; -RAMI1CAP24 PO; -RAMI1CAP26 PO; +RAMI5CAP60 PO; -ROSU40TA4; +ROSU40TA63; +ROSU5TAB40 PO; -ROSU5TAB5 PO
[2024-01-20 16:25] LABS: BASO # 0.1 10^3/uL (0.0-0.2); BASO % 0.6 % (0.0-1.0); EOS # 0.2 10^3/uL (0.0-0.5); EOS % 2.3 % (0.0-3.0); HEMATOCRIT 47.5 % (42.0-52.0); HEMOGLOBIN 15.2 g/dl (13.5-17.5); LYMPH # 1.9 10^3/uL (1.5-5.0); LYMPH % 18.2 % (24.0-44.0); MEAN CORPUSCULAR HEMOGLOBIN 29.5 pg (27.0-33.0); MEAN CORPUSCULAR VOLUME 92.1 fl (80.0-96.0); MONO % 9.2 % (2.0-8.0); NEUTROPHILS # 7.4 10^3/uL (1.5-8.5); NEUTROPHILS % 69.3 % (36.0-66.0); PLATELET COUNT, AUTOMATED 227 10^3/uL (150-450); RED BLOOD COUNT 5.16 10^6/uL (4.30-6.10); WHITE BLOOD COUNT 10.6 10^3/uL (4.0-10.0)
[2024-01-20 16:53] LABS: URIC ACID 9.6 MG/DL (3.7-9.2)
[2024-01-20 16:56] LABS: ALBUMIN 3.7 G/DL (3.2-5.2); BILIRUBIN,TOTAL 0.4 MG/DL (0.3-1.2); CALCIUM LEVEL 9.9 MG/DL (8.3-10.6); CREATININE FOR GFR 2.23 MG/DL (0.70-1.30); POTASSIUM SERUM 4.7 MMOL/L (3.5-5.1)
[2024-01-20 16:58] LABS: FREE T4 0.9 NG/DL (0.89-1.76)
[2024-01-20 16:59] LABS: THYROID STIMULATING HORMONE 1.758 uIU/ML (0.55-4.78)
== END ==
LOC: M LAB 16:01
PROVIDERS: ATTEND Family Medicine
DX: I50.32 Chronic diastolic (congestive) heart failure (principal); F51.04 Psychophysiologic insomnia; M10.9 Gout, unspecified

== ENCOUNTER → 2024-01-20 | Outpatient (REF) | payer MEDICARE, BC | LOC: M SFHCPLAZ 15:50 | PROVIDERS: ATTEND Family Medicine | DX: I50.32 Chronic diastolic (congestive) heart failure (principal); F51.04 Psychophysiologic insomnia; M10.9 Gout, unspecified ==

== ENCOUNTER 2024-01-27 22:27 | Emergency (ER) | payer MEDICARE, BC, OTHER ==
[~2024-01-27] VITALS: Ht 182.9 cm; Wt 116.5 kg
[2024-01-27 23:12] LABS: VENOUS HCO3 16.1 MMOL/L (23.0-27.0); VENOUS O2 SATURATION 56.4 % (60.0-80.0); VENOUS PARTIAL PRESSURE CO2 43.9 mmHg (38.0-50.0); VENOUS PARTIAL PRESSURE O2 36.2 mmHg (30.0-50.0); VENOUS PH 7.181 UNITS (7.330-7.430); VENOUS STANDARD HCO3 14.5 MMOL/L; VENOUS TOTAL CO2 17.4 MMOL/L (24.0-28.0)
[2024-01-27 23:17] LABS: BASO # 0.1 10^3/uL (0.0-0.2); BASO % 0.4 % (0.0-1.0); EOS # 0.3 10^3/uL (0.0-0.5); EOS % 2.4 % (0.0-3.0); HEMATOCRIT 46.5 % (42.0-52.0); HEMOGLOBIN 14.5 g/dl (13.5-17.5); LYMPH # 2.1 10^3/uL (1.5-5.0); LYMPH % 15.4 % (24.0-44.0); MEAN CORPUSCULAR HEMOGLOBIN 29.7 pg (27.0-33.0); MEAN CORPUSCULAR HGB CONC 31.2 g/dl (32.0-36.5); MEAN CORPUSCULAR VOLUME 95.3 fl (80.0-96.0); MONO # 1.1 10^3/uL (0.0-0.8); MONO % 7.7 % (2.0-8.0); NEUTROPHILS % 73.6 % (36.0-66.0); PLATELET COUNT, AUTOMATED 158 10^3/uL (150-450); RED BLOOD COUNT 4.88 10^6/uL (4.30-6.10); WHITE BLOOD COUNT 13.6 10^3/uL (4.0-10.0)
[2024-01-27 23:41] LABS: CK-MB VALUE MASS 1.1 NG/ML (<3.6); VALPROIC ACID (DEPAKOTE) 38.5 UG/ML (50.0-100.0)
[2024-01-27 23:42] LABS: ETHYL ALCOHOL (ETHANOL) < 0.003 % (0.000-0.010)
[2024-01-27 23:43] LABS: SALICYLATE LEVEL < 3.0 MG/DL (<30)
[2024-01-27 23:44] LABS: ALBUMIN 3.4 G/DL (3.2-5.2); ALKALINE PHOSPHATASE 115 U/L (46-116); ALT/SGPT 53 U/L (7.0-40); AST/SGOT 52 U/L (<34); BILIRUBIN,DIRECT < 0.1 MG/DL (<0.4); BILIRUBIN,TOTAL 0.3 MG/DL (0.3-1.2); BLOOD UREA NITROGEN 50 MG/DL (9-23); CALCIUM LEVEL 9.4 MG/DL (8.3-10.6); CARBON DIOXIDE LEVEL 19 MMOL/L (20-31); CHLORIDE LEVEL 112 MMOL/L (98-107); CREATININE FOR GFR 2.33 MG/DL (0.70-1.30); GLOMERULAR FILTRATION RATE 29.5 (>42); GLUCOSE, FASTING 148 MG/DL (74-106); POTASSIUM SERUM 4.1 MMOL/L (3.5-5.1); SODIUM LEVEL 145 MMOL/L (136-145); THYROID STIMULATING HORMONE 4.127 uIU/ML (0.55-4.78); TOTAL PROTEIN 6.8 G/DL (5.7-8.2)
[2024-01-27 23:47] LABS: CPK CREATINE PHOSPHOKINASE 63 U/L (46-171); MB/CK RELATIVE INDEX 1.74 (< OR =4)
[2024-01-28 01:34] LABS: CK-MB VALUE MASS 2.1 NG/ML (<3.6)
[2024-01-28 01:36] LABS: MB/CK RELATIVE INDEX 3.38 (< OR =4)
[2024-01-28] MEDS ORDERED: HEPARIN SOD (PORCINE) 5000UNITS/ML 1ML VIAL/SYRINGE IV PRN (02:20)
[2024-01-28] MEDS: HEPARIN SOD (PORCINE) 5000UNITS/ML 1ML VIAL/SYRINGE IV ONE (03:00)
[2024-01-28] MEDS: HEPARIN DRIP 25,000 UNITS in IV 1 EA IV SCH (03:07)
[2024-01-28] MEDS: ASPIRIN 81MG CHEW TABLET PO ONE (03:07)
[2024-01-28 03:41] LABS: INR 1.2; PARTIAL THROMBOPLASTIN TIME 31.7 SECONDS (24.8-34.2); PROTHROMBIN TIME 14.8 SECONDS (12.5-14.5)
[2024-01-28 04:05] VITALS: BP 118/76; TEMP 97.3; O2SAT 98
== END 2024-01-28 04:12 | disposition short-term general hospital (02) ==
LOC: EDBD 22:27 → M ED 22:27
DX: I21.4 Non-ST elevation (NSTEMI) myocardial infarction (principal); I10 Essential (primary) hypertension; I25.119 Atherosclerotic heart disease of native coronary artery with unspecified angina pectoris; E78.5 Hyperlipidemia, unspecified; I48.91 Unspecified atrial fibrillation; F31.9 Bipolar disorder, unspecified; M10.9 Gout, unspecified; Z79.1 Long term (current) use of non-steroidal anti-inflammatories (NSAID); Z79.899 Other long term (current) drug therapy

== ENCOUNTER → 2024-02-16 | Outpatient (CLI) | payer MEDICARE, BC ==
[2024-02-16 10:48] LABS: BASO # 0.1 10^3/uL (0.0-0.2); BASO % 0.7 % (0.0-1.0); EOS # 0.5 10^3/uL (0.0-0.5); EOS % 3.4 % (0.0-3.0); HEMATOCRIT 49.1 % (42.0-52.0); HEMOGLOBIN 15.7 g/dl (13.5-17.5); LYMPH # 1.6 10^3/uL (1.5-5.0); LYMPH % 11.7 % (24.0-44.0); MEAN CORPUSCULAR HEMOGLOBIN 29.6 pg (27.0-33.0); MEAN CORPUSCULAR VOLUME 92.6 fl (80.0-96.0); MONO # 0.7 10^3/uL (0.0-0.8); MONO % 5.3 % (2.0-8.0); NEUTROPHILS # 10.4 10^3/uL (1.5-8.5); NEUTROPHILS % 78.3 % (36.0-66.0); PLATELET COUNT, AUTOMATED 247 10^3/uL (150-450); WHITE BLOOD COUNT 13.3 10^3/uL (4.0-10.0)
[2024-02-16 11:23] LABS: ALBUMIN 3.4 G/DL (3.2-5.2); BILIRUBIN,TOTAL 0.4 MG/DL (0.3-1.2); CALCIUM LEVEL 9.8 MG/DL (8.3-10.6); CREATININE FOR GFR 2.27 MG/DL (0.70-1.30); GLOMERULAR FILTRATION RATE 30.4 (>42); LITHIUM LEVEL 0.62 MMOL/L (1.0-1.20); POTASSIUM SERUM 4.7 MMOL/L (3.5-5.1); TOTAL PROTEIN 6.6 G/DL (5.7-8.2)
[2024-02-16 11:24] LABS: FREE T4 0.75 NG/DL (0.89-1.76); THYROID STIMULATING HORMONE 3.071 uIU/ML (0.55-4.78)
[2024-02-16 13:58] LABS: PTH INTACT 78.7 PG/ML (18.5-88.0)
== END ==
LOC: M PLALAB 08:55
PROVIDERS: ATTEND Family Medicine
DX: I10 Essential (primary) hypertension (principal); F31.9 Bipolar disorder, unspecified; E05.90 Thyrotoxicosis, unspecified without thyrotoxic crisis or storm; D50.9 Iron deficiency anemia, unspecified

== ENCOUNTER → 2024-02-20 | Outpatient (REF) | payer MEDICARE, BC | LOC: M SFHCPLAZ 19:15 | PROVIDERS: ATTEND Family Medicine | DX: I50.32 Chronic diastolic (congestive) heart failure (principal); F51.04 Psychophysiologic insomnia; M10.9 Gout, unspecified; E78.5 Hyperlipidemia, unspecified; F31.9 Bipolar disorder, unspecified; R73.01 Impaired fasting glucose ==

== ENCOUNTER → 2024-02-24 | Outpatient (REF) | payer MEDICARE, BC ==
[~2024-02-24] MED LIST changes: +DONE5TAB82 PO; +QUET200T2 PO; +ROSU10TA61 PO; +SENN-134 PO
== END ==
LOC: M SFHCPLAZ 12:52
PROVIDERS: ATTEND Family Medicine
DX: I50.32 Chronic diastolic (congestive) heart failure (principal); F51.04 Psychophysiologic insomnia; M10.9 Gout, unspecified; E78.5 Hyperlipidemia, unspecified; F31.9 Bipolar disorder, unspecified; R73.01 Impaired fasting glucose

== ENCOUNTER 2024-02-26 16:11 | Inpatient (IN) | payer MEDICARE, BC ==
[~2024-02-26] VITALS: Ht 182.9 cm; Wt 109.7 kg
[~2024-02-26 16:11] MED LIST changes: -DONE5TAB82 PO; -QUET200T2 PO; -ROSU10TA61 PO; -SENN-134 PO
[2024-02-26 16:59] LABS: BASO # 0.1 10^3/uL (0.0-0.2); BASO % 0.4 % (0.0-1.0); EOS # 0.5 10^3/uL (0.0-0.5); EOS % 3.7 % (0.0-3.0); HEMATOCRIT 45.5 % (42.0-52.0); HEMOGLOBIN 14.6 g/dl (13.5-17.5); LYMPH # 1.9 10^3/uL (1.5-5.0); LYMPH % 15.2 % (24.0-44.0); MEAN CORPUSCULAR HEMOGLOBIN 29.7 pg (27.0-33.0); MEAN CORPUSCULAR HGB CONC 32.1 g/dl (32.0-36.5); MEAN CORPUSCULAR VOLUME 92.7 fl (80.0-96.0); MONO # 1.1 10^3/uL (0.0-0.8); MONO % 8.9 % (2.0-8.0); NEUTROPHILS % 71.3 % (36.0-66.0); PLATELET COUNT, AUTOMATED 179 10^3/uL (150-450); RED BLOOD COUNT 4.91 10^6/uL (4.30-6.10); WHITE BLOOD COUNT 12.5 10^3/uL (4.0-10.0)
[2024-02-26 17:20] LABS: CK-MB VALUE MASS 1.2 NG/ML (<3.6)
[2024-02-26 17:21] LABS: MB/CK RELATIVE INDEX 3.15 (< OR =4)
[2024-02-26 17:22] LABS: CALCIUM LEVEL 9.9 MG/DL (8.3-10.6); CREATININE FOR GFR 2.15 MG/DL (0.70-1.30); GLOMERULAR FILTRATION RATE 32.3 (>42); POTASSIUM SERUM 4.8 MMOL/L (3.5-5.1)
[2024-02-26 17:27] VITALS: BP 158/87
[2024-02-26] MEDS: NITROGLYCERIN 0.4MG SUBL TABLET SL PRN (17:27)
[2024-02-26 18:07] LABS: INR 1.04; PROTHROMBIN TIME 13.3 SECONDS (12.5-14.5)
[2024-02-26 18:24] LABS: CK-MB VALUE MASS 1.3 NG/ML (<3.6)
[2024-02-26 18:25] LABS: MB/CK RELATIVE INDEX 3.33 (< OR =4)
[2024-02-26] MEDS ORDERED: ROSU10TA61 PO (22:28)
[2024-02-26] MEDS ORDERED: QUET200T2 PO (22:28)
[2024-02-26] MEDS ORDERED: DONE5TAB82 PO (22:28)
[2024-02-26] MEDS ORDERED: TAMS1CAP17 PO (22:28)
[2024-02-26] MEDS ORDERED: ACET-683 PO (22:28)
[2024-02-26] MEDS ORDERED: SENN-134 PO (22:28)
[2024-02-26] MEDS ORDERED: HOME MED LIST COMPLETE! XX SCH (22:35)
[2024-02-26] MEDS ORDERED: MOM 30ML SUSPENSION UDC PO PRN (23:20)
[2024-02-27] MEDS: ROSUVASTATIN 10 MG TAB (CRESTOR) PO SCH (00:02)
[2024-02-27] MEDS: LITHIUM CARBONATE 300 MG CAP PO SCH (00:02)
[2024-02-27] MEDS: TAMSULOSIN 0.4 MG CAP PO SCH (00:02)
[2024-02-27] MEDS: QUEtiapine FUMARATE 200 MG TAB PO SCH (00:02)
[2024-02-27] MEDS: SENOKOT S TAB PO SCH (00:02)
[2024-02-27] MEDS: THIAMINE 100 MG TAB PO SCH (00:42)
[2024-02-27] MEDS: DONEPEZIL 5 MG TAB PO SCH (00:42)
[2024-02-27] MEDS: HEPARIN DRIP 25,000 UNITS in IV 1 EA IV SCH (01:46)
[2024-02-27 06:38] LABS: HEMOGLOBIN 14.8 g/dl (13.5-17.5); MEAN CORPUSCULAR HEMOGLOBIN 29.5 pg (27.0-33.0); MEAN CORPUSCULAR HGB CONC 32.2 g/dl (32.0-36.5); MEAN CORPUSCULAR VOLUME 91.8 fl (80.0-96.0); PLATELET COUNT, AUTOMATED 178 10^3/uL (150-450); RED BLOOD COUNT 5.01 10^6/uL (4.30-6.10); WHITE BLOOD COUNT 12.4 10^3/uL (4.0-10.0)
[2024-02-27 07:02] LABS: CK-MB VALUE MASS 8.8 NG/ML (<3.6)
[2024-02-27 07:04] LABS: ALBUMIN 3.4 G/DL (3.2-5.2); BILIRUBIN,TOTAL 0.6 MG/DL (0.3-1.2); CALCIUM LEVEL 9.8 MG/DL (8.3-10.6); CREATININE FOR GFR 1.9 MG/DL (0.70-1.30); GLOMERULAR FILTRATION RATE 37.3 (>42); POTASSIUM SERUM 4.1 MMOL/L (3.5-5.1); TOTAL PROTEIN 6.3 G/DL (5.7-8.2)
[2024-02-27 07:05] LABS: MB/CK RELATIVE INDEX 8.14 (< OR =4)
[2024-02-27 08:19] VITALS: BP 130/69; TEMP 97.5; O2SAT 94
[2024-02-27] MEDS: FOLIC ACID 1MG TAB PO SCH (09:00)
[2024-02-27] MEDS: propylthiouraciL 50 MG TAB PO SCH (09:00)
[2024-02-27] MEDS: FEBUXOSTAT 40 MG TABLET (ULORIC) PO SCH (09:00)
[2024-02-27] MEDS: EZETIMIBE 10MG TABLET (ZETIA) PO SCH (09:00)
[2024-02-27] MEDS: MULTIVITAMINS/MINERALS THERAP 1 TAB PO SCH (09:00)
[2024-02-27] MEDS: DOCUSATE SODIUM 100MG CAPSULE PO SCH (09:00)
[2024-02-27 11:33] LABS: LITHIUM LEVEL 0.69 MMOL/L (1.0-1.20)
[2024-02-27] MEDS: OLANZapine INTRAMUSCULAR 10MG VIAL IM ONE (12:49)
[2024-02-27 13:20] VITALS: BP 132/76; TEMP 97.5; O2SAT 98
[2024-02-27 14:00] VITALS: BP 130/69
[2024-02-27 20:00] VITALS: BP 142/76; TEMP 96.6; O2SAT 98
[2024-02-27] MEDS ORDERED: LITHIUM CARBONATE 300 MG CAP PO SCH (21:00)
[2024-02-27 22:00] VITALS: BP 142/76
[2024-02-28] VITALS (8 sets, daily range): BP systolic 103–138; BP diastolic 65–84; TEMP 97.2–97.8; O2SAT 94–98
[2024-02-28] MEDS: HEPARIN SOD (PORCINE) 5000UNITS/ML 1ML VIAL/SYRINGE IV PRN (05:15)
[2024-02-28] MEDS: HEPARIN SOD (PORCINE) 5000UNITS/ML 1ML VIAL/SYRINGE IV ONE (06:08)
[2024-02-28 08:05] LABS: BASO # 0.1 10^3/uL (0.0-0.2); BASO % 0.5 % (0.0-1.0); EOS # 0.6 10^3/uL (0.0-0.5); HEMOGLOBIN 14.6 g/dl (13.5-17.5); LYMPH # 2.2 10^3/uL (1.5-5.0); LYMPH % 18.9 % (24.0-44.0); MEAN CORPUSCULAR HGB CONC 32.4 g/dl (32.0-36.5); MEAN CORPUSCULAR VOLUME 92.4 fl (80.0-96.0); MONO # 0.9 10^3/uL (0.0-0.8); MONO % 8.3 % (2.0-8.0); NEUTROPHILS # 7.6 10^3/uL (1.5-8.5); NEUTROPHILS % 66.9 % (36.0-66.0); PLATELET COUNT, AUTOMATED 175 10^3/uL (150-450); RED BLOOD COUNT 4.87 10^6/uL (4.30-6.10); WHITE BLOOD COUNT 11.4 10^3/uL (4.0-10.0)
[2024-02-28 08:47] LABS: CALCIUM LEVEL 9.2 MG/DL (8.3-10.6); CREATININE FOR GFR 2.03 MG/DL (0.70-1.30); GLOMERULAR FILTRATION RATE 34.5 (>42); POTASSIUM SERUM 4.2 MMOL/L (3.5-5.1)
[2024-02-28] MEDS: LITHIUM CARBONATE 300 MG CAP PO SCH (09:25)
[2024-02-28] MEDS: OLANZapine INTRAMUSCULAR 10MG VIAL IM PRN (21:33)
[2024-02-28] MEDS: LORazepam 2 MG TAB PO PRN (21:40)
[2024-02-28] MEDS ORDERED: LORazepam 2 MG TAB XX PRN (22:10)
[2024-02-28] MEDS: LORazepam 2 MG/ML 1ML VIAL IV PRN (22:42)
[2024-02-29] VITALS (7 sets, daily range): BP systolic 105–147; BP diastolic 60–97; TEMP 97–97.7; O2SAT 94–96
[2024-02-29 06:56] LABS: CALCIUM LEVEL 8.8 MG/DL (8.3-10.6); CREATININE FOR GFR 2.09 MG/DL (0.70-1.30); GLOMERULAR FILTRATION RATE 33.4 (>42); POTASSIUM SERUM 4.2 MMOL/L (3.5-5.1)
[2024-02-29 17:41] LABS: CALCIUM LEVEL 9.1 MG/DL (8.3-10.6); CREATININE FOR GFR 2.04 MG/DL (0.70-1.30); GLOMERULAR FILTRATION RATE 34.3 (>42); POTASSIUM SERUM 4.5 MMOL/L (3.5-5.1)
[2024-02-29] MEDS: LITHIUM CARBONATE 300 MG CAP PO SCH (21:08)
[2024-02-29 23:07] LABS: HEMOGLOBIN 14.4 g/dl (13.5-17.5); MEAN CORPUSCULAR HEMOGLOBIN 29.9 pg (27.0-33.0); MEAN CORPUSCULAR VOLUME 93.6 fl (80.0-96.0); PLATELET COUNT, AUTOMATED 167 10^3/uL (150-450); RED BLOOD COUNT 4.81 10^6/uL (4.30-6.10); WHITE BLOOD COUNT 9.6 10^3/uL (4.0-10.0)
[2024-02-29] MEDS: OLANZapine INTRAMUSCULAR 10MG VIAL IM PRN (23:23)
== END 2024-03-01 09:42 | disposition home health service (06) | DRG 300 ==
LOC: M ED 16:11 → M ED INP 23:19 → M MSPAV 02-27 08:12
PROVIDERS: ADMIT Family Medicine; ATTEND Student in an Organized Health Care Education/Training Program
PROC: B246ZZZ Ultrasonography of Right and Left Heart (ICD-10-PCS; principal; 2024-02-28)
DX: I82.433 Acute embolism and thrombosis of popliteal vein, bilateral (principal); F03.911 Unspecified dementia, unspecified severity, with agitation; I82.412 Acute embolism and thrombosis of left femoral vein; F10.10 Alcohol abuse, uncomplicated; R29.6 Repeated falls; F31.9 Bipolar disorder, unspecified; I12.9 Hypertensive chronic kidney disease with stage 1 through stage 4 chronic kidney disease, or unspecified chronic kidney disease; N18.30 Chronic kidney disease, stage 3 unspecified; G47.33 Obstructive sleep apnea (adult) (pediatric); E78.5 Hyperlipidemia, unspecified; E05.00 Thyrotoxicosis with diffuse goiter without thyrotoxic crisis or storm; N40.0 Benign prostatic hyperplasia without lower urinary tract symptoms; M10.9 Gout, unspecified; I48.0 Paroxysmal atrial fibrillation; Z66 Do not resuscitate; R07.9 Chest pain, unspecified; K21.9 Gastro-esophageal reflux disease without esophagitis; R73.01 Impaired fasting glucose; R26.9 Unspecified abnormalities of gait and mobility; N52.9 Male erectile dysfunction, unspecified; I87.2 Venous insufficiency (chronic) (peripheral); M47.816 Spondylosis without myelopathy or radiculopathy, lumbar region; R41.0 Disorientation, unspecified; R26.89 Other abnormalities of gait and mobility; Z98.1 Arthrodesis status; Z95.0 Presence of cardiac pacemaker; Z98.41 Cataract extraction status, right eye; Z98.42 Cataract extraction status, left eye; Z79.899 Other long term (current) drug therapy; Z86.711 Personal history of pulmonary embolism

== ENCOUNTER 2024-03-12 10:50 | Emergency (ER) | payer MEDICARE, BC ==
[~2024-03-12] VITALS: Ht 185.4 cm; Wt 106.4 kg
[~2024-03-12 10:50] MED LIST changes: +DONE5TAB82 PO; +QUET200T2 PO; +ROSU10TA61 PO; +SENN-134 PO
[2024-03-12 11:17] LABS: BASO # 0.1 10^3/uL (0.0-0.2); BASO % 0.9 % (0.0-1.0); EOS # 0.3 10^3/uL (0.0-0.5); EOS % 2.9 % (0.0-3.0); HEMATOCRIT 47.3 % (42.0-52.0); HEMOGLOBIN 15.1 g/dl (13.5-17.5); LYMPH # 1.5 10^3/uL (1.5-5.0); LYMPH % 16.6 % (24.0-44.0); MEAN CORPUSCULAR HEMOGLOBIN 29.4 pg (27.0-33.0); MEAN CORPUSCULAR HGB CONC 31.9 g/dl (32.0-36.5); MONO # 0.8 10^3/uL (0.0-0.8); MONO % 8.9 % (2.0-8.0); NEUTROPHILS # 6.2 10^3/uL (1.5-8.5); NEUTROPHILS % 70.5 % (36.0-66.0); PLATELET COUNT, AUTOMATED 239 10^3/uL (150-450); RED BLOOD COUNT 5.14 10^6/uL (4.30-6.10); WHITE BLOOD COUNT 8.8 10^3/uL (4.0-10.0)
[2024-03-12 11:41] LABS: ETHYL ALCOHOL (ETHANOL) 0.006 % (0.000-0.010)
[2024-03-12 11:43] LABS: ALBUMIN 3.6 G/DL (3.2-5.2); ALKALINE PHOSPHATASE 89 U/L (46-116); ALT/SGPT 27 U/L (7.0-40); AST/SGOT < 8 U/L (<34); BILIRUBIN,DIRECT 0.3 MG/DL (<0.4); BILIRUBIN,TOTAL 0.7 MG/DL (0.3-1.2); BLOOD UREA NITROGEN 27 MG/DL (9-23); CALCIUM LEVEL 10.1 MG/DL (8.3-10.6); CARBON DIOXIDE LEVEL 26 MMOL/L (20-31); CHLORIDE LEVEL 113 MMOL/L (98-107); CREATININE FOR GFR 2.36 MG/DL (0.70-1.30); GLUCOSE, FASTING 109 MG/DL (74-106); POTASSIUM SERUM 4.5 MMOL/L (3.5-5.1); SALICYLATE LEVEL < 3.0 MG/DL (<30); SODIUM LEVEL 145 MMOL/L (136-145); TOTAL PROTEIN 6.4 G/DL (5.7-8.2)
[2024-03-12 11:45] LABS: THYROID STIMULATING HORMONE 2.397 uIU/ML (0.55-4.78)
[2024-03-12] MEDS: LORazepam 2 MG/ML 1ML VIAL IV STA ×2 (12:07→16:30)
[2024-03-12 12:16] LABS: LITHIUM LEVEL 0.71 MMOL/L (1.0-1.20)
[2024-03-12] MEDS: LIDOCAINE 2% 5ML JELLY UROJET TOP ONE (12:20)
[2024-03-12 12:48] LABS: APPEARANCE, URINE CLEAR (CLEAR); BACTERIA, URINE AUTO NEGATIVE (NEGATIVE); BILIRUBIN, URINE AUTO NEGATIVE (NEGATIVE); BLOOD, URINE BLOOD 2+ (NEGATIVE); COLOR, URINE YELLOW (YELLOW); GLUCOSE, URINE (UA) AUTO NEGATIVE (NEGATIVE); KETONE, URINE AUTO NEGATIVE (NEGATIVE); LEUKOCYTE ESTERASE, URINE AUTO NEGATIVE (NEGATIVE); NITRITE, URINE AUTO NEGATIVE (NEGATIVE); PROTEIN, URINE AUTO 2+ mg/dL (NEGATIVE); RBC, URINE AUTO 0 /HPF (0-3); SPECIFIC GRAVITY URINE AUTO 1.005 (1.002-1.035); SQUAMOUS EPITHELIAL CELL UR AU 0 /HPF (0-6); UROBILINOGEN, URINE AUTO 0.2 mg/dL (0.0-2.0); WBC, URINE AUTO 0 /HPF (0-3)
[2024-03-12 13:07] LABS: AMPHETAMINES LEVEL URINE NEGATIVE (NEGATIVE); BARBITURATES URINE NEGATIVE (NEGATIVE); BENZODIAZEPINES URINE NEGATIVE (NEGATIVE); CANNABINOIDS URINE NEGATIVE (NEGATIVE); COCAINE METABOLITE URINE NEGATIVE (NEGATIVE); METHADONE URINE NEGATIVE (NEGATIVE); OPIATES URINE NEGATIVE (NEGATIVE); PHENCYCLIDINE URINE NEGATIVE (NEGATIVE)
[2024-03-12] MEDS ORDERED: AMIL5TAB4 PO (16:41)
[2024-03-12] MEDS ORDERED: HOME MED LIST COMPLETE! XX SCH (16:45)
[2024-03-12] MEDS: LITHIUM CARBONATE 300 MG CAP PO SCH (21:00)
[2024-03-12] MEDS ORDERED: QUEtiapine FUMARATE 100 MG TAB PO SCH (21:00)
[2024-03-12] MEDS: QUEtiapine FUMARATE 100 MG TAB PO SCH (21:00)
[2024-03-12] MEDS ORDERED: propylthiouraciL 50 MG TAB PO SCH (21:00)
[2024-03-13] MEDS: DONEPEZIL 5 MG TAB PO SCH (02:02)
[2024-03-13] MEDS: ROSUVASTATIN 10 MG TAB (CRESTOR) PO SCH (02:03)
[2024-03-13] MEDS: CYANOCOBALAMIN 500 MCG TAB PO SCH (08:57)
[2024-03-13] MEDS: TAMSULOSIN 0.4 MG CAP PO SCH (08:57)
[2024-03-13] MEDS: VITAMIN D 1,000 INTERNATIONAL UNITS TABLET PO SCH (08:57)
[2024-03-13] MEDS: EZETIMIBE 10MG TABLET (ZETIA) PO SCH (09:00)
[2024-03-13] MEDS: aMILoride 5 MG TAB PO SCH (09:00)
[2024-03-13] MEDS: FEBUXOSTAT 40 MG TABLET (ULORIC) PO SCH (09:00)
[2024-03-13] MEDS: propylthiouraciL 50 MG TAB PO SCH (09:00)
[2024-03-15 13:07] VITALS: BP 119/75; TEMP 97.6; O2SAT 79
== END 2024-03-15 13:12 | disposition home or self-care (01) ==
LOC: M ED 10:50
DX: F31.9 Bipolar disorder, unspecified (principal); F29 Unspecified psychosis not due to a substance or known physiological condition; N39.0 Urinary tract infection, site not specified; I48.91 Unspecified atrial fibrillation; I10 Essential (primary) hypertension; E78.5 Hyperlipidemia, unspecified; E05.00 Thyrotoxicosis with diffuse goiter without thyrotoxic crisis or storm; G47.33 Obstructive sleep apnea (adult) (pediatric); N40.0 Benign prostatic hyperplasia without lower urinary tract symptoms; F10.10 Alcohol abuse, uncomplicated; Z79.1 Long term (current) use of non-steroidal anti-inflammatories (NSAID); Z79.899 Other long term (current) drug therapy
CPT/HCPCS: 51703; 70450; 80048; 80076; 80143; 80178; 80307; 81001; 82077; 82140; 84443; 85025; 87086; 93005; 94760; 96374; 96376; 99285; J2060

== ENCOUNTER 2024-03-22 04:30 | Inpatient (IN) | payer MEDICARE, BC ==
[~2024-03-22] VITALS: Ht 177.8 cm; Wt 108.0 kg
[~2024-03-22 04:30] MED LIST changes: +AMIL5TAB4 PO
[2024-03-22] MEDS ORDERED: HALOPERIDOL LACTATE 5MG/ML VIAL As Ordered ONE (06:12)
[2024-03-22] MEDS: LIDOCAINE 2% 5ML JELLY UROJET TOP ONE ×2 (06:30→13:30)
[2024-03-22] MEDS: LORazepam 2 MG/ML 1ML VIAL IV STA (06:35)
[2024-03-22] MEDS: HALOPERIDOL LACTATE 5MG/ML VIAL IV ONE (06:36)
[2024-03-22] MEDS: HALOPERIDOL LACTATE 5MG/ML VIAL IM ONE (06:36)
[2024-03-22 07:00] LABS: VENOUS BASE EXCESS -2.5 (-2.0-2.0); VENOUS HCO3 22.1 MMOL/L (23.0-27.0); VENOUS O2 SATURATION 79.3 % (60.0-80.0); VENOUS PARTIAL PRESSURE CO2 37.8 mmHg (38.0-50.0); VENOUS PH 7.385 UNITS (7.330-7.430); VENOUS TOTAL CO2 23.3 MMOL/L (24.0-28.0)
[2024-03-22 07:12] LABS: BASO # 0.1 10^3/uL (0.0-0.2); BASO % 0.6 % (0.0-1.0); EOS # 0.3 10^3/uL (0.0-0.5); EOS % 2.7 % (0.0-3.0); HEMOGLOBIN 13.5 g/dl (13.5-17.5); LYMPH # 2.1 10^3/uL (1.5-5.0); LYMPH % 18.8 % (24.0-44.0); MEAN CORPUSCULAR HEMOGLOBIN 29.2 pg (27.0-33.0); MEAN CORPUSCULAR HGB CONC 31.4 g/dl (32.0-36.5); MEAN CORPUSCULAR VOLUME 92.9 fl (80.0-96.0); MONO # 1.2 10^3/uL (0.0-0.8); MONO % 10.5 % (2.0-8.0); NEUTROPHILS # 7.4 10^3/uL (1.5-8.5); PLATELET COUNT, AUTOMATED 193 10^3/uL (150-450); RED BLOOD COUNT 4.63 10^6/uL (4.30-6.10); WHITE BLOOD COUNT 11.1 10^3/uL (4.0-10.0)
[2024-03-22 07:18] LABS: AMPHETAMINES LEVEL URINE NEGATIVE (NEGATIVE); BARBITURATES URINE NEGATIVE (NEGATIVE); BENZODIAZEPINES URINE NEGATIVE (NEGATIVE); CANNABINOIDS URINE NEGATIVE (NEGATIVE); COCAINE METABOLITE URINE NEGATIVE (NEGATIVE); METHADONE URINE NEGATIVE (NEGATIVE); OPIATES URINE NEGATIVE (NEGATIVE); PHENCYCLIDINE URINE NEGATIVE (NEGATIVE)
[2024-03-22 07:33] LABS: ETHYL ALCOHOL (ETHANOL) < 0.003 % (0.000-0.010)
[2024-03-22 07:35] LABS: SALICYLATE LEVEL < 3.0 MG/DL (<30)
[2024-03-22 07:37] LABS: THYROID STIMULATING HORMONE 3.427 uIU/ML (0.55-4.78)
[2024-03-22 07:40] LABS: ALBUMIN 3.2 G/DL (3.2-5.2); ALKALINE PHOSPHATASE 79 U/L (46-116); ALT/SGPT 27 U/L (7.0-40); AST/SGOT 12 U/L (<34); BILIRUBIN,DIRECT 0.1 MG/DL (<0.4); BILIRUBIN,TOTAL 0.4 MG/DL (0.3-1.2); BLOOD UREA NITROGEN 30 MG/DL (9-23); CALCIUM LEVEL 9.3 MG/DL (8.3-10.6); CARBON DIOXIDE LEVEL 25 MMOL/L (20-31); CHLORIDE LEVEL 111 MMOL/L (98-107); CREATININE FOR GFR 2.14 MG/DL (0.70-1.30); GLOMERULAR FILTRATION RATE 32.5 (>42); GLUCOSE, FASTING 110 MG/DL (74-106); POTASSIUM SERUM 4.2 MMOL/L (3.5-5.1); SODIUM LEVEL 144 MMOL/L (136-145); TOTAL PROTEIN 5.9 G/DL (5.7-8.2)
[2024-03-22] MEDS: NS 1,000 ML IV ONE (08:30)
[2024-03-22] MEDS ORDERED: HOME MED LIST COMPLETE! XX SCH (13:35)
[2024-03-22] MEDS ORDERED: MOM 30ML SUSPENSION UDC PO PRN (14:30)
[2024-03-22] MEDS ORDERED: MAALOX 30 ML SUSP *UDC PO PRN (14:30)
[2024-03-22] MEDS ORDERED: NITROGLYCERIN 0.4MG SUBL TABLET SL PRN (15:05)
[2024-03-22] MEDS ORDERED: fentaNYL 100 MCG/2 ML INJECTION As Ordered ONE (15:40)
[2024-03-22] MEDS ORDERED: ISOVUE-300 61% 100ML VIAL As Ordered ONE (15:41)
[2024-03-22] MEDS ORDERED: MIDAZOLAM INJ 2MG/2ML VIAL As Ordered ONE (15:41)
[2024-03-22] MEDS ORDERED: LIDOCAINE 1% MDV 20ML VIAL As Ordered ONE (15:41)
[2024-03-22 18:26] LABS: INR 1.02; PARTIAL THROMBOPLASTIN TIME 29.4 SECONDS (24.8-34.2); PROTHROMBIN TIME 13.1 SECONDS (12.5-14.5)
[2024-03-22 18:30] VITALS: BP 148/90; TEMP 97.2; O2SAT 100
[2024-03-22 19:54] VITALS: BP 140/73; TEMP 97.1; O2SAT 98
[2024-03-22] MEDS ORDERED: DONEPEZIL 5 MG TAB PO SCH (21:00)
[2024-03-22] MEDS ORDERED: QUEtiapine FUMARATE 200 MG TAB PO SCH (21:00)
[2024-03-22] MEDS: DOCUSATE SODIUM 100MG CAPSULE PO SCH (21:19)
[2024-03-22] MEDS: LITHIUM CARBONATE 300 MG CAP PO SCH (21:19)
[2024-03-22] MEDS: propylthiouraciL 50 MG TAB PO SCH (21:19)
[2024-03-22] MEDS: ACETAMINOPHEN TAB 650MG DOSE (2X325MG) PO PRN (21:19)
[2024-03-22] MEDS: SENOKOT S TAB PO SCH (21:19)
[2024-03-22] MEDS: ROSUVASTATIN 10 MG TAB (CRESTOR) PO SCH (21:19)
[2024-03-22 23:26] VITALS: BP 158/92; TEMP 97; O2SAT 95
[2024-03-23] MEDS: OLANZapine INTRAMUSCULAR 10MG VIAL IM ONE ×2 (00:45→03:29)
[2024-03-23 06:07] LABS: BASO % 0.4 % (0.0-1.0); EOS # 0.3 10^3/uL (0.0-0.5); EOS % 2.7 % (0.0-3.0); HEMATOCRIT 39.4 % (42.0-52.0); HEMOGLOBIN 12.5 g/dl (13.5-17.5); LYMPH % 19.3 % (24.0-44.0); MEAN CORPUSCULAR HEMOGLOBIN 29.4 pg (27.0-33.0); MEAN CORPUSCULAR HGB CONC 31.7 g/dl (32.0-36.5); MEAN CORPUSCULAR VOLUME 92.7 fl (80.0-96.0); MONO % 9.1 % (2.0-8.0); NEUTROPHILS # 7.2 10^3/uL (1.5-8.5); NEUTROPHILS % 68.3 % (36.0-66.0); PLATELET COUNT, AUTOMATED 185 10^3/uL (150-450); RED BLOOD COUNT 4.25 10^6/uL (4.30-6.10); WHITE BLOOD COUNT 10.5 10^3/uL (4.0-10.0)
[2024-03-23 06:17] VITALS: BP 132/70
[2024-03-23 06:35] LABS: PROCALCITONIN 0.12 ng/ml
[2024-03-23 06:36] LABS: ALBUMIN 3.1 G/DL (3.2-5.2); BILIRUBIN,TOTAL 0.6 MG/DL (0.3-1.2); CALCIUM LEVEL 9.1 MG/DL (8.3-10.6); CREATININE FOR GFR 1.91 MG/DL (0.70-1.30); GLOMERULAR FILTRATION RATE 37.1 (>42); MAGNESIUM LEVEL 2.5 MG/DL (1.8-2.4); POTASSIUM SERUM 4.1 MMOL/L (3.5-5.1); TOTAL PROTEIN 5.5 G/DL (5.7-8.2)
[2024-03-23] MEDS: NS 1,000 ML IV ONE (07:57)
[2024-03-23 08:16] VITALS: TEMP 97.3
[2024-03-23] MEDS: LORazepam 2 MG/ML 1ML VIAL IV STA (08:46)
[2024-03-23] MEDS ORDERED: EZETIMIBE 10MG TABLET (ZETIA) PO SCH (09:00)
[2024-03-23] MEDS ORDERED: FEBUXOSTAT 40 MG TABLET (ULORIC) PO SCH (09:00)
[2024-03-23] MEDS ORDERED: OLANZapine INTRAMUSCULAR 10MG VIAL IM ONE (09:00)
[2024-03-23 09:19] VITALS: BP 126/92; O2SAT 98
[2024-03-23] MEDS ORDERED: GLUCAGON INJ 1MG VIAL SC PRN (11:00)
[2024-03-23] MEDS ORDERED: DEXTROSE 50% 50ML SYRINGE IV PRN (11:00)
[2024-03-23] MEDS ORDERED: GLUCOSE 4 GM CHEW PO PRN (11:00)
[2024-03-23] MEDS: D5W/0.45% SODIUM CHLORIDE 1,000 ML IV SCH (11:28)
[2024-03-23 11:35] LABS: LITHIUM LEVEL 0.32 MMOL/L (1.0-1.20)
[2024-03-23 11:45] VITALS: BP 145/76; TEMP 96.5; O2SAT 98
[2024-03-23] MEDS ORDERED: INSULIN LISPRO (NovoLOG) PER UNIT SC SCH ×2 (12:00→21:00)
[2024-03-23] MEDS: CYANOCOBALAMIN 500 MCG TAB PO SCH (12:15)
[2024-03-23] MEDS: VITAMIN D 1,000 INTERNATIONAL UNITS TABLET PO SCH (12:15)
[2024-03-23] MEDS: LORazepam 2 MG/ML 1ML VIAL IV PRN (16:46)
[2024-03-23] MEDS: TAMSULOSIN 0.4 MG CAP PO SCH (16:49)
[2024-03-23] MEDS: LORazepam 1 MG TAB PO PRN (20:04)
[2024-03-23] MEDS: DONEPEZIL 5 MG TAB PO SCH (20:05)
[2024-03-23] MEDS: OLANZapine 5 MG TAB PO SCH (20:05)
[2024-03-23] MEDS ORDERED: OLANZapine INTRAMUSCULAR 10MG VIAL IM PRN (21:05)
[2024-03-25] MEDS: OLANZapine 5 MG TAB PO SCH (14:22)
[2024-03-26] MEDS ORDERED: OLANZapine 5 MG TAB As Ordered ONE (08:56)
[2024-03-26] MEDS ORDERED: TAMSULOSIN 0.4 MG CAP As Ordered ONE (08:56)
[2024-03-26] MEDS: MORPHINE 2 MG/ML 1ML VIAL IV PRN (16:55)
[2024-03-27] MEDS: MORPHINE 10MG/0.5ML ORAL CONCENTRATE SOLUTION U/D SL PRN (14:15)
[2024-03-29] MEDS: MOM 30ML SUSPENSION UDC PO PRN (16:56)
[2024-03-30] MEDS: METAMUCIL (PSYLLIUM) PACKET PO SCH (20:06)
[2024-03-30] MEDS: MIRALAX *UNIT DOSE* 17GM PACKET PO SCH (20:06)
[2024-03-31] MEDS ORDERED: OLANZapine 2.5MG TABLET PO PRN (13:45)
[2024-03-31] MEDS: RAMELTEON 8 MG TAB (ROZEREM) PO SCH (21:25)
[2024-03-31] MEDS: NYSTATIN 100,000 UNITS/GM TOPICAL PWD 15GM TOP SCH (21:25)
[2024-04-01] MEDS ORDERED: ONDANSETRON 4MG 2ML VIAL IV PRN (13:35)
[2024-04-01] MEDS: HALOPERIDOL LACTATE 5MG/ML VIAL IM PRN (13:59)
[2024-04-01] MEDS: LORazepam 2 MG/ML 1ML VIAL IM STA (16:24)
[2024-04-02] MEDS: OLANZapine 2.5MG TABLET PO SCH (20:48)
[2024-04-04] MEDS: LORazepam 2 MG TAB PO PRN (17:21)
[2024-04-10] MEDS: SCOPOLAMINE 1MG TRANSDERMAL PATCH TOP SCH (14:42)
[2024-04-11] MEDS: MORPHINE 10MG/0.5ML ORAL CONCENTRATE SOLUTION U/D SL PRN (20:28)
[2024-04-12] MEDS: HYOSCYAMINE SULFATE 0.125 MG SUBL TABLET PO PRN (04:23)
[2024-04-12] MEDS: ATROPINE SULFATE 1% OPHTH SOLN 2ML BTL SL PRN (04:24)
[2024-04-13] MEDS ORDERED: NYSTATIN 100,000 UNITS/GM TOPICAL PWD 15GM TOP PRN (07:40)
[2024-04-13] MEDS: MORPHINE 10MG/0.5ML ORAL CONCENTRATE SOLUTION U/D SL PRN (14:04)
[2024-04-13] MEDS: LORazepam 2 MG TAB PO PRN (16:47)
[2024-04-13] MEDS ORDERED: PILL CUTTER 1 EACH XX ONE (17:45)
== END 2024-04-13 23:55 | disposition expired | DRG 726 ==
LOC: M ED 04:30 → M ED INP 04:31 → M PCU 18:30 → OBSVTOIN 03-23 15:09 → M MSPAV 03-23 18:11
PROVIDERS: ADMIT Internal Medicine; ATTEND General Practice
PROC: 06H03DZ Insertion of Intraluminal Device into Inferior Vena Cava, Percutaneous Approach (ICD-10-PCS; principal; 2024-03-22 16:00)
DX: N40.1 Benign prostatic hyperplasia with lower urinary tract symptoms (principal); I44.2 Atrioventricular block, complete; E46 Unspecified protein-calorie malnutrition; E87.20 Acidosis, unspecified; E87.0 Hyperosmolality and hypernatremia; I82.432 Acute embolism and thrombosis of left popliteal vein; I82.812 Embolism and thrombosis of superficial veins of left lower extremity; F03.C11 Unspecified dementia, severe, with agitation; D68.32 Hemorrhagic disorder due to extrinsic circulating anticoagulants; M86.9 Osteomyelitis, unspecified; I12.9 Hypertensive chronic kidney disease with stage 1 through stage 4 chronic kidney disease, or unspecified chronic kidney disease; I48.0 Paroxysmal atrial fibrillation; E78.5 Hyperlipidemia, unspecified; G47.33 Obstructive sleep apnea (adult) (pediatric); E05.00 Thyrotoxicosis with diffuse goiter without thyrotoxic crisis or storm; N18.30 Chronic kidney disease, stage 3 unspecified; M10.9 Gout, unspecified; Z51.5 Encounter for palliative care; Z66 Do not resuscitate; F31.9 Bipolar disorder, unspecified; E66.9 Obesity, unspecified; R57.1 Hypovolemic shock; E29.1 Testicular hypofunction; N52.9 Male erectile dysfunction, unspecified; I87.2 Venous insufficiency (chronic) (peripheral); M47.816 Spondylosis without myelopathy or radiculopathy, lumbar region; R26.89 Other abnormalities of gait and mobility; R29.6 Repeated falls; K21.9 Gastro-esophageal reflux disease without esophagitis; R31.9 Hematuria, unspecified; R94.31 Abnormal electrocardiogram [ECG] [EKG]; R41.0 Disorientation, unspecified; R63.4 Abnormal weight loss; M19.90 Unspecified osteoarthritis, unspecified site; E86.0 Dehydration; Z98.1 Arthrodesis status; Z95.828 Presence of other vascular implants and grafts; Z74.1 Need for assistance with personal care; Z95.0 Presence of cardiac pacemaker; Z86.718 Personal history of other venous thrombosis and embolism; Z86.010 Personal history of colon polyps; Z87.891 Personal history of nicotine dependence; Z79.01 Long term (current) use of anticoagulants; Z79.899 Other long term (current) drug therapy; Z68.34 Body mass index [BMI] 34.0-34.9, adult; I44.30 Unspecified atrioventricular block; R31.0 Gross hematuria; R53.81 Other malaise; R62.7 Adult failure to thrive; G89.29 Other chronic pain; M54.9 Dorsalgia, unspecified